=== PATIENT | male | born 1945 | race Caucasian/White ===

== ENCOUNTER 2016-11-16 08:54 | Emergency (ER) | payer MEDICARE, BC ==
[2016-11-16] MEDS ORDERED: SODIUM CHLORIDE 0.9% 1,000 ML IV STA (09:11)
--- NOTE | 2016-11-16 09:13 | ED ---
Nausea/Vomiting/Diarrhea HPI - General Chief complaint: Nausea/Vomiting/Diarrhea Stated complaint: Chest pain/dehydration Time Seen by Provider: 11/16/16 09:05 Source: patient, RN notes reviewed Mode of arrival: ambulatory Limitations: no limitations - History of Present Illness Initial comments: This a 71-year-old male presents emergency Department with multiple complaints. Patient states that yesterday's had nausea vomiting diarrhea. Patient states that he said 3 episodes of left-sided chest pain that radiates down his left arm. Patient states it sharp pain. Patient states it feels different than when he and his heart attack in which she states it was dull at that time. Patient states his last episode was a few hours ago. Patient states she does have cardiac stent. Patient does take aspirin. Patient states his [place], stent was across her 6 or 7 years ago. Patient states he has not had any sick contacts. Patient states that he feels nauseated this time he hasn't vomited in a few hours and he has had no diarrhea a few hours. Patient denies any shortness of breath. Denies any diaphoretic episodes. Patient is a former smoker has a history of hypertension, hyperlipidemia, diabetes - Related Data Home Medications Medication Instructions Recorded Confirmed Aspirin 325 mg PO DAILY 02/05/14 11/16/16 Gabapentin 1,200 mg PO HS 02/05/14 11/16/16 Insulin Glargine [Lantus] 48 unit SQ HS 02/05/14 11/16/16 Nitroglycerin Sl Tabs [Nitrostat] 0.4 mg SUBLINGUAL Q5M PRN 02/05/14 11/16/16 Omeprazole [PriLOSEC] 20 mg PO DAILY 02/05/14 11/16/16 Simvastatin [Zocor] 40 mg PO HS 02/05/14 11/16/16 Insulin Aspart [NovoLOG] 12 unit SQ AC-TID 05/01/14 11/16/16 Gabapentin 600 mg PO DAILY 06/20/15 11/16/16 amLODIPine [Norvasc] 5 mg PO DAILY 06/20/15 11/16/16 Allergies Allergy/AdvReac Type Severity Reaction Status Date / Time No Known Allergies Allergy Verified 11/16/16 09:09 Review of Systems ROS Statement: Those systems with pertinent positive or pertinent negative responses have been documented in the HPI. ROS Other: All systems not noted in ROS Statement are negative. Past Medical History Past Medical History: Coronary Artery Disease (CAD), Cancer, Chest Pain / Angina , Diabetes Mellitus, GERD/Reflux, Hearing Disorder / Deafness, Hyperlipidemia, Hypertension, Myocardial Infarction ([place]), Renal Disease Additional Past Medical History / Comment(s): 06-20-15 ADM MPH W/ POSS SBO, DIARRHEA, DEHYDRATION. BRONCHITIS. SKIN CANCER 2006. Last Myocardial Infarction Date:: 2010 History of Any Multi-Drug Resistant Organisms: None Reported Past Surgical History: Appendectomy, Bowel Resection, Heart Catheterization With Stent, Orthopedic Surgery, Tonsillectomy Additional Past Surgical History / Comment(s): W/ COLONOSCOPY IN PAST/ PERFORATED BOWEL/BOWEL RESECTION DONE. PTCA W/ STENT IN 2010. LT KNEE ARTHROSCOPY. SKIN CANCER REMOVED. cataract removal Past Anesthesia/Blood Transfusion Reactions: No Reported Reaction Date of Last Stent Placement:: 2010 Past Psychological History: No Psychological Hx Reported Smoking Status: Former smoker Past Alcohol Use History: Rare Additional Past Alcohol Use History / Comment(s): SMOKED >30 YEARS, QUIT 1983 SMOKED 1 PPD Past Drug Use History: None Reported - Past Family History Father Family Medical History: Hypertension Additional Family Medical History / Comment(s): DAD IS TILL ALIVE AT AGE 98 HAS SOME MINOR HEART PROBLEMS Mother History Unknown: Yes Family Medical History: No Reported History General Exam Limitations: no limitations General appearance: alert, in no apparent distress Head exam: Present: atraumatic, normocephalic, normal inspection Respiratory exam: Present: normal lung sounds bilaterally. Absent: respiratory distress, wheezes, rales, rhonchi, stridor Cardiovascular Exam: Present: regular rate, normal rhythm, normal heart sounds. Absent: systolic murmur, diastolic murmur, rubs, gallop, clicks GI/Abdominal exam: Present: soft, normal bowel sounds. Absent: distended, tenderness, guarding, rebound, rigid Neurological exam: Present: alert, oriented X3, CN II-XII intact, reflexes normal. Absent: motor sensory deficit Skin exam: Present: warm, dry, intact, normal color. Absent: rash Course Vital Signs 11/16/16 11/16/16 08:55 09:48 Temperature 98 F 97.2 F L Pulse Rate 100 86 Respiratory 20 16 Rate Blood Pressure 118/73 137/65 O2 Sat by Pulse 96 97 Oximetry Medical Decision Making - Medical Decision Making 71-year-old male present emergency department for nausea vomiting diarrhea just comfort. Patient's lab work all within normal limits. Patient's EKG unchanged. Patient states she does feel much improved at this time. I did encourage the patient and advised that he needs [facility] repeat troponin, cardiac evaluation. Patient states that he does not want to stay in refuses admission. Patient does understand the risk at this time. - Lab Data Result diagrams: 11/16/16 09:07 11/16/16 09:07 Lab Results 11/16/16 11/16/16 11/16/16 Range/Units 09:07 09:07 09:07 WBC 7.7 (3.8-10.6) k/uL RBC 5.01 (4.30-5.90) m/uL Hgb 13.7 (13.0-17.5) gm/dL Hct 42.1 (39.0-53.0) % MCV 84.0 (80.0-100.0) fL MCH 27.3 (25.0-35.0) pg MCHC 32.5 (31.0-37.0) g/dL RDW 15.0 (11.5-15.5) % Plt Count 285 (150-450) k/uL Neutrophils % 66 % Lymphocytes % 23 % Monocytes % 6 % Eosinophils % 1 % Basophils % 1 % Neutrophils # 5.1 (1.3-7.7) k/uL Lymphocytes # 1.7 (1.0-4.8) k/uL Monocytes # 0.5 (0-1.0) k/uL Eosinophils # 0.1 (0-0.7) k/uL Basophils # 0.0 (0-0.2) k/uL PT 10.7 (9.0-12.0) sec INR 1.1 (<1.1) APTT 23.4 (22.0-30.0) sec Sodium 139 (137-145) mmol/L Potassium 5.0 (3.5-5.1) mmol/L Chloride 101 (98-107) mmol/L Carbon Dioxide 22 (22-30) mmol/L Anion Gap 16 mmol/L BUN 27 H (9-20) mg/dL Creatinine 1.58 H (0.66-1.25) mg/dL Est GFR (MDRD) Af Amer 52 (>60 ml/min/1.73 sqM) Est GFR (MDRD) Non-Af 43 (>60 ml/min/1.73 sqM) Glucose 216 H (74-99) mg/dL Calcium 9.6 (8.4-10.2) mg/dL Magnesium 1.5 L (1.6-2.3) mg/dL Total Bilirubin 1.0 (0.2-1.3) mg/dL AST 21 (17-59) U/L ALT 25 (21-72) U/L Alkaline Phosphatase 87 (38-126) U/L Troponin I (0.000-0.034) ng/mL Total Protein 7.9 (6.3-8.2) g/dL Albumin 4.4 (3.5-5.0) g/dL Amylase 38 (30-110) U/L Lipase 40 (23-300) U/L Urine Color Urine Appearance (Clear) Urine pH (5.0-8.0) Ur Specific [place] (1.001-1.035) Urine Protein (Negative) Urine Glucose (UA) (Negative) Urine Ketones (Negative) Urine Blood (Negative) Urine Nitrate (Negative) Urine Bilirubin (Negative) Urine Urobilinogen (<2.0) mg/dL Ur Leukocyte Esterase (Negative) Urine RBC (0-5) /hpf Urine WBC (0-5) /hpf Ur Squamous Epith Cells (0-4) /hpf Hyaline Casts (0-2) /lpf Urine Mucus (None) /hpf 11/16/16 11/16/16 Range/Units 09:07 09:15 WBC (3.8-10.6) k/uL RBC (4.30-5.90) m/uL Hgb (13.0-17.5) gm/dL Hct (39.0-53.0) % MCV (80.0-100.0) fL MCH (25.0-35.0) pg MCHC (31.0-37.0) g/dL RDW (11.5-15.5) % Plt Count (150-450) k/uL Neutrophils % % Lymphocytes % % Monocytes % % Eosinophils % % Basophils % % Neutrophils # (1.3-7.7) k/uL Lymphocytes # (1.0-4.8) k/uL Monocytes # (0-1.0) k/uL Eosinophils # (0-0.7) k/uL Basophils # (0-0.2) k/uL PT (9.0-12.0) sec INR (<1.1) APTT (22.0-30.0) sec Sodium (137-145) mmol/L Potassium (3.5-5.1) mmol/L Chloride (98-107) mmol/L Carbon Dioxide (22-30) mmol/L Anion Gap mmol/L BUN (9-20) mg/dL Creatinine (0.66-1.25) mg/dL Est GFR (MDRD) Af Amer (>60 ml/min/1.73 sqM) Est GFR (MDRD) Non-Af (>60 ml/min/1.73 sqM) Glucose (74-99) mg/dL Calcium (8.4-10.2) mg/dL Magnesium (1.6-2.3) mg/dL Total Bilirubin (0.2-1.3) mg/dL AST (17-59) U/L ALT (21-72) U/L Alkaline Phosphatase (38-126) U/L Troponin I <0.012 (0.000-0.034) ng/mL Total Protein (6.3-8.2) g/dL Albumin (3.5-5.0) g/dL Amylase (30-110) U/L Lipase (23-300) U/L Urine Color Yellow Urine Appearance Clear (Clear) Urine pH 5.0 (5.0-8.0) Ur Specific [place] 1.015 (1.001-1.035) Urine Protein 1+ H (Negative) Urine Glucose (UA) Negative (Negative) Urine Ketones Negative (Negative) Urine Blood Negative (Negative) Urine Nitrate Negative (Negative) Urine Bilirubin Negative (Negative) Urine Urobilinogen <2.0 (<2.0) mg/dL Ur Leukocyte Esterase Negative (Negative) Urine RBC <1 (0-5) /hpf Urine WBC 2 (0-5) /hpf Ur Squamous Epith Cells <1 (0-4) /hpf Hyaline Casts 5 H (0-2) /lpf Urine Mucus Occasional H (None) /hpf 11/16/16 10:40 EKG performed at 9:12 normal sinus rhythm rate of 97, MD interval 164, QRS duration 100 QT/QTC 352/447 Disposition Clinical Impression: Gastroenteritis, Chest pain Disposition: HOME SELF-CARE Condition: Stable Instructions: Gastroenteritis (ED) Additional Instructions: Please return to the Emergency Department if symptoms worsen or any other concerns. Time of Disposition: 10:40
[2016-11-16 09:27] LABS: Basophils % (A) 1 %; CH 27.3; CHCM 32.7; Eosinophils # (A) 0.1 k/uL (0-0.7); Eosinophils % (A) 1 %; HCT 42.1 % (39.0-53.0); HDW 2.84; HGB 13.7 gm/dL (13.0-17.5); Luc % (Auto) 4; Lymphocytes # (A) 1.7 k/uL (1.0-4.8); Lymphocytes % (A) 23 %; MCH 27.3 pg (25.0-35.0); MCHC 32.5 g/dL (31.0-37.0); Mean Platelet Volume 7.1; Monocytes # (A) 0.5 k/uL (0-1.0); Monocytes % (A) 6 %; Neutrophils # (A) 5.1 k/uL (1.3-7.7); Neutrophils % (A) 66 %; RBC 5.01 m/uL (4.30-5.90); WBC 7.7 k/uL (3.8-10.6); WBC (Perox) 7.79
--- NOTE | 2016-11-16 09:33 | XR ---
EXAMINATION TYPE: XR chest 2V DATE OF EXAM: 11/16/2016 9:29 AM COMPARISON: 06/20/2015 TECHNIQUE: PA and lateral views submitted. HISTORY: Shortness of breath FINDINGS: The heart size is stable. Subsegmental changes at the left lung base. No pleural effusion or pneumoth orax. Few prominent small bowel loops are seen in the abdomen. Hypertrophic change of the AC joint. H ypertrophic change of the spine with degenerative disc disease. IMPRESSION: 1. Left basilar atelectasis or early infiltrate. 2. Few prominent bowel loops are seen in the upper abdomen which is nonspecific.
[2016-11-16 09:37] LABS: INR 1.1 (<1.1); Partial Thromboplastin Time 23.4 sec (22.0-30.0); Prothrombin Time 10.7 sec (9.0-12.0)
[2016-11-16 09:44] LABS: Calcium 9.6 mg/dL (8.4-10.2); Magnesium 1.5 mg/dL (1.6-2.3); Total Protein 7.9 g/dL (6.3-8.2)
[2016-11-16 09:54] VITALS: RESP 16
[2016-11-16 10:03] LABS: Appearance,Urine Clear (Clear); Bilirubin,Urine Negative (Negative); Glucose,Urine (UA) Negative (Negative); Ketones,Urine Negative (Negative); Leukocyte Esterase,Urine Negative (Negative); Mucus,Urine Occasional /hpf; Nitrite,Urine Negative (Negative); Particle Count 6462; Protein,Urine 1+ (Negative); RBC,Urine <1 /hpf (0-5); Specific Gravity,Urine 1.015 (1.001-1.035); Squamous Epithelial Cell,Urine <1 /hpf (0-4); UA Billing (MACRO vs. MICRO) MICRO; Urobilinogen,Urine <2.0 mg/dL (<2.0); WBC,Urine 2 /hpf (0-5)
[2016-11-16 11:14] VITALS: BP 121/64; PULSE 77; TEMP 97.7
== END 2016-11-16 11:11 | disposition home or self-care (01) ==
LOC: EC 08:54
DX: K52.9 Noninfective gastroenteritis and colitis, unspecified (principal); R07.9 Chest pain, unspecified; Z79.82 Long term (current) use of aspirin; Z95.5 Presence of coronary angioplasty implant and graft; I25.2 Old myocardial infarction; Z87.891 Personal history of nicotine dependence; E11.9 Type 2 diabetes mellitus without complications; Z79.4 Long term (current) use of insulin; K21.9 Gastro-esophageal reflux disease without esophagitis; Z79.899 Other long term (current) drug therapy; I10 Essential (primary) hypertension; E78.5 Hyperlipidemia, unspecified
CPT/HCPCS: 36415; 71020; 80053; 81001; 82150; 83690; 83735; 84484; 85025; 85610; 85730; 93005; 96360; 99284

== ENCOUNTER → 2017-03-01 | Outpatient (CLI) | payer MEDICARE, BC ==
[2017-03-01 07:58] LABS: ALT 31 U/L (21-72); AST 28 U/L (17-59); Alkaline Phosphatase 81 U/L (38-126); Anion Gap 12 mmol/L; Blood Urea Nitrogen 21 mg/dL (9-20); Calcium 9.7 mg/dL (8.4-10.2); Carbon Dioxide 24 mmol/L (22-30); Chloride 107 mmol/L (98-107); Cholesterol 129 mg/dL (<200); Glucose 139 mg/dL (74-99); HDL Cholesterol 39 mg/dL (40-60); Non-African American GFR(MDRD) 54 (>60 ml/min/1.73 sqM); Potassium 4.8 mmol/L (3.5-5.1); Sodium 143 mmol/L (137-145); Total Bilirubin 0.8 mg/dL (0.2-1.3); Triglycerides 157 mg/dL (<150)
== END | disposition home or self-care (01) ==
LOC: LABWHC1 06:52
PROVIDERS: ATTEND Internal Medicine Endocrinology, Diabetes & Metabolism
DX: E11.65 Type 2 diabetes mellitus with hyperglycemia (principal)
CPT/HCPCS: 36415; 80053; 80061; 82043; 83036; 84443

== ENCOUNTER 2017-06-01 05:29 | Emergency (ER) | payer MEDICARE, BC ==
[2017-06-01 05:37] VITALS: RESP 18
[2017-06-01] MEDS ORDERED: SODIUM CHLORIDE 0.9% 500 ML IV STA (05:51)
[2017-06-01] MEDS ORDERED: SODIUM CHLORIDE 0.9% 1,000 ML IV STA ×2 (05:51→06:24)
[2017-06-01] MEDS ORDERED: ONDANSETRON 4 MG/2 ML VIAL IVP STA (05:51)
[2017-06-01] MEDS ORDERED: FAMOTIDINE 20 MG/2 ML VIAL IV STA (05:51)
--- NOTE | 2017-06-01 05:53 | ED ---
General Adult HPI - General Chief complaint: Nausea/Vomiting/Diarrhea Stated complaint: Dehydration Time Seen by Provider: 06/01/17 05:41 Source: patient, RN notes reviewed Mode of arrival: EMS Limitations: no limitations - History of Present Illness Initial comments: Patient is a pleasant 71-year-old male presenting to the emergency department with concerns for dehydration. Patient complains of diarrhea since yesterday. Patient states he has had a proximal he 5 episodes. Patient has a mild ache in his stomach however states no pain. Patient has had some mild nausea. Patient is drinking fluids. Patient states he has had this similar problem several times previously and just needed a little bit of fluids. Patient does not feel he would need to be admitted and would like to go home after some fluids. Patient should be sent symptoms to previous partial bowel resection. No fevers. No vomiting. - Related Data Home Medications Medication Instructions Recorded Confirmed Aspirin 325 mg PO DAILY 02/05/14 11/16/16 Gabapentin 1,200 mg PO HS 02/05/14 11/16/16 Insulin Glargine [Lantus] 48 unit SQ HS 02/05/14 11/16/16 Nitroglycerin Sl Tabs [Nitrostat] 0.4 mg SUBLINGUAL Q5M PRN 02/05/14 11/16/16 Omeprazole [PriLOSEC] 20 mg PO DAILY 02/05/14 11/16/16 Simvastatin [Zocor] 40 mg PO HS 02/05/14 11/16/16 Insulin Aspart [NovoLOG] 12 unit SQ AC-TID 05/01/14 11/16/16 Gabapentin 600 mg PO DAILY 06/20/15 11/16/16 amLODIPine [Norvasc] 5 mg PO DAILY 06/20/15 11/16/16 Allergies Allergy/AdvReac Type Severity Reaction Status Date / Time No Known Allergies Allergy Verified 11/16/16 09:09 Review of Systems ROS Statement: Those systems with pertinent positive or pertinent negative responses have been documented in the HPI. ROS Other: All systems not noted in ROS Statement are negative. Constitutional: Denies: fever Eyes: Denies: eye pain ENT: Denies: ear pain Respiratory: Denies: cough Cardiovascular: Denies: chest pain Endocrine: Denies: fatigue Gastrointestinal: Reports: nausea, diarrhea. Denies: vomiting Genitourinary: Denies: urgency Musculoskeletal: Denies: back pain Skin: Denies: rash Neurological: Denies: weakness Past Medical History Past Medical History: Coronary Artery Disease (CAD), Cancer, Chest Pain / Angina , Diabetes Mellitus, GERD/Reflux, Hearing Disorder / Deafness, Hyperlipidemia, Hypertension, Myocardial Infarction ([place]), Renal Disease Additional Past Medical History / Comment(s): 06-20-15 ADM MPH W/ POSS SBO, DIARRHEA, DEHYDRATION. BRONCHITIS. SKIN CANCER 2006. Last Myocardial Infarction Date:: 2010 History of Any Multi-Drug Resistant Organisms: None Reported Past Surgical History: Appendectomy, Bowel Resection, Heart Catheterization With Stent, Orthopedic Surgery, Tonsillectomy Additional Past Surgical History / Comment(s): W/ COLONOSCOPY IN PAST/ PERFORATED BOWEL/BOWEL RESECTION DONE. PTCA W/ STENT IN 2010. LT KNEE ARTHROSCOPY. SKIN CANCER REMOVED. cataract removal Past Anesthesia/Blood Transfusion Reactions: No Reported Reaction Date of Last Stent Placement:: 2010 Past Psychological History: No Psychological Hx Reported Smoking Status: Former smoker Past Alcohol Use History: Rare Past Drug Use History: None Reported - Past Family History Father Family Medical History: Hypertension Additional Family Medical History / Comment(s): DAD IS TILL ALIVE AT AGE 98 HAS SOME MINOR HEART PROBLEMS Mother History Unknown: Yes Family Medical History: No Reported History General Exam Limitations: no limitations General appearance: alert, in no apparent distress Head exam: Present: atraumatic Eye exam: Present: normal appearance, PERRL ENT exam: Present: normal oropharynx Neck exam: Present: normal inspection Respiratory exam: Present: normal lung sounds bilaterally Cardiovascular Exam: Present: regular rate, normal rhythm Expanded Peripheral pulses: 2+: Dorsalis Pedis (R), Dorsalis Pedis (L) GI/Abdominal exam: Present: soft, normal bowel sounds. Absent: distended, tenderness, guarding, rebound, rigid, pulsatile mass Extremities exam: Present: normal inspection Neurological exam: Present: alert Psychiatric exam: Present: normal affect, normal mood Skin exam: Present: normal color Course Vital Signs 06/01/17 05:34 Temperature 98.1 F Pulse Rate 91 Respiratory 18 Rate Blood Pressure 117/61 O2 Sat by Pulse 96 Oximetry Medical Decision Making - Medical Decision Making Patient reevaluated and resting comfortably in bed. Patient feels better and is comfortable with discharge. There is slight elevation of creatinine and patient will be provided some fluids prior to discharge. Patient is advised to follow-up with his doctor and have repeat testing. - Lab Data Result diagrams: 06/01/17 05:43 06/01/17 05:43 Lab Results 06/01/17 06/01/17 06/01/17 Range/Units 05:43 05:43 06:00 WBC 8.1 (3.8-10.6) k/uL RBC 4.70 (4.30-5.90) m/uL Hgb 12.6 L (13.0-17.5) gm/dL Hct 39.2 (39.0-53.0) % MCV 83.4 (80.0-100.0) fL MCH 26.7 (25.0-35.0) pg MCHC 32.1 (31.0-37.0) g/dL RDW 15.5 (11.5-15.5) % Plt Count 275 (150-450) k/uL Neutrophils % 72 % Lymphocytes % 19 % Monocytes % 5 % Eosinophils % 1 % Basophils % 0 % Neutrophils # 5.9 (1.3-7.7) k/uL Lymphocytes # 1.5 (1.0-4.8) k/uL Monocytes # 0.4 (0-1.0) k/uL Eosinophils # 0.1 (0-0.7) k/uL Basophils # 0.0 (0-0.2) k/uL Sodium 137 (137-145) mmol/L Potassium 4.8 (3.5-5.1) mmol/L Chloride 102 (98-107) mmol/L Carbon Dioxide 21 L (22-30) mmol/L Anion Gap 14 mmol/L BUN 32 H (9-20) mg/dL Creatinine 2.00 H (0.66-1.25) mg/dL Est GFR (MDRD) Af Amer 40 (>60 ml/min/1.73 sqM) Est GFR (MDRD) Non-Af 33 (>60 ml/min/1.73 sqM) Glucose 156 H (74-99) mg/dL Calcium 9.4 (8.4-10.2) mg/dL Total Bilirubin 0.6 (0.2-1.3) mg/dL AST 23 (17-59) U/L ALT 31 (21-72) U/L Alkaline Phosphatase 86 (38-126) U/L Total Protein 7.6 (6.3-8.2) g/dL Albumin 4.2 (3.5-5.0) g/dL Urine Color Yellow Urine Appearance Clear (Clear) Urine pH 5.0 (5.0-8.0) Ur Specific [place] 1.007 (1.001-1.035) Urine Protein Negative (Negative) Urine Glucose (UA) Negative (Negative) Urine Ketones Negative (Negative) Urine Blood Negative (Negative) Urine Nitrite Negative (Negative) Urine Bilirubin Negative (Negative) Urine Urobilinogen <2.0 (<2.0) mg/dL Ur Leukocyte Esterase Negative (Negative) Disposition Clinical Impression: Dehydration Disposition: HOME SELF-CARE Condition: Stable Instructions: Acute Diarrhea (ED), Dehydration (ED) Additional Instructions: Please follow-up to in the next day or 2 for recheck. Please have your doctor recheck your kidney function. Return for increased diarrhea, abdominal pain, fevers, vomiting, worsening symptoms or other concerns. Referrals: Jarred Scott MD [Primary Care Provider] - 1-2 days Time of Disposition: 06:35
[2017-06-01 06:06] LABS: Basophils % (A) 0 %; CH 28.1; CHCM 33.8; Eosinophils # (A) 0.1 k/uL (0-0.7); Eosinophils % (A) 1 %; HCT 39.2 % (39.0-53.0); HDW 2.71; HGB 12.6 gm/dL (13.0-17.5); Luc # (Auto) 0.16; Luc % (Auto) 2; Lymphocytes # (A) 1.5 k/uL (1.0-4.8); Lymphocytes % (A) 19 %; MCH 26.7 pg (25.0-35.0); MCHC 32.1 g/dL (31.0-37.0); MCV 83.4 fL (80.0-100.0); Mean Platelet Volume 7.5; Monocytes # (A) 0.4 k/uL (0-1.0); Monocytes % (A) 5 %; Neutrophils # (A) 5.9 k/uL (1.3-7.7); Neutrophils % (A) 72 %; RDW 15.5 % (11.5-15.5); WBC 8.1 k/uL (3.8-10.6); WBC (Perox) 8.48
[2017-06-01 06:10] LABS: Appearance,Urine Clear (Clear); Bilirubin,Urine Negative (Negative); Glucose,Urine (UA) Negative (Negative); Ketones,Urine Negative (Negative); Leukocyte Esterase,Urine Negative (Negative); Nitrite,Urine Negative (Negative); Protein,Urine Negative (Negative); Specific Gravity,Urine 1.007 (1.001-1.035); UA Billing (MACRO vs. MICRO) CHEM; Urobilinogen,Urine <2.0 mg/dL (<2.0)
[2017-06-01 06:15] LABS: Calcium 9.4 mg/dL (8.4-10.2); Potassium 4.8 mmol/L (3.5-5.1); Total Bilirubin 0.6 mg/dL (0.2-1.3); Total Protein 7.6 g/dL (6.3-8.2)
[2017-06-01 07:38] VITALS: BP 117/65; PULSE 75; TEMP 98.9
== END 2017-06-01 07:38 | disposition home or self-care (01) ==
LOC: EC 05:29
DX: E86.0 Dehydration (principal); R11.0 Nausea; R10.9 Unspecified abdominal pain; E78.5 Hyperlipidemia, unspecified; I10 Essential (primary) hypertension; I25.10 Atherosclerotic heart disease of native coronary artery without angina pectoris; E11.9 Type 2 diabetes mellitus without complications; K21.9 Gastro-esophageal reflux disease without esophagitis; I25.2 Old myocardial infarction; Z87.891 Personal history of nicotine dependence; Z79.4 Long term (current) use of insulin; Z79.82 Long term (current) use of aspirin; Z79.899 Other long term (current) drug therapy; Z85.828 Personal history of other malignant neoplasm of skin; Z86.79 Personal history of other diseases of the circulatory system; Z90.49 Acquired absence of other specified parts of digestive tract; Z98.890 Other specified postprocedural states
CPT/HCPCS: 99284; 96374; 96375; 96361 ×2; 36415; 80053; 85025; 81003; J2405

== ENCOUNTER → 2017-08-19 | Outpatient (CLI) | payer MEDICARE, BC ==
[2017-08-19 08:06] LABS: Calcium 9.4 mg/dL (8.4-10.2); Potassium 4.9 mmol/L (3.5-5.1); Total Protein 7.9 g/dL (6.3-8.2)
[2017-08-19 08:20] LABS: Total Bilirubin 0.4 mg/dL (0.2-1.3)
[2017-08-19 16:56] LABS: Urine Creatinine 49.1 mg/dL
== END | disposition home or self-care (01) ==
LOC: LABWHC1 06:55
PROVIDERS: ATTEND Internal Medicine Endocrinology, Diabetes & Metabolism
DX: E11.65 Type 2 diabetes mellitus with hyperglycemia (principal)
CPT/HCPCS: 36415; 80053; 80061; 82043; 82570; 82607; 83036; 84443

== ENCOUNTER → 2017-10-28 | Outpatient (CLI) | payer MEDICARE, BC ==
--- NOTE | 2017-10-28 16:28 | US ---
EXAMINATION TYPE: US kidneys/renal and bladder DATE OF EXAM: 10/28/2017 COMPARISON: CT 2014 CLINICAL HISTORY: N28.1 Cyst of kidney. large body of habitus EXAM MEASUREMENTS: Right Kidney: 10.3 x 4.8 x 5.1 cm Left Kidney: 9.8 x 4.7 x 5.5 cm Post Void Residual Volume: 24 mL Right Kidney: upper pole 2.2 x 6.2 x5.6 cm cyst. This appears simple. 2.4 x 2.2 x 2.2 cm, bright echo non obstructing mid 0.3 cm Left Kidney: lateral column of raoul 2.9 x 1.8 x 1.5 cm cyst. This cannot be classified as simple based on the current ultrasound., small bright echo 0.5, 1.3 x 1.3 x 2.0 cm, cyst upper pole. Bladder: wnl Bilateral Jets seen: Yes Normal Post Void Residual: Yes IMPRESSION: 1. Bilateral renal stones. 2. Bilateral renal cysts. This is simple on the right but may be complex on the left. Follow-up left renal cyst by ultrasound in 3-6 months.
== END | disposition home or self-care (01) ==
LOC: RADUSWWP 15:27
PROVIDERS: ATTEND Internal Medicine
DX: N28.1 Cyst of kidney, acquired (principal); N20.0 Calculus of kidney
CPT/HCPCS: 76770

== ENCOUNTER → 2017-11-29 | Outpatient (CLI) | payer MEDICARE, BC ==
--- NOTE | 2017-11-29 12:30 | CT ---
EXAMINATION TYPE: CT abdomen wo con DATE OF EXAM: 11/29/2017 COMPARISON: 06/20/2015 and ultrasound 10/28/2017 HISTORY: 72-year-old male although renal cyst TECHNIQUE: Contiguous axial scanning of the abdomen without IV contrast. Coronal and sagittal reconst ructions performed. CT DLP: 746 mGycm Automated exposure control for dose reduction was used. FINDINGS: Heart upper limits of normal in size without pericardial effusion. Coronary vessel calcifications are present in remarkable for coronary artery disease. Small hiatal hernia. Approximately 4 pulmonary nodules of the right base measure up to 8 mm, unchanged from 06/20/2015 comp atible with a benign etiology. No pleural effusion. Noncontrast appearance of the liver, gallbladder, adrenal glands, spleen, atrophic pancreas show no g ross abnormality. Large 5.8 cm cyst redemonstrated pole right kidney. Smaller 2.3 cm posterior mid pole cyst right kidn ey redemonstrated. Smaller hypodense lesion posterior lower pole right kidney measures 1.4 cm and is too small for accurate CT characterization. A subtle hypodensity was present in 2014 and the smaller at that time. A cyst is favored. On the left, a centrally located 2.3 cm hypodense lesion is slightly larger compared to 1.8 cm, previ ously but still suggestive of a cyst. No dilated small bowel, free fluid, or free air. Scattered prominent mesenteric lymph nodes measuring up to 1.1 cm are unchanged suggesting a chronic postinflammatory etiology. Small epigastric ventral abdominal wall hernia containing omental fat measuring 2.9 cm, axial image 3 7. Some focal soft tissue stranding in the subcutaneous fat of the mid abdomen on either side suggest ing subcutaneous injections. Suggestion of prior incisional scar. In the supraumbilical region, there is a 3.5 cm wide omental fat -containing hernia, slightly smaller compared to 3.9 cm in 2015. The anterior wall of a small bowel l oop extends across the hernia neck. No obstructive changes. Some surgical material along the mid sigmoid and also small bowel loop in the right lower quadrant fr om prior surgery. Mild to moderate atherosclerotic calcifications abdominal aorta and iliac arteries. Bones: Degenerative changes throughout the lumbar spine and endplate spondylosis visualized lower tho racic spine. IMPRESSION: 1. THE HYPOECHOIC LESION MEASURING 2.9 CM IN THE MID TO LOWER POLE LEFT KIDNEY SEEN ON THE 10/28/2017 U LTRASOUND IS NOT CLEARLY IDENTIFIED ON THIS NONCONTRAST CT. OTHER HYPODENSE LESIONS ARE PRESENT IN SANJIV TH KIDNEYS AND WERE SEEN IN 2015 SUGGESTIVE OF BENIGN CYSTS. IF THE PATIENT CANNOT RECEIVE IV CONTRAS T, THE 2.9 CM LEFT KIDNEY LESION CAN BE REASSESSED ON 3-6 MONTH FOLLOW-UP ULTRASOUND. 2. A COUPLE SMALL VENTRAL ABDOMINAL WALL HERNIAS CONTAINING FAT MEASURING UP TO 3.5 CM. THE LARGER 3. 5 CM SUPRAUMBILICAL HERNIA IS SLIGHTLY SMALLER FROM 2015 BUT NOW HAS A SMALL BOWEL HILTON HERNIA. NO OBSTRUCTIVE CHANGES. 3. LEFT BASILAR PULMONARY NODULES MEASURING UP TO 8 MM ARE STABLE FROM 2015 SUGGESTING A BENIGN ETIOL OGY. 5. SMALL HIATAL HERNIA.
== END | disposition home or self-care (01) ==
LOC: RADCTMAIN 10:44
PROVIDERS: ATTEND Urology
DX: N28.89 Other specified disorders of kidney and ureter (principal); K43.9 Ventral hernia without obstruction or gangrene; K42.9 Umbilical hernia without obstruction or gangrene; K44.9 Diaphragmatic hernia without obstruction or gangrene
CPT/HCPCS: 74150

== ENCOUNTER 2018-01-27 07:44 | Day surgery (SDC) | payer MEDICARE, BC ==
[2018-01-24 15:38] VITALS: BMI 32.7
[~2018-01-27 07:44] MED LIST: ALPRAZolam 0.25 MG TAB PO PRN; ALPRAZolam 0.5 MG TAB PO PRN; ASPIRIN 325 MG TAB PO STA; ATORVASTATIN 80 MG TAB PO STA; NITROGLYCERIN SL TABS 0.4 MG TAB SUBLINGUAL PRN; SODIUM CHLORIDE 0.9% 1,000 ML in EMPTY BAG 1 BAG IV ONE
[2018-01-27 08:16] LABS: Basophils # (A) 0.1 k/uL (0-0.2); Basophils % (A) 1 %; Eosinophils # (A) 0.2 k/uL (0-0.7); Eosinophils % (A) 3 %; HCT 36.7 % (39.0-53.0); HGB 11.9 gm/dL (13.0-17.5); Lymphocytes # (A) 2.4 k/uL (1.0-4.8); Lymphocytes % (A) 32 %; MCH 26.7 pg (25.0-35.0); MCHC 32.6 g/dL (31.0-37.0); MCV 82.1 fL (80.0-100.0); Mean Platelet Volume 7.4; Monocytes # (A) 0.5 k/uL (0-1.0); Monocytes % (A) 6 %; Neutrophils # (A) 4.2 k/uL (1.3-7.7); Neutrophils % (A) 55 %; Platelet Count 264 k/uL (150-450); RBC 4.47 m/uL (4.30-5.90); RDW 15.3 % (11.5-15.5); WBC 7.6 k/uL (3.8-10.6)
[2018-01-27 08:18] LABS: Glucose,Whole Blood 175 mg/dL (75-99)
[2018-01-27] MEDS ORDERED: SODIUM CHLORIDE 0.9% 1,000 ML IV ONE (08:20)
[2018-01-27 08:26] LABS: Calcium 9.5 mg/dL (8.4-10.2); Potassium 4.9 mmol/L (3.5-5.1)
[2018-01-27] MEDS ORDERED: VERAPAMIL 2.5 MG/ML 2 ML AMP ONE (12:11)
[2018-01-27] MEDS ORDERED: fentaNYL (PF) 50 MCG/ML 2 ML AMP ONE (12:11)
[2018-01-27] MEDS ORDERED: LIDOCAINE 2% INJ 20 MG/ML (20 ML MDV) ONE ×2 (12:11→13:42)
[2018-01-27] MEDS ORDERED: fentaNYL (PF) 50 MCG/ML 2 ML AMP IV ONE (12:34)
[2018-01-27] MEDS: LIDOCAINE 2% INJ 20 MG/ML SQ ONE ×2 (12:37→13:42)
[2018-01-27] MEDS ORDERED: VERAPAMIL SYRINGE (5 MG/10 ML) INTRAARTER ONE (12:39)
[2018-01-27] MEDS ORDERED: CLOPIDOGREL 75 MG TAB ONE (12:49)
[2018-01-27] MEDS ORDERED: BIVALIRUDIN BOLUS 250 MG/50 ML IV ONE (12:50)
[2018-01-27] MEDS ORDERED: CLOPIDOGREL 75 MG TAB PO ONE (12:52)
[2018-01-27] MEDS ORDERED: BIVALIRUDIN 250 MG in SODIUM CHLORIDE 0.9% 50 ML IV ONE ×2 (12:52→13:28)
[2018-01-27] MEDS ORDERED: IOPAMIDOL-370 125ML BTL INJ ONE (13:18)
[2018-01-27] MEDS ORDERED: IOPAMIDOL-370 100ML BTL INJ ONE ×2 (14:15→14:28)
[2018-01-27] MEDS ORDERED: HEPARIN SODIUM 1,000 UN/ML (10ML VL) ONE (14:30)
[2018-01-27] MEDS ORDERED: ZOLPIDEM 5 MG TAB PO PRN (14:44)
[2018-01-27] MEDS ORDERED: MAG HYDROX/AL HYDROX/SIMETH 30 ML CUP PO PRN (14:44)
[2018-01-27] MEDS ORDERED: ATROPINE SULFATE 0.1 MG/ML 10ML SYRINGE IV PRN (14:44)
[2018-01-27] MEDS ORDERED: RX INFO: IV CONTRAST WAS GIVEN 1 EACH MISC MISCELLANE PRN (14:44)
[2018-01-27] MEDS ORDERED: NITROGLYCERIN SL TABS 0.4 MG TAB SUBLINGUAL PRN (14:44)
[2018-01-27] MEDS ORDERED: SODIUM CHLORIDE 0.9% 1,000 ML IV SCH (14:45)
--- NOTE | 2018-01-27 15:11 | PTCA ---
PERCUTANEOUSTRANS CORORONARY ANGIOGRAPHY Mr. Varner is a 72-year-old male with a known history of coronary artery disease , who presented with progressive exertional angina pectoris. He underwent cardiac catheterization, was found to have critical stenosis involving the proximal calcified right coronary artery and recommendation was made regarding angioplasty and stenting. PROCEDURE: A 6-[place] FR4 guiding catheter was introduced in the system. After cannulating the right coronary ostium, a 0.014 advanced medium weight J-wire was advanced across the lesion and positioned distally. Then a Whisper J-wire was advanced next to the first one and positioned distally, following that, a 2.5 x 12 mm Trek balloon was advanced and two inflations at 10 atmospheres were done. The balloon was removed and attempt to advance a 2.5 x 18 mm Xience Alpine stent were unsuccessful. That stent was removed and a 2.5 x 15 mm Xience Alpine stent could not advance through the lesion. There was poor backup of the guiding catheter because of the tortuosity. At that point, and because of multiple attempts to advance the stent or advance a guidewire were unsuccessful. The guiding catheter, the balloon and the guidewire were removed and using Xylocaine anesthesia and Seldinger technique, a 6-[place] sheath was introduced into the right femoral artery. Following that, a 6-[place] FR 4 guiding catheter in the system. After cannulating the right coronary ostium, the whisper J-wire was advanced and positioned distally. Another 2 point whisper J-wire was advanced next to the first one in the bonifacio fashion and positioned distally. Following that, a 2.5 x 12 mm balloon Trek was advanced and inflation was done at 10 atmospheres. Following that, a 2.5 x 8 mm NC Trek balloon was advanced and one inflation at 10 atmospheres was done. Following that, the balloon was removed and a 2.5 x 8 mm Xience Alpine stent was deployed. It was dilated at 16 atmospheres. Following that, the balloon was removed and a GuideLiner was introduced in the system and with the help of the GuideLiner, a 2.5 x 8 mm Xience Alpine stent was advanced distal to the first one and deployed and was dilated at 16 atmospheres. After removing that balloon, another 2.5 X 8 mm Xience Alpine stent was deployed proximal to the first one at the ostium of the right coronary artery and was dilated at 16 atmospheres. Inflation overlap segment at 16 atmospheres was done. After the last inflation, after appropriate wait, the balloon and the guidewire were withdrawn back in the guiding catheter. Images were obtained and repeated. Those images revealed stable successful stenting. At that point, the guiding catheter, the balloon and the guidewire and the guidewire were removed. The sheath in the right radial artery was removed and TR band was applied and the sheath in the right femoral artery was sutured in place. Of note, the patient received Angiomax per protocol as well as oral loading dose of Plavix. He had chest discomfort and mild EKG changes with the inflation that resolved at the end of the procedure. RESULTS: Successful stenting of a 99% stenosis of the proximal right coronary artery in a heavily calcified vessel with reduction of stenosis from 99% to 0%. RECOMMENDATION: Patient will be continued on aspirin, Plavix beta blockers and statin. The importance of dual antiplatelet treatment were discussed with the patient and his family who are in full understanding and agreement. Duration of the procedure is 116 minutes. MMODL / IJN: [id number] / DIOMEDES
--- NOTE | 2018-01-27 15:11 | LTR ---
DATE OF SERVICE: 01/27/[address] Scott: I had the pleasure of performing cardiac catheterization on Mr. Varner at [facility] on January 27 and a full copy of procedure note will be forwarded to you. In brief, he was found to have severe critical stenosis involving a heavily calcified proximal right coronary artery. He underwent successful stenting of that vessel using drug eluting stent. I am hopeful that this procedure will stabilize his status. Thank you again for allowing me to participate in his care. Please feel free to call for any questions. Sincerely yours, ANA MARIA / BRE: [id number] /
--- NOTE | 2018-01-27 15:20 | CC ---
CARDIAC CATHETERIZATION REPORT Mr. Varner is a 72-year-old male known history of hypertension, hyperlipidemia, and diabetes mellitus, prior history of percutaneous revascularization of the LAD in 2005, who presented with symptoms of progressive exertional chest discomfort with progressive dyspnea. In view of that, recommendation made regarding cardiac catheterization. The procedures as well as risks and complication were discussed with the patient who is in full understanding and agreement. PROCEDURE: Patient was brought to general laborer in a fasting state after receiving fentanyl and Benadryl and achieving moderate conscious sedated state. Using Xylocaine anesthesia and Seldinger technique, 6-German sheath was introduced into the right radial artery. Selective right and left angiography performed using 5-German 3 and half bend right and left Scout catheter. Multiple views of the coronary artery including him. X-rays obtained. Following that, catheter were removed. Images were reviewed. FINDINGS: 1. FLUOROSCOPY: There was severe calcification involving all the coronary arteries. 2. Left Main: This is a short size vessel bifurcating left circumflex and left anterior descending artery. Left main coronary artery has no evidence of coronary artery disease. 3. Left Anterior Descending Artery: This is a calcified vessel, reaching to the apex with a wraparound apex segment giving rise to 2 small diagonal branch. The left descending artery has mild intimal disease in the mild to moderate intimal disease of 30% to 40% in the proximal to mid segment without any evidence of high-grade stenosis. The stented segment has no evidence of high-grade stenosis. 4. Left Circumflex: This is a large codominant vessel giving rise to a very large proximal obtuse marginal branch that has diffuse intimal disease with area of stenosis up to 40%. The left circumflex gives rise to 2 obtuse marginal branches that are large in mid segment and has no evidence of high-grade stenosis. Distally gives rise to a small PDA. Prior to the takeoff of the PDA there is a 99% stenosis. The vessel beyond that is small in caliber. 5. Right Coronary Artery: This is a large codominant vessel giving rise to a large PDA. The right coronary artery is heavily calcified proximally and has an area of stenosis of 99%. The rest of the vessel has intimal disease without any evidence of high-grade stenosis. 6. Left Ventriculogram: Left ventriculogram is not performed. CONCLUSION: 1. Severe critical stenosis involving the proximal calcified right coronary artery. 2. Moderate disease in the circumflex and the LAD with significant disease in the very distal circumflex and beyond that the vessel is quite small. RECOMMENDATION: In view of finding anatomy, I have recommended proceeding with angioplasty and stenting of the right coronary artery. The procedures, risks and complication were discussed with the patient who is in full understanding and agreement. MMJIMY / BRE: [id number] /
[2018-01-27] MEDS: SODIUM CHLORIDE 0.9% 1,000 ML IV SCH ×2 (16:24→20:48)
[2018-01-27 16:43] LABS: Glucose,Whole Blood 113 mg/dL (75-99)
[2018-01-27] MEDS: INSULIN ASPART 100 UNIT/ML 1 ML 10 ML VIAL SQ SCH (18:06)
[2018-01-27 20:37] LABS: Glucose,Whole Blood 259 mg/dL (75-99)
[2018-01-27 20:59] VITALS: TEMP 99.1
[2018-01-27] MEDS ORDERED: ATORVASTATIN 20 MG TAB PO SCH (21:00)
[2018-01-27] MEDS ORDERED: INSULIN DETEMIR 100 UNIT/ML 10 ML VIAL SQ SCH (21:00)
[2018-01-27] MEDS ORDERED: GABAPENTIN 400 MG CAP PO SCH (21:00)
[2018-01-28 04:51] VITALS: BP 139/64; PULSE 139; RESP 16
[2018-01-28 06:05] LABS: Calcium 9.2 mg/dL (8.4-10.2); Potassium 4.8 mmol/L (3.5-5.1)
[2018-01-28 06:12] LABS: Glucose,Whole Blood 212 mg/dL (75-99)
[2018-01-28] MEDS: INSULIN ASPART 100 UNIT/ML 1 ML 10 ML VIAL SQ SCH (06:57)
[2018-01-28] MEDS ORDERED: PANTOPRAZOLE 40 MG TABLET PO SCH (07:30)
--- NOTE | 2018-01-28 08:12 | PN ---
PROGRESS NOTE Mr. Varner is a 72-year-old male with known history of coronary artery disease who presented with worsening angina pectoris, underwent cardiac catheterization, was found to have critical stenosis in the proximal calcified right coronary artery, underwent successful stenting of that vessel. He is doing well this morning. Ambulating without difficulty. Denying any chest pain. No dizziness. No palpitation. He has no arrhythmia. He continued be on amlodipine 5 mg daily, aspirin once a day, Lipitor 20 mg daily, gabapentin, insulin and Protonix. PHYSICAL EXAMINATION: Blood pressure 134/60 with the heart rate in the 80s. LUNGS: Clear. HEART: Regular rate and rhythm. S1, S2. No S3. No rub. ABDOMEN: Soft, nontender. Right groin hematoma. Right radial pulse is intact. EKG revealed no acute changes. LAB DATA: Labs data revealed BUN and creatinine 30 and 1.3, potassium 4.8. IMPRESSION: 1. Status post stenting of the right coronary artery. 2. Prior stenting of the left anterior descending artery, stable. 3. Hypertension. 4. Hyperlipidemia. 5. Diabetes mellitus. 6. History of chronic kidney disease. RECOMMENDATION: Patient should be able to be discharged home today and followed as an outpatient. He will have evaluation of his renal function as an outpatient. MMODL / IJN: [id number] /
[2018-01-28] MEDS ORDERED: amLODIPine 5 MG TAB PO SCH (09:00)
[2018-01-28] MEDS ORDERED: CLOPIDOGREL 75 MG TAB PO SCH (09:00)
[2018-01-28] MEDS ORDERED: GABAPENTIN 300 MG CAP PO SCH (09:00)
[2018-01-28] MEDS ORDERED: ASPIRIN 81 MG PO SCH (09:00)
== END 2018-01-28 08:25 | disposition home or self-care (01) ==
LOC: CATHCVL 07:44 → 6SEL 15:52 → CATHCVL 01-28 08:25
PROVIDERS: ATTEND Internal Medicine Interventional Cardiology
DX: I25.110 Atherosclerotic heart disease of native coronary artery with unstable angina pectoris (principal); E78.2 Mixed hyperlipidemia; I12.9 Hypertensive chronic kidney disease with stage 1 through stage 4 chronic kidney disease, or unspecified chronic kidney disease; E11.22 Type 2 diabetes mellitus with diabetic chronic kidney disease; N18.9 Chronic kidney disease, unspecified; Z95.5 Presence of coronary angioplasty implant and graft; Z79.82 Long term (current) use of aspirin; Z79.4 Long term (current) use of insulin; Z79.899 Other long term (current) drug therapy
CPT/HCPCS: 93454; 85347; 80048 ×2; 85025; C9600; C1769 ×4; C1887 ×2; C1894 ×2; C1725 ×4; C1874; J2001; J3010; J0583; Q9967 ×2

== ENCOUNTER → 2018-02-01 | Outpatient (CLI) | payer MEDICARE, BC ==
[2018-02-01 08:05] LABS: Calcium 9.4 mg/dL (8.4-10.2); Potassium 4.9 mmol/L (3.5-5.1)
== END | disposition home or self-care (01) ==
LOC: LABWHC1 06:30
PROVIDERS: ATTEND Internal Medicine Interventional Cardiology
DX: I25.10 Atherosclerotic heart disease of native coronary artery without angina pectoris (principal)
CPT/HCPCS: 36415; 80048

== ENCOUNTER → 2018-03-01 | Outpatient (CLI) | payer MEDICARE, BC ==
[2018-03-01 07:22] LABS: Albumin 4.3 g/dL (3.5-5.0); Calcium 9.6 mg/dL (8.4-10.2); Potassium 5.4 mmol/L (3.5-5.1); Total Bilirubin 0.5 mg/dL (0.2-1.3); Total Protein 7.3 g/dL (6.3-8.2)
[2018-03-01 17:28] LABS: Hemoglobin A1C 8.1 % (4.0-6.0)
== END | disposition home or self-care (01) ==
LOC: LABWHC1 06:32
PROVIDERS: ATTEND Internal Medicine Endocrinology, Diabetes & Metabolism
DX: E11.65 Type 2 diabetes mellitus with hyperglycemia (principal)
CPT/HCPCS: 36415; 80053; 80061; 82043; 82570; 83036

== ENCOUNTER 2018-03-16 12:55 | Emergency (ER) | payer MEDICARE, BC ==
[2018-03-16 13:00] VITALS: RESP 18
[2018-03-16] MEDS ORDERED: SODIUM CHLORIDE 0.9% 1,000 ML IV STA ×3 (13:47)
--- NOTE | 2018-03-16 13:53 | ED ---
Chest Pain HPI - General Chief Complaint: Chest Pain Stated Complaint: Chest Pain Time Seen by Provider: 03/16/18 13:10 Source: patient, RN notes reviewed Mode of arrival: wheelchair Limitations: no limitations - History of Present Illness Initial Comments: 72-year-old male with a history of cardiac stents and heart disease in the past who states he had the onset of nausea vomiting diarrhea yesterday. Multiple episodes nausea with retching vomiting. He feels dehydrated he's been having chest tightness always associated with his episodes of emesis. He states this is not at all like he had with his cardiac event. He currently is pain-free he does have some lightheadedness and dizziness when he tries to walk no chest pain no shortness breath this time no blood per rectum. No other modifying factors at this time. The patient states he has had these episodes before and they seem to resolve after IV fluids. MD Complaint: chest pain, other - Related Data Home Medications Medication Instructions Recorded Confirmed Insulin Glargine [Lantus] 50 unit SQ HS 02/05/14 03/16/18 Nitroglycerin Sl Tabs [Nitrostat] 0.4 mg SUBLINGUAL Q5M PRN 02/05/14 03/16/18 Omeprazole [PriLOSEC] 20 mg PO QAM 02/05/14 03/16/18 Simvastatin [Zocor] 40 mg PO HS 02/05/14 03/16/18 Insulin Aspart [NovoLOG 12 unit SQ AC-SUPPER 05/01/14 03/16/18 (formulary)] Gabapentin 600 mg PO TID 06/20/15 03/16/18 amLODIPine [Norvasc] 5 mg PO QAM 06/20/15 03/16/18 Cyanocobalamin (Vitamin B-12) 1,000 mcg PO DAILY 03/16/18 03/16/18 [Vitamin B-12] Insulin Aspart [NovoLOG 5 unit SQ AC-BRKFST 03/16/18 03/16/18 (formulary)] Insulin Aspart [NovoLOG 10 unit SQ AC-LUNCH 03/16/18 03/16/18 (formulary)] Lisinopril [Zestril] 10 mg PO DAILY 03/16/18 03/16/18 Previous Rx's Medication Instructions Recorded Aspirin 81 mg PO DAILY chew 01/28/18 Loperamide HCl [Imodium A-D] 2 mg PO Q3-4H #8 tablet 03/16/18 Allergies Allergy/AdvReac Type Severity Reaction Status Date / Time No Known Allergies Allergy Verified 03/16/18 13:19 Review of Systems ROS Statement: Those systems with pertinent positive or pertinent negative responses have been documented in the HPI. ROS Other: All systems not noted in ROS Statement are negative. EKG Findings - EKG Results: EKG: interpreted by ERMD, sinus rhythm (Normal sinus rhythm rate of 81. Interval 184 QRS duration 90 QT since QTC 358/4:[address]-T wave changes. This is compared to an EKG dated 01/28/18.) Past Medical History Past Medical History: Coronary Artery Disease (CAD), Cancer, Chest Pain / Angina , Diabetes Mellitus, GERD/Reflux, Hearing Disorder / Deafness, Hyperlipidemia, Hypertension, Myocardial Infarction (LA), Renal Disease Additional Past Medical History / Comment(s): SKIN CANCER 2006. Last Myocardial Infarction Date:: 2010 History of Any Multi-Drug Resistant Organisms: None Reported Past Surgical History: Appendectomy, Bowel Resection, Heart Catheterization With Stent, Orthopedic Surgery, Tonsillectomy Additional Past Surgical History / Comment(s): W/ COLONOSCOPY IN PAST/ PERFORATED BOWEL/BOWEL RESECTION DONE. PTCA W/ STENT IN 2010. LT KNEE ARTHROSCOPY. SKIN CANCER REMOVED. cataract removal Past Anesthesia/Blood Transfusion Reactions: No Reported Reaction Date of Last Stent Placement:: 2010 Past Psychological History: No Psychological Hx Reported Smoking Status: Former smoker Past Alcohol Use History: Rare Past Drug Use History: None Reported - Past Family History Father Family Medical History: Hypertension Additional Family Medical History / Comment(s): DAD IS TILL ALIVE AT AGE 98 HAS SOME MINOR HEART PROBLEMS Mother History Unknown: Yes Family Medical History: No Reported History General Exam - General Exam Comments Initial Comments: This is a well-developed well-nourished awake alert oriented 3 male Limitations: no limitations General appearance: alert, in no apparent distress Head exam: Present: atraumatic, normocephalic, normal inspection Eye exam: Present: normal appearance, PERRL, EOMI. Absent: scleral icterus, conjunctival injection, periorbital swelling ENT exam: Present: mucous membranes dry Neck exam: Present: normal inspection. Absent: tenderness, meningismus, lymphadenopathy Respiratory exam: Present: normal lung sounds bilaterally. Absent: respiratory distress, wheezes, rales, rhonchi, stridor Cardiovascular Exam: Present: regular rate, normal rhythm, normal heart sounds. Absent: systolic murmur, diastolic murmur, rubs, gallop, clicks GI/Abdominal exam: Present: soft, normal bowel sounds. Absent: distended, tenderness, guarding, rebound, rigid Extremities exam: Present: normal inspection, full ROM, normal capillary refill. Absent: tenderness, pedal edema, joint swelling, calf tenderness Back exam: Present: normal inspection Neurological exam: Present: alert, oriented X3, CN II-XII intact Psychiatric exam: Present: normal affect, normal mood Skin exam: Present: warm, dry, intact, normal color. Absent: rash Course Vital Signs 03/16/18 03/16/18 03/16/18 12:57 13:22 15:32 Temperature 97.5 F L Pulse Rate 89 82 73 Respiratory 18 18 18 Rate Blood Pressure 113/72 124/64 171/77 O2 Sat by Pulse 96 99 97 Oximetry Chest Pain MDM - MDM I did review the imaging and report no acute findings patient does have gas in his colon consistent with a gastroenteritis that he demonstrates. I did a long discussion with him he feeling much improved after IV fluids he has any history of renal insufficiency EKG was compared with an early one showing similar morphology. Patient was placed on Kayexalate in the emergency department he will be discharged with follow-up with his doctor. I did recommend a recheck of his potassium in 1-2 days. The chest pain was associated only with active vomiting and is thought to be atypical and noncardiac in nature. Disposition Clinical Impression: Gastroenteritis, Atypical chest pain, Chronic renal insufficiency, Dehydration Disposition: HOME SELF-CARE Condition: Good Instructions: Chest Pain (ED), Gastroenteritis (ED), Dehydration (ED), Hyperkalemia (ED) Prescriptions: Loperamide HCl [Imodium A-D] 2 mg PO Q3-4H #8 tablet Is patient prescribed a controlled substance at d/c from ED?: No Referrals: Jarred Scott MD [Primary Care Provider] - 1-2 days
[2018-03-16 14:34] LABS: Basophils % (A) 0 %; Eosinophils # (A) 0.1 k/uL (0-0.7); Eosinophils % (A) 1 %; HGB 13.3 gm/dL (13.0-17.5); Lymphocytes # (A) 1.3 k/uL (1.0-4.8); Lymphocytes % (A) 10 %; MCH 26.4 pg (25.0-35.0); MCHC 31.7 g/dL (31.0-37.0); MCV 83.4 fL (80.0-100.0); Mean Platelet Volume 6.4; Monocytes # (A) 0.7 k/uL (0-1.0); Monocytes % (A) 6 %; Neutrophils % (A) 81 %; Platelet Count 327 k/uL (150-450); RBC 5.04 m/uL (4.30-5.90); RDW 15.1 % (11.5-15.5); WBC 12.3 k/uL (3.8-10.6)
[2018-03-16 14:46] LABS: Total Bilirubin 0.7 mg/dL (0.2-1.3); Total Protein 8.5 g/dL (6.3-8.2)
[2018-03-16 14:51] LABS: Creatine Kinase 132 U/L (55-170)
--- NOTE | 2018-03-16 14:51 | XR ---
EXAMINATION TYPE: XR chest 2V DATE OF EXAM: 03/16/2018 COMPARISON: Chest x-ray November 16, 2016. HISTORY: Chest pain and pressure with shortness of breath. TECHNIQUE: Frontal and lateral views of the chest are obtained. FINDINGS: There is chronic parenchymal changes without suspicious new focal air space opacity, pleur al effusion, or pneumothorax seen. Eventration of right hemidiaphragm is redemonstrated. The cardiac silhouette size is stable and mildly enlarged with slightly ectatic and atherosclerotic thoracic aort a causing slight tracheal deviation. The osseous structures show moderate spurring thoracic spine. Cholecystectomy clips are noted on lateral view. IMPRESSION: Chronic changes and mild cardiomegaly without acute pulmonary process.
--- NOTE | 2018-03-16 14:54 | XR ---
EXAMINATION TYPE: XR abdomen 2V DATE OF EXAM: 03/16/2018 CLINICAL HISTORY: Weakness with nausea vomiting and diarrhea. TECHNIQUE: Supine, upright, and left side down lateral decubitus views of the abdomen are obtained. COMPARISON: CT abdomen November 29, 2012. Abdominal x-ray June 27, 2016. FINDINGS: Surgical clips left upper to midabdomen are redemonstrated. There are some gas prominent sm all bowel loops with air-fluid levels throughout the upper to midabdomen. There is less prominent gas -filled bowel loops in the lower abdomen. Predominantly nondistended gas-filled colon is seen along t he periphery of slightly prominent gas-filled transverse colon is noted in the upper abdomen. No pneu moperitoneum is present. Mild to moderate axial joint space loss in both hips is present. IMPRESSION: Overall nonspecific bowel gas pattern.
[2018-03-16 15:04] LABS: Troponin I <0.012 ng/mL (0.000-0.034)
[2018-03-16 15:06] LABS: Creatine Kinase MB 4.8 ng/mL (0.0-2.4)
[2018-03-16] MEDS ORDERED: SODIUM POLYSTYRENE SULFONATE 15 GM/60 ML BOTTLE PO ONE (15:57)
[2018-03-16 17:05] VITALS: BP 140/69; PULSE 81; TEMP 97.8
== END 2018-03-16 17:05 | disposition home or self-care (01) ==
LOC: EC 12:55
DX: K52.9 Noninfective gastroenteritis and colitis, unspecified (principal); E86.0 Dehydration; R07.9 Chest pain, unspecified; E11.22 Type 2 diabetes mellitus with diabetic chronic kidney disease; I12.9 Hypertensive chronic kidney disease with stage 1 through stage 4 chronic kidney disease, or unspecified chronic kidney disease; N18.9 Chronic kidney disease, unspecified; I25.119 Atherosclerotic heart disease of native coronary artery with unspecified angina pectoris; K21.9 Gastro-esophageal reflux disease without esophagitis; E78.5 Hyperlipidemia, unspecified; I25.2 Old myocardial infarction; Z85.828 Personal history of other malignant neoplasm of skin; Z87.891 Personal history of nicotine dependence; Z79.4 Long term (current) use of insulin; Z79.899 Other long term (current) drug therapy; Z95.5 Presence of coronary angioplasty implant and graft
CPT/HCPCS: 36415; 71046; 74019; 80053; 82150; 82550; 82553; 83690; 83735; 84484; 85025; 85610; 85730; 93005; 96360; 96361; 99285

== ENCOUNTER → 2018-03-18 | Outpatient (CLI) | payer MEDICARE, BC ==
[2018-03-18 09:28] LABS: Calcium 9.4 mg/dL (8.4-10.2); Potassium 5.3 mmol/L (3.5-5.1)
== END | disposition home or self-care (01) ==
LOC: LABWHC1 08:53
PROVIDERS: ATTEND Internal Medicine
DX: E87.5 Hyperkalemia (principal)
CPT/HCPCS: 36415; 80048

== ENCOUNTER → 2018-03-22 | Outpatient (CLI) | payer MEDICARE, BC ==
[2018-03-22 10:51] LABS: Calcium 9.6 mg/dL (8.4-10.2); Potassium 5.5 mmol/L (3.5-5.1)
== END | disposition home or self-care (01) ==
LOC: LABWHC1 10:07
PROVIDERS: ATTEND Internal Medicine
DX: E87.5 Hyperkalemia (principal); N19 Unspecified kidney failure
CPT/HCPCS: 36415; 80048

== ENCOUNTER → 2018-03-29 | Outpatient (CLI) | payer MEDICARE, BC ==
[2018-03-29 07:06] LABS: Calcium 9.4 mg/dL (8.4-10.2); Potassium 5.2 mmol/L (3.5-5.1)
== END | disposition home or self-care (01) ==
LOC: LABWHC1 06:32
PROVIDERS: ATTEND Internal Medicine
DX: E87.5 Hyperkalemia (principal); I12.9 Hypertensive chronic kidney disease with stage 1 through stage 4 chronic kidney disease, or unspecified chronic kidney disease; N18.9 Chronic kidney disease, unspecified
CPT/HCPCS: 36415; 80048

== ENCOUNTER → 2018-03-31 | Outpatient (CLI) | payer MEDICARE, BC ==
[2018-03-31 12:58] LABS: Basophils # (A) 0.1 k/uL (0-0.2); Basophils % (A) 1 %; Eosinophils # (A) 0.2 k/uL (0-0.7); Eosinophils % (A) 3 %; HCT 37.9 % (39.0-53.0); Hypochromasia Slight; Lymphocytes # (A) 2.2 k/uL (1.0-4.8); Lymphocytes % (A) 26 %; MCH 26.4 pg (25.0-35.0); MCHC 31.7 g/dL (31.0-37.0); MCV 83.4 fL (80.0-100.0); Mean Platelet Volume 6.1; Monocytes # (A) 0.5 k/uL (0-1.0); Monocytes % (A) 6 %; Neutrophils # (A) 5.2 k/uL (1.3-7.7); Neutrophils % (A) 61 %; Platelet Count 303 k/uL (150-450); RBC 4.54 m/uL (4.30-5.90); RDW 14.8 % (11.5-15.5); WBC 8.4 k/uL (3.8-10.6)
[2018-03-31 13:09] LABS: Potassium 5.6 mmol/L (3.5-5.1)
== END | disposition home or self-care (01) ==
LOC: LABPAT 12:01
PROVIDERS: ATTEND Internal Medicine Interventional Cardiology
DX: Z01.812 Encounter for preprocedural laboratory examination (principal); R07.9 Chest pain, unspecified
CPT/HCPCS: 36415; 80051; 82565; 84520; 85025

== ENCOUNTER 2018-04-06 10:18 | Day surgery (SDC) | payer MEDICARE, BC ==
[2018-04-01 10:07] VITALS: BMI 31.8
[~2018-04-06 10:18] MED LIST changes: -SODIUM CHLORIDE 0.9% 1,000 ML in EMPTY BAG 1 BAG IV ONE
[2018-04-06] MEDS ORDERED: SODIUM CHLORIDE 0.9% 1,000 ML in EMPTY BAG 1 BAG IV ONE (10:30)
[2018-04-06 11:04] LABS: Glucose,Whole Blood 153 mg/dL (75-99)
[2018-04-06] MEDS ORDERED: SODIUM CHLORIDE 0.9% 1,000 ML IV ONE (14:19)
[2018-04-06] MEDS ORDERED: LIDOCAINE 1% INJ 10MG/ML (20 ML MDV) ONE (14:24)
[2018-04-06] MEDS ORDERED: diphenhydrAMINE 50 MG/ML 1 ML VIAL ONE (14:27)
[2018-04-06] MEDS ORDERED: fentaNYL (PF) 50 MCG/ML 2 ML AMP ONE (14:27)
[2018-04-06] MEDS ORDERED: fentaNYL (PF) 50 MCG/ML 2 ML AMP IV ONE (14:48)
[2018-04-06] MEDS ORDERED: diphenhydrAMINE 50 MG/ML 1 ML VIAL IVP ONE (14:49)
[2018-04-06] MEDS ORDERED: LIDOCAINE 1% (PF) 10MG/ML VIAL SQ ONE (14:53)
[2018-04-06] MEDS ORDERED: BIVALIRUDIN BOLUS 250 MG/50 ML IV ONE (15:06)
[2018-04-06] MEDS ORDERED: BIVALIRUDIN 250 MG in SODIUM CHLORIDE 0.9% 50 ML IV ONE (15:07)
[2018-04-06] MEDS ORDERED: IOPAMIDOL-370 100ML BTL INJ ONE (15:36)
[2018-04-06] MEDS ORDERED: IOPAMIDOL-370 125ML BTL INJ ONE (15:36)
[2018-04-06] MEDS ORDERED: ATROPINE SULFATE 0.1 MG/ML 10ML SYRINGE IV PRN (15:50)
[2018-04-06] MEDS ORDERED: NITROGLYCERIN SL TABS 0.4 MG TAB SUBLINGUAL PRN (15:50)
[2018-04-06] MEDS ORDERED: MAG HYDROX/AL HYDROX/SIMETH 30 ML CUP PO PRN (15:50)
[2018-04-06] MEDS ORDERED: ZOLPIDEM 5 MG TAB PO PRN (15:50)
[2018-04-06] MEDS ORDERED: RX INFO: IV CONTRAST WAS GIVEN 1 EACH MISC MISCELLANE PRN (15:50)
[2018-04-06] MEDS ORDERED: LOPERAMIDE 2 MG CAP PO SCH (16:00)
[2018-04-06] MEDS ORDERED: SODIUM CHLORIDE 0.9% 1,000 ML IV SCH (16:00)
--- NOTE | 2018-04-06 17:36 | PTCA ---
PERCUTANEOUSTRANS CORORONARY ANGIOGRAPHY Mr. Varner is a 72-year-old male with a known history of coronary artery disease who presented with a new onset angina pectoris, underwent cardiac catheterization, was found to have critical stenosis involving the proximal right coronary artery. In view of that, recommendation regarding angioplasty and stenting. The procedures, as well as risks and complications were discussed with the patient who is in full understanding and agreement. PROCEDURE: A 6-Kosovan FR4 guiding catheter was introduced into the system. After cannulating the right coronary ostium, a 0.014 whisper J-wire was advanced and positioned distally. Then another 0.014 whisper J-wire was advanced next to the first one in a bonifacio fashion. Following that, a 2.5 x 8 mm NC Euphoria balloon was advanced and two inflations at 8 atmospheres were done. Following that, the balloon was removed and attempt to advance a 2.0 x 12 mm Resolute Biggers were unsuccessful. That stent was removed and a 2.0 x 8 mm Resolute Biggers stent was advanced, deployed and post dilated at 14 atmospheres. Following that, the balloon was removed and a 2.75 x 8 mm NC Trek balloon was advanced and multiple inflations at a maximum of 14 atmospheres were done. After the last inflation, after appropriate wait, the balloon and the guidewire were withdrawn back in the guiding catheter. Images were obtained and repeated. Those images reveal stable successful stenting. At that point, the guiding catheter, the balloon and the guidewire were removed. Sheath was removed. Hemostasis was obtained with deployment of Angio-Seal. There was no immediate complications. Patient is returned to his room in stable condition. Of note, the patient received Angiomax per protocol. He has no significant chest pain or EKG changes with the inflation. RESULTS: Successful stenting of the proximal right coronary artery with reduction of stenosis from 95% to 0%. RECOMMENDATION: Patient will be continued on aspirin, Plavix and statin. The importance of dual antiplatelet treatment were discussed with the patient his family who are in full understanding and agreement. Duration of procedure: 48 minutes. ANA MARIA / BRE: [id number] /
--- NOTE | 2018-04-06 17:36 | LTR ---
DATE OF SERVICE: 04/06/[address] Scott: I had the pleasure of performing coronary angiography on Mr. Varner at [facility] on the 06 of April and a full copy of procedure note will be forwarded to you. In brief, he was found to have critical stenosis involving the proximal right coronary artery and underwent successful stenting of that vessel. I am hopeful that this procedure will stabilize his status. Thank you again for allowing me to participate in his care. Please feel free to call for any questions. Sincerely, ANA MARIA / IJN: [id number] /
[2018-04-06 17:48] LABS: Glucose,Whole Blood 117 mg/dL (75-99)
--- NOTE | 2018-04-06 17:51 | CC ---
CARDIAC CATHETERIZATION REPORT Mr. Varner is a 72-year-old male with a known history of coronary artery disease, hypertension, hyperlipidemia, diabetes mellitus, who recently underwent stenting of a very calcified complex proximal right coronary artery in January of 2018. He presented recently with symptoms of chest discomfort reminding him of the way he felt before with dyspnea on exertion. In view of that, recommendation was made regarding cardiac catheterization. The procedure, its risks and complications were discussed with the patient, who was in full understanding and agreement. PROCEDURE: Patient was brought to the medical lab technologist in a fasting state after receiving fentanyl and Benadryl and achieving a moderate conscious sedated state. Using Xylocaine anesthesia and Seldinger technique, a 6-Armenian sheath was introduced in the right femoral artery. Selective right and left angiography was performed using 6-Armenian 4 bend right and left Scout catheters. Multiple views were taken of the arteries, including hemiaxial views. Following that, catheters were removed, images were reviewed. FINDINGS: FLUOROSCOPY: There was severe calcification involving all the coronary arteries. LEFT MAIN: This is a large-sized vessel bifurcating into left circumflex, left anterior descending artery. Left main coronary artery has a 20% plaque distally. LEFT ANTERIOR DESCENDING ARTERY: This is a large vessel reaching toward the apex with a wrap around the apex segment. It is tortuous in the mid segment, heavily calcified. The stented segment in the mid LAD is patent with minimal intimal re-stenosis. There is a plaque proximal and distal to the stent of about 40% to 50%. The rest of the vessel has no high-grade stenosis. LEFT CIRCUMFLEX: This is a codominant vessel bifurcating distally into PDA and posterolateral segment and branches giving rise to one obtuse marginal branch of large caliber. The left circumflex is calcified, has no evidence of high-grade stenosis, has intimal disease. The very distal PLV has a 99% stenosis, but beyond that the vessel is very small. RIGHT CORONARY ARTERY: This is a codominant vessel giving rise to a PDA distally, heavily calcified. The proximal segment is stented. After the proximal stent there is a 95% stenosis. The rest of the vessel has diffuse intimal disease without any evidence of high-grade stenosis. LEFT VENTRICULOGRAM was not performed. CONCLUSION: 1. Heavily calcified coronary arteries. 2. In-stent re-stenosis of the proximal right coronary artery. 3. Moderate disease in the LAD and mild disease in the proximal left circumflex with severe disease in the very distal left circumflex. RECOMMENDATION: In view of findings and anatomy, I have recommended proceeding with angioplasty and stenting of the right coronary artery. The procedure, its risks and complications were discussed with the patient, who is in full understanding and agreement. MMJIMY / BRE: [id number] /
[2018-04-06] MEDS: GABAPENTIN 300 MG CAP PO SCH ×2 (18:15→20:21)
[2018-04-06] MEDS ORDERED: LOPERAMIDE 2 MG CAP PO PRN (18:16)
[2018-04-06] MEDS ORDERED: INSULIN DETEMIR 100 UNIT/ML 10 ML VIAL SQ SCH (21:00)
[2018-04-06 21:54] LABS: Glucose,Whole Blood 230 mg/dL (75-99)
[2018-04-07 03:07] VITALS: RESP 14; TEMP 97
[2018-04-07 06:07] LABS: Glucose,Whole Blood 157 mg/dL (75-99)
[2018-04-07 06:22] LABS: Calcium 9.6 mg/dL (8.4-10.2); Potassium 5.2 mmol/L (3.5-5.1)
[2018-04-07] MEDS ORDERED: PANTOPRAZOLE 40 MG TABLET PO SCH (07:30)
[2018-04-07] MEDS: GABAPENTIN 300 MG CAP PO SCH (08:11)
--- NOTE | 2018-04-07 08:19 | PN ---
PROGRESS NOTE Mr. Varner is a 72-year-old male with known history of coronary artery disease who presented with symptoms of chest discomfort, underwent cardiac catheterization and found to have significant obstructive disease in the right coronary artery, underwent stenting of that vessel. He is doing well this morning. His breathing has been stable. He is ambulating without difficulty. Denying any chest pain. No dizziness. No palpitation. He continues to be on aspirin once a day, amlodipine 10 mg daily, Lipitor 80 mg daily, Plavix 75 mg daily, insulin, isosorbide mononitrate 60 mg daily, Protonix. PHYSICAL EXAMINATION: Blood pressure 144/80 with the heart rate in the 70s. LUNGS: Clear. HEART: Regular rate and rhythm. S1, S2. No S3. No rub. ABDOMEN: Soft, nontender. EXTREMITIES: Right groin, no hematoma. LAB DATA: BUN and creatinine 23 and 1.34. Potassium 5.2. IMPRESSION: 1. Status post stenting of the right coronary artery. 2. History of coronary artery disease. 3. Hypertension. 4. Hyperlipidemia. 5. Chronic kidney disease. RECOMMENDATION: Patient will be discharged home today and followed as an outpatient. MMODL / IJN: [id number] /
[2018-04-07 08:21] VITALS: BP 158/79; PULSE 87
[2018-04-07] MEDS ORDERED: ASPIRIN 81 MG PO SCH (09:00)
[2018-04-07] MEDS ORDERED: ATORVASTATIN 80 MG TAB PO SCH (09:00)
[2018-04-07] MEDS ORDERED: ISOSORBIDE MONONITRATE ER 60 MG TAB.ER.24H PO SCH (09:00)
[2018-04-07] MEDS ORDERED: amLODIPine 10 MG TAB PO SCH (09:00)
[2018-04-07] MEDS ORDERED: CLOPIDOGREL 75 MG TAB PO SCH (09:00)
== END 2018-04-07 08:27 | disposition home or self-care (01) ==
LOC: CATHCVL 10:18 → 6SEL 15:37 → CATHCVL 04-07 08:27
PROVIDERS: ATTEND Internal Medicine Interventional Cardiology
DX: I25.110 Atherosclerotic heart disease of native coronary artery with unstable angina pectoris (principal); T82.855A Stenosis of coronary artery stent, initial encounter; I12.9 Hypertensive chronic kidney disease with stage 1 through stage 4 chronic kidney disease, or unspecified chronic kidney disease; E11.22 Type 2 diabetes mellitus with diabetic chronic kidney disease; N18.9 Chronic kidney disease, unspecified; E78.2 Mixed hyperlipidemia; F17.210 Nicotine dependence, cigarettes, uncomplicated; Z95.5 Presence of coronary angioplasty implant and graft; Z79.4 Long term (current) use of insulin; Z79.899 Other long term (current) drug therapy; Z79.02 Long term (current) use of antithrombotics/antiplatelets; Z79.82 Long term (current) use of aspirin
CPT/HCPCS: 93458; 85347; 80048; 82565; 84520; C9600; C1769 ×3; C1760; C1887; C1725 ×2; C1894; C1874; J1200; J3010; J0583; J2001; Q9967 ×2

== ENCOUNTER → 2018-06-10 | Outpatient (CLI) | payer MEDICARE, BC ==
--- NOTE | 2018-06-10 15:39 | US ---
EXAMINATION TYPE: US kidneys/renal and bladder DATE OF EXAM: 06/10/2018 COMPARISON: CT abdomen November 29, 2017 CLINICAL HISTORY: N23.1 Cyst of Kidney, acquired. hx of bilateral renal cysts, no pain EXAM MEASUREMENTS: Right Kidney: 10.9 x 4.6 x 6.0 cm Left Kidney: 10.2 x 4.6 x 5.1 cm Suboptimal exam due to bowel gas and patient body habitus Right Kidney: Cystic appearing lesion seen, largest lateral upper pole = 6.5 x 5.7 x 6.1 cm Left Kidney: Dromedary hump. Two lesions seen. 1- upper medial pole, cystic appearing = 2.4 x 2.2 x 1.8 cm. 2- Mid anterior, lesion vs cortical lobularity = 1.8 x 1.8 x 1.9 cm Bladder: Moderately distended, wnl as visualized Bilateral Jets seen There is no evidence for hydronephrosis at this point in time. No nephrolithiasis is seen. No martin s are identified. The urinary bladder is anechoic. Bilateral ureteral jets are seen. IMPRESSION: Suboptimal study as detailed above. A few simple appearing cysts are marked by technologist throughou t both kidneys including largest lesion upper pole level right kidney. No hydronephrosis is noted anastasia aterally.
== END | disposition home or self-care (01) ==
LOC: RADUSWWP 14:38
PROVIDERS: ATTEND Urology
DX: N28.1 Cyst of kidney, acquired (principal)
CPT/HCPCS: 76770

== ENCOUNTER 2018-09-07 09:50 | Emergency (ER) | payer MEDICARE, BC ==
[2018-09-07 10:23] VITALS: RESP 16
[2018-09-07] MEDS ORDERED: SODIUM CHLORIDE 0.9% 1,000 ML IV STA (10:46)
--- NOTE | 2018-09-07 10:50 | ED ---
General Adult HPI - General Chief complaint: Nausea/Vomiting/Diarrhea Stated complaint: dehydration Time Seen by Provider: 09/07/18 10:41 Source: patient, RN notes reviewed, old records reviewed Mode of arrival: wheelchair Limitations: no limitations - History of Present Illness Initial comments: Patient 73-year-old male presenting to the emergency room today with a chief complaint of feeling dehydrated. Patient does admit that last night he began having episodes of nausea vomiting and diarrhea. Patient states 5 or 6 episodes of vomiting along with 45 episodes of diarrhea. Patient denies any signs of blood in the emesis or stool. Patient does admit that he's had symptoms similar to this many times in the past. He states he feels that he just needs some fluids to feel better. He states that nausea actually has improved. Patient denies any abdominal pain. He denies any other complaints or symptoms. Patient denies any recent fever, chills, shortness of breath, chest pain, numbness or tingling, dysuria or hematuria, constipation, headaches or visual changes, or any other complaints. - Related Data Home Medications Medication Instructions Recorded Confirmed Insulin Glargine [Lantus] 56 unit SQ HS 02/05/14 09/07/18 Nitroglycerin Sl Tabs [Nitrostat] 0.4 mg SUBLINGUAL Q5M PRN 02/05/14 09/07/18 Omeprazole [PriLOSEC] 20 mg PO QAM 02/05/14 09/07/18 Gabapentin 600 mg PO TID 06/20/15 09/07/18 Insulin Aspart [NovoLOG] 0 units SQ AC-TID 04/01/18 09/07/18 Aspirin EC [Ecotrin] 325 mg PO DAILY 09/07/18 09/07/18 Simvastatin 40 mg PO DAILY 09/07/18 09/07/18 amLODIPine [Norvasc] 10 mg PO DAILY 09/07/18 09/07/18 Allergies Allergy/AdvReac Type Severity Reaction Status Date / Time No Known Allergies Allergy Verified 09/07/18 10:55 Review of Systems ROS Statement: Those systems with pertinent positive or pertinent negative responses have been documented in the HPI. ROS Other: All systems not noted in ROS Statement are negative. Past Medical History Past Medical History: Coronary Artery Disease (CAD), Cancer, Chest Pain / Angina , Diabetes Mellitus, GERD/Reflux, Hearing Disorder / Deafness, Hyperlipidemia, Hypertension, Myocardial Infarction (CT), Renal Disease Additional Past Medical History / Comment(s): SKIN CANCER 2006. Last Myocardial Infarction Date:: 2010 History of Any Multi-Drug Resistant Organisms: None Reported Past Surgical History: Appendectomy, Bowel Resection, Heart Catheterization With Stent, Orthopedic Surgery, Tonsillectomy Additional Past Surgical History / Comment(s): W/ COLONOSCOPY IN PAST/ PERFORATED BOWEL/BOWEL RESECTION DONE. STENT IN 2010, 2017. LT KNEE ARTHROSCOPY. SKIN CANCER REMOVED. cataract removal Past Anesthesia/Blood Transfusion Reactions: No Reported Reaction Date of Last Stent Placement:: 2017 Past Psychological History: No Psychological Hx Reported Smoking Status: Former smoker Past Alcohol Use History: Rare Past Drug Use History: None Reported - Past Family History Father Family Medical History: Hypertension Additional Family Medical History / Comment(s): DAD IS TILL ALIVE AT AGE 98 HAS SOME MINOR HEART PROBLEMS Mother History Unknown: Yes Family Medical History: No Reported History General Exam - General Exam Comments Initial Comments: General: The patient is awake and alert, in no distress, and does not appear acutely ill. Eye: There is normal conjunctiva bilaterally. No signs of icterus. Ears, nose, mouth and throat: There are moist mucous membranes and no oral lesions. Neck: The neck is supple, there is no tenderness or JVD. Cardiovascular: There is a regular rate and rhythm. No murmur, rub or gallop is appreciated. Respiratory: Lungs are clear to auscultation, respirations are non-labored, breath sounds are equal. No wheezes, stridor, rales, or rhonchi. Gastrointestinal: Soft, non-distended, non-tender abdomen without masses or organomegaly noted. There is no rebound or guarding present. No CVA tenderness. Bowel sounds are unremarkable. Musculoskeletal: Normal ROM, no tenderness. Strength 5/5. Sensation intact. Radial pulses equal bilaterally 2+. Neurological: A&O x 3. CN II-XII intact, There are no obvious motor or sensory deficits. Coordination appears grossly intact. Speech is normal. Skin: Skin is warm and dry and no rashes or lesions are noted. Psychiatric: Cooperative, appropriate mood & affect, normal judgment. Limitations: no limitations Course Vital Signs 09/07/18 09/07/18 09/07/18 10:21 10:55 13:03 Temperature 98.3 F Pulse Rate 87 68 Respiratory 16 Rate Blood Pressure 145/85 138/77 141/69 O2 Sat by Pulse 99 98 Oximetry EKG Findings - EKG Comments: EKG Findings:: EKG performed at 1209: Shows normal sinus rhythm at 75 bpm. IN interval 188. QRS 98. QT/QTC 378/422. Shows no changes from previous EKG in 04/07/2018. Medical Decision Making - Medical Decision Making Patient's labs been reviewed. Did show elevated potassium 5.8. Patient was given a 1.5 liter bolus here in the emergency room. He states this feeling much better. Patient does have multiple visits for similar symptoms in the past for dehydration. States feeling better and has no complaints. Abdomen soft nontender. Patient's EKG has been reviewed and shows no change from previous. Patient will be discharged home advised to follow-up family doctor next 2 days return here to the emergency room symptoms increase worsen or for any other concerns. - Lab Data Result diagrams: 09/07/18 10:35 09/07/18 10:35 Lab Results 09/07/18 09/07/18 09/07/18 Range/Units 10:35 10:35 10:35 WBC 11.5 H (3.8-10.6) k/uL RBC 5.37 (4.30-5.90) m/uL Hgb 13.4 (13.0-17.5) gm/dL Hct 42.7 (39.0-53.0) % MCV 79.6 L (80.0-100.0) fL MCH 25.0 (25.0-35.0) pg MCHC 31.4 (31.0-37.0) g/dL RDW 16.8 H (11.5-15.5) % Plt Count 302 (150-450) k/uL Neutrophils % 83 % Lymphocytes % 10 % Monocytes % 5 % Eosinophils % 1 % Basophils % 0 % Neutrophils # 9.5 H (1.3-7.7) k/uL Lymphocytes # 1.2 (1.0-4.8) k/uL Monocytes # 0.5 (0-1.0) k/uL Eosinophils # 0.1 (0-0.7) k/uL Basophils # 0.0 (0-0.2) k/uL Hypochromasia Slight Anisocytosis Slight Microcytosis Slight Sodium 139 (137-145) mmol/L Potassium 5.8 H (3.5-5.1) mmol/L Chloride 103 (98-107) mmol/L Carbon Dioxide 21 L (22-30) mmol/L Anion Gap 15 mmol/L BUN 30 H (9-20) mg/dL Creatinine 1.82 H (0.66-1.25) mg/dL Est GFR (CKD-EPI)AfAm 41 (>60 ml/min/1.73 sqM) Est GFR (CKD-EPI)NonAf 36 (>60 ml/min/1.73 sqM) Glucose 241 H (74-99) mg/dL Calcium 10.1 (8.4-10.2) mg/dL Total Bilirubin 0.6 (0.2-1.3) mg/dL AST 29 (17-59) U/L ALT 23 (21-72) U/L Alkaline Phosphatase 102 (38-126) U/L Total Protein 8.6 H (6.3-8.2) g/dL Albumin 4.6 (3.5-5.0) g/dL Amylase 47 (30-110) U/L Lipase 45 (23-300) U/L Urine Color Yellow Urine Appearance Clear (Clear) Urine pH 5.0 (5.0-8.0) Ur Specific Wagner 1.015 (1.001-1.035) Urine Protein 1+ H (Negative) Urine Glucose (UA) Negative (Negative) Urine Ketones Negative (Negative) Urine Blood Negative (Negative) Urine Nitrite Negative (Negative) Urine Bilirubin Negative (Negative) Urine Urobilinogen <2.0 (<2.0) mg/dL Ur Leukocyte Esterase Negative (Negative) Urine RBC <1 (0-5) /hpf Urine WBC 1 (0-5) /hpf Ur Squamous Epith Cells <1 (0-4) /hpf Hyaline Casts 12 H (0-2) /lpf Urine Mucus Rare H (None) /hpf Disposition Clinical Impression: Nausea vomiting and diarrhea Disposition: HOME SELF-CARE Condition: Good Instructions: Acute Nausea and Vomiting (ED) Additional Instructions: Please follow-up with family doctor in the next 2 days of symptoms have not improved. Please return to emergency room if the symptoms increase or worsen or for any other concerns. Is patient prescribed a controlled substance at d/c from ED?: No Referrals: Jarred Scott MD [Primary Care Provider] - 1-2 days Time of Disposition: 13:50
[2018-09-07 11:29] LABS: Anisocytosis Slight; Basophils % (A) 0 %; Eosinophils # (A) 0.1 k/uL (0-0.7); Eosinophils % (A) 1 %; HCT 42.7 % (39.0-53.0); HGB 13.4 gm/dL (13.0-17.5); Hypochromasia Slight; Lymphocytes # (A) 1.2 k/uL (1.0-4.8); Lymphocytes % (A) 10 %; MCHC 31.4 g/dL (31.0-37.0); MCV 79.6 fL (80.0-100.0); Mean Platelet Volume 6.2; Microcytosis Slight; Monocytes # (A) 0.5 k/uL (0-1.0); Monocytes % (A) 5 %; Neutrophils # (A) 9.5 k/uL (1.3-7.7); Neutrophils % (A) 83 %; Platelet Count 302 k/uL (150-450); RBC 5.37 m/uL (4.30-5.90); RDW 16.8 % (11.5-15.5); WBC 11.5 k/uL (3.8-10.6)
[2018-09-07 11:34] LABS: Potassium 5.8 mmol/L (3.5-5.1)
[2018-09-07 11:51] LABS: Appearance,Urine Clear (Clear); Bilirubin,Urine Negative (Negative); Blood,Urine Negative (Negative); Color,Urine Yellow; Glucose,Urine (UA) Negative (Negative); Hyaline Casts,Urine 12 /lpf (0-2); Ketones,Urine Negative (Negative); Leukocyte Esterase,Urine Negative (Negative); Mucus,Urine Rare /hpf; Nitrite,Urine Negative (Negative); Protein,Urine 1+ (Negative); RBC,Urine <1 /hpf (0-5); Specific Gravity,Urine 1.015 (1.001-1.035); Squamous Epithelial Cell,Urine <1 /hpf (0-4); Urobilinogen,Urine <2.0 mg/dL (<2.0); WBC,Urine 1 /hpf (0-5)
[2018-09-07 12:25] LABS: Albumin 4.6 g/dL (3.5-5.0); Calcium 10.1 mg/dL (8.4-10.2); Total Bilirubin 0.6 mg/dL (0.2-1.3); Total Protein 8.6 g/dL (6.3-8.2)
[2018-09-07] MEDS ORDERED: SODIUM CHLORIDE 0.9% 500 ML 500 ML IV STA (12:32)
[2018-09-07 13:56] LABS: Glucose,Whole Blood 203 mg/dL (75-99)
[2018-09-07 14:08] VITALS: BP 145/75; PULSE 80; TEMP 98
[2018-09-07 21:20] LABS: Hemoglobin A1C 8.6 % (4.0-6.0)
== END 2018-09-07 14:10 | disposition home or self-care (01) ==
LOC: EC 09:50
DX: R11.2 Nausea with vomiting, unspecified (principal); R19.7 Diarrhea, unspecified; E87.5 Hyperkalemia; I25.119 Atherosclerotic heart disease of native coronary artery with unspecified angina pectoris; E11.9 Type 2 diabetes mellitus without complications; K21.9 Gastro-esophageal reflux disease without esophagitis; E78.5 Hyperlipidemia, unspecified; I10 Essential (primary) hypertension; I25.2 Old myocardial infarction; Z79.82 Long term (current) use of aspirin; Z79.4 Long term (current) use of insulin; Z79.899 Other long term (current) drug therapy; Z95.5 Presence of coronary angioplasty implant and graft; Z85.828 Personal history of other malignant neoplasm of skin; Z87.891 Personal history of nicotine dependence
CPT/HCPCS: 36415; 80053; 81001; 82150; 83036; 83690; 85025; 93005; 96360; 96361; 99284

== ENCOUNTER 2018-11-03 10:40 | Day surgery (SDC) | payer MEDICARE, BC ==
[~2018-11-03 10:40] MED LIST changes: +SODIUM CHLORIDE 0.9% 1,000 ML in EMPTY BAG 1 BAG IV ONE
[2018-11-03 11:04] VITALS: RESP 18
[2018-11-03 11:12] LABS: Glucose,Whole Blood 206 mg/dL (75-99)
[2018-11-03 11:20] LABS: Anisocytosis Slight; Basophils # (A) 0.1 k/uL (0-0.2); Basophils % (A) 1 %; Eosinophils # (A) 0.2 k/uL (0-0.7); Eosinophils % (A) 3 %; HCT 35.6 % (39.0-53.0); HGB 11.6 gm/dL (13.0-17.5); Lymphocytes # (A) 2.3 k/uL (1.0-4.8); Lymphocytes % (A) 30 %; MCH 25.8 pg (25.0-35.0); MCHC 32.6 g/dL (31.0-37.0); MCV 79.3 fL (80.0-100.0); Mean Platelet Volume 6.2; Microcytosis Slight; Monocytes # (A) 0.5 k/uL (0-1.0); Monocytes % (A) 7 %; Neutrophils # (A) 4.5 k/uL (1.3-7.7); Neutrophils % (A) 58 %; Platelet Count 244 k/uL (150-450); RBC 4.49 m/uL (4.30-5.90); RDW 17.1 % (11.5-15.5); WBC 7.8 k/uL (3.8-10.6)
[2018-11-03 11:32] LABS: Calcium 9.2 mg/dL (8.4-10.2); Potassium 4.7 mmol/L (3.5-5.1)
[2018-11-03] MEDS ORDERED: LIDOCAINE 1% INJ 10MG/ML (20 ML MDV) ONE (13:12)
[2018-11-03] MEDS ORDERED: fentaNYL (PF) 50 MCG/ML 2 ML AMP ONE (13:13)
[2018-11-03] MEDS ORDERED: fentaNYL (PF) 50 MCG/ML 2 ML AMP IV ONE (13:51)
[2018-11-03] MEDS ORDERED: LIDOCAINE 1% INJ 10MG/ML (20 ML MDV) SQ ONE (13:53)
[2018-11-03] MEDS ORDERED: NITROGLYCERIN 1000MCG/10ML SYRINGE INTRACORON ONE (14:04)
[2018-11-03] MEDS ORDERED: RX INFO: IV CONTRAST WAS GIVEN 1 EACH MISC MISCELLANE PRN (14:29)
[2018-11-03] MEDS ORDERED: NITROGLYCERIN SL TABS 0.4 MG TAB SUBLINGUAL PRN (14:30)
[2018-11-03] MEDS ORDERED: SODIUM CHLORIDE 0.9% 1,000 ML IV SCH (14:30)
[2018-11-03] MEDS ORDERED: GABAPENTIN 300 MG CAP PO SCH (16:15)
[2018-11-03 16:35] VITALS: BMI 32.1
[2018-11-03 16:47] LABS: Glucose,Whole Blood 160 mg/dL (75-99)
[2018-11-03] MEDS ORDERED: PANTOPRAZOLE 40 MG TABLET PO SCH (17:30)
--- NOTE | 2018-11-03 19:08 | LTR ---
DATE OF SERVICE: 11/03/2018 RE: Jam Varner Dear Dr. Scott: I had the pleasure of performing cardiac catheterization on Mr. Varner at [facility] on November 03 and a full copy of procedure note will be forwarded to you. In brief, he was found to have a totally occluded right coronary artery with a borderline significant left main disease with moderate to significant disease in the LAD and the left circumflex. At this time, and because of his anatomy and severe calcification, I will obtain evaluation by the cardiovascular surgical team for further evaluation. I will keep you updated on his progress. Thank you again for allowing me to participate in his care. Please feel free to call for any questions. Sincerely yours, MMODL / IJN: [id number] /
--- NOTE | 2018-11-03 19:08 | CC ---
CARDIAC CATHETERIZATION REPORT Mr. Varner is a 73-year-old male known history of hypertension, hyperlipidemia, history of diabetes mellitus, who has been complaining for progressive exertional chest discomfort. The patient has a known history of coronary artery disease status post stenting of the right coronary artery in January and subsequently in March 2018. His symptoms started about 4 weeks ago. In view of that, recommendations made regarding cardiac catheterization. The procedures as well as risks and complications were discussed with the patient who is in full understanding and agreement. 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 Using Xylocaine anesthesia and Seldinger technique, a 6[place] sheath was introduced in the right femoral artery. Selective right and left coronary angiography was performed using 6[place] 4 bend right and left Scout catheter. Multiple views of the coronary artery including hemiaxial views were obtained. Following that a 6[place] tight pigtail catheter was introduced in the left ventricle and pressures were calculated. Following that, catheter and sheaths were removed. Hemostasis was obtained with deployment of an Angio-Seal. There was no immediate complication. Patient was returned to his room in stable condition. FINDINGS: FLUOROSCOPY: There was severe calcification involving all the coronary arteries. SELECTIVE CORONARY ANGIOGRAPHY: LEFT MAIN: This is a large-sized vessel bifurcating into the left circumflex, left anterior descending artery, left main coronary artery has about a 50% plaque in the distal segment and is heavily calcified. LEFT ANTERIOR DESCENDING ARTERY: This is a large-sized vessel reaching towards the apex with a wraparound the apex segment. There is a stented segment in the mid LAD. Prior to the stented segment, there is a 60% plaque. The rest of the vessel has no high-grade stenosis. LEFT CIRCUMFLEX: This is a codominant vessel, large in caliber, giving rise to a large proximal obtuse marginal branch and subsequently giving rise to a 2nd obtuse marginal branch and distally bifurcating into the PDA, PLV. The first obtuse marginal branch has a calcified plaque in the proximal segment of about 60%. The PLV has 99% stenosis distally. RIGHT CORONARY ARTERY: This vessel is totally occluded proximally with minimal antegrade flow. COLLATERALS: There are collaterals from the left coronary system toward the right PDA and PLV. LEFT VENTRICULOGRAM: Left ventriculogram is not performed. HEMODYNAMICS: There was no gradient across the aortic valve. The left ventricle end-diastolic pressure was 8-10 mmHg. CONCLUSION: 1. Occluded stented segment of the right coronary artery. 2. Borderline significant lesion in the distal left main with moderate to severe disease in the circumflex and to the LAD. RECOMMENDATIONS: At this time I would recommend to obtain a surgical evaluation for possible coronary artery bypass grafting. Those findings and recommendations were discussed with the patient and his family who are in full understanding and agreement. DURATION OF PROCEDURE: 23 minutes. ANA MARIA / DAVIDN: [id number] / MTDD
[2018-11-03] MEDS ORDERED: CLOPIDOGREL 75 MG TAB PO SCH (20:00)
[2018-11-03 20:08] VITALS: BP 139/63; PULSE 56; TEMP 97.7
[2018-11-03] MEDS ORDERED: ATORVASTATIN 40 MG TAB PO SCH (21:00)
[2018-11-03] MEDS ORDERED: METOPROLOL TARTRATE 25 MG TAB PO SCH (21:00)
[2018-11-03] MEDS ORDERED: ASPIRIN 81 MG PO SCH (21:00)
[2018-11-03] MEDS ORDERED: INSULIN DETEMIR (LEVEMIR) 100 UNIT/ML SYR SQ SCH (21:00)
[2018-11-04] MEDS ORDERED: ISOSORBIDE MONONITRATE ER 60 MG TAB.ER.24H PO SCH (09:00)
[2018-11-04] MEDS ORDERED: amLODIPine 10 MG TAB PO SCH (09:00)
[2018-11-04] MEDS ORDERED: CYANOCOBALAMIN 500 MCG TAB PO SCH (12:00)
== END 2018-11-03 21:30 | disposition home or self-care (01) ==
LOC: CATHCVL 10:40 → 1SOBS 15:38 → CATHCVL 21:30
PROVIDERS: ATTEND Internal Medicine Interventional Cardiology
DX: I25.110 Atherosclerotic heart disease of native coronary artery with unstable angina pectoris (principal); I25.82 Chronic total occlusion of coronary artery; I10 Essential (primary) hypertension; E78.2 Mixed hyperlipidemia; E11.22 Type 2 diabetes mellitus with diabetic chronic kidney disease; I12.9 Hypertensive chronic kidney disease with stage 1 through stage 4 chronic kidney disease, or unspecified chronic kidney disease; N18.9 Chronic kidney disease, unspecified; Z95.5 Presence of coronary angioplasty implant and graft; Z79.82 Long term (current) use of aspirin; Z79.4 Long term (current) use of insulin; Z79.899 Other long term (current) drug therapy; Z79.02 Long term (current) use of antithrombotics/antiplatelets
CPT/HCPCS: 93458; 80048; 85025; C1760; C1769; J2001; J3010

== ENCOUNTER → 2018-11-24 | Outpatient (CLI) | payer MEDICARE, BC ==
[2018-11-24 09:44] LABS: Anisocytosis Slight; HGB 11.4 gm/dL (13.0-17.5); Hypochromasia Slight; MCH 25.1 pg (25.0-35.0); MCHC 30.9 g/dL (31.0-37.0); MCV 81.4 fL (80.0-100.0); Mean Platelet Volume 6.6; Platelet Count 252 k/uL (150-450); RBC 4.54 m/uL (4.30-5.90); RDW 17.2 % (11.5-15.5); WBC 7.4 k/uL (3.8-10.6)
[2018-11-24 09:54] LABS: Partial Thromboplastin Time 24.5 sec (22.0-30.0); Prothrombin Time 10.5 sec (9.0-12.0)
[2018-11-24 10:00] LABS: Appearance,Urine Clear (Clear); Bilirubin,Urine Negative (Negative); Blood,Urine Negative (Negative); Color,Urine Yellow; Glucose,Urine (UA) Negative (Negative); Ketones,Urine Negative (Negative); Leukocyte Esterase,Urine Negative (Negative); Nitrite,Urine Negative (Negative); Protein,Urine Trace (Negative); Specific Gravity,Urine 1.013 (1.001-1.035); Urobilinogen,Urine <2.0 mg/dL (<2.0)
[2018-11-24 10:02] LABS: Albumin 4.4 g/dL (3.5-5.0); Calcium 9.5 mg/dL (8.4-10.2); Magnesium 1.9 mg/dL (1.6-2.3); Potassium 4.8 mmol/L (3.5-5.1); Total Bilirubin 0.6 mg/dL (0.2-1.3); Total Protein 7.8 g/dL (6.3-8.2)
--- NOTE | 2018-11-24 11:45 | XR ---
EXAMINATION TYPE: XR chest 2V DATE OF EXAM: 11/24/2018 COMPARISON: 03/16/2018 HISTORY: Preop clearance for cardiac surgery. TECHNIQUE: Frontal and lateral views of the chest are obtained. FINDINGS: Lateral view is somewhat suboptimal given patient body habitus. There is no focal air spac e opacity, pleural effusion, or pneumothorax seen. The cardiac silhouette size is upper limits of no rmal. The osseous structures are intact. IMPRESSION: No acute cardiopulmonary process.
[2018-11-24 15:50] LABS: Hepatitis A Antibody IgM Non-Reactive (Non-Reactive); Hepatitis B Core IgM Non-Reactive (Non-Reactive)
== END | disposition home or self-care (01) ==
LOC: LABPAT 08:00
PROVIDERS: ATTEND Surgery
DX: Z01.810 Encounter for preprocedural cardiovascular examination (principal); E78.5 Hyperlipidemia, unspecified; I25.10 Atherosclerotic heart disease of native coronary artery without angina pectoris; E11.22 Type 2 diabetes mellitus with diabetic chronic kidney disease; I12.9 Hypertensive chronic kidney disease with stage 1 through stage 4 chronic kidney disease, or unspecified chronic kidney disease; N18.9 Chronic kidney disease, unspecified; Z51.81 Encounter for therapeutic drug level monitoring; Z79.01 Long term (current) use of anticoagulants; Z79.899 Other long term (current) drug therapy
CPT/HCPCS: 36415; 71046; 80053; 80061; 80074; 81003; 83036; 83735; 84443; 85027; 85610; 85730; 87070; 87086; 93005; 93922; 93970

== ENCOUNTER 2018-11-29 05:39 | Inpatient (IN) | payer MEDICARE, BC ==
--- NOTE | 2018-11-28 18:37 | P.PN ---
Progress Note - Text Progress Note Date: 11/28/18 5 m walk test has been completed with the patient, time 1:3.89 seconds, time 2: 4.33 seconds, time 3:4.36 seconds. The patient's STS risk score has been calculated and discussed with the patient by Dr. Chanelle Hopkins on 11/11/2018.
[~2018-11-29 05:39] MED LIST changes: +ALBUMIN HUMAN 25% 50 ML IV ONE; -ALPRAZolam 0.25 MG TAB PO PRN; -ALPRAZolam 0.5 MG TAB PO PRN; +ASPIRIN 325 MG TAB PO ONE; -ASPIRIN 325 MG TAB PO STA; +ATORVASTATIN 10 MG TAB PO ONE; -ATORVASTATIN 80 MG TAB PO STA; +CALCIUM CHLORIDE 100 MG/ML 10 ML SYRINGE IV ONE; +CHLORHEXIDINE GLUCONATE 15 ML CUP MUCOUS MEM ONE; +CLEVIDIPINE BUTYRATE 25 MG in EMPTY BAG 1 BAG IV ONE; +DEXTROSE 5% IN WATER 1,000 ML with POTASSIUM CHLORIDE 110 MEQ, MAGNESIUM SULFATE 16 MEQ... IV ONE; +DEXTROSE 5% IN WATER 1,000 ML with POTASSIUM CHLORIDE 25 MEQ, SODIUM CHLORIDE 2.5MEQ/ML... IRRIGATION ONE; +HEPARIN SODIUM 1,000 UN/ML (10ML VL) IV ONE; +HEPARIN SODIUM,PORCINE 5,000 UNIT in SODIUM CHLORIDE 0.9% 500 ML 500 ML IV ONE; +INSULIN REGULAR 100 UNIT in SODIUM CHLORIDE 0.9% 100 ML IV ONE; +LACTATED RINGERS 1,000 ML IV ONE; +MAGNESIUM SULFATE MG 500 MG/ML IV ONE; +MANNITOL 25% 12.5 GM/50 ML VIAL IV ONE; +METOPROLOL TARTRATE 12.5 MG TAB PO ONE; -NITROGLYCERIN SL TABS 0.4 MG TAB SUBLINGUAL PRN; +NITROGLYCERIN-D5W PMX 25 MG/250 ML BTL IV ONE; +NITROGLYCERIN-D5W PMX 50 MG in DEXTROSE/WATER 1 250ML.BAG IV ONE; +NOREPINEPHRINE 4 MG in SODIUM CHLORIDE 0.9% 250 ML IV ONE; +PAPAVERINE 360 MG in SODIUM CHLORIDE 0.9% 90 ML IV ONE; +PHENYLEPHRINE 40 MG in SODIUM CHLORIDE 0.9% 250 ML IV ONE; +PROPOFOL 1,000 MG/100 ML VIAL IV ONE; +PROTAMINE SULFATE 10 MG/ML 25 ML VIAL IV ONE; +PROTAMINE SULFATE 250 MG in EMPTY BAG 1 BAG IV ONE; +SODIUM BICARB 8.4% 50 ML SYR (1 MEQ/ML) IV ONE; +SODIUM CHLORIDE 0.9% 1,000 ML IV ONE; -SODIUM CHLORIDE 0.9% 1,000 ML in EMPTY BAG 1 BAG IV ONE; +TRANEXAMIC ACID 2,000 MG in SODIUM CHLORIDE 0.9% 80 ML IV SCH; +ceFAZolin 1,000 MG in SODIUM CHLORIDE 0.9% IRRIGATIO 1,000 ML IRRIGATION ONE; +ceFAZolin 2,000 MG in SODIUM CHLORIDE 0.9% 30 ML IVPB ONE; +ceFAZolin IN SWFI 2 GM/20 ML SYRINGE IVP ONE
[2018-11-29 06:16] LABS: Glucose,Whole Blood 174 mg/dL (75-99)
[2018-11-29] MEDS ORDERED: HYDROmorphone 0.5 MG/0.5 ML SYRINGE IVP PRN (06:26)
[2018-11-29] MEDS ORDERED: ONDANSETRON 4 MG/2 ML VIAL IVP ONE (06:26)
[2018-11-29] MEDS ORDERED: DEXAMETHASONE SOD PHOSPHATE 10 MG/ML 1 ML VIAL IV ONE (06:26)
[2018-11-29] MEDS ORDERED: LACTATED RINGERS 1,000 ML IV SCH ×2 (06:30→14:48)
[2018-11-29 08:49] LABS: ABG Base Excess -1.5 mmol/L; ABG HCO3 24 mmol/L (21-25); ABG Oxygen Saturation 97.5 % (94-97); ABG PCO2 40 mmHg (35-45); ABG PH 7.38 (7.35-7.45); ABG PO2 108 mmHg (83-108); ABG Potassium Whole Blood 4.5 mmol/L (3.4-4.5); ABG Sodium Whole Blood 141 mmol/L (135-146); ABG TCO2 25 mmol/L (19-24)
[2018-11-29 10:33] LABS: ABG Base Excess -2.3 mmol/L; ABG HCO3 24 mmol/L (21-25); ABG PCO2 45 mmHg (35-45); ABG PH 7.33 (7.35-7.45); ABG PO2 103 mmHg (83-108); ABG Potassium Whole Blood 4.6 mmol/L (3.4-4.5); ABG Sodium Whole Blood 141 mmol/L (135-146); ABG TCO2 25 mmol/L (19-24)
[2018-11-29 11:16] LABS: ABG Base Excess -2.6 mmol/L; ABG HCO3 23 mmol/L (21-25); ABG Oxygen Saturation 98.1 % (94-97); ABG PCO2 43 mmHg (35-45); ABG PH 7.34 (7.35-7.45); ABG PO2 135 mmHg (83-108); ABG Potassium Whole Blood 4.6 mmol/L (3.4-4.5); ABG Sodium Whole Blood 141 mmol/L (135-146); ABG TCO2 24 mmol/L (19-24)
[2018-11-29 11:33] LABS: ABG Base Excess -2.7 mmol/L; ABG HCO3 23 mmol/L (21-25); ABG Oxygen Saturation 97.9 % (94-97); ABG PCO2 42 mmHg (35-45); ABG PH 7.34 (7.35-7.45); ABG PO2 129 mmHg (83-108); ABG Potassium Whole Blood 4.5 mmol/L (3.4-4.5); ABG Sodium Whole Blood 142 mmol/L (135-146); ABG TCO2 24 mmol/L (19-24)
[2018-11-29 12:09] LABS: ABG Base Excess -3.5 mmol/L; ABG HCO3 22 mmol/L (21-25); ABG Oxygen Saturation 98.2 % (94-97); ABG PCO2 39 mmHg (35-45); ABG PH 7.35 (7.35-7.45); ABG PO2 145 mmHg (83-108); ABG Potassium Whole Blood 4.4 mmol/L (3.4-4.5); ABG Sodium Whole Blood 141 mmol/L (135-146); ABG TCO2 23 mmol/L (19-24)
[2018-11-29 12:39] LABS: ABG Base Excess -3.8 mmol/L; ABG HCO3 22 mmol/L (21-25); ABG Oxygen Saturation 98.2 % (94-97); ABG PCO2 43 mmHg (35-45); ABG PH 7.32 (7.35-7.45); ABG PO2 143 mmHg (83-108); ABG Potassium Whole Blood 4.4 mmol/L (3.4-4.5); ABG Sodium Whole Blood 141 mmol/L (135-146); ABG TCO2 23 mmol/L (19-24)
[2018-11-29 13:09] LABS: ABG Base Excess -4.7 mmol/L; ABG HCO3 22 mmol/L (21-25); ABG Oxygen Saturation 97.8 % (94-97); ABG PCO2 44 mmHg (35-45); ABG PO2 140 mmHg (83-108); ABG Potassium Whole Blood 4.4 mmol/L (3.4-4.5); ABG Sodium Whole Blood 141 mmol/L (135-146); ABG TCO2 23 mmol/L (19-24)
[2018-11-29 13:49] LABS: ABG Base Excess -4.7 mmol/L; ABG HCO3 21 mmol/L (21-25); ABG Oxygen Saturation 91.9 % (94-97); ABG PCO2 42 mmHg (35-45); ABG PH 7.31 (7.35-7.45); ABG PO2 71 mmHg (83-108); ABG Potassium Whole Blood 4.5 mmol/L (3.4-4.5); ABG Sodium Whole Blood 141 mmol/L (135-146); ABG TCO2 22 mmol/L (19-24)
[2018-11-29] MEDS ORDERED: ONDANSETRON 4 MG/2 ML VIAL IVP PRN (14:48)
[2018-11-29] MEDS ORDERED: Potassium Replacement Protocol 1 EACH MISC MISCELLANE PRN (14:48)
[2018-11-29] MEDS ORDERED: ASPIRIN 300 MG SUPP RECTAL ONE (14:48)
[2018-11-29] MEDS ORDERED: Phosphorus Replacement Protoco 1 EACH MISC MISCELLANE PRN (14:48)
[2018-11-29] MEDS ORDERED: NITROGLYCERIN-D5W PMX 50 MG in DEXTROSE/WATER 1 250ML.BAG IV SCH (14:48)
[2018-11-29] MEDS ORDERED: IPRATROPIUM-ALBUTEROL 3 ML NEB INHALATION PRN (14:48)
[2018-11-29] MEDS ORDERED: CLEVIDIPINE BUTYRATE 25 MG in EMPTY BAG 1 BAG IV SCH (14:48)
[2018-11-29] MEDS ORDERED: Magnesium Replacement Protocol 1 EACH MISC MISCELLANE PRN (14:48)
[2018-11-29] MEDS ORDERED: PROPOFOL 1,000 MG in EMPTY BAG 1 BAG IV SCH (14:48)
[2018-11-29] MEDS ORDERED: AMIODARONE 360 MG in DEXTROSE 5% IN WATER 200 ML IV PRN ×2 (15:00)
[2018-11-29] MEDS ORDERED: DEXTROSE 5% IN WATER 100 ML with AMIODARONE 150 MG IV PRN (15:00)
[2018-11-29 15:30] LABS: Glucose,Whole Blood 136 mg/dL (75-99)
--- NOTE | 2018-11-29 15:31 | XR ---
EXAMINATION TYPE: XR chest 1V portable DATE OF EXAM: 11/29/2018 HISTORY: Post Op CABG COMPARISON: 11/24/2018 TECHNIQUE: Single view of the chest is submitted. FINDINGS: Endotracheal tube, NG tube, SG catheter, mediastianal drains and chest tubes are appropriately placed . Post operative changes of CABG. No sizeable pneumothorax. Scattered Pleural-parenchymal opacities may reflect atelectasis. The heart is not enlarged. IMPRESSION: 1. Post operative changes of CABG.
[2018-11-29 15:36] LABS: ABG HCO3 22 mmol/L (21-25); ABG Oxygen Saturation 99.3 % (94-97); ABG PCO2 42 mmHg (35-45); ABG PH 7.33 (7.35-7.45); ABG PO2 >400 mmHg (83-108); ABG TCO2 23 mmol/L (19-24)
[2018-11-29 15:37] LABS: Anisocytosis Slight; Basophils # (A) 0.1 k/uL (0-0.2); Basophils % (A) 1 %; Eosinophils # (A) 0.1 k/uL (0-0.7); Eosinophils % (A) 1 %; HCT 25.2 % (39.0-53.0); Hypochromasia Slight; Lymphocytes # (A) 1.9 k/uL (1.0-4.8); Lymphocytes % (A) 23 %; MCH 25.3 pg (25.0-35.0); MCHC 31.3 g/dL (31.0-37.0); MCV 81.1 fL (80.0-100.0); Monocytes # (A) 0.5 k/uL (0-1.0); Monocytes % (A) 6 %; Neutrophils # (A) 5.7 k/uL (1.3-7.7); Neutrophils % (A) 68 %; Platelet Count 159 k/uL (150-450); RDW 17.1 % (11.5-15.5); WBC 8.4 k/uL (3.8-10.6)
[2018-11-29 15:38] LABS: Ionized Calcium 4.9 mg/dL (4.5-5.3)
[2018-11-29 15:43] LABS: HGB 7.9 gm/dL (13.0-17.5)
[2018-11-29] MEDS: IPRATROPIUM-ALBUTEROL 3 ML NEB INHALATION SCH ×3 (15:43→21:02)
[2018-11-29 15:45] LABS: INR 1.2 (<1.2); Partial Thromboplastin Time 23.7 sec (22.0-30.0); Prothrombin Time 12.8 sec (9.0-12.0)
[2018-11-29] MEDS ORDERED: CALCIUM CHLORIDE 1,000 MG in SODIUM CHLORIDE 0.9% 100 ML IV PRN (16:00)
[2018-11-29 16:02] LABS: Glucose,Whole Blood 211 mg/dL (75-99)
[2018-11-29 16:04] LABS: Albumin 2.7 g/dL (3.5-5.0); Calcium 7.7 mg/dL (8.4-10.2); Magnesium 1.8 mg/dL (1.6-2.3); Potassium 4.8 mmol/L (3.5-5.1); Total Bilirubin 0.8 mg/dL (0.2-1.3); Total Protein 4.6 g/dL (6.3-8.2)
[2018-11-29] MEDS: ALBUMIN HUMAN 5% 250 ML in EMPTY BAG 1 BAG IVPB PRN ×3 (16:05→17:04)
[2018-11-29] MEDS: ceFAZolin IN SWFI 2 GM/20 ML SYRINGE IVP SCH ×2 (16:10→23:25)
[2018-11-29] MEDS: MAGNESIUM SULFATE-D5W PMX 1 GM in DEXTROSE/WATER 1 100ML.BAG IVPB SCH ×2 (16:16→17:16)
[2018-11-29] MEDS: INSULIN REGULAR 100 UNIT in SODIUM CHLORIDE 0.9% 100 ML IV SCH (16:31)
[2018-11-29 17:02] LABS: Glucose,Whole Blood 210 mg/dL (75-99)
--- NOTE | 2018-11-29 17:04 | CONS ---
CONSULTATION DATE OF CONSULTATION: 11/29/2018 This is a consultation, pulmonary critical care consultation. 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 The patient apparently was recently found to have significant cardiovascular disease in the form of multivessel coronary artery disease. He has had a previous history of a stenting to his mid LAD in 2006 and had several stents to his right coronary artery in 2018. Subsequent to that, he developed additional chest pain and it was associated with effort. He admits to some shortness of breath on exertion as well. Cardiac catheterization was done and showed multivessel coronary artery disease, and he underwent a 4-vessel bypass grafting today. He had a HERNANDEZ to LAD and 3 saphenous vein grafts, I believe one SVG to the PDA, one to the OM2 and one to the ramus. Anyway, he has just return back to the ICU on the ventilator. I just saw the patient and did an examination. I did speak to Dr. Hopkins about the patient. The patient is currently resting comfortably and currently sedated. He is on the ventilator with the assist-control mode rate of 12, tidal volume 600, FiO2 100%, PEEP of 10. The patient will be settled in. A blood gas will be done. The ventilator will be adjusted accordingly and a chest x-ray will be done to check tube placement and also anything that might have occurred postsurgically. PAST MEDICAL HISTORY: Positive for chronic kidney disease with a creatinine anywhere from 1.5 up to 2. He also has elevated left hemidiaphragm and a history of diabetes mellitus. Other medical history includes hypertension, hyperlipidemia, and previous tobacco use. SURGICAL HISTORY: Includes appendectomy, tonsillectomy, laparotomy for bowel resection and colostomy followed by reversal. Cardiac catheterization with stenting and knee arthroscopy. ALLERGIES: Are none. MEDICATIONS: As an outpatient include Bactroban ointment, vitamin B12, metoprolol, aspirin, insulin, gabapentin, and Plavix, amlodipine, simvastatin, omeprazole, nitroglycerin tablets, Imdur and insulin. SOCIAL HISTORY: Positive for rare alcohol use. Tobacco history was positive up until about 30 years ago. He used to smoke 1-2 packs a day for about 30 years. No illicit drug history. FAMILY HISTORY: Positive for COPD and stroke. REVIEW OF SYSTEMS: Could not be currently obtained as the patient is currently sedated, just having come out of the operating room. Previous to this, the patient did have exertional shortness of breath and chest pain which led to the evaluation. PHYSICAL EXAMINATION: Current vital signs are reviewed. Temperature 97, heart rate 71, respiratory rate 16, blood pressure 157/71, and saturations are between 98 and 100% on 100% and 10 of PEEP. Appears in no acute distress. The patient is currently sedated. HEENT examination is grossly unremarkable. There is an orally placed endotracheal tube and NG tube. NECK: Supple. Full range of motion. No adenopathy or thyromegaly. Neck veins are flat. Cardiovascular examination reveals regular rhythm rate. Heart rate in mid 70s into the lower 80s. S1, S2 normal. No murmur. Heart sounds are distant. LUNGS: Mostly clear. A few scattered rhonchi. No wheezes or crackles. ABDOMEN: Soft. No bowel sounds. EXTREMITIES: are intact. There is no edema. SKIN: without rash. NEUROLOGIC examination obviously cannot be adequately done at this time. LABS: Reviewed. The only thing back thus far is a blood gas probably in the operating room done an unknown time showing a PO2 of 71, pCO2 42, and a pH 7.31. Also, there was a sugar done in the operating room which was 154 and a potassium of 4.5. A chest x-ray is yet to be done. Blood gases yet to be done. Medications are reviewed. ASSESSMENT: 1. Postoperative day number zero, status post 4-vessel bypass grafting in a patient with multivessel CAD. 2. Previous history of stenting to the LAD and the right coronary artery in 2006 and 2018, respectively. 3. History of chronic kidney disease with a baseline creatinine right around 1.5. 4. History of elevated left hemidiaphragm. 5. Diabetes mellitus. 6. History of hypertension. 7. History of hyperlipidemia. 8. History of previous tobacco use. PLAN: The patient's blood gases will be obtained shortly and I will adjust the ventilator accordingly. In addition, we will get the chest x-ray and make sure that looks okay. We will add updrafts in the form of albuterol and Atrovent q.4 hours around the clock. Hopefully we will be able to do a quick wean on this patient and get him extubated within the 6 hour window. Additional recommendations and suggestions are forthcoming. Prognosis is guarded. We will continue to follow. I will let the employee in my office who is the daughter of this patient know that I saw the patient, her father. ANA MARIA / BRE: [id number] / MTDD
[2018-11-29] MEDS: ACETAMINOPHEN IV (For NPO) 1,000 MG in EMPTY BAG 1 BAG IVPB SCH ×2 (17:16→23:24)
[2018-11-29 17:59] LABS: Anisocytosis Slight; Basophils % (A) 1 %; Eosinophils % (A) 1 %; HCT 23.3 % (39.0-53.0); HGB 7.3 gm/dL (13.0-17.5); Hypochromasia Moderate; Lymphocytes # (A) 1.2 k/uL (1.0-4.8); Lymphocytes % (A) 16 %; MCH 25.9 pg (25.0-35.0); MCHC 31.1 g/dL (31.0-37.0); MCV 83.1 fL (80.0-100.0); Mean Platelet Volume 6.3; Monocytes # (A) 0.6 k/uL (0-1.0); Monocytes % (A) 7 %; Neutrophils # (A) 5.7 k/uL (1.3-7.7); Neutrophils % (A) 75 %; Platelet Count 131 k/uL (150-450); RBC 2.81 m/uL (4.30-5.90); RDW 17.1 % (11.5-15.5); WBC 7.7 k/uL (3.8-10.6)
[2018-11-29 18:02] LABS: Glucose,Whole Blood 210 mg/dL (75-99)
--- NOTE | 2018-11-29 18:04 | OP ---
OPERATIVE REPORT DATE OF SURGERY: 11/29/2018. SURGEON: Dr. Chanelle Hopkins. WHEEL LOADER OPERATOR: 1. Patrick Khan. 2. Jamil Toribio. PREOPERATIVE DIAGNOSES: 1. Triple-vessel coronary artery disease with left main disease and a totally occluded right coronary artery, status post prior stenting to LAD and RCA. 2. Overall mild left ventricular dysfunction. 3. No significant valvular abnormality. 4. Chronic kidney disease. 5. Totally occluded right-sided internal carotid artery. 6. Hypertension. 7. Hyperlipidemia. 8. Diabetes. POSTOPERATIVE DIAGNOSES: 1. Triple-vessel coronary artery disease with left main disease and a totally occluded right coronary artery, status post prior stenting to LAD and RCA. 2. Overall mild left ventricular dysfunction. 3. No significant valvular abnormality. 4. Chronic kidney disease. 5. Totally occluded right-sided internal carotid artery. 6. Hypertension. 7. Hyperlipidemia. 8. Diabetes. PROCEDURE: 1. Non-aortic clamp quadruple off-pump coronary artery bypass grafting using the left internal mammary artery to the left anterior descending artery, Reverse saphenous vein graft connected to the aorta using the Passport device and connected distally to the ramus intermedius artery,.reverse saphenous vein graft connected to the aorta using the Passport device and connected distally to the posterior descending artery, Reverse saphenous vein graft connected to the aorta using the Passport device connected distally to the distal circumflex artery. 5. Endoscopic harvesting of bilateral greater saphenous vein. 6. Intraoperative transesophageal echocardiogram and epiaortic scanning. 7. Intraoperative graft flow measurements using the Medistim system. INDICATION FOR SURGERY: Patient is a 73-year-old gentleman with prior history of remote stent to his left anterior descending artery and stent to his RCA last year who was worked up for dyspnea on exertion and found to have totally occluded right coronary artery and distal left main disease and stenosis before the LAD stent. The patient was referred for surgical revascularization. Preoperative workup showed mild left ventricular dysfunction with some inferior hypokinesia and a totally occluded right internal carotid artery and a left internal carotid artery that was around 50% to 70%. Plan today is to proceed with a beating heart strategy in view of the above. The increased STS risk was discussed with him and his family. They understood it and agreed to proceed. DESCRIPTION OF THE PROCEDURE: The patient was in supine position in the preoperative holding area. Right internal jugular [place]-Kanchan catheter and a right radial arterial line were placed. The patient had normal PA pressure and a cardiac index of 2.9. Subsequently he was brought to the operating room, where general endotracheal anesthesia was induced uneventfully. He received 2 grams of cefazolin intravenously. The Larios catheter was inserted. The chest, abdomen and both lower extremities were prepped and draped using ChloraPrep. Ioban was used to cover the skin. SAMY confirmed the preoperative findings. Midline sternotomy was performed and the bone was quite dense. The left hemisternum was elevated. The left internal mammary artery was harvested in a somewhat skeletonized fashion. It was plastered to the posterior chest wall and I had to go into a subperiosteal plane at several locations to avoid injuring the left internal mammary artery. Finally the pedicle was good and we gave the patient 5000 units of heparin and disconnected the mammary distally by transecting it. It had an excellent pulsatile flow in it and the stump was ligated with silk 2-0 and clipped. In the same setting, initially the right and the left greater saphenous veins were harvested. The total right side and the piece between the knee and the groin on the left were harvested. Eventually we had 3 good pieces of vein. All branches were tied. The leg incisions were closed over a drain. The vein harvesting proceeded after administration of 2000 units of heparin. The Acrobat system along with the XPOSE device were used to perform surgery on a beating heart. The patient was given heparin to achieve an ACT between 260 and 300 seconds. The ACT was repeated every 20 minutes and additional heparin given if needed. We drained the right pleura, which was opened with a 19-Malagasy Manolo drain, and the same at the left pleural cavity with another 19-Malagasy Manolo drain. We looked at the target. The LAD, the proximal ramus intermedius artery, the distal circumflex artery and the posterior descending artery would be sites for bypass. The first distal anastomosis was between the left internal mammary artery and the mid to distal left anterior descending artery beyond the stenting. That artery was opened. It had profuse flow in it and accepted a 2 mm shunt. The anastomosis was completed using Prolene 7-0 in continuous fashion. The shunt was removed and the artery de-aired before completing the anastomosis, which was well tolerated. The mammary pedicle was affixed to the epicardium with a Prolene 6-0 suture. Subsequently we fashioned 3 segments of vein based on the previous measurement between the aorta and the respective targets that we identified. They were loaded on 3 Passport devices and deployed on the anterior aspect of the proximal aorta for the vein going to the posterior descending artery and on the left lateral aspect of the aorta for the veins going to the circumflex system. All proximal anastomoses were hemostatic. There was excellent flow from the distal end of the veins. The second distal anastomosis was between a segment of vein and the soft 1.75 mm proximal posterior descending artery using Prolene 7-0 in continuous fashion after using a 1.75 mm shunt. The vein was de-aired and the shunt was removed before completing the anastomosis, which was well tolerated. Graft flow measurements of the left internal mammary artery and the vein graft to the posterior descending artery so far showed excellent parameters. The third distal anastomosis was between another segment of vein and the proximal aspect of the ramus intermedius artery which was opened, accepted a 2 mm shunt, had profuse flow in it, using Prolene 7-0 in continuous fashion. The vein was de- aired and the shunt was removed before completing the anastomosis, which was well tolerated. The fourth and last distal anastomosis was between a segment of vein and the 1.25 mm relatively small, thin-walled distal circumflex artery which was opened and had profuse flow in it also. It accepted a 1.25 mm shunt using Prolene 7-0 in continuous fashion. The vein was de-aired and the shunt was removed before completing the anastomosis, which was well tolerated. Graft flow measurement of this vein revealed reasonable flow of 60 mL/minute. However, there was an increased pulsatility index from competitive backfill. We were, though, satisfied with the parameters in view of the relatively small vessel. Test dose and only half-dose protamine were given. No pacing wires were placed. A groove was made in the left pleuropericardial fat to accommodate the mammary artery medial to the lung and away from the posterior sternal table. Pericardial fat was closed over the heart and the graft. Two substernal Manolo drains were placed, one in the posterior pericardium and one anteriorly. After ensuring adequate hemostasis and hemodynamics and after correct sponge, instrument and needle count, the sternum was closed using 5 [id number] pineal cables after interposing Fibrillar between the sternal edges. Thorough irrigation with cefazolin followed. The rest of the closure proceeded in layers. Skin glue was applied. Patient did not receive any blood bank product but received around 1 L of Cell Saver blood. He was transferred to the ICU in stable condition on low-dose nitroglycerin with cardiac index of 2.2 and a normal EKG with sinus bradycardia, which was his baseline. MMODL / IJN: [id number] / MTDD
[2018-11-29 18:58] LABS: Glucose,Whole Blood 196 mg/dL (75-99)
[2018-11-29 19:50] LABS: Glucose,Whole Blood 179 mg/dL (75-99)
[2018-11-29 20:09] LABS: Anisocytosis Slight; Basophils % (A) 0 %; Eosinophils % (A) 0 %; HCT 23.6 % (39.0-53.0); HGB 7.7 gm/dL (13.0-17.5); Hypochromasia Slight; Lymphocytes # (A) 0.9 k/uL (1.0-4.8); Lymphocytes % (A) 12 %; MCH 26.8 pg (25.0-35.0); MCHC 32.6 g/dL (31.0-37.0); MCV 82.2 fL (80.0-100.0); Monocytes # (A) 0.4 k/uL (0-1.0); Monocytes % (A) 6 %; Neutrophils # (A) 5.9 k/uL (1.3-7.7); Neutrophils % (A) 81 %; Platelet Count 152 k/uL (150-450); RBC 2.86 m/uL (4.30-5.90); RDW 17.1 % (11.5-15.5); WBC 7.3 k/uL (3.8-10.6)
[2018-11-29] MEDS ORDERED: MUPIROCIN 2% OINT 22 GM TUBE NASAL ONE (20:30)
[2018-11-29 20:36] LABS: ABG Base Excess -3.5 mmol/L; ABG HCO3 23 mmol/L (21-25); ABG Oxygen Saturation 96.9 % (94-97); ABG PCO2 45 mmHg (35-45); ABG PH 7.31 (7.35-7.45); ABG PO2 100 mmHg (83-108); ABG TCO2 24 mmol/L (19-24)
[2018-11-29] MEDS ORDERED: AMIODARONE 300 MG in DEXTROSE 5% IN WATER 250 ML IV PRN ×2 (21:00)
[2018-11-29 21:16] LABS: Glucose,Whole Blood 154 mg/dL (75-99)
[2018-11-29 22:02] LABS: Glucose,Whole Blood 150 mg/dL (75-99)
[2018-11-29] MEDS: MUPIROCIN 2% OINT 22 GM TUBE NASAL SCH (22:08)
[2018-11-29] MEDS: HEPARIN SODIUM,PORCINE 5,000 UNIT/ML 1 ML VIAL SQ SCH (22:09)
[2018-11-29 23:11] LABS: Glucose,Whole Blood 142 mg/dL (75-99)
[2018-11-29] MEDS: GABAPENTIN 400 MG CAP PO SCH (23:39)
[2018-11-29] MEDS: METOPROLOL TARTRATE 12.5 MG TAB PO SCH (23:45)
[2018-11-29 23:58] LABS: Glucose,Whole Blood 141 mg/dL (75-99)
[2018-11-30 01:03] LABS: Glucose,Whole Blood 135 mg/dL (75-99)
[2018-11-30 02:31] LABS: Glucose,Whole Blood 138 mg/dL (75-99)
[2018-11-30 03:58] LABS: Glucose,Whole Blood 128 mg/dL (75-99)
[2018-11-30 04:42] LABS: Anisocytosis Slight; Basophils % (A) 0 %; Eosinophils % (A) 0 %; HGB 7.5 gm/dL (13.0-17.5); Hypochromasia Moderate; Lymphocytes # (A) 1.1 k/uL (1.0-4.8); Lymphocytes % (A) 12 %; MCH 26.9 pg (25.0-35.0); MCHC 32.7 g/dL (31.0-37.0); MCV 82.3 fL (80.0-100.0); Mean Platelet Volume 6.4; Monocytes # (A) 0.5 k/uL (0-1.0); Monocytes % (A) 6 %; Neutrophils # (A) 7.3 k/uL (1.3-7.7); Neutrophils % (A) 80 %; Platelet Count 166 k/uL (150-450); RBC 2.79 m/uL (4.30-5.90); RDW 17.3 % (11.5-15.5)
[2018-11-30 04:47] LABS: Ionized Calcium 4.9 mg/dL (4.5-5.3)
[2018-11-30 04:54] LABS: Albumin 3.3 g/dL (3.5-5.0); Calcium 8.4 mg/dL (8.4-10.2); Magnesium 2.3 mg/dL (1.6-2.3); Potassium 5.1 mmol/L (3.5-5.1); Total Bilirubin 0.6 mg/dL (0.2-1.3); Total Protein 5.4 g/dL (6.3-8.2)
[2018-11-30 05:06] LABS: Glucose,Whole Blood 128 mg/dL (75-99)
[2018-11-30] MEDS: ACETAMINOPHEN IV (For NPO) 1,000 MG in EMPTY BAG 1 BAG IVPB SCH (05:40)
[2018-11-30] MEDS: ALBUMIN HUMAN 5% 250 ML in EMPTY BAG 1 BAG IVPB PRN ×2 (06:30→06:59)
[2018-11-30 06:39] LABS: Glucose,Whole Blood 128 mg/dL (75-99)
--- NOTE | 2018-11-30 07:53 | XR ---
EXAMINATION TYPE: XR chest 1V portable DATE OF EXAM: 11/30/2018 COMPARISON: 11/29/2018 HISTORY: Shortness of breath TECHNIQUE: Single frontal view of the chest is obtained. FINDINGS: Endotracheal and enteric tube have been removed. There is stable platelike left basilar ate lectasis. Right [place]-Kanchan catheter, postsurgical changes the chest, and bilateral thoracostomy tubes are again present. There is slight change in position of the right thoracostomy tube. No residual pne umothorax. Mediastinal drain is not well-visualized as seen on the prior. Cardia mediastinal silhouet te is mildly enlarged. No pulmonary vascular congestion. IMPRESSION: Interval extubation and removal of the enteric tube. Stable platelike left basilar atele ctasis.
[2018-11-30] MEDS: IPRATROPIUM-ALBUTEROL 3 ML NEB INHALATION SCH ×4 (08:03→20:06)
[2018-11-30 08:10] LABS: Glucose,Whole Blood 138 mg/dL (75-99)
[2018-11-30] MEDS: HEPARIN SODIUM,PORCINE 5,000 UNIT/ML 1 ML VIAL SQ SCH ×2 (08:32→16:11)
[2018-11-30] MEDS: ASPIRIN 325 MG TAB PO SCH (08:32)
[2018-11-30] MEDS: ATORVASTATIN 40 MG TAB PO SCH (08:33)
[2018-11-30] MEDS: ceFAZolin IN SWFI 2 GM/20 ML SYRINGE IVP SCH (08:33)
[2018-11-30] MEDS: CYANOCOBALAMIN 500 MCG TAB PO SCH (08:34)
[2018-11-30] MEDS: GABAPENTIN 300 MG CAP PO SCH (08:34)
[2018-11-30] MEDS: CLOPIDOGREL 75 MG TAB PO SCH (08:34)
[2018-11-30] MEDS: METOPROLOL TARTRATE 12.5 MG TAB PO SCH ×2 (08:35→21:13)
[2018-11-30] MEDS: MUPIROCIN 2% OINT 22 GM TUBE NASAL SCH ×2 (08:35→21:18)
--- NOTE | 2018-11-30 08:51 | P.CRDCN ---
History of Present Illness Consult date: 11/30/18 History of present illness: This is a 73-year-old gentleman with history of hypertension, hyperlipidemia and diabetes mellitus and previous ischemic heart disease and stent placement of the right coronary artery in January 2018 and also in March 2018. Because of progressive symptoms, he was evaluated by cardiac catheterization on November 03. Patient was found to have total occlusion of the right coronary artery at the previous stent site and also of lesions in the LAD and circumflex and left main. Patient underwent four-vessel bypass surgery yesterday with the HERNANDEZ graft to the LAD and 3 vein grafts. Patient is stable post surgery. Patient is extubated and sitting in the chair. Apparently when he was up and standing, he developed severe chest pain and a syncopal episode. It appears that patient developed a vasovagal phenomenon with bradycardia and hypotension. Currently is in the chair and seemed developed complaining of chest pain. His maintaining sinus rhythm. His cardiac index is about 2.2-2.4. His lab values showed hemoglobin of about 7.1. His creatinine is slightly elevated at 1.38. Overall he seemed to be clinically stable. We'll continue watching for any arrhythmias. His renal function was followed. Further recommendation will depend upon clinical course Review of Systems As per the chart Past Medical History Past Medical History: Coronary Artery Disease (CAD), Cancer, Chest Pain / Angina, Diabetes Mellitus, GERD/Reflux, Hearing Disorder / Deafness, Hyperlipi demia, Hypertension, Myocardial Infarction (NE), Osteoarthritis (OA), Renal Disease Additional Past Medical History / Comment(s): SKIN CANCER, hx ulcers, growth on one kidney(not sure which one), decreased kidney function. Last Myocardial Infarction Date:: 2010 History of Any Multi-Drug Resistant Organisms: None Reported Past Surgical History: Appendectomy, Bowel Resection, Heart Catheterization, Heart Catheterization With Stent, Orthopedic Surgery, Tonsillectomy Additional Past Surgical History / Comment(s): bowel resection after perforated bowel during a colonsocpy, total of five cardiac stents- (4 in January 2018). VIKA KNEE ARTHROSCOPY. SKIN CANCER REMOVED. vika cataracts Past Anesthesia/Blood Transfusion Reactions: No Reported Reaction Date of Last Stent Placement:: 01/2018 Smoking Status: Former smoker - Past Family History Father Family Medical History: Hypertension Additional Family Medical History / Comment(s): DAD IS TILL ALIVE AT AGE 98 HAS SOME MINOR HEART PROBLEMS Mother History Unknown: Yes Family Medical History: No Reported History Medications and Allergies Home Medications Medication Instructions Recorded Confirmed Type Insulin Glargine [Lantus] 56 unit SQ HS 02/05/14 11/29/18 History Nitroglycerin Sl Tabs [Nitrostat] 0.4 mg SUBLINGUAL Q5M PRN 02/05/14 11/29/18 History Omeprazole [PriLOSEC] 20 mg PO W/SUPPER 02/05/14 11/29/18 History Gabapentin 600 mg PO QAM 06/20/15 11/29/18 History amLODIPine [Norvasc] 10 mg PO DAILY 09/07/18 11/29/18 History Aspirin [Adult Low Dose Aspirin EC] 81 mg PO HS 11/02/18 11/29/18 History Clopidogrel [Plavix] 75 mg PO HS@199911/02/18 11/29/18 History Cyanocobalamin (Vitamin B-12) 2,000 mcg PO DAILY 11/02/18 11/29/18 History [Vitamin B-12] Insulin Aspart [NovoLOG Flexpen] 16 units SQ TID-W/MEALS 11/02/18 11/29/18 Histo ry Insulin Aspart [NovoLOG Flexpen] See Protocol SQ TID-W/MEALS PRN 11/02/18 11/29/18 History Isosorbide Mononitrate [Imdur] 120 mg PO DAILY 11/02/18 11/29/18 History Metoprolol Tartrate [Lopressor] 25 mg PO BID 11/02/18 11/29/18 History Simvastatin 80 mg PO HS 11/02/18 11/29/18 History Gabapentin [Neurontin] 1,200 mg PO HS 11/24/18 11/29/18 History Mupirocin 2% Oint [Bactroban 2% 1 applic NASAL BID 11/28/18 11/29/18 History Oint] Allergies Allergy/AdvReac Type Severity Reaction Status Date / Time No Known Allergies Allergy Verified 11/29/18 15:41 Physical Exam Vitals: Vital Signs Temp Pulse Resp BP Pulse Ox 11/30/18 08:16 63 11/30/18 08:03 59 L 11/30/18 08:00 98.4 F 63 10 L 97 11/30/18 07:00 63 100/48 99 11/30/18 06:00 84 26 H 103/60 95 11/30/18 05:00 72 13 103/60 99 11/30/18 04:00 73 13 97 11/30/18 03:01 75 12 110/56 98 11/30/18 02:00 81 24 106/53 97 11/30/18 01:00 78 8 L 98 11/30/18 00:13 76 10 L 98 11/30/18 00:00 77 12 97 11/29/18 23:30 81 16 97 11/29/18 23:00 80 10 L 95 11/29/18 22:30 80 8 L 94 L 11/29/18 22:00 85 10 L 113/57 95 11/29/18 21:30 85 8 L 95 11/29/18 21:14 78 11/29/18 21:04 76 11/29/18 21:00 77 14 94 L 11/29/18 20:50 95 11/29/18 20:30 68 10 L 98 11/29/18 20:00 69 20 114/59 96 11/29/18 19:30 75 20 91/64 95 11/29/18 19:00 62 12 97 11/29/18 18:30 72 20 97 11/29/18 18:00 66 12 91/64 99 11/29/18 17:30 65 12 91/64 99 11/29/18 17:00 67 12 91/64 98 11/29/18 16:40 69 8 L 91/64 100 11/29/18 16:30 71 12 91/64 100 11/29/18 16:20 69 12 91/64 99 11/29/18 16:10 69 11 L 91/64 100 11/29/18 16:00 68 11 L 91/64 100 11/29/18 15:54 65 11/29/18 15:50 66 11 L 91/64 100 11/29/18 15:46 68 11/29/18 15:40 64 16 100 11/29/18 15:30 62 76/45 11/29/18 15:20 62 16 98 11/29/18 15:10 61 16 11/29/18 15:00 63 16 11/29/18 14:58 26 H Intake and Output 11/29/18 11/30/18 11/30/18 22:59 06:59 14:59 Intake Total 0359.902 1914.783 195.483 Output Total 548 800 155 Balance 1221.687 204.783 40.483 Intake: IV 382 542 158 Lactated Ringers 1,000 ml 150 400 100 @ 50 mls/hr IV .Q20H [facility] Rx#:[id number] cardiac output 160 70 40 pressure bag 72 72 18 Intake, IV Titration 1387.687 22.783 37.483 Amount ACETAMINOPHEN IV (For NPO 100 ) 1,000 mg In Empty Bag 1 bag @ 400 mls/hr IVPB Q6HR [facility] Rx#:[id number] Albumin Human 5% 250 ml 750 In Empty Bag 1 bag @ 250 mls/hr IVPB Q1HR PRN Rx#: [id number] Insulin Regular 100 unit 27.835 22.783 13.433 In Sodium Chloride 0.9% 100 ml @ Per Protocol IV .Q0M [facility] Rx#:[id number] Lactated Ringers 1,000 ml 255 @ 50 mls/hr IV .Q20H [facility] Rx#:[id number] Magnesium Sulfate-D5w Pmx 200 1 gm In Dextrose/Water 1 100ml.bag @ 100 mls/hr IVPB Q1H [facility] Rx#: [id number] Nitroglycerin-D5w Pmx 50 24.05 mg In Dextrose/Water 1 250ml.bag @ 5 MCG/MIN 1.5 mls/hr IV .Q24H [facility] Rx#: [id number] Propofol 1,000 mg In 24.852 Empty Bag 1 bag @ Titrate IV .Q0M [facility] Rx#: [id number] ceFAZolin 2,000 mg In 30 Sodium Chloride 0.9% 30 ml @ Per Protocol IVPB ONCE ONE Rx#:[id number] Oral 440 Output: Chest Tube Drainage 298 440 80 left pleural 110 40 10 mediastinal chest x2 134 130 30 right pleural 54 270 40 Drainage 50 left leg 20 right leg 30 Urine 250 310 75 Other: Voiding Method Indwelling Catheter Indwelling Catheter Weight 118.8 kg ABP, PAP, CO, CI - Last 8 Hours Arterial Blood Pressure 123/46 Arterial Blood Pressure 97/39 Arterial Blood Pressure 98/48 Arterial Blood Pressure 124/52 Arterial Blood Pressure 108/50 Arterial Blood Pressure 123/52 Arterial Blood Pressure 140/64 Arterial Blood Pressure 132/58 Pulmonary Artery Pressure 33/11 Pulmonary Artery Pressure 21/6 Pulmonary Artery Pressure 41/24 Pulmonary Artery Pressure 24/11 Pulmonary Artery Pressure 38/18 Pulmonary Artery Pressure 27/13 Pulmonary Artery Pressure 34/16 Pulmonary Artery Pressure 30/17 Cardiac Output 5.3 Cardiac Output 5.7 Cardiac Output 5.9 Cardiac Output 5.9 Cardiac Output 7 Cardiac Index 2.2 Cardiac Index 2.4 Cardiac Index 2.5 GENERAL EXAM: Patient is alert and oriented and in mild to moderate distress with chest pain HEENT: Normocephalic. Normal reaction of pupils, equal size, normal range of extraocular motion. No erythema or exudates in the throat. NECK: No masses, no nuchal rigidity. CHEST: Postsurgical LUNGS: Diminished breath sounds at bases HEART: S1 and S2 normal ABDOMEN: Soft SKIN: No rashes CENTRAL NERVOUS SYSTEM: No focal deficits. EXTREMITIES: No cyanosis, clubbing or edema. Results 11/30/18 04:20 11/30/18 04:20 Cardiac Enzymes 11/29/18 11/30/18 Range/Units 15:12 04:20 AST 15 L 28 (17-59) U/L Coagulation 11/29/18 Range/Units 15:12 PT 12.8 H (9.0-12.0) sec APTT 23.7 (22.0-30.0) sec CBC 11/29/18 11/29/18 11/29/18 Range/Units 15:12 17:02 19:50 WBC 8.4 7.7 7.3 (3.8-10.6) k/uL RBC 3.10 L 2.81 L 2.86 L (4.30-5.90) m/uL Hgb 7.9 L D 7.3 L 7.7 L (13.0-17.5) gm/dL Hct 25.2 L 23.3 L 23.6 L (39.0-53.0) % Plt Count 159 131 L 152 (150-450) k/uL 11/30/18 Range/Units 04:20 WBC 9.0 (3.8-10.6) k/uL RBC 2.79 L (4.30-5.90) m/uL Hgb 7.5 L (13.0-17.5) gm/dL Hct 23.0 L (39.0-53.0) % Plt Count 166 (150-450) k/uL Comprehensive Metabolic Panel 11/29/18 11/30/18 Range/Units 15:12 04:20 Sodium 139 140 (137-145) mmol/L Potassium 4.8 5.1 (3.5-5.1) mmol/L Chloride 112 H 108 H (98-107) mmol/L Carbon Dioxide 21 L 22 (22-30) mmol/L BUN 31 H 33 H (9-20) mg/dL Creatinine 1.30 H 1.38 H (0.66-1.25) mg/dL Glucose 161 H 112 H (74-99) mg/dL Calcium 7.7 L 8.4 (8.4-10.2) mg/dL AST 15 L 28 (17-59) U/L ALT 25 17 L (21-72) U/L Alkaline Phosphatase 34 L 35 L (38-126) U/L Total Protein 4.6 L 5.4 L (6.3-8.2) g/dL Albumin 2.7 L 3.3 L (3.5-5.0) g/dL Current Medications Generic Name Dose Route Start Last Admin Trade Name Freq PRN Reason Stop Dose Admin Hydrocodone Bitart/Acetaminophen 1 each 11/30/18 14:00 [place] 5-325 PO Q4HR PRN Moderate Pain Hydrocodone Bitart/Acetaminophen 2 each 11/30/18 14:00 [place] 5-325 PO Q4HR PRN Severe Pain Albuterol/Ipratropium 3 ml 11/29/18 20:02 11/30/18 08:03 Duoneb 0.5 Mg-3 Mg/3 Ml Soln INHALATION 3 ml RT-QID [facility] Administration Albuterol/Ipratropium 3 ml 11/29/18 14:48 Duoneb 0.5 Mg-3 Mg/3 Ml Soln INHALATION RT-Q2H PRN Shortness Of Breath Or Wheezing Aspirin 325 mg 11/30/18 09:00 Aspirin PO DAILY [facility] Atorvastatin Calcium 40 mg 11/30/18 09:00 Lipitor PO DAILY [facility] Benzocaine/Menthol 1 each 11/29/18 14:48 Cepacol Lozenge MUCOUS MEM Q2H PRN Sore Throat Bisacodyl 10 mg 11/30/18 14:01 Dulcolax RECTAL DAILY PRN Constipation Clopidogrel Bisulfate 75 mg 11/30/18 09:00 Plavix PO DAILY [facility] Cyanocobalamin 2,000 mcg 11/30/18 09:00 Vitamin B-12 PO DAILY [facility] Gabapentin 600 mg 11/30/18 09:00 Neurontin PO QAM [facility] Gabapentin 1,200 mg 11/29/18 21:00 11/29/18 23:39 Neurontin PO 1,200 mg HS [facility] Administration Heparin Sodium (Porcine) 5,000 unit 11/29/18 22:00 11/29/18 22:09 Heparin SQ 5,000 unit Q8HR [facility] Administration Amiodarone HCl 150 mg/ 103 mls @ 618 mls/hr 11/29/18 15:00 Dextrose/Water IV .Q10M PRN A.FIB/FLUTTER Protocol Acetaminophen 1,000 mg/ IV 100 mls @ 400 mls/hr 11/29/18 18:00 11/30/18 05:40 Solution IVPB 11/30/18 18:01 400 mls/hr Q6HR [facility] Administration Amiodarone HCl 360 mg/ 207.2 mls @ 34.533 mls/hr 11/29/18 15:00 Dextrose/Water IV .Q6H PRN A.FIB/FLUTTER Protocol 1 MG/MIN Albumin Human 250 ml/ IV 250 mls @ 250 mls/hr 11/29/18 14:48 11/30/18 06:59 Solution IVPB 12/01/18 14:49 250 mls/hr Q1HR PRN Administration For Volume Nitroglycerin/Dextrose 50 mg/ 250 mls @ 1.5 mls/hr 11/29/18 14:48 11/30/18 08:05 IV Solution IV 0 mcg/min .Q24H [facility] 0 mls/hr Infusion 5 MCG/MIN Lactated Ringer's 1,000 mls @ 50 mls/hr 11/29/18 14:48 11/29/18 16:04 Lactated Ringers IV 50 mls/hr .Q20H [facility] Administration Insulin Human Regular 100 unit 101 mls @ 0 mls/hr 11/29/18 15:30 11/30/18 08:21 / Sodium Chloride IV 3.5 units/hr .Q0M [facility] 3.535 mls/hr Titration Protocol Per Protocol Clevidipine 25 mg/ IV Solution 50 mls @ 2 mls/hr 11/29/18 14:48 11/29/18 16:05 IV Not Given .Q24H [facility] Protocol 1 MG/HR Amiodarone HCl 300 mg/ 256 mls @ 25.6 mls/hr 11/29/18 21:00 Dextrose/Water IV .Q10H PRN A.FIB/FLUTTER Protocol 0.5 MG/MIN Magnesium Hydroxide 2,400 mg 11/30/18 14:01 Milk Of Magnesia PO BID PRN Constipation Metoprolol Tartrate 12.5 mg 11/29/18 23:38 11/29/18 23:45 Lopressor PO 12.5 mg BID [facility] Administration Miscellaneous Information 1 each 11/29/18 14:48 Magnesium Per Protocol MISCELLANE DAILY PRN Per Protocol Protocol Miscellaneous Information 1 each 11/29/18 14:48 Phosphorus Per Protocol MISCELLANE DAILY PRN Per Protocol Protocol Miscellaneous Information 1 each 11/29/18 14:48 Potassium Per Protocol MISCELLANE DAILY PRN Per Protocol Protocol Mupirocin 1 applic 11/29/18 21:00 11/29/18 22:08 Bactroban Oint NASAL 12/02/18 21:01 1 applic BID [facility] Administration Ondansetron HCl 4 mg 11/29/18 14:48 Zofran IVP Q6HR PRN Nausea And Vomiting Oxycodone HCl 10 mg 11/29/18 14:48 11/30/18 04:48 Oxyir PO 11/30/18 14:49 10 mg Q4H PRN Administration Severe Pain Oxycodone HCl 5 mg 11/29/18 14:48 11/29/18 23:39 Oxyir PO 11/30/18 14:49 5 mg Q4H PRN Administration Moderate Pain Pantoprazole Sodium 40 mg 11/30/18 09:00 Protonix IVP DAILY [facility] Senna/Docusate Sodium 2 each 11/30/18 21:00 Senokot-S PO HS [facility] Sodium Chloride 10 ml 11/29/18 21:00 11/29/18 22:08 Saline Flush IV 10 ml BID [facility] Administration Intake and Output 11/29/18 11/30/18 11/30/18 22:59 06:59 14:59 Intake Total 7299.185 2032.783 195.483 Output Total 548 800 155 Balance 1221.687 204.783 40.483 Intake: IV 382 542 158 Lactated Ringers 1,000 ml 150 400 100 @ 50 mls/hr IV .Q20H [facility] Rx#:[id number] cardiac output 160 70 40 pressure bag 72 72 18 Intake, IV Titration 1387.687 22.783 37.483 Amount ACETAMINOPHEN IV (For NPO 100 ) 1,000 mg In Empty Bag 1 bag @ 400 mls/hr IVPB Q6HR [facility] Rx#:[id number] Albumin Human 5% 250 ml 750 In Empty Bag 1 bag @ 250 mls/hr IVPB Q1HR PRN Rx#: [id number] Insulin Regular 100 unit 27.835 22.783 13.433 In Sodium Chloride 0.9% 100 ml @ Per Protocol IV .Q0M [facility] Rx#:[id number] Lactated Ringers 1,000 ml 255 @ 50 mls/hr IV .Q20H [facility] Rx#:[id number] Magnesium Sulfate-D5w Pmx 200 1 gm In Dextrose/Water 1 100ml.bag @ 100 mls/hr IVPB Q1H [facility] Rx#: [id number] Nitroglycerin-D5w Pmx 50 24.05 mg In Dextrose/Water 1 250ml.bag @ 5 MCG/MIN 1.5 mls/hr IV .Q24H [facility] Rx#: [id number] Propofol 1,000 mg In 24.852 Empty Bag 1 bag @ Titrate IV .Q0M [facility] Rx#: [id number] ceFAZolin 2,000 mg In 30 Sodium Chloride 0.9% 30 ml @ Per Protocol IVPB ONCE ONE Rx#:[id number] Oral 440 Output: Chest Tube Drainage 298 440 80 left pleural 110 40 10 mediastinal chest x2 134 130 30 right pleural 54 270 40 Drainage 50 left leg 20 right leg 30 Urine 250 310 75 Other: Voiding Method Indwelling Catheter Indwelling Catheter Weight 118.8 kg 11/30/18 04:20 11/30/18 04:20 EKG Interpretations (text) Monitoring shows sinus rhythm Assessment and Plan (1) Status post coronary artery bypass graft Current Visit: Yes Status: Acute Code(s): Z95.1 - PRESENCE OF AORTOCORONARY BYPASS GRAFT SNOMED Code(s): 344251790 (2) Vasovagal syncope Current Visit: Yes Status: Acute Code(s): R55 - SYNCOPE AND COLLAPSE SNOMED Code(s): 703972755 (3) Essential hypertension Current Visit: Yes Status: Acute Code(s): I10 - ESSENTIAL (PRIMARY) HYPERTENSION SNOMED Code(s): 92141853 (4) Hypercholesterolemia Current Visit: Yes Status: Acute Code(s): E78.00 - PURE HYPERCHOLESTEROLEMIA, UNSPECIFIED SNOMED Code(s): 82637714 (5) Diabetes mellitus Current Visit: Yes Status: Acute Code(s): E11.9 - TYPE 2 DIABETES MELLITUS WITHOUT COMPLICATIONS SNOMED Code(s): 19116722 Plan: Patient is clinically stable at this time. Most probably had a vasovagal syncope. Currently in sinus rhythm. Continue to monitor vital signs and hemoglobin. We'll follow
[2018-11-30] MEDS ORDERED: METOPROLOL TARTRATE 12.5 MG TAB PO SCH (09:00)
[2018-11-30] MEDS ORDERED: PANTOPRAZOLE 40 MG/10 ML VIAL IVP SCH (09:00)
--- NOTE | 2018-11-30 10:16 | P.PN ---
Subjective Progress Note Date: 11/30/18 Principal diagnosis: Coronary artery disease status post coronary artery bypass grafting 4 utilizing a HERNANDEZ to the LAD, reverse saphenous vein graft to the ramus intermedius, reve rse saphenous vein graft to the posterior descending artery, reverse saphenous vein graft to the distal circumflex. Post operative day #1. 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 He was found to have continued significant coronary artery disease and was recommended coronary artery bypass grafting. He presented here to the hospital yesterday electively for a CABG 4 receiving a HERNANDEZ to the LAD and reverse saphenous vein grafts to the distal ramus intermedius, posterior descending artery, distal circumflex artery. This is postoperative day #1. He was successfully extubated yesterday. He is currently seen in the ICU sitting up in a chair at the bedside. He did have a brief episode of dizziness and bradycardia while getting up to the chair with assistance. No loss of consciousness. He was given 250 of albumin. He is awake and alert in no acute distress. Eyes any chest discomfort, palpitations lightheadedness or dizziness. No worsening shortness of breath. His pain is well managed. He is maintaining good O2 saturations in the high 90s on 3 L/m per nasal cannula. He's been afebrile. White count 9.0. Hemoglobin 7.5. Platelets 166,000. Creatinine 1.38. He is currently receiving lactated Ringer's at 50 MLS per hour, insulin drip at 3.5 units per hour and a nitroglycerin drip is off currently PA pressure 33/11, CVP of 4. Cardiac output 5.3. Cardiac index 2.2. Chest x-ray shows stable platelike left basilar atelectasis. Right Wesley-Kanchan catheter in place. Bilateral thoracostomy tubes are present. Mediastinal tube in place. Chest x-ray shows stable platelike left basilar atelectasis. Right Wesley-Kanchan catheter in place. Bilateral thoracostomy tubes are present. Mediastinal tube in place. He is working well with the incentive spirometer. Objective - Vital Signs Vital signs: Vital Signs Temp 98.4 F 11/30/18 08:00 Pulse 63 11/30/18 08:16 Resp 10 L 11/30/18 08:00 BP 100/48 11/30/18 07:00 Pulse Ox 97 11/30/18 08:00 Intake & Output 11/29/18 11/30/18 11/30/18 18:59 06:59 18:59 Intake Total 8326.307 2870.127 195.483 Output Total 3355 1063 155 Balance -1873.657 263.127 40.483 Weight 118.8 kg Intake: IV 169 788 158 Lactated Ringers 1,000 ml 550 100 @ 50 mls/hr IV .Q20H [facility] Rx#:[id number] cardiac output 100 130 40 pressure bag 36 108 18 Intake, IV Titration 1312.343 98.127 37.483 Amount ACETAMINOPHEN IV (For NPO 100 ) 1,000 mg In Empty Bag 1 bag @ 400 mls/hr IVPB Q6HR [facility] Rx#:[id number] Albumin Human 5% 250 ml 750 In Empty Bag 1 bag @ 250 mls/hr IVPB Q1HR PRN Rx#: [id number] Insulin Regular 100 unit 7.491 43.127 13.433 In Sodium Chloride 0.9% 100 ml @ Per Protocol IV .Q0M [facility] Rx#:[id number] Lactated Ringers 1,000 ml 200 55 @ 50 mls/hr IV .Q20H [facility] Rx#:[id number] Magnesium Sulfate-D5w Pmx 200 1 gm In Dextrose/Water 1 100ml.bag @ 100 mls/hr IVPB Q1H [facility] Rx#: [id number] Nitroglycerin-D5w Pmx 50 24.05 mg In Dextrose/Water 1 250ml.bag @ 5 MCG/MIN 1.5 mls/hr IV .Q24H [facility] Rx#: [id number] Propofol 1,000 mg In 24.852 Empty Bag 1 bag @ Titrate IV .Q0M [facility] Rx#: [id number] ceFAZolin 2,000 mg In 30 Sodium Chloride 0.9% 30 ml @ Per Protocol IVPB ONCE ONE Rx#:[id number] Oral 440 Output: Chest Tube Drainage 710 528 80 left pleural 390 60 10 mediastinal chest x2 150 174 30 right pleural 170 294 40 Drainage 70 50 left leg 20 20 right leg 50 30 Urine 475 485 75 Estimated Blood Loss 2100 Other: Voiding Method Indwelling Catheter Indwelling Catheter ABP, PAP, CO, CI - Last Documented Arterial Blood Pressure 123/46 Pulmonary Artery Pressure 33/11 Cardiac Output 5.3 Cardiac Index 2.2 - Exam GENERAL EXAM: A very pleasant 73-year-old gentleman. Alert, fairly comfortable in no apparent distress. 4 L nasal cannula. HEAD: Normocephalic. EYES: Normal reaction of pupils, equal size. NOSE: Clear with pink turbinates. THROAT: No erythema or exudates. NECK: Sided Wesley-Kanchan catheter in place. No masses, no JVD. CHEST: Sternal dressing dry and intact. Heart Hugger in place. LUNGS: Equal air entry with his ALLERGIC crackles.. CVS: S1 and S2 normal with no audible murmur, regular rhythm. ABDOMEN: No hepatosplenomegaly, normal bowel sounds, no guarding or rigidity. SPINE: No scoliosis or deformity SKIN: No rashes CENTRAL NERVOUS SYSTEM: No focal deficits, tone is normal in all 4 extremities. EXTREMITIES: There is trace peripheral edema. No clubbing, no cyanosis. Peripheral pulses are intact. SCDs in place. - Labs CBC & Chem 7: 11/30/18 04:20 11/30/18 04:20 Labs: Abnormal Lab Results - Last 24 Hours (Table) 11/24/18 11/29/18 11/29/18 Range/Units 09:16 08:47 10:32 RBC (4.30-5.90) m/uL Hgb (13.0-17.5) gm/dL Hct (39.0-53.0) % RDW (11.5-15.5) % Plt Count (150-450) k/uL Lymphocytes # (1.0-4.8) k/uL PT (9.0-12.0) sec INR (<1.2) ABG pH 7.33 L (7.35-7.45) ABG pO2 (83-108) mmHg ABG Total CO2 25 H 25 H (19-24) mmol/L ABG O2 Saturation 97.5 H (94-97) % ABG Hematocrit 33 L 31 L (34.0-46.0) % ABG Potassium 4.6 H (3.4-4.5) mmol/L ABG Glucose 168 H 167 H (75-99) mg/dL ABG Lactic Acid (0.5-1.6) mmol/L Hemoglobin 10.8 L 10.0 L (13.0-17.5) gm/dL Chloride (98-107) mmol/L Carbon Dioxide (22-30) mmol/L BUN (9-20) mg/dL Creatinine (0.66-1.25) mg/dL Glucose (74-99) mg/dL POC Glucose (mg/dL) (75-99) mg/dL Calcium (8.4-10.2) mg/dL AST (17-59) U/L ALT (21-72) U/L Alkaline Phosphatase (38-126) U/L Total Protein (6.3-8.2) g/dL Albumin (3.5-5.0) g/dL Arterial Blood Potassium 4.6 H (3.4-4.5) mmol/L Arterial Blood Glucose 168 H 167 H (75-99) mg/dL Crossmatch See Detail 11/29/18 11/29/18 11/29/18 Range/Units 11:15 11:32 12:08 RBC (4.30-5.90) m/uL Hgb (13.0-17.5) gm/dL Hct (39.0-53.0) % RDW (11.5-15.5) % Plt Count (150-450) k/uL Lymphocytes # (1.0-4.8) k/uL PT (9.0-12.0) sec INR (<1.2) ABG pH 7.34 L 7.34 L (7.35-7.45) ABG pO2 135 H 129 H 145 H (83-108) mmHg ABG Total CO2 (19-24) mmol/L ABG O2 Saturation 98.1 H 97.9 H 98.2 H (94-97) % ABG Hematocrit 28 L 28 L 26 L (34.0-46.0) % ABG Potassium 4.6 H (3.4-4.5) mmol/L ABG Glucose 164 H 162 H 154 H (75-99) mg/dL ABG Lactic Acid (0.5-1.6) mmol/L Hemoglobin 9.2 L 9.1 L 8.4 L (13.0-17.5) gm/dL Chloride (98-107) mmol/L Carbon Dioxide (22-30) mmol/L BUN (9-20) mg/dL Creatinine (0.66-1.25) mg/dL Glucose (74-99) mg/dL POC Glucose (mg/dL) (75-99) mg/dL Calcium (8.4-10.2) mg/dL AST (17-59) U/L ALT (21-72) U/L Alkaline Phosphatase (38-126) U/L Total Protein (6.3-8.2) g/dL Albumin (3.5-5.0) g/dL Arterial Blood Potassium 4.6 H (3.4-4.5) mmol/L Arterial Blood Glucose 164 H 162 H 154 H (75-99) mg/dL Crossmatch 11/29/18 11/29/18 11/29/18 Range/Units 12:38 13:08 13:48 RBC (4.30-5.90) m/uL Hgb (13.0-17.5) gm/dL Hct (39.0-53.0) % RDW (11.5-15.5) % Plt Count (150-450) k/uL Lymphocytes # (1.0-4.8) k/uL PT (9.0-12.0) sec INR (<1.2) ABG pH 7.32 L 7.30 L 7.31 L (7.35-7.45) ABG pO2 143 H 140 H 71 L (83-108) mmHg ABG Total CO2 (19-24) mmol/L ABG O2 Saturation 98.2 H 97.8 H 91.9 L (94-97) % ABG Hematocrit 27 L 26 L 25 L (34.0-46.0) % ABG Potassium (3.4-4.5) mmol/L ABG Glucose 151 H 155 H 154 H (75-99) mg/dL ABG Lactic Acid 1.7 H 1.9 H (0.5-1.6) mmol/L Hemoglobin 8.7 L 8.6 L 8.2 L (13.0-17.5) gm/dL Chloride (98-107) mmol/L Carbon Dioxide (22-30) mmol/L BUN (9-20) mg/dL Creatinine (0.66-1.25) mg/dL Glucose (74-99) mg/dL POC Glucose (mg/dL) (75-99) mg/dL Calcium (8.4-10.2) mg/dL AST (17-59) U/L ALT (21-72) U/L Alkaline Phosphatase (38-126) U/L Total Protein (6.3-8.2) g/dL Albumin (3.5-5.0) g/dL Arterial Blood Potassium (3.4-4.5) mmol/L Arterial Blood Glucose 151 H 155 H 154 H (75-99) mg/dL Crossmatch 11/29/18 11/29/18 11/29/18 Range/Units 15:12 15:12 15:12 RBC 3.10 L (4.30-5.90) m/uL Hgb 7.9 L D (13.0-17.5) gm/dL Hct 25.2 L (39.0-53.0) % RDW 17.1 H (11.5-15.5) % Plt Count (150-450) k/uL Lymphocytes # (1.0-4.8) k/uL PT 12.8 H (9.0-12.0) sec INR 1.2 H (<1.2) ABG pH (7.35-7.45) ABG pO2 (83-108) mmHg ABG Total CO2 (19-24) mmol/L ABG O2 Saturation (94-97) % ABG Hematocrit (34.0-46.0) % ABG Potassium (3.4-4.5) mmol/L ABG Glucose (75-99) mg/dL ABG Lactic Acid (0.5-1.6) mmol/L Hemoglobin (13.0-17.5) gm/dL Chloride 112 H (98-107) mmol/L Carbon Dioxide 21 L (22-30) mmol/L BUN 31 H (9-20) mg/dL Creatinine 1.30 H (0.66-1.25) mg/dL Glucose 161 H (74-99) mg/dL POC Glucose (mg/dL) (75-99) mg/dL Calcium 7.7 L (8.4-10.2) mg/dL AST 15 L (17-59) U/L ALT (21-72) U/L Alkaline Phosphatase 34 L (38-126) U/L Total Protein 4.6 L (6.3-8.2) g/dL Albumin 2.7 L (3.5-5.0) g/dL Arterial Blood Potassium (3.4-4.5) mmol/L Arterial Blood Glucose (75-99) mg/dL Crossmatch 11/29/18 11/29/18 11/29/18 Range/Units 15:28 15:32 16:00 RBC (4.30-5.90) m/uL Hgb (13.0-17.5) gm/dL Hct (39.0-53.0) % RDW (11.5-15.5) % Plt Count (150-450) k/uL Lymphocytes # (1.0-4.8) k/uL PT (9.0-12.0) sec INR (<1.2) ABG pH 7.33 L (7.35-7.45) ABG pO2 >400 H (83-108) mmHg ABG Total CO2 (19-24) mmol/L ABG O2 Saturation 99.3 H (94-97) % ABG Hematocrit (34.0-46.0) % ABG Potassium (3.4-4.5) mmol/L ABG Glucose (75-99) mg/dL ABG Lactic Acid (0.5-1.6) mmol/L Hemoglobin (13.0-17.5) gm/dL Chloride (98-107) mmol/L Carbon Dioxide (22-30) mmol/L BUN (9-20) mg/dL Creatinine (0.66-1.25) mg/dL Glucose (74-99) mg/dL POC Glucose (mg/dL) 136 H 211 H (75-99) mg/dL Calcium (8.4-10.2) mg/dL AST (17-59) U/L ALT (21-72) U/L Alkaline Phosphatase (38-126) U/L Total Protein (6.3-8.2) g/dL Albumin (3.5-5.0) g/dL Arterial Blood Potassium (3.4-4.5) mmol/L Arterial Blood Glucose (75-99) mg/dL Crossmatch 11/29/18 11/29/18 11/29/18 Range/Units 17:01 17:02 18:00 RBC 2.81 L (4.30-5.90) m/uL Hgb 7.3 L (13.0-17.5) gm/dL Hct 23.3 L (39.0-53.0) % RDW 17.1 H (11.5-15.5) % Plt Count 131 L (150-450) k/uL Lymphocytes # (1.0-4.8) k/uL PT (9.0-12.0) sec INR (<1.2) ABG pH (7.35-7.45) ABG pO2 (83-108) mmHg ABG Total CO2 (19-24) mmol/L ABG O2 Saturation (94-97) % ABG Hematocrit (34.0-46.0) % ABG Potassium (3.4-4.5) mmol/L ABG Glucose (75-99) mg/dL ABG Lactic Acid (0.5-1.6) mmol/L Hemoglobin (13.0-17.5) gm/dL Chloride (98-107) mmol/L Carbon Dioxide (22-30) mmol/L BUN (9-20) mg/dL Creatinine (0.66-1.25) mg/dL Glucose (74-99) mg/dL POC Glucose (mg/dL) 210 H 210 H (75-99) mg/dL Calcium (8.4-10.2) mg/dL AST (17-59) U/L ALT (21-72) U/L Alkaline Phosphatase (38-126) U/L Total Protein (6.3-8.2) g/dL Albumin (3.5-5.0) g/dL Arterial Blood Potassium (3.4-4.5) mmol/L Arterial Blood Glucose (75-99) mg/dL Crossmatch 11/29/18 11/29/18 11/29/18 Range/Units 18:55 19:48 19:50 RBC 2.86 L (4.30-5.90) m/uL Hgb 7.7 L (13.0-17.5) gm/dL Hct 23.6 L (39.0-53.0) % RDW 17.1 H (11.5-15.5) % Plt Count (150-450) k/uL Lymphocytes # 0.9 L (1.0-4.8) k/uL PT (9.0-12.0) sec INR (<1.2) ABG pH (7.35-7.45) ABG pO2 (83-108) mmHg ABG Total CO2 (19-24) mmol/L ABG O2 Saturation (94-97) % ABG Hematocrit (34.0-46.0) % ABG Potassium (3.4-4.5) mmol/L ABG Glucose (75-99) mg/dL ABG Lactic Acid (0.5-1.6) mmol/L Hemoglobin (13.0-17.5) gm/dL Chloride (98-107) mmol/L Carbon Dioxide (22-30) mmol/L BUN (9-20) mg/dL Creatinine (0.66-1.25) mg/dL Glucose (74-99) mg/dL POC Glucose (mg/dL) 196 H 179 H (75-99) mg/dL Calcium (8.4-10.2) mg/dL AST (17-59) U/L ALT (21-72) U/L Alkaline Phosphatase (38-126) U/L Total Protein (6.3-8.2) g/dL Albumin (3.5-5.0) g/dL Arterial Blood Potassium (3.4-4.5) mmol/L Arterial Blood Glucose (75-99) mg/dL Crossmatch 11/29/18 11/29/18 11/29/18 Range/Units 20:32 21:15 21:58 RBC (4.30-5.90) m/uL Hgb (13.0-17.5) gm/dL Hct (39.0-53.0) % RDW (11.5-15.5) % Plt Count (150-450) k/uL Lymphocytes # (1.0-4.8) k/uL PT (9.0-12.0) sec INR (<1.2) ABG pH 7.31 L (7.35-7.45) ABG pO2 (83-108) mmHg ABG Total CO2 (19-24) mmol/L ABG O2 Saturation (94-97) % ABG Hematocrit (34.0-46.0) % ABG Potassium (3.4-4.5) mmol/L ABG Glucose (75-99) mg/dL ABG Lactic Acid (0.5-1.6) mmol/L Hemoglobin (13.0-17.5) gm/dL Chloride (98-107) mmol/L Carbon Dioxide (22-30) mmol/L BUN (9-20) mg/dL Creatinine (0.66-1.25) mg/dL Glucose (74-99) mg/dL POC Glucose (mg/dL) 154 H 150 H (75-99) mg/dL Calcium (8.4-10.2) mg/dL AST (17-59) U/L ALT (21-72) U/L Alkaline Phosphatase (38-126) U/L Total Protein (6.3-8.2) g/dL Albumin (3.5-5.0) g/dL Arterial Blood Potassium (3.4-4.5) mmol/L Arterial Blood Glucose (75-99) mg/dL Crossmatch 11/29/18 11/29/18 11/30/18 Range/Units 23:01 23:56 01:01 RBC (4.30-5.90) m/uL Hgb (13.0-17.5) gm/dL Hct (39.0-53.0) % RDW (11.5-15.5) % Plt Count (150-450) k/uL Lymphocytes # (1.0-4.8) k/uL PT (9.0-12.0) sec INR (<1.2) ABG pH (7.35-7.45) ABG pO2 (83-108) mmHg ABG Total CO2 (19-24) mmol/L ABG O2 Saturation (94-97) % ABG Hematocrit (34.0-46.0) % ABG Potassium (3.4-4.5) mmol/L ABG Glucose (75-99) mg/dL ABG Lactic Acid (0.5-1.6) mmol/L Hemoglobin (13.0-17.5) gm/dL Chloride (98-107) mmol/L Carbon Dioxide (22-30) mmol/L BUN (9-20) mg/dL Creatinine (0.66-1.25) mg/dL Glucose (74-99) mg/dL POC Glucose (mg/dL) 142 H 141 H 135 H (75-99) mg/dL Calcium (8.4-10.2) mg/dL AST (17-59) U/L ALT (21-72) U/L Alkaline Phosphatase (38-126) U/L Total Protein (6.3-8.2) g/dL Albumin (3.5-5.0) g/dL Arterial Blood Potassium (3.4-4.5) mmol/L Arterial Blood Glucose (75-99) mg/dL Crossmatch 11/30/18 11/30/18 11/30/18 Range/Units 02:30 03:54 04:20 RBC 2.79 L (4.30-5.90) m/uL Hgb 7.5 L (13.0-17.5) gm/dL Hct 23.0 L (39.0-53.0) % RDW 17.3 H (11.5-15.5) % Plt Count (150-450) k/uL Lymphocytes # (1.0-4.8) k/uL PT (9.0-12.0) sec INR (<1.2) ABG pH (7.35-7.45) ABG pO2 (83-108) mmHg ABG Total CO2 (19-24) mmol/L ABG O2 Saturation (94-97) % ABG Hematocrit (34.0-46.0) % ABG Potassium (3.4-4.5) mmol/L ABG Glucose (75-99) mg/dL ABG Lactic Acid (0.5-1.6) mmol/L Hemoglobin (13.0-17.5) gm/dL Chloride (98-107) mmol/L Carbon Dioxide (22-30) mmol/L BUN (9-20) mg/dL Creatinine (0.66-1.25) mg/dL Glucose (74-99) mg/dL POC Glucose (mg/dL) 138 H 128 H (75-99) mg/dL Calcium (8.4-10.2) mg/dL AST (17-59) U/L ALT (21-72) U/L Alkaline Phosphatase (38-126) U/L Total Protein (6.3-8.2) g/dL Albumin (3.5-5.0) g/dL Arterial Blood Potassium (3.4-4.5) mmol/L Arterial Blood Glucose (75-99) mg/dL Crossmatch 11/30/18 11/30/18 11/30/18 Range/Units 04:20 05:04 06:38 RBC (4.30-5.90) m/uL Hgb (13.0-17.5) gm/dL Hct (39.0-53.0) % RDW (11.5-15.5) % Plt Count (150-450) k/uL Lymphocytes # (1.0-4.8) k/uL PT (9.0-12.0) sec INR (<1.2) ABG pH (7.35-7.45) ABG pO2 (83-108) mmHg ABG Total CO2 (19-24) mmol/L ABG O2 Saturation (94-97) % ABG Hematocrit (34.0-46.0) % ABG Potassium (3.4-4.5) mmol/L ABG Glucose (75-99) mg/dL ABG Lactic Acid (0.5-1.6) mmol/L Hemoglobin (13.0-17.5) gm/dL Chloride 108 H (98-107) mmol/L Carbon Dioxide (22-30) mmol/L BUN 33 H (9-20) mg/dL Creatinine 1.38 H (0.66-1.25) mg/dL Glucose 112 H (74-99) mg/dL POC Glucose (mg/dL) 128 H 128 H (75-99) mg/dL Calcium (8.4-10.2) mg/dL AST (17-59) U/L ALT 17 L (21-72) U/L Alkaline Phosphatase 35 L (38-126) U/L Total Protein 5.4 L (6.3-8.2) g/dL Albumin 3.3 L (3.5-5.0) g/dL Arterial Blood Potassium (3.4-4.5) mmol/L Arterial Blood Glucose (75-99) mg/dL Crossmatch 11/30/18 Range/Units 08:08 RBC (4.30-5.90) m/uL Hgb (13.0-17.5) gm/dL Hct (39.0-53.0) % RDW (11.5-15.5) % Plt Count (150-450) k/uL Lymphocytes # (1.0-4.8) k/uL PT (9.0-12.0) sec INR (<1.2) ABG pH (7.35-7.45) ABG pO2 (83-108) mmHg ABG Total CO2 (19-24) mmol/L ABG O2 Saturation (94-97) % ABG Hematocrit (34.0-46.0) % ABG Potassium (3.4-4.5) mmol/L ABG Glucose (75-99) mg/dL ABG Lactic Acid (0.5-1.6) mmol/L Hemoglobin (13.0-17.5) gm/dL Chloride (98-107) mmol/L Carbon Dioxide (22-30) mmol/L BUN (9-20) mg/dL Creatinine (0.66-1.25) mg/dL Glucose (74-99) mg/dL POC Glucose (mg/dL) 138 H (75-99) mg/dL Calcium (8.4-10.2) mg/dL AST (17-59) U/L ALT (21-72) U/L Alkaline Phosphatase (38-126) U/L Total Protein (6.3-8.2) g/dL Albumin (3.5-5.0) g/dL Arterial Blood Potassium (3.4-4.5) mmol/L Arterial Blood Glucose (75-99) mg/dL Crossmatch Assessment and Plan Assessment: Impression: #1 Coronary artery disease status post coronary artery bypass grafting 4 utilizing a HERNANDEZ to the LAD, reverse saphenous vein grafts to the ramus intermedius, posterior descending artery, distal circumflex artery. Postoperative day #1. #2 Intubation and mechanical ventilation as an expected outcome of surgery, successfully extubated on postoperative day #0. #3 Previous history of coronary artery disease with a totally occluded RCA and previous stents to the LAD and RCA. #4 Hypertension. #5 Hyperlipidemia. #6 Chronic kidney disease. #7 Diabetes mellitus. 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 #9 Hearing disorder. #10 Gastroesophageal reflux disease. #11 History of previous tobacco dependence. Plan: The patient was seen and evaluated by Dr. Arnold. Chest x-ray and labs were reviewed. We'll continue with the current treatment plan. Continue with bronchodilators. Continue to encourage increased use of the incentive spirometer and cough and deep breathing exercises. Follow-up chest x-ray in the a.m. Heparin for DVT prophylaxis. SCDs in place. Increase his activity as tolerated. We'll continue to follow and make further recommendations based on his clinical status. Critical care time 35 minutes. I, the cosigning physician, performed a history & physical examination of the patient. Lungs sounds with basilar crackles . Maintaining good O2 saturations in the 90s on 4 L/m per nasal cannula. I discussed the assessment and plan of care with my nurse practitioner, Margy Bush. I attest to the above note as dictated by her. Time with Patient: Greater than 30
[2018-11-30 10:17] LABS: Glucose,Whole Blood 133 mg/dL (75-99)
--- NOTE | 2018-11-30 10:50 | P.PN ---
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 POD #1 non-aortic clamp quadruple off-pump coronary artery bypass grafting using the left internal mammary artery to left anterior ascending coronary artery, a reverse greater saphenous vein graft connected to the aorta using the Passport device and connected distally to the ramus intermedius coronary artery, a reverse greater saphenous vein graft connected to the aorta using the Passport device and connected distally to the posterior descending coronary artery, a reverse greater saphenous vein graft connected to the aorta using the Passport device connected distally to the circumflex coronary artery. Endoscopic vein harvesting of bilateral greater saphenous veins, intraoperative transesophageal echocardiogram, epi-aortic scanning and graft flow measurements using the [email or web address] system. Postoperative acute blood loss anemia, an expected outcome of surgery given hemodilution. The patient is currently sitting up to the bedside chair. He is in no acute distress. This morning while ambulating to the bedside chair he did have an episode of dizziness and bradycardia with heart rate in the 20s to 30s lasting a few seconds and he did not lose consciousness. Currently he rates his pain 5 out of 10 on the pain scale 2 his chest tube insertion sites. He denies any complaints of shortness of breath. He is alert and oriented 3. Oxygen saturations are 98% on 3 L nasal cannula. He is hemodynamically stable. He is not on any inotropic or pressor support. He is achieving 500 mL on his incentive spirometry with much encouragement. He remains afebrile. Laboratory results morning show a WBCs 9.0, Hgb 7.5, platelets 166, BUN 33, creatinine 1.38. Objective - Vital Signs Vital signs: Vital Signs Temp 98.4 F 11/30/18 08:00 Pulse 63 11/30/18 08:16 Resp 10 L 11/30/18 08:00 BP 100/48 11/30/18 07:00 Pulse Ox 97 11/30/18 08:00 Intake & Output 11/29/18 11/30/18 11/30/18 18:59 06:59 18:59 Intake Total 6908.636 6816.127 195.483 Output Total 3355 1063 155 Balance -1873.657 263.127 40.483 Weight 118.8 kg Intake: IV 169 788 158 Lactated Ringers 1,000 ml 550 100 @ 50 mls/hr IV .Q20H [facility] Rx#:[id number] cardiac output 100 130 40 pressure bag 36 108 18 Intake, IV Titration 1312.343 98.127 37.483 Amount ACETAMINOPHEN IV (For NPO 100 ) 1,000 mg In Empty Bag 1 bag @ 400 mls/hr IVPB Q6HR [facility] Rx#:[id number] Albumin Human 5% 250 ml 750 In Empty Bag 1 bag @ 250 mls/hr IVPB Q1HR PRN Rx#: [id number] Insulin Regular 100 unit 7.491 43.127 13.433 In Sodium Chloride 0.9% 100 ml @ Per Protocol IV .Q0M [facility] Rx#:[id number] Lactated Ringers 1,000 ml 200 55 @ 50 mls/hr IV .Q20H [facility] Rx#:[id number] Magnesium Sulfate-D5w Pmx 200 1 gm In Dextrose/Water 1 100ml.bag @ 100 mls/hr IVPB Q1H [facility] Rx#: [id number] Nitroglycerin-D5w Pmx 50 24.05 mg In Dextrose/Water 1 250ml.bag @ 5 MCG/MIN 1.5 mls/hr IV .Q24H [facility] Rx#: [id number] Propofol 1,000 mg In 24.852 Empty Bag 1 bag @ Titrate IV .Q0M [facility] Rx#: [id number] ceFAZolin 2,000 mg In 30 Sodium Chloride 0.9% 30 ml @ Per Protocol IVPB ONCE ONE Rx#:[id number] Oral 440 Output: Chest Tube Drainage 710 528 80 left pleural 390 60 10 mediastinal chest x2 150 174 30 right pleural 170 294 40 Drainage 70 50 left leg 20 20 right leg 50 30 Urine 475 485 75 Estimated Blood Loss 2100 Other: Voiding Method Indwelling Catheter Indwelling Catheter ABP, PAP, CO, CI - Last Documented Arterial Blood Pressure 123/46 Pulmonary Artery Pressure 33/11 Cardiac Output 5.3 Cardiac Index 2.2 - Constitutional General appearance: Present: cooperative, no acute distress, obese - Respiratory Details: Lung sounds are essentially clear throughout, diminished to his bilateral bases. Respirations are symmetrical and nonlabored. Oxygen saturation are 99% on 3 L nasal cannula. He is achieving 500 mL on his incentive spirometry with much encouragement. Mediastinal, left and right pleural chest tubes in place to low continuous wall suction -20 cm H2O. No air leak is present. Draining thin serosanguineous drainage. Left pleural chest tube drained 450 mL output since surgery, 40 mL output in the last 8 hours, right pleural chest tube drained 465 mL output since surgery, 130 mL output in the last 8 hours, mediastinal chest tubes drained 325 mL output since surgery, 280 mL output in the last 8 hours. - Cardiovascular Details: Regular rhythm and rate. S1 and S2 present, negative for S3, gallop or murmur. Sternum is stable. Bedside telemetry showing normal sinus rhythm heart rate 67. +1 generalized edema. Heart hugger is in place and he is demonstrating appropriate use. Knee-high AAMIR hose and sequential compression devices in place to his bilateral lower extremities. - Gastrointestinal Gastrointestinal Comment(s): Abdomen is soft, nontender and nondistended. Hypoactive bowel sounds all 4 abdominal quadrants. Tolerating clear liquid diet. Passing flatus. No guarding rigidity. No organomegaly. - Genitourinary Genitourinary Comment(s): Larios catheter for accurate I&O. Draining clear syd urine. 310 mL output in the last 8 hours. - Integumentary Integumentary Comment(s): Skin is warm and dry. No clubbing or cyanosis is present. Midline sternal incision is clean, dry and approximated. No drainage or redness is present. Gauze dressing is clean, dry and intact. Bilateral lower extremity EVH sites clean, dry and approximated. Some scattered ecchymosis is soft and nontender to palpate to his bilateral lower extremities. His incisions sites to his bilateral lower extremities are without redness or drainage. SUMAN drains in place to his bilateral lower extremities draining thin serosanguineous drainage. Left leg drain, drained 20 mL output in the last 8 hours, right leg drain, drained 30 mL output in the last 8 hours. - Neurologic Neurologic: Present: CNII-XII intact - Musculoskeletal Musculoskeletal: Present: gait normal, generalized weakness, strength equal bilaterally - Psychiatric Psychiatric: Present: A&O x's 3, appropriate affect, intact judgment & insight - Allied health notes Allied health notes reviewed: nursing - Labs CBC & Chem 7: 11/30/18 04:20 11/30/18 04:20 Labs: Abnormal Lab Results - Last 24 Hours (Table) 11/24/18 11/29/18 11/29/18 Range/Units 09:16 08:47 10:32 RBC (4.30-5.90) m/uL Hgb (13.0-17.5) gm/dL Hct (39.0-53.0) % RDW (11.5-15.5) % Plt Count (150-450) k/uL Lymphocytes # (1.0-4.8) k/uL PT (9.0-12.0) sec INR (<1.2) ABG pH 7.33 L (7.35-7.45) ABG pO2 (83-108) mmHg ABG Total CO2 25 H 25 H (19-24) mmol/L ABG O2 Saturation 97.5 H (94-97) % ABG Hematocrit 33 L 31 L (34.0-46.0) % ABG Potassium 4.6 H (3.4-4.5) mmol/L ABG Glucose 168 H 167 H (75-99) mg/dL ABG Lactic Acid (0.5-1.6) mmol/L Hemoglobin 10.8 L 10.0 L (13.0-17.5) gm/dL Chloride (98-107) mmol/L Carbon Dioxide (22-30) mmol/L BUN (9-20) mg/dL Creatinine (0.66-1.25) mg/dL Glucose (74-99) mg/dL POC Glucose (mg/dL) (75-99) mg/dL Calcium (8.4-10.2) mg/dL AST (17-59) U/L ALT (21-72) U/L Alkaline Phosphatase (38-126) U/L Total Protein (6.3-8.2) g/dL Albumin (3.5-5.0) g/dL Arterial Blood Potassium 4.6 H (3.4-4.5) mmol/L Arterial Blood Glucose 168 H 167 H (75-99) mg/dL Crossmatch See Detail 11/29/18 11/29/18 11/29/18 Range/Units 11:15 11:32 12:08 RBC (4.30-5.90) m/uL Hgb (13.0-17.5) gm/dL Hct (39.0-53.0) % RDW (11.5-15.5) % Plt Count (150-450) k/uL Lymphocytes # (1.0-4.8) k/uL PT (9.0-12.0) sec INR (<1.2) ABG pH 7.34 L 7.34 L (7.35-7.45) ABG pO2 135 H 129 H 145 H (83-108) mmHg ABG Total CO2 (19-24) mmol/L ABG O2 Saturation 98.1 H 97.9 H 98.2 H (94-97) % ABG Hematocrit 28 L 28 L 26 L (34.0-46.0) % ABG Potassium 4.6 H (3.4-4.5) mmol/L ABG Glucose 164 H 162 H 154 H (75-99) mg/dL ABG Lactic Acid (0.5-1.6) mmol/L Hemoglobin 9.2 L 9.1 L 8.4 L (13.0-17.5) gm/dL Chloride (98-107) mmol/L Carbon Dioxide (22-30) mmol/L BUN (9-20) mg/dL Creatinine (0.66-1.25) mg/dL Glucose (74-99) mg/dL POC Glucose (mg/dL) (75-99) mg/dL Calcium (8.4-10.2) mg/dL AST (17-59) U/L ALT (21-72) U/L Alkaline Phosphatase (38-126) U/L Total Protein (6.3-8.2) g/dL Albumin (3.5-5.0) g/dL Arterial Blood Potassium 4.6 H (3.4-4.5) mmol/L Arterial Blood Glucose 164 H 162 H 154 H (75-99) mg/dL Crossmatch 11/29/18 11/29/18 11/29/18 Range/Units 12:38 13:08 13:48 RBC (4.30-5.90) m/uL Hgb (13.0-17.5) gm/dL Hct (39.0-53.0) % RDW (11.5-15.5) % Plt Count (150-450) k/uL Lymphocytes # (1.0-4.8) k/uL PT (9.0-12.0) sec INR (<1.2) ABG pH 7.32 L 7.30 L 7.31 L (7.35-7.45) ABG pO2 143 H 140 H 71 L (83-108) mmHg ABG Total CO2 (19-24) mmol/L ABG O2 Saturation 98.2 H 97.8 H 91.9 L (94-97) % ABG Hematocrit 27 L 26 L 25 L (34.0-46.0) % ABG Potassium (3.4-4.5) mmol/L ABG Glucose 151 H 155 H 154 H (75-99) mg/dL ABG Lactic Acid 1.7 H 1.9 H (0.5-1.6) mmol/L Hemoglobin 8.7 L 8.6 L 8.2 L (13.0-17.5) gm/dL Chloride (98-107) mmol/L Carbon Dioxide (22-30) mmol/L BUN (9-20) mg/dL Creatinine (0.66-1.25) mg/dL Glucose (74-99) mg/dL POC Glucose (mg/dL) (75-99) mg/dL Calcium (8.4-10.2) mg/dL AST (17-59) U/L ALT (21-72) U/L Alkaline Phosphatase (38-126) U/L Total Protein (6.3-8.2) g/dL Albumin (3.5-5.0) g/dL Arterial Blood Potassium (3.4-4.5) mmol/L Arterial Blood Glucose 151 H 155 H 154 H (75-99) mg/dL Crossmatch 11/29/18 11/29/18 11/29/18 Range/Units 15:12 15:12 15:12 RBC 3.10 L (4.30-5.90) m/uL Hgb 7.9 L D (13.0-17.5) gm/dL Hct 25.2 L (39.0-53.0) % RDW 17.1 H (11.5-15.5) % Plt Count (150-450) k/uL Lymphocytes # (1.0-4.8) k/uL PT 12.8 H (9.0-12.0) sec INR 1.2 H (<1.2) ABG pH (7.35-7.45) ABG pO2 (83-108) mmHg ABG Total CO2 (19-24) mmol/L ABG O2 Saturation (94-97) % ABG Hematocrit (34.0-46.0) % ABG Potassium (3.4-4.5) mmol/L ABG Glucose (75-99) mg/dL ABG Lactic Acid (0.5-1.6) mmol/L Hemoglobin (13.0-17.5) gm/dL Chloride 112 H (98-107) mmol/L Carbon Dioxide 21 L (22-30) mmol/L BUN 31 H (9-20) mg/dL Creatinine 1.30 H (0.66-1.25) mg/dL Glucose 161 H (74-99) mg/dL POC Glucose (mg/dL) (75-99) mg/dL Calcium 7.7 L (8.4-10.2) mg/dL AST 15 L (17-59) U/L ALT (21-72) U/L Alkaline Phosphatase 34 L (38-126) U/L Total Protein 4.6 L (6.3-8.2) g/dL Albumin 2.7 L (3.5-5.0) g/dL Arterial Blood Potassium (3.4-4.5) mmol/L Arterial Blood Glucose (75-99) mg/dL Crossmatch 11/29/18 11/29/18 11/29/18 Range/Units 15:28 15:32 16:00 RBC (4.30-5.90) m/uL Hgb (13.0-17.5) gm/dL Hct (39.0-53.0) % RDW (11.5-15.5) % Plt Count (150-450) k/uL Lymphocytes # (1.0-4.8) k/uL PT (9.0-12.0) sec INR (<1.2) ABG pH 7.33 L (7.35-7.45) ABG pO2 >400 H (83-108) mmHg ABG Total CO2 (19-24) mmol/L ABG O2 Saturation 99.3 H (94-97) % ABG Hematocrit (34.0-46.0) % ABG Potassium (3.4-4.5) mmol/L ABG Glucose (75-99) mg/dL ABG Lactic Acid (0.5-1.6) mmol/L Hemoglobin (13.0-17.5) gm/dL Chloride (98-107) mmol/L Carbon Dioxide (22-30) mmol/L BUN (9-20) mg/dL Creatinine (0.66-1.25) mg/dL Glucose (74-99) mg/dL POC Glucose (mg/dL) 136 H 211 H (75-99) mg/dL Calcium (8.4-10.2) mg/dL AST (17-59) U/L ALT (21-72) U/L Alkaline Phosphatase (38-126) U/L Total Protein (6.3-8.2) g/dL Albumin (3.5-5.0) g/dL Arterial Blood Potassium (3.4-4.5) mmol/L Arterial Blood Glucose (75-99) mg/dL Crossmatch 11/29/18 11/29/18 11/29/18 Range/Units 17:01 17:02 18:00 RBC 2.81 L (4.30-5.90) m/uL Hgb 7.3 L (13.0-17.5) gm/dL Hct 23.3 L (39.0-53.0) % RDW 17.1 H (11.5-15.5) % Plt Count 131 L (150-450) k/uL Lymphocytes # (1.0-4.8) k/uL PT (9.0-12.0) sec INR (<1.2) ABG pH (7.35-7.45) ABG pO2 (83-108) mmHg ABG Total CO2 (19-24) mmol/L ABG O2 Saturation (94-97) % ABG Hematocrit (34.0-46.0) % ABG Potassium (3.4-4.5) mmol/L ABG Glucose (75-99) mg/dL ABG Lactic Acid (0.5-1.6) mmol/L Hemoglobin (13.0-17.5) gm/dL Chloride (98-107) mmol/L Carbon Dioxide (22-30) mmol/L BUN (9-20) mg/dL Creatinine (0.66-1.25) mg/dL Glucose (74-99) mg/dL POC Glucose (mg/dL) 210 H 210 H (75-99) mg/dL Calcium (8.4-10.2) mg/dL AST (17-59) U/L ALT (21-72) U/L Alkaline Phosphatase (38-126) U/L Total Protein (6.3-8.2) g/dL Albumin (3.5-5.0) g/dL Arterial Blood Potassium (3.4-4.5) mmol/L Arterial Blood Glucose (75-99) mg/dL Crossmatch 11/29/18 11/29/18 11/29/18 Range/Units 18:55 19:48 19:50 RBC 2.86 L (4.30-5.90) m/uL Hgb 7.7 L (13.0-17.5) gm/dL Hct 23.6 L (39.0-53.0) % RDW 17.1 H (11.5-15.5) % Plt Count (150-450) k/uL Lymphocytes # 0.9 L (1.0-4.8) k/uL PT (9.0-12.0) sec INR (<1.2) ABG pH (7.35-7.45) ABG pO2 (83-108) mmHg ABG Total CO2 (19-24) mmol/L ABG O2 Saturation (94-97) % ABG Hematocrit (34.0-46.0) % ABG Potassium (3.4-4.5) mmol/L ABG Glucose (75-99) mg/dL ABG Lactic Acid (0.5-1.6) mmol/L Hemoglobin (13.0-17.5) gm/dL Chloride (98-107) mmol/L Carbon Dioxide (22-30) mmol/L BUN (9-20) mg/dL Creatinine (0.66-1.25) mg/dL Glucose (74-99) mg/dL POC Glucose (mg/dL) 196 H 179 H (75-99) mg/dL Calcium (8.4-10.2) mg/dL AST (17-59) U/L ALT (21-72) U/L Alkaline Phosphatase (38-126) U/L Total Protein (6.3-8.2) g/dL Albumin (3.5-5.0) g/dL Arterial Blood Potassium (3.4-4.5) mmol/L Arterial Blood Glucose (75-99) mg/dL Crossmatch 11/29/18 11/29/18 11/29/18 Range/Units 20:32 21:15 21:58 RBC (4.30-5.90) m/uL Hgb (13.0-17.5) gm/dL Hct (39.0-53.0) % RDW (11.5-15.5) % Plt Count (150-450) k/uL Lymphocytes # (1.0-4.8) k/uL PT (9.0-12.0) sec INR (<1.2) ABG pH 7.31 L (7.35-7.45) ABG pO2 (83-108) mmHg ABG Total CO2 (19-24) mmol/L ABG O2 Saturation (94-97) % ABG Hematocrit (34.0-46.0) % ABG Potassium (3.4-4.5) mmol/L ABG Glucose (75-99) mg/dL ABG Lactic Acid (0.5-1.6) mmol/L Hemoglobin (13.0-17.5) gm/dL Chloride (98-107) mmol/L Carbon Dioxide (22-30) mmol/L BUN (9-20) mg/dL Creatinine (0.66-1.25) mg/dL Glucose (74-99) mg/dL POC Glucose (mg/dL) 154 H 150 H (75-99) mg/dL Calcium (8.4-10.2) mg/dL AST (17-59) U/L ALT (21-72) U/L Alkaline Phosphatase (38-126) U/L Total Protein (6.3-8.2) g/dL Albumin (3.5-5.0) g/dL Arterial Blood Potassium (3.4-4.5) mmol/L Arterial Blood Glucose (75-99) mg/dL Crossmatch 11/29/18 11/29/18 11/30/18 Range/Units 23:01 23:56 01:01 RBC (4.30-5.90) m/uL Hgb (13.0-17.5) gm/dL Hct (39.0-53.0) % RDW (11.5-15.5) % Plt Count (150-450) k/uL Lymphocytes # (1.0-4.8) k/uL PT (9.0-12.0) sec INR (<1.2) ABG pH (7.35-7.45) ABG pO2 (83-108) mmHg ABG Total CO2 (19-24) mmol/L ABG O2 Saturation (94-97) % ABG Hematocrit (34.0-46.0) % ABG Potassium (3.4-4.5) mmol/L ABG Glucose (75-99) mg/dL ABG Lactic Acid (0.5-1.6) mmol/L Hemoglobin (13.0-17.5) gm/dL Chloride (98-107) mmol/L Carbon Dioxide (22-30) mmol/L BUN (9-20) mg/dL Creatinine (0.66-1.25) mg/dL Glucose (74-99) mg/dL POC Glucose (mg/dL) 142 H 141 H 135 H (75-99) mg/dL Calcium (8.4-10.2) mg/dL AST (17-59) U/L ALT (21-72) U/L Alkaline Phosphatase (38-126) U/L Total Protein (6.3-8.2) g/dL Albumin (3.5-5.0) g/dL Arterial Blood Potassium (3.4-4.5) mmol/L Arterial Blood Glucose (75-99) mg/dL Crossmatch 11/30/18 11/30/18 11/30/18 Range/Units 02:30 03:54 04:20 RBC 2.79 L (4.30-5.90) m/uL Hgb 7.5 L (13.0-17.5) gm/dL Hct 23.0 L (39.0-53.0) % RDW 17.3 H (11.5-15.5) % Plt Count (150-450) k/uL Lymphocytes # (1.0-4.8) k/uL PT (9.0-12.0) sec INR (<1.2) ABG pH (7.35-7.45) ABG pO2 (83-108) mmHg ABG Total CO2 (19-24) mmol/L ABG O2 Saturation (94-97) % ABG Hematocrit (34.0-46.0) % ABG Potassium (3.4-4.5) mmol/L ABG Glucose (75-99) mg/dL ABG Lactic Acid (0.5-1.6) mmol/L Hemoglobin (13.0-17.5) gm/dL Chloride (98-107) mmol/L Carbon Dioxide (22-30) mmol/L BUN (9-20) mg/dL Creatinine (0.66-1.25) mg/dL Glucose (74-99) mg/dL POC Glucose (mg/dL) 138 H 128 H (75-99) mg/dL Calcium (8.4-10.2) mg/dL AST (17-59) U/L ALT (21-72) U/L Alkaline Phosphatase (38-126) U/L Total Protein (6.3-8.2) g/dL Albumin (3.5-5.0) g/dL Arterial Blood Potassium (3.4-4.5) mmol/L Arterial Blood Glucose (75-99) mg/dL Crossmatch 11/30/18 11/30/18 11/30/18 Range/Units 04:20 05:04 06:38 RBC (4.30-5.90) m/uL Hgb (13.0-17.5) gm/dL Hct (39.0-53.0) % RDW (11.5-15.5) % Plt Count (150-450) k/uL Lymphocytes # (1.0-4.8) k/uL PT (9.0-12.0) sec INR (<1.2) ABG pH (7.35-7.45) ABG pO2 (83-108) mmHg ABG Total CO2 (19-24) mmol/L ABG O2 Saturation (94-97) % ABG Hematocrit (34.0-46.0) % ABG Potassium (3.4-4.5) mmol/L ABG Glucose (75-99) mg/dL ABG Lactic Acid (0.5-1.6) mmol/L Hemoglobin (13.0-17.5) gm/dL Chloride 108 H (98-107) mmol/L Carbon Dioxide (22-30) mmol/L BUN 33 H (9-20) mg/dL Creatinine 1.38 H (0.66-1.25) mg/dL Glucose 112 H (74-99) mg/dL POC Glucose (mg/dL) 128 H 128 H (75-99) mg/dL Calcium (8.4-10.2) mg/dL AST (17-59) U/L ALT 17 L (21-72) U/L Alkaline Phosphatase 35 L (38-126) U/L Total Protein 5.4 L (6.3-8.2) g/dL Albumin 3.3 L (3.5-5.0) g/dL Arterial Blood Potassium (3.4-4.5) mmol/L Arterial Blood Glucose (75-99) mg/dL Crossmatch 11/30/18 Range/Units 08:08 RBC (4.30-5.90) m/uL Hgb (13.0-17.5) gm/dL Hct (39.0-53.0) % RDW (11.5-15.5) % Plt Count (150-450) k/uL Lymphocytes # (1.0-4.8) k/uL PT (9.0-12.0) sec INR (<1.2) ABG pH (7.35-7.45) ABG pO2 (83-108) mmHg ABG Total CO2 (19-24) mmol/L ABG O2 Saturation (94-97) % ABG Hematocrit (34.0-46.0) % ABG Potassium (3.4-4.5) mmol/L ABG Glucose (75-99) mg/dL ABG Lactic Acid (0.5-1.6) mmol/L Hemoglobin (13.0-17.5) gm/dL Chloride (98-107) mmol/L Carbon Dioxide (22-30) mmol/L BUN (9-20) mg/dL Creatinine (0.66-1.25) mg/dL Glucose (74-99) mg/dL POC Glucose (mg/dL) 138 H (75-99) mg/dL Calcium (8.4-10.2) mg/dL AST (17-59) U/L ALT (21-72) U/L Alkaline Phosphatase (38-126) U/L Total Protein (6.3-8.2) g/dL Albumin (3.5-5.0) g/dL Arterial Blood Potassium (3.4-4.5) mmol/L Arterial Blood Glucose (75-99) mg/dL Crossmatch - Imaging and Cardiology Chest x-ray: report reviewed, image reviewed Assessment and Plan Assessment: 1. Coronary artery disease, status post quadruple coronary artery bypass grafting surgery. 2. Previous history of coronary artery disease with stent placement to his left anterior descending coronary artery in 2006 and to his right coronary artery in 2018. 3. Hypertension 4. Hyperlipidemia 5. Chronic kidney disease with baseline creatinine of 1.4. 6. Diabetes mellitus poorly controlled, with a preoperative hemoglobin A1c of 8.0. 7. 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 8. Gastroesophageal reflux disease. 9. History of previous tobacco dependence with a preoperative FEV1 of 93% of predicted value. 10. History of ischemic bowel disease with previous bowel resection. 11. History of elevated left hemidiaphragm. Plan: 1. Continue aspirin, statin, Plavix, and beta inder. Will increase metoprolol tartrate as tolerated. 2. Increase activity as tolerated. PT/OT and cardiac rehab consulted. 3. Wean oxygen as tolerated, encourage incentive spirometry use 10 times every hour while awake. 4. Bronchodilators per pulmonology. 5. Pain control with current medication regimen. Discontinue IV acetaminophen. 6. Will monitor daily labs and x-rays. Electrolyte replacement per protocol. 7. Insulin management per primary care service. 8. GI prophylaxis with Protonix, DVT prophylaxis with subcu heparin and SCDs. 9. Discontinue [place] catheter, keep right IJ Cordis in place to continue CVP monitoring. 10. Will keep chest tubes, arterial line, Larios catheter for another 24 hours. 11. Avoid nephrotoxic agents. Creatinine today is 1.38. 12. Discontinue lactated Ringer's and start normal saline at 50 mL per hour. 13. Discontinue nitroglycerin drip. 14. Resume home dosing of Neurontin. 15. We will initiate ferrous sulfate 325 mg by mouth daily@ noon, and vitamin C 500 mg by mouth daily at noon for hemoglobin of 7.5. 16. More recommendations to follow based on patient's clinical course. Time with Patient: Greater than 30
[2018-11-30 11:56] LABS: Glucose,Whole Blood 136 mg/dL (75-99)
[2018-11-30] MEDS: HYDROcodone/APAP 5-325MG 1 EACH TAB PO PRN ×2 (12:04→16:10)
[2018-11-30 13:58] VITALS: BMI 34.5
[2018-11-30] MEDS ORDERED: BISACODYL 10 MG SUPP RECTAL PRN (14:01)
[2018-11-30 14:47] LABS: Glucose,Whole Blood 147 mg/dL (75-99)
[2018-11-30 16:04] LABS: Glucose,Whole Blood 136 mg/dL (75-99)
--- NOTE | 2018-11-30 16:38 | P.CONS ---
History of Present Illness - Reason for Consult Consult date: 11/30/18 Medical management - Chief Complaint Status post coronary artery bypass graft - History of Present Illness Patient is a 72-year-old male with a known history of hypertension, hyperlipidemia, diabetes type 2, CK D, coronary artery disease with previous stent to LAD and RCA was found have significant coronary artery disease and was recommended coronary artery bypass. Patient is currently coronary artery bypass graft postoperative day 1. Patient was successfully extubated within 6 hours after surgery. Patient did have having brief episode of lightheadedness and dizziness while getting to the change. Likely orthostatic. Currently patient denied any complaints of headache or dizziness. No worsening shortness of breath. Does have soreness her chest but controlled with pain medications. No fever no chills. Patient is saturating well on nausea cannula oxygen. Hemoglobin is 7.5, WBC 9.0, platelets 1 66,000, creatinine 1.38 Chest x-ray showed sable platelike left basilar atelectasis. Bilateral thoracostomy tubes and mediastinal tube present. Patient is on insulin drip for blood sugar control. Review of Systems Constitutional: Patient denies any fever or chills . No generalized weakness or weight loss. Abdomen: Patient denied nausea vomiting and diarrhea and abdominal pain. Cardiovascular: Chest soreness. Patient denies any chest pain or short of breath no palpitations. Respiratory: patient denied any cough is from production. No shortness of breath Neurologic: Patient denied any numbness or tingling headache. Musculoskeletal: Patient denies any complaints of joint swelling or deformity. Skin: Negative Psychiatric: Negative Endocrine: No heat or cold intolerance. No recent weight gain. Genitourinary: No dysuria or hematuria. All other 14 point ROS negative except the above Past Medical History Past Medical History: Coronary Artery Disease (CAD), Cancer, Chest Pain / Angina, Diabetes Mellitus, GERD/Reflux, Hearing Disorder / Deafness, Hyperlipidemia, Hypertension, Myocardial Infarction ([place]), Osteoarthritis (OA), Renal Disease Additional Past Medical History / Comment(s): SKIN CANCER, hx ulcers, growth on one kidney(not sure which one), decreased kidney function. Last Myocardial Infarction Date:: 2010 History of Any Multi-Drug Resistant Organisms: None Reported Past Surgical History: Appendectomy, Bowel Resection, Heart Catheterization, Heart Catheterization With Stent, Orthopedic Surgery, Tonsillectomy Additional Past Surgical History / Comment(s): bowel resection after perforated bowel during a colonsocpy, total of five cardiac stents- (4 in January 2018). VIKA KNEE ARTHROSCOPY. SKIN CANCER REMOVED. vika cataracts Past Anesthesia/Blood Transfusion Reactions: No Reported Reaction Date of Last Stent Placement:: 01/2018 Smoking Status: Former smoker - Past Family History Father Family Medical History: Hypertension Additional Family Medical History / Comment(s): DAD IS TILL ALIVE AT AGE 98 HAS SOME MINOR HEART PROBLEMS Mother History Unknown: Yes Family Medical History: No Reported History Medications and Allergies Home Medications Medication Instructions Recorded Confirmed Type Insulin Glargine [Lantus] 56 unit SQ HS 02/05/14 11/29/18 History Nitroglycerin Sl Tabs [Nitrostat] 0.4 mg SUBLINGUAL Q5M PRN 02/05/14 11/29/18 History Omeprazole [PriLOSEC] 20 mg PO W/SUPPER 02/05/14 11/29/18 History Gabapentin 600 mg PO QAM 06/20/15 11/29/18 History amLODIPine [Norvasc] 10 mg PO DAILY 09/07/18 11/29/18 History Aspirin [Adult Low Dose Aspirin EC] 81 mg PO HS 11/02/18 11/29/18 History Clopidogrel [Plavix] 75 mg PO HS@199911/02/18 11/29/18 History Cyanocobalamin (Vitamin B-12) 2,000 mcg PO DAILY 11/02/18 11/29/18 History [Vitamin B-12] Insulin Aspart [NovoLOG Flexpen] 16 units SQ TID-W/MEALS 11/02/18 11/29/18 History Insulin Aspart [NovoLOG Flexpen] See Protocol SQ TID-W/MEALS PRN 11/02/18 11/29/18 History Isosorbide Mononitrate [Imdur] 120 mg PO DAILY 11/02/18 11/29/18 History Metoprolol Tartrate [Lopressor] 25 mg PO BID 11/02/18 11/29/18 History Simvastatin 80 mg PO HS 11/02/18 11/29/18 History Gabapentin [Neurontin] 1,200 mg PO HS 11/24/18 11/29/18 History Mupirocin 2% Oint [Bactroban 2% 1 applic NASAL BID 11/28/18 11/29/18 History Oint] Allergies Allergy/AdvReac Type Severity Reaction Status Date / Time No Known Allergies Allergy Verified 11/29/18 15:41 Physical Exam Vitals: Vital Signs Temp Pulse Resp BP Pulse Ox 11/30/18 10:00 64 11 L 96 11/30/18 09:00 63 11 L 97 11/30/18 08:16 63 11/30/18 08:03 59 L 11/30/18 08:00 98.4 F 63 10 L 97 11/30/18 07:00 63 100/48 99 11/30/18 06:00 84 26 H 103/60 95 11/30/18 05:00 72 13 103/60 99 11/30/18 04:00 73 13 97 11/30/18 03:01 75 12 110/56 98 11/30/18 02:00 81 24 106/53 97 11/30/18 01:00 78 8 L 98 11/30/18 00:13 76 10 L 98 11/30/18 00:00 77 12 97 11/29/18 23:30 81 16 97 11/29/18 23:00 80 10 L 95 11/29/18 22:30 80 8 L 94 L 11/29/18 22:00 85 10 L 113/57 95 11/29/18 21:30 85 8 L 95 11/29/18 21:14 78 11/29/18 21:04 76 11/29/18 21:00 77 14 94 L 11/29/18 20:50 95 11/29/18 20:30 68 10 L 98 11/29/18 20:00 69 20 114/59 96 11/29/18 19:30 75 20 91/64 95 11/29/18 19:00 62 12 97 11/29/18 18:30 72 20 97 11/29/18 18:00 66 12 91/64 99 11/29/18 17:30 65 12 91/64 99 11/29/18 17:00 67 12 91/64 98 11/29/18 16:40 69 8 L 91/64 100 11/29/18 16:30 71 12 91/64 100 11/29/18 16:20 69 12 91/64 99 11/29/18 16:10 69 11 L 91/64 100 11/29/18 16:00 68 11 L 91/64 100 11/29/18 15:54 65 11/29/18 15:50 66 11 L 91/64 100 11/29/18 15:46 68 11/29/18 15:40 64 16 100 11/29/18 15:30 62 76/45 11/29/18 15:20 62 16 98 11/29/18 15:10 61 16 11/29/18 15:00 63 16 11/29/18 14:58 26 H Intake and Output 11/29/18 11/30/18 11/30/18 22:59 06:59 14:59 Intake Total 3273.484 6021.783 770.258 Output Total 548 800 240 Balance 1221.687 204.783 530.258 Intake: IV 382 542 276 Lactated Ringers 1,000 ml 150 400 100 @ 50 mls/hr IV .Q20H [facility] Rx#:[id number] Sodium Chloride 0.9% 1, 100 000 ml @ 50 mls/hr IV . Q20H [facility] Rx#:[id number] cardiac output 160 70 40 pressure bag 72 72 36 Intake, IV Titration 1387.687 22.783 44.258 Amount ACETAMINOPHEN IV (For NPO 100 ) 1,000 mg In Empty Bag 1 bag @ 400 mls/hr IVPB Q6HR [facility] Rx#:[id number] Albumin Human 5% 250 ml 750 In Empty Bag 1 bag @ 250 mls/hr IVPB Q1HR PRN Rx#: [id number] Insulin Regular 100 unit 27.835 22.783 20.208 In Sodium Chloride 0.9% 100 ml @ Per Protocol IV .Q0M [facility] Rx#:[id number] Lactated Ringers 1,000 ml 255 @ 50 mls/hr IV .Q20H [facility] Rx#:[id number] Magnesium Sulfate-D5w Pmx 200 1 gm In Dextrose/Water 1 100ml.bag @ 100 mls/hr IVPB Q1H [facility] Rx#: [id number] Nitroglycerin-D5w Pmx 50 24.05 mg In Dextrose/Water 1 250ml.bag @ 5 MCG/MIN 1.5 mls/hr IV .Q24H [facility] Rx#: [id number] Propofol 1,000 mg In 24.852 Empty Bag 1 bag @ Titrate IV .Q0M [facility] Rx#: [id number] ceFAZolin 2,000 mg In 30 Sodium Chloride 0.9% 30 ml @ Per Protocol IVPB ONCE ONE Rx#:[id number] Oral 440 450 Output: Chest Tube Drainage 298 440 80 left pleural 110 40 10 mediastinal chest x2 134 130 30 right pleural 54 270 40 Drainage 50 left leg 20 right leg 30 Urine 250 310 160 Other: Voiding Method Indwelling Catheter Indwelling Catheter Indwelling Catheter Weight 118.8 kg ABP, PAP, CO, CI - Last 8 Hours Arterial Blood Pressure 121/49 Arterial Blood Pressure 119/46 Arterial Blood Pressure 123/46 Arterial Blood Pressure 97/39 Arterial Blood Pressure 98/48 Arterial Blood Pressure 124/52 Arterial Blood Pressure 108/50 Pulmonary Artery Pressure 32/13 Pulmonary Artery Pressure 28/10 Pulmonary Artery Pressure 33/11 Pulmonary Artery Pressure 21/6 Pulmonary Artery Pressure 41/24 Pulmonary Artery Pressure 24/11 Pulmonary Artery Pressure 38/18 Cardiac Output 5.3 Cardiac Output 5.7 Cardiac Output 5.9 Cardiac Output 5.9 Cardiac Index 2.2 Cardiac Index 2.4 Cardiac Index 2.5 PHYSICAL EXAMINATION: Patient is lying in the bed comfortably, no acute distress, awake alert and oriented.. HEENT: Normocephalic. Neck is supple. Pupils reactive. Nostrils clear. Oral cavity is moist. Ears reveal no drainage. Neck reveals no JVD, carotid bruits, or thyromegaly. CHEST EXAMINATION: Surgical site bandaged. Trachea is central. Symmetrical expansion. No wheezing. Lung samuels clear to auscultation and percussion. Bilateral Chest tubes and mediastinal tube in place CARDIAC: Normal S1, S2 with no gallops. No murmurs ABDOMEN: Soft. Bowel sounds normal. No organomegaly. No abdominal bruits. Extremities: reveal no edema. No clubbing or cyanosis Neurologically awake, alert, oriented x3 with well-coordinated movements. No focal deficits noted Skin: No rash or skin lesions. Psychiatric: Coperative. Nonsuicidal Musculoskeletal: No joint swelling or deformity. Normal range of motion. Results CBC & Chem 7: 11/30/18 04:20 11/30/18 04:20 Labs: Abnormal Lab Results - Last 24 Hours (Table) 11/24/18 11/29/18 11/29/18 Range/Units 09:16 08:47 10:32 RBC (4.30-5.90) m/uL Hgb (13.0-17.5) gm/dL Hct (39.0-53.0) % RDW (11.5-15.5) % Plt Count (150-450) k/uL Lymphocytes # (1.0-4.8) k/uL PT (9.0-12.0) sec INR (<1.2) ABG pH 7.33 L (7.35-7.45) ABG pO2 (83-108) mmHg ABG Total CO2 25 H 25 H (19-24) mmol/L ABG O2 Saturation 97.5 H (94-97) % ABG Hematocrit 33 L 31 L (34.0-46.0) % ABG Potassium 4.6 H (3.4-4.5) mmol/L ABG Glucose 168 H 167 H (75-99) mg/dL ABG Lactic Acid (0.5-1.6) mmol/L Hemoglobin 10.8 L 10.0 L (13.0-17.5) gm/dL Chloride (98-107) mmol/L Carbon Dioxide (22-30) mmol/L BUN (9-20) mg/dL Creatinine (0.66-1.25) mg/dL Glucose (74-99) mg/dL POC Glucose (mg/dL) (75-99) mg/dL Calcium (8.4-10.2) mg/dL AST (17-59) U/L ALT (21-72) U/L Alkaline Phosphatase (38-126) U/L Total Protein (6.3-8.2) g/dL Albumin (3.5-5.0) g/dL Arterial Blood Potassium 4.6 H (3.4-4.5) mmol/L Arterial Blood Glucose 168 H 167 H (75-99) mg/dL Crossmatch See Detail 11/29/18 11/29/18 11/29/18 Range/Units 11:15 11:32 12:08 RBC (4.30-5.90) m/uL Hgb (13.0-17.5) gm/dL Hct (39.0-53.0) % RDW (11.5-15.5) % Plt Count (150-450) k/uL Lymphocytes # (1.0-4.8) k/uL PT (9.0-12.0) sec INR (<1.2) ABG pH 7.34 L 7.34 L (7.35-7.45) ABG pO2 135 H 129 H 145 H (83-108) mmHg ABG Total CO2 (19-24) mmol/L ABG O2 Saturation 98.1 H 97.9 H 98.2 H (94-97) % ABG Hematocrit 28 L 28 L 26 L (34.0-46.0) % ABG Potassium 4.6 H (3.4-4.5) mmol/L ABG Glucose 164 H 162 H 154 H (75-99) mg/dL ABG Lactic Acid (0.5-1.6) mmol/L Hemoglobin 9.2 L 9.1 L 8.4 L (13.0-17.5) gm/dL Chloride (98-107) mmol/L Carbon Dioxide (22-30) mmol/L BUN (9-20) mg/dL Creatinine (0.66-1.25) mg/dL Glucose (74-99) mg/dL POC Glucose (mg/dL) (75-99) mg/dL Calcium (8.4-10.2) mg/dL AST (17-59) U/L ALT (21-72) U/L Alkaline Phosphatase (38-126) U/L Total Protein (6.3-8.2) g/dL Albumin (3.5-5.0) g/dL Arterial Blood Potassium 4.6 H (3.4-4.5) mmol/L Arterial Blood Glucose 164 H 162 H 154 H (75-99) mg/dL Crossmatch 11/29/18 11/29/18 11/29/18 Range/Units 12:38 13:08 13:48 RBC (4.30-5.90) m/uL Hgb (13.0-17.5) gm/dL Hct (39.0-53.0) % RDW (11.5-15.5) % Plt Count (150-450) k/uL Lymphocytes # (1.0-4.8) k/uL PT (9.0-12.0) sec INR (<1.2) ABG pH 7.32 L 7.30 L 7.31 L (7.35-7.45) ABG pO2 143 H 140 H 71 L (83-108) mmHg ABG Total CO2 (19-24) mmol/L ABG O2 Saturation 98.2 H 97.8 H 91.9 L (94-97) % ABG Hematocrit 27 L 26 L 25 L (34.0-46.0) % ABG Potassium (3.4-4.5) mmol/L ABG Glucose 151 H 155 H 154 H (75-99) mg/dL ABG Lactic Acid 1.7 H 1.9 H (0.5-1.6) mmol/L Hemoglobin 8.7 L 8.6 L 8.2 L (13.0-17.5) gm/dL Chloride (98-107) mmol/L Carbon Dioxide (22-30) mmol/L BUN (9-20) mg/dL Creatinine (0.66-1.25) mg/dL Glucose (74-99) mg/dL POC Glucose (mg/dL) (75-99) mg/dL Calcium (8.4-10.2) mg/dL AST (17-59) U/L ALT (21-72) U/L Alkaline Phosphatase (38-126) U/L Total Protein (6.3-8.2) g/dL Albumin (3.5-5.0) g/dL Arterial Blood Potassium (3.4-4.5) mmol/L Arterial Blood Glucose 151 H 155 H 154 H (75-99) mg/dL Crossmatch 11/29/18 11/29/18 11/29/18 Range/Units 15:12 15:12 15:12 RBC 3.10 L (4.30-5.90) m/uL Hgb 7.9 L D (13.0-17.5) gm/dL Hct 25.2 L (39.0-53.0) % RDW 17.1 H (11.5-15.5) % Plt Count (150-450) k/uL Lymphocytes # (1.0-4.8) k/uL PT 12.8 H (9.0-12.0) sec INR 1.2 H (<1.2) ABG pH (7.35-7.45) ABG pO2 (83-108) mmHg ABG Total CO2 (19-24) mmol/L ABG O2 Saturation (94-97) % ABG Hematocrit (34.0-46.0) % ABG Potassium (3.4-4.5) mmol/L ABG Glucose (75-99) mg/dL ABG Lactic Acid (0.5-1.6) mmol/L Hemoglobin (13.0-17.5) gm/dL Chloride 112 H (98-107) mmol/L Carbon Dioxide 21 L (22-30) mmol/L BUN 31 H (9-20) mg/dL Creatinine 1.30 H (0.66-1.25) mg/dL Glucose 161 H (74-99) mg/dL POC Glucose (mg/dL) (75-99) mg/dL Calcium 7.7 L (8.4-10.2) mg/dL AST 15 L (17-59) U/L ALT (21-72) U/L Alkaline Phosphatase 34 L (38-126) U/L Total Protein 4.6 L (6.3-8.2) g/dL Albumin 2.7 L (3.5-5.0) g/dL Arterial Blood Potassium (3.4-4.5) mmol/L Arterial Blood Glucose (75-99) mg/dL Crossmatch 11/29/18 11/29/18 11/29/18 Range/Units 15:28 15:32 16:00 RBC (4.30-5.90) m/uL Hgb (13.0-17.5) gm/dL Hct (39.0-53.0) % RDW (11.5-15.5) % Plt Count (150-450) k/uL Lymphocytes # (1.0-4.8) k/uL PT (9.0-12.0) sec INR (<1.2) ABG pH 7.33 L (7.35-7.45) ABG pO2 >400 H (83-108) mmHg ABG Total CO2 (19-24) mmol/L ABG O2 Saturation 99.3 H (94-97) % ABG Hematocrit (34.0-46.0) % ABG Potassium (3.4-4.5) mmol/L ABG Glucose (75-99) mg/dL ABG Lactic Acid (0.5-1.6) mmol/L Hemoglobin (13.0-17.5) gm/dL Chloride (98-107) mmol/L Carbon Dioxide (22-30) mmol/L BUN (9-20) mg/dL Creatinine (0.66-1.25) mg/dL Glucose (74-99) mg/dL POC Glucose (mg/dL) 136 H 211 H (75-99) mg/dL Calcium (8.4-10.2) mg/dL AST (17-59) U/L ALT (21-72) U/L Alkaline Phosphatase (38-126) U/L Total Protein (6.3-8.2) g/dL Albumin (3.5-5.0) g/dL Arterial Blood Potassium (3.4-4.5) mmol/L Arterial Blood Glucose (75-99) mg/dL Crossmatch 11/29/18 11/29/18 11/29/18 Range/Units 17:01 17:02 18:00 RBC 2.81 L (4.30-5.90) m/uL Hgb 7.3 L (13.0-17.5) gm/dL Hct 23.3 L (39.0-53.0) % RDW 17.1 H (11.5-15.5) % Plt Count 131 L (150-450) k/uL Lymphocytes # (1.0-4.8) k/uL PT (9.0-12.0) sec INR (<1.2) ABG pH (7.35-7.45) ABG pO2 (83-108) mmHg ABG Total CO2 (19-24) mmol/L ABG O2 Saturation (94-97) % ABG Hematocrit (34.0-46.0) % ABG Potassium (3.4-4.5) mmol/L ABG Glucose (75-99) mg/dL ABG Lactic Acid (0.5-1.6) mmol/L Hemoglobin (13.0-17.5) gm/dL Chloride (98-107) mmol/L Carbon Dioxide (22-30) mmol/L BUN (9-20) mg/dL Creatinine (0.66-1.25) mg/dL Glucose (74-99) mg/dL POC Glucose (mg/dL) 210 H 210 H (75-99) mg/dL Calcium (8.4-10.2) mg/dL AST (17-59) U/L ALT (21-72) U/L Alkaline Phosphatase (38-126) U/L Total Protein (6.3-8.2) g/dL Albumin (3.5-5.0) g/dL Arterial Blood Potassium (3.4-4.5) mmol/L Arterial Blood Glucose (75-99) mg/dL Crossmatch 11/29/18 11/29/18 11/29/18 Range/Units 18:55 19:48 19:50 RBC 2.86 L (4.30-5.90) m/uL Hgb 7.7 L (13.0-17.5) gm/dL Hct 23.6 L (39.0-53.0) % RDW 17.1 H (11.5-15.5) % Plt Count (150-450) k/uL Lymphocytes # 0.9 L (1.0-4.8) k/uL PT (9.0-12.0) sec INR (<1.2) ABG pH (7.35-7.45) ABG pO2 (83-108) mmHg ABG Total CO2 (19-24) mmol/L ABG O2 Saturation (94-97) % ABG Hematocrit (34.0-46.0) % ABG Potassium (3.4-4.5) mmol/L ABG Glucose (75-99) mg/dL ABG Lactic Acid (0.5-1.6) mmol/L Hemoglobin (13.0-17.5) gm/dL Chloride (98-107) mmol/L Carbon Dioxide (22-30) mmol/L BUN (9-20) mg/dL Creatinine (0.66-1.25) mg/dL Glucose (74-99) mg/dL POC Glucose (mg/dL) 196 H 179 H (75-99) mg/dL Calcium (8.4-10.2) mg/dL AST (17-59) U/L ALT (21-72) U/L Alkaline Phosphatase (38-126) U/L Total Protein (6.3-8.2) g/dL Albumin (3.5-5.0) g/dL Arterial Blood Potassium (3.4-4.5) mmol/L Arterial Blood Glucose (75-99) mg/dL Crossmatch 11/29/18 11/29/18 11/29/18 Range/Units 20:32 21:15 21:58 RBC (4.30-5.90) m/uL Hgb (13.0-17.5) gm/dL Hct (39.0-53.0) % RDW (11.5-15.5) % Plt Count (150-450) k/uL Lymphocytes # (1.0-4.8) k/uL PT (9.0-12.0) sec INR (<1.2) ABG pH 7.31 L (7.35-7.45) ABG pO2 (83-108) mmHg ABG Total CO2 (19-24) mmol/L ABG O2 Saturation (94-97) % ABG Hematocrit (34.0-46.0) % ABG Potassium (3.4-4.5) mmol/L ABG Glucose (75-99) mg/dL ABG Lactic Acid (0.5-1.6) mmol/L Hemoglobin (13.0-17.5) gm/dL Chloride (98-107) mmol/L Carbon Dioxide (22-30) mmol/L BUN (9-20) mg/dL Creatinine (0.66-1.25) mg/dL Glucose (74-99) mg/dL POC Glucose (mg/dL) 154 H 150 H (75-99) mg/dL Calcium (8.4-10.2) mg/dL AST (17-59) U/L ALT (21-72) U/L Alkaline Phosphatase (38-126) U/L Total Protein (6.3-8.2) g/dL Albumin (3.5-5.0) g/dL Arterial Blood Potassium (3.4-4.5) mmol/L Arterial Blood Glucose (75-99) mg/dL Crossmatch 11/29/18 11/29/18 11/30/18 Range/Units 23:01 23:56 01:01 RBC (4.30-5.90) m/uL Hgb (13.0-17.5) gm/dL Hct (39.0-53.0) % RDW (11.5-15.5) % Plt Count (150-450) k/uL Lymphocytes # (1.0-4.8) k/uL PT (9.0-12.0) sec INR (<1.2) ABG pH (7.35-7.45) ABG pO2 (83-108) mmHg ABG Total CO2 (19-24) mmol/L ABG O2 Saturation (94-97) % ABG Hematocrit (34.0-46.0) % ABG Potassium (3.4-4.5) mmol/L ABG Glucose (75-99) mg/dL ABG Lactic Acid (0.5-1.6) mmol/L Hemoglobin (13.0-17.5) gm/dL Chloride (98-107) mmol/L Carbon Dioxide (22-30) mmol/L BUN (9-20) mg/dL Creatinine (0.66-1.25) mg/dL Glucose (74-99) mg/dL POC Glucose (mg/dL) 142 H 141 H 135 H (75-99) mg/dL Calcium (8.4-10.2) mg/dL AST (17-59) U/L ALT (21-72) U/L Alkaline Phosphatase (38-126) U/L Total Protein (6.3-8.2) g/dL Albumin (3.5-5.0) g/dL Arterial Blood Potassium (3.4-4.5) mmol/L Arterial Blood Glucose (75-99) mg/dL Crossmatch 11/30/18 11/30/18 11/30/18 Range/Units 02:30 03:54 04:20 RBC 2.79 L (4.30-5.90) m/uL Hgb 7.5 L (13.0-17.5) gm/dL Hct 23.0 L (39.0-53.0) % RDW 17.3 H (11.5-15.5) % Plt Count (150-450) k/uL Lymphocytes # (1.0-4.8) k/uL PT (9.0-12.0) sec INR (<1.2) ABG pH (7.35-7.45) ABG pO2 (83-108) mmHg ABG Total CO2 (19-24) mmol/L ABG O2 Saturation (94-97) % ABG Hematocrit (34.0-46.0) % ABG Potassium (3.4-4.5) mmol/L ABG Glucose (75-99) mg/dL ABG Lactic Acid (0.5-1.6) mmol/L Hemoglobin (13.0-17.5) gm/dL Chloride (98-107) mmol/L Carbon Dioxide (22-30) mmol/L BUN (9-20) mg/dL Creatinine (0.66-1.25) mg/dL Glucose (74-99) mg/dL POC Glucose (mg/dL) 138 H 128 H (75-99) mg/dL Calcium (8.4-10.2) mg/dL AST (17-59) U/L ALT (21-72) U/L Alkaline Phosphatase (38-126) U/L Total Protein (6.3-8.2) g/dL Albumin (3.5-5.0) g/dL Arterial Blood Potassium (3.4-4.5) mmol/L Arterial Blood Glucose (75-99) mg/dL Crossmatch 11/30/18 11/30/18 11/30/18 Range/Units 04:20 05:04 06:38 RBC (4.30-5.90) m/uL Hgb (13.0-17.5) gm/dL Hct (39.0-53.0) % RDW (11.5-15.5) % Plt Count (150-450) k/uL Lymphocytes # (1.0-4.8) k/uL PT (9.0-12.0) sec INR (<1.2) ABG pH (7.35-7.45) ABG pO2 (83-108) mmHg ABG Total CO2 (19-24) mmol/L ABG O2 Saturation (94-97) % ABG Hematocrit (34.0-46.0) % ABG Potassium (3.4-4.5) mmol/L ABG Glucose (75-99) mg/dL ABG Lactic Acid (0.5-1.6) mmol/L Hemoglobin (13.0-17.5) gm/dL Chloride 108 H (98-107) mmol/L Carbon Dioxide (22-30) mmol/L BUN 33 H (9-20) mg/dL Creatinine 1.38 H (0.66-1.25) mg/dL Glucose 112 H (74-99) mg/dL POC Glucose (mg/dL) 128 H 128 H (75-99) mg/dL Calcium (8.4-10.2) mg/dL AST (17-59) U/L ALT 17 L (21-72) U/L Alkaline Phosphatase 35 L (38-126) U/L Total Protein 5.4 L (6.3-8.2) g/dL Albumin 3.3 L (3.5-5.0) g/dL Arterial Blood Potassium (3.4-4.5) mmol/L Arterial Blood Glucose (75-99) mg/dL Crossmatch 11/30/18 11/30/18 Range/Units 08:08 10:16 RBC (4.30-5.90) m/uL Hgb (13.0-17.5) gm/dL Hct (39.0-53.0) % RDW (11.5-15.5) % Plt Count (150-450) k/uL Lymphocytes # (1.0-4.8) k/uL PT (9.0-12.0) sec INR (<1.2) ABG pH (7.35-7.45) ABG pO2 (83-108) mmHg ABG Total CO2 (19-24) mmol/L ABG O2 Saturation (94-97) % ABG Hematocrit (34.0-46.0) % ABG Potassium (3.4-4.5) mmol/L ABG Glucose (75-99) mg/dL ABG Lactic Acid (0.5-1.6) mmol/L Hemoglobin (13.0-17.5) gm/dL Chloride (98-107) mmol/L Carbon Dioxide (22-30) mmol/L BUN (9-20) mg/dL Creatinine (0.66-1.25) mg/dL Glucose (74-99) mg/dL POC Glucose (mg/dL) 138 H 133 H (75-99) mg/dL Calcium (8.4-10.2) mg/dL AST (17-59) U/L ALT (21-72) U/L Alkaline Phosphatase (38-126) U/L Total Protein (6.3-8.2) g/dL Albumin (3.5-5.0) g/dL Arterial Blood Potassium (3.4-4.5) mmol/L Arterial Blood Glucose (75-99) mg/dL Crossmatch Assessment and Plan Assessment: Multivessel coronary artery disease status post CABG 4 vessel. Postoperative day 1 Intraoperative mechanical ventilation. Patient is successfully extubated on day 0 Coronary artery disease and history of stent placement Hypertension Diabetes type 2 insulin-dependent Chronic kidney disease stage III. Creatinine 1.53 Hearing disorder/deafness Hyperlipidemia History of [place] History of skin cancer Osteoarthritis Previous history of smoking GERD DVT prophylaxis with heparin subcu Plan: Patient be continued on aspirin and Plavix metoprolol and blood pressure control. Patient is currently on insulin drip. Currently tolerating oral diet. Patient can be started back on home dose of Levemir 56 units at bedtime and NovoLog 16 units 3 times a day before meals along with insulin sliding scale. Continue to monitor CBG before meals and at bedtime. Continue with incentive spirometry and bronchodilators as needed. Pulmonary is on board. Activity as tolerated. Further recommendations based on the clinical course. We will continue to follow with you. Thank you for your consult. Time with Patient: Greater than 30
[2018-11-30] MEDS: SODIUM CHLORIDE 0.9% 1,000 ML IV SCH (17:48)
[2018-11-30 17:58] LABS: Glucose,Whole Blood 138 mg/dL (75-99)
[2018-11-30 20:05] LABS: Glucose,Whole Blood 121 mg/dL (75-99)
[2018-11-30] MEDS: SENNOSIDES-DOCUSATE SODIUM 1 EACH TAB PO SCH (21:13)
[2018-11-30] MEDS: GABAPENTIN 400 MG CAP PO SCH (21:13)
[2018-11-30 22:02] LABS: Glucose,Whole Blood 125 mg/dL (75-99)
[2018-12-01 00:14] LABS: Glucose,Whole Blood 155 mg/dL (75-99)
[2018-12-01] MEDS: HEPARIN SODIUM,PORCINE 5,000 UNIT/ML 1 ML VIAL SQ SCH ×4 (00:17→23:47)
[2018-12-01] MEDS: INSULIN REGULAR 100 UNIT in SODIUM CHLORIDE 0.9% 100 ML IV SCH ×2 (00:33→11:37)
[2018-12-01 02:00] LABS: Glucose,Whole Blood 154 mg/dL (75-99)
[2018-12-01] MEDS: HYDROcodone/APAP 5-325MG 1 EACH TAB PO PRN ×3 (02:46→21:18)
[2018-12-01 04:16] LABS: Glucose,Whole Blood 179 mg/dL (75-99)
[2018-12-01 05:41] LABS: Ionized Calcium 5.1 mg/dL (4.5-5.3)
[2018-12-01 05:50] LABS: Albumin 3.1 g/dL (3.5-5.0); Calcium 8.7 mg/dL (8.4-10.2); Total Bilirubin 0.8 mg/dL (0.2-1.3); Total Protein 5.3 g/dL (6.3-8.2)
[2018-12-01 06:12] LABS: Anisocytosis Slight; Basophils % (A) 0 %; Eosinophils # (A) 0.1 k/uL (0-0.7); Eosinophils % (A) 1 %; Hypochromasia Moderate; Lymphocytes # (A) 1.1 k/uL (1.0-4.8); Lymphocytes % (A) 12 %; MCHC 32.8 g/dL (31.0-37.0); MCV 82.3 fL (80.0-100.0); Mean Platelet Volume 7.1; Monocytes # (A) 0.6 k/uL (0-1.0); Monocytes % (A) 7 %; Neutrophils # (A) 7.5 k/uL (1.3-7.7); Neutrophils % (A) 79 %; Platelet Count 142 k/uL (150-450); RBC 2.37 m/uL (4.30-5.90); RDW 17.7 % (11.5-15.5); WBC 9.5 k/uL (3.8-10.6)
[2018-12-01 06:17] LABS: HCT 19.5 % (39.0-53.0); HGB 6.4 gm/dL (13.0-17.5)
[2018-12-01 06:30] LABS: Glucose,Whole Blood 173 mg/dL (75-99)
[2018-12-01] MEDS: SODIUM CHLORIDE 0.9% 1,000 ML IV SCH (06:33)
[2018-12-01] MEDS ORDERED: METOCLOPRAMIDE 5 MG/ML 2 ML VIAL IVP STA (06:47)
--- NOTE | 2018-12-01 06:48 | XR ---
EXAMINATION TYPE: XR chest 1V portable DATE OF EXAM: 12/01/2018 CLINICAL HISTORY: Difficulty breathing and post open cardiac surgery progress study. TECHNIQUE: Single AP portable upright view of the chest is obtained. COMPARISON: Chest x-ray from one day earlier and older studies. FINDINGS: There is interval removal of right internal jugular [place] catheter, cordis sheath eileen ins in place. Overlying sternal wires and mediastinal clips are redemonstrated. There is persistent e levated left hemidiaphragm with bibasilar opacities and bibasilar chest tubes. Cardiomegaly is again seen. Osseous structures are intact. IMPRESSION: Interval removal of right internal jugular [place] catheter. Persistent bibasilar chest tubes without pneumothorax. Persistent cardiomegaly with low lung volumes and bibasilar atelectasis and/or infiltrates.
[2018-12-01] MEDS: IPRATROPIUM-ALBUTEROL 3 ML NEB INHALATION SCH ×4 (08:10→21:37)
[2018-12-01] MEDS: MUPIROCIN 2% OINT 22 GM TUBE NASAL SCH ×2 (08:25→21:21)
[2018-12-01] MEDS: GABAPENTIN 300 MG CAP PO SCH (08:25)
[2018-12-01] MEDS: ASPIRIN 325 MG TAB PO SCH (08:25)
[2018-12-01] MEDS: ATORVASTATIN 40 MG TAB PO SCH (08:26)
[2018-12-01] MEDS: PANTOPRAZOLE 40 MG TABLET PO SCH (08:26)
[2018-12-01] MEDS: CYANOCOBALAMIN 500 MCG TAB PO SCH (08:26)
[2018-12-01] MEDS: CLOPIDOGREL 75 MG TAB PO SCH (08:26)
[2018-12-01] MEDS: METOPROLOL TARTRATE 25 MG TAB PO SCH ×2 (08:26→21:20)
--- NOTE | 2018-12-01 08:26 | P.PN ---
Progress Note - Text Progress Note Date: 12/01/18 This patient is a status post multivessel bypass surgery. Patient is sitting in the chair. Doesn't appear to be in acute distress. Doesn't seem motivated with physical activities. He is doing about 500 mL to spirometry. His maintaining sinus rhythm. His creatinine is slightly higher. Hemoglobin is about 6.8. Lungs sound clear with diminished breath sounds at bases. Heart is regular. No Laboratory showed hemoglobin of 6.4. Potassium is 5. Creatinine is 1.55 and BUN is 38. His urine output is fair. Chest x-ray showed evidence of removal of right internal jugular [place]-Kanchan catheter. Both chest tubes us to the without any evidence of pneumothorax. Bilateral atelectasis. GENERAL EXAM: Patient is alert and oriented and doesn't appear to be in any acute distress HEENT: Normocephalic. Normal reaction of pupils, equal size, NECK: No masses, no nuchal rigidity. CHEST: Postsurgical LUNGS: Equal air entry with no crackles or wheeze. Diminished breath sounds at bases HEART: S1 and S2 normal with no audible mumurs or gallops. Regular rhythm, ABDOMEN: No hepatosplenomegaly, normal bowel sounds, no guarding or rigidity. SKIN: No rashes CENTRAL NERVOUS SYSTEM: No focal deficits. EXTREMITIES: No cyanosis, clubbing or edema. Final impression: #1. Status post multivessel bypass surgery #2. Postoperative anemia. #3 mildly elevated creatinine/BUN Plan: Increase activity as tolerated. Incentive spirometry. CBC is being repeated. If hemoglobin is lower, patient may get blood transfusion.
--- NOTE | 2018-12-01 08:30 | P.PN ---
Subjective Progress Note Date: 12/01/18 Principal diagnosis: Triple-vessel coronary artery disease with left main disease and a totally occluded right coronary artery, status post prior stenting to the LAD in 2006 and RCA in 2018. Overall mild left ventricular dysfunction. No significant valvular abnormality. History of myocardial infarction. Chronic kidney disease with baseline creatinine 1.4. 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 Hypertension. Hyperlipidemia. Uncontrolled insulin-dependent diabetes mellitus with preoperative hemoglobin A1c 8.0%. History of ischemic bowel disease with previous bowel resection. GERD. History of elevated left hemidiaphragm. Obesity. Previous tobacco dependence with preoperative FEV1 93% of predicted. POD #1 non-aortic clamp quadruple off-pump coronary artery bypass grafting using the left internal mammary artery to the left anterior descending artery, reverse saphenous vein graft connected to the aorta using the passport device and connected distally to the ramus intermedius artery, reverse saphenous vein graft connected to the aorta using the passport device and connected distally to the p osterior descending artery, reverse saphenous vein graft connected to the aorta using the passport device connected distally to the distal circumflex artery, endoscopic harvesting of bilateral greater saphenous veins with the total right side and the knee to the groin on the left side, intraoperative transesophageal echocardiogram, epi-aortic scanning, intraoperative graft flow measurements using the [employer] system. Postoperative acute blood loss anemia, an expected outcome of surgery given he modilution. The patient is currently sitting up in a recliner in no acute distress in the intensive care unit. Does complain of generalized post surgical pain when asked, denies shortness of breath. Patient lacks motivation to do anything but lay in the chair and sleep. He does remain in normal sinus rhythm and is hemodynamically stable on no inotropes or pressors. Hemoglobin is a bit low thi s morning at 6.4, was 7.5 yesterday, asymptomatic. He does exhibit poor effort with incentive spirometry. No new complaints. Objective - Vital Signs Vital signs: Vital Signs Temp 98.4 F 12/01/18 04:00 Pulse 75 12/01/18 07:00 Resp 14 12/01/18 07:00 BP 141/67 12/01/18 07:00 Pulse Ox 98 12/01/18 07:00 Intake & Output 11/30/18 12/01/18 12/01/18 18:59 06:59 18:59 Intake Total 1457.520 700.128 56 Output Total 595 1140 80 Balance 862.520 -439.872 -24 Weight 118.8 kg 122.9 kg Intake: IV 757 662 56 Lactated Ringers 1,000 ml 100 @ 50 mls/hr IV .Q20H [facility] Rx#:[id number] Sodium Chloride 0.9% 1, 500 590 50 000 ml @ 50 mls/hr IV . Q20H [facility] Rx#:[id number] cardiac output 70 pressure bag 87 72 6 Intake, IV Titration 50.520 38.128 Amount Insulin Regular 100 unit 26.470 38.128 In Sodium Chloride 0.9% 100 ml @ Per Protocol IV .Q0M [facility] Rx#:[id number] Nitroglycerin-D5w Pmx 50 24.05 mg In Dextrose/Water 1 250ml.bag @ 5 MCG/MIN 1.5 mls/hr IV .Q24H [facility] Rx#: [id number] Oral 650 Output: Chest Tube Drainage 130 240 left pleural 10 100 mediastinal chest x2 30 40 right pleural 90 100 Drainage 20 40 left leg 10 30 right leg 10 10 Urine 445 900 40 Other: Voiding Method Indwelling Catheter Indwelling Catheter ABP, PAP, CO, CI - Last Documented Arterial Blood Pressure 140/45 Pulmonary Artery Pressure 37/20 Cardiac Output 6.6 Cardiac Index 2.8 - Constitutional General appearance: Present: cooperative, no acute distress - Respiratory Details: Lungs sounds diminished, coarse in the bases. Respirations even, nonlabored. Currently on 4 L nasal cannula with oxygen saturation 98%. Only able to achieve 500 mL on his incentive spirometry. Mediastinal chest tube to continuous wall suction, 40 mL serosanguineous drainage overnight, 100 mL in the last 24 hours. Left pleural chest tube to continuous wall suction, 100 mL serosanguineous drainage overnight, 250 mL in the last 4 hours. Right pleural chest tube to continuous wall suction, 70 mL serosanguineous drainage overnight, 350 mL in the last 24 hours. No air leaks present. - Cardiovascular Details: S1, S2 present. Regular rate and rhythm, sinus rhythm on telemetry. Sternum stable. Palpable peripheral pulses bilaterally. Trace bilateral lower extremity edema present. No calf pain or tenderness noted. Right internal jugular, right radial arterial line present. Heart hugger in place with patient intermittently demonstrating appropriate use. Antiembolism stockings, SCDs present. - Gastrointestinal Gastrointestinal Comment(s): Abdomen soft, nontender, nondistended. Hypoactive bowel sounds present 4 quadrants. Tolerating clear liquid diet. Positive flatus, negative bowel movement. - Genitourinary Genitourinary Comment(s): Lairos present draining clear, yellow urine. Output overnight 70-100 mL per hour, 685 mL in the last 8 hours. - Integumentary Integumentary Comment(s): Skin is warm and dry with evidence of good perfusion. Anterior chest incision well approximated and covered with dry intact dressings. Bilateral lower e xtremity EVH sites well approximated, SUMAN drains present with minimal output. - Neurologic Neurologic: Present: CNII-XII intact - Musculoskeletal Musculoskeletal: Present: generalized weakness, strength equal bilaterally - Psychiatric Psychiatric: Present: A&O x's 3, appropriate affect - Allied health notes Allied health notes reviewed: nursing - Labs CBC & Chem 7: 12/01/18 06:00 12/01/18 05:00 Labs: Abnormal Lab Results - Last 24 Hours (Table) 11/30/18 11/30/18 11/30/18 Range/Units 08:08 10:16 11:55 RBC (4.30-5.90) m/uL Hgb (13.0-17.5) gm/dL Hct (39.0-53.0) % RDW (11.5-15.5) % Plt Count (150-450) k/uL Sodium (137-145) mmol/L BUN (9-20) mg/dL Creatinine (0.66-1.25) mg/dL Glucose (74-99) mg/dL POC Glucose (mg/dL) 138 H 133 H 136 H (75-99) mg/dL AST (17-59) U/L Total Protein (6.3-8.2) g/dL Albumin (3.5-5.0) g/dL 11/30/18 11/30/18 11/30/18 Range/Units 14:27 16:03 17:56 RBC (4.30-5.90) m/uL Hgb (13.0-17.5) gm/dL Hct (39.0-53.0) % RDW (11.5-15.5) % Plt Count (150-450) k/uL Sodium (137-145) mmol/L BUN (9-20) mg/dL Creatinine (0.66-1.25) mg/dL Glucose (74-99) mg/dL POC Glucose (mg/dL) 147 H 136 H 138 H (75-99) mg/dL AST (17-59) U/L Total Protein (6.3-8.2) g/dL Albumin (3.5-5.0) g/dL 11/30/18 11/30/18 12/01/18 Range/Units 20:03 22:01 00:12 RBC (4.30-5.90) m/uL Hgb (13.0-17.5) gm/dL Hct (39.0-53.0) % RDW (11.5-15.5) % Plt Count (150-450) k/uL Sodium (137-145) mmol/L BUN (9-20) mg/dL Creatinine (0.66-1.25) mg/dL Glucose (74-99) mg/dL POC Glucose (mg/dL) 121 H 125 H 155 H (75-99) mg/dL AST (17-59) U/L Total Protein (6.3-8.2) g/dL Albumin (3.5-5.0) g/dL 12/01/18 12/01/18 12/01/18 Range/Units 01:57 04:14 05:00 RBC (4.30-5.90) m/uL Hgb (13.0-17.5) gm/dL Hct (39.0-53.0) % RDW (11.5-15.5) % Plt Count (150-450) k/uL Sodium 136 L (137-145) mmol/L BUN 38 H (9-20) mg/dL Creatinine 1.55 H (0.66-1.25) mg/dL Glucose 157 H (74-99) mg/dL POC Glucose (mg/dL) 154 H 179 H (75-99) mg/dL AST 94 H (17-59) U/L Total Protein 5.3 L (6.3-8.2) g/dL Albumin 3.1 L (3.5-5.0) g/dL 12/01/18 12/01/18 Range/Units 06:00 06:28 RBC 2.37 L (4.30-5.90) m/uL Hgb 6.4 L* (13.0-17.5) gm/dL Hct 19.5 L* (39.0-53.0) % RDW 17.7 H (11.5-15.5) % Plt Count 142 L (150-450) k/uL Sodium (137-145) mmol/L BUN (9-20) mg/dL Creatinine (0.66-1.25) mg/dL Glucose (74-99) mg/dL POC Glucose (mg/dL) 173 H (75-99) mg/dL AST (17-59) U/L Total Protein (6.3-8.2) g/dL Albumin (3.5-5.0) g/dL - Imaging and Cardiology Chest x-ray: report reviewed, image reviewed Assessment and Plan Assessment: 1. Triple-vessel coronary artery disease with left main disease and totally occluded right coronary artery, status post off-pump quadruple coronary artery bypass grafting 2. History of myocardial infarction, status post stenting to the LAD and RCA 3. Chronic kidney disease with baseline creatinine 1.4 4. Totally occluded right internal carotid artery, left internal carotid artery 50-79% stenosis 5. Hypertension 6. Hyperlipidemia 7. Uncontrolled insulin-dependent diabetes mellitus. Preoperative hemoglobin A1c 8.0% 8. Previous tobacco dependence. Preoperative FEV1 93% of predicted 9. History of elevated left hemidiaphragm 10. History of ischemic bowel disease with previous bowel resection 11. GERD Plan: 1. Continue aspirin, statin, Plavix, beta inder therapy. Will increase beta inder as tolerated, increased to 25 mg twice daily today. 2. Wean O2 as tolerated. Encourage incentive spirometry use 10 times every hour while awake. 3. Increase activity, ambulate as tolerated. PT/OT/cardiac rehab following. 4. Bronchodilators per pulmonology. 5. Will monitor daily labs and x-rays. Electrolyte replacement per protocol. Avoid nephrotoxins. Will recheck H&H. 6. Will discontinue mediastinal, left, right pleural chest tubes as well as left and right SUMAN drains. 7. Pain control with current medication regimen. 8. Insulin management per primary care service. 9. GI prophylaxis with Protonix, DVT prophylaxis with subcu heparin, SCDs. 10. Will give 1 dose IV Reglan today. 11. Will keep Cordis and arterial line for now. Discontinue Larios catheter. 12. More recommendations to follow based on clinical course. Time with Patient: Greater than 30
[2018-12-01 08:49] LABS: Anisocytosis Slight; Basophils % (A) 0 %; Eosinophils # (A) 0.1 k/uL (0-0.7); Eosinophils % (A) 1 %; Hypochromasia Slight; Lymphocytes # (A) 1.3 k/uL (1.0-4.8); Lymphocytes % (A) 12 %; MCH 24.4 pg (25.0-35.0); MCHC 29.8 g/dL (31.0-37.0); Mean Platelet Volume 7.1; Microcytosis Slight; Monocytes # (A) 0.7 k/uL (0-1.0); Monocytes % (A) 6 %; Neutrophils # (A) 8.5 k/uL (1.3-7.7); Neutrophils % (A) 78 %; Platelet Count 153 k/uL (150-450); RBC 2.56 m/uL (4.30-5.90); RDW 17.9 % (11.5-15.5); WBC 10.9 k/uL (3.8-10.6)
[2018-12-01 08:52] LABS: HGB 6.3 gm/dL (13.0-17.5)
[2018-12-01 09:00] LABS: Glucose,Whole Blood 180 mg/dL (75-99)
--- NOTE | 2018-12-01 10:00 | PN ---
PROGRESS NOTE This is a 73-year-old gentleman, postop day #2, status post 4-vessel bypass grafting. The patient is doing relatively well. The patient has been weaned down the O2 of 4 L. His IV is saline at 50. He is on insulin drip at 6.5 units an hour. He is going to receive a unit of blood today for hemoglobin less than 7. He otherwise is not feeling poorly. He does have some pain in the chest here from the surgical site. He is a bit sleepy. Not doing particularly well on his incentive spirometer. His chest x- ray shows some bilateral small effusions and some bibasilar atelectasis. The patient has a history of CAD routine postoperative ventilator management, as well as a history of CAD, hypertension, hyperlipidemia, chronic kidney disease, diabetes, a totally occluded right internal carotid artery, deafness, GERD, and a previous history of tobacco dependence. The patient was seen by Dr. Bush and myself yesterday. Current vital signs are reviewed, temperature is 98.9, heart rate 79, respiratory rate 17, blood pressure 132/68 mean 89, saturations are 90%, up to 93% on 4 L. Appears in no acute distress. He is awake and alert. HEENT examination is grossly unremarkable. Nasal O2 in place. Neck is supple. Full range of motion. No adenopathy, thyromegaly or neck vein distention. Cardiovascular examination reveals regular rhythm and rate. S1, S2 normal. No S3, S4, or murmur. Lungs are relatively clear. There are a few scattered rhonchi. No wheezes or crackles. He does not really take deep breaths. Abdomen is soft, but obese. Bowel sounds are heard. Extremities are intact. No cyanosis, clubbing, or edema. Skin without rash. LAB DATA: Reviewed. White count 10.9, hemoglobin 6.3, hematocrit 21.0, platelet count 153,000. The rest of the labs look okay. Sodium 136, potassium 5, chloride 107, CO2 of 22, BUN and creatinine were 38 and 1.55. Microbiologic studies are negative. Chest x-rays reviewed. Medications are reviewed. ASSESSMENT: 1. Postoperative day #2, status post 4-vessel bypass grafting for coronary artery disease. 2. Previous history of PCI for coronary artery disease. 3. Status post routine management of mechanical ventilator, postoperatively. 4. History of benign essential hypertension. 5. History of hyperlipidemia. 6. History of chronic kidney disease. 7. Diabetes mellitus. 8. History of totally occluded right internal carotid artery. 9. Deafness. 10.Gastroesophageal reflux disease. 11.History of previous tobacco dependence. 12. Post-op anemia PLAN: The patient is doing reasonably well. We encouraged him to deep breath, cough and clear secretions. We also encouraged better use of the incentive spirometer. He will get a unit of blood today. Chest x-ray is reviewed. Medications are reviewed. He will continue on the [employer]. No additional recommendations are made. Will continue to follow closely. Prognosis is guarded. MMODL / IJN: [id number] / DIOMEDES
[2018-12-01 10:43] LABS: Glucose,Whole Blood 205 mg/dL (75-99)
[2018-12-01 11:42] LABS: Glucose,Whole Blood 207 mg/dL (75-99)
[2018-12-01 13:18] LABS: Glucose,Whole Blood 251 mg/dL (75-99)
[2018-12-01 13:22] LABS: Glucose,Whole Blood 260 mg/dL (75-99)
[2018-12-01 14:20] LABS: Glucose,Whole Blood 265 mg/dL (75-99)
[2018-12-01 15:17] LABS: Glucose,Whole Blood 233 mg/dL (75-99)
[2018-12-01 16:05] LABS: Glucose,Whole Blood 196 mg/dL (75-99)
[2018-12-01 17:09] LABS: Glucose,Whole Blood 170 mg/dL (75-99)
[2018-12-01 18:01] LABS: Glucose,Whole Blood 164 mg/dL (75-99)
[2018-12-01 19:53] LABS: Glucose,Whole Blood 213 mg/dL (75-99)
[2018-12-01] MEDS: GABAPENTIN 400 MG CAP PO SCH (21:19)
[2018-12-01] MEDS: INSULIN DETEMIR (LEVEMIR) 100 UNIT/ML SYR SQ SCH (21:20)
[2018-12-01] MEDS: SENNOSIDES-DOCUSATE SODIUM 1 EACH TAB PO SCH (21:20)
[2018-12-01 22:01] LABS: Glucose,Whole Blood 226 mg/dL (75-99)
--- NOTE | 2018-12-01 23:15 | P.PN ---
Subjective Progress Note Date: 12/01/18 Principal diagnosis: Status post coronary artery bypass graft Patient is a 72-year-old male with a known history of hypertension, hyperlipidemia, diabetes type 2, CK D, coronary artery disease with previous stent to LAD and RCA was found have significant coronary artery disease and was recommended coronary artery bypass. Patient is currently coronary artery bypass graft postoperative day 1. Patient was successfully extubated within 6 hours after surgery. Patient did have having brief episode of lightheadedness and dizziness while getting to the change. Likely orthostatic. Currently patient denied any complaints of headache or dizziness. No worsening shortness of br eath. Does have soreness her chest but controlled with pain medications. No fever no chills. Patient is saturating well on nausea cannula oxygen. Hemoglobin is 7.5, WBC 9.0, platelets 1 66,000, creatinine 1.38 Chest x-ray showed sable platelike left basilar atelectasis. Bilateral thoracostomy tubes and mediastinal tube present. Patient is on insulin drip for blood sugar control. 12/01/2018 Patient is able to sit in a chair today. Hemoglobin is 6.4 and is getting 1 unit of PRBC blood transfusion. No complaints of nausea vomiting or abdominal pain. No commerce of chest pain. No worsening shortness of breath. Currently on insulin drip for blood pressure control. Tolerating oral diet. Will be transitioned to his home dose of insulin along with sliding scale. No fever no chills. Mediastinal and left-sided chest tube is discontinued. Current medications reviewed Objective - Vital Signs Vital signs: Vital Signs Temp 98.7 F 12/01/18 20:00 Pulse 72 12/01/18 22:00 Resp 16 12/01/18 22:00 BP 119/59 12/01/18 22:00 Pulse Ox 96 12/01/18 22:00 Intake & Output 12/01/18 12/01/18 12/02/18 06:59 18:59 06:59 Intake Total 593.999 9614.833 968 Output Total 1140 855 295 Balance -439.872 724.833 673 Weight 122.9 kg Intake: IV 662 672 218 Sodium Chloride 0.9% 1, 590 600 200 000 ml @ 50 mls/hr IV . Q20H [facility] Rx#:[id number] pressure bag 72 72 18 Intake, IV Titration 38.128 97.833 Amount Insulin Regular 100 unit 38.128 97.833 In Sodium Chloride 0.9% 100 ml @ Per Protocol IV .Q0M [facility] Rx#:[id number] Oral 500 750 Blood Product 310 Rc As-1 Unit 310 [id number] Output: Chest Tube Drainage 240 10 left pleural 100 0 mediastinal chest x2 40 0 right pleural 100 10 Drainage 40 left leg 30 right leg 10 Urine 900 805 295 Other: Voiding Method Indwelling Catheter Indwelling Catheter Indwelling Catheter ABP, PAP, CO, CI - Last Documented Arterial Blood Pressure 102/50 Pulmonary Artery Pressure 37/20 Cardiac Output 6.6 Cardiac Index 2.8 - Exam PHYSICAL EXAMINATION: Patient is lying in the bed comfortably, no acute distress, awake alert and oriented.. HEENT: Normocephalic. Neck is supple. Pupils reactive. Nostrils clear. Oral cavity is moist. Ears reveal no drainage. Neck reveals no JVD, carotid bruits, or thyromegaly. CHEST EXAMINATION: Trachea is central. Symmetrical expansion. Bibasilar diminished air entry. Lung samuels clear to auscultation and percussion. Right-sided chest tube in place CARDIAC: Normal S1, S2 with no gallops. No murmurs ABDOMEN: Soft. Bowel sounds normal. No organomegaly. No abdominal bruits. Extremities: Trace edema. No clubbing or cyanosis Neurologically awake, alert, oriented x3 with well-coordinated movements. No focal deficits noted Skin: No rash or skin lesions. Psychiatric: Coperative. Nonsuicidal Musculoskeletal: No joint swelling or deformity. Normal range of motion. - Labs CBC & Chem 7: 12/01/18 08:10 12/01/18 05:00 Labs: Abnormal Lab Results - Last 24 Hours (Table) 11/24/18 12/01/18 12/01/18 Range/Units 09:16 00:12 01:57 WBC (3.8-10.6) k/uL RBC (4.30-5.90) m/uL Hgb (13.0-17.5) gm/dL Hct (39.0-53.0) % MCH (25.0-35.0) pg MCHC (31.0-37.0) g/dL RDW (11.5-15.5) % Plt Count (150-450) k/uL Neutrophils # (1.3-7.7) k/uL Sodium (137-145) mmol/L BUN (9-20) mg/dL Creatinine (0.66-1.25) mg/dL Glucose (74-99) mg/dL POC Glucose (mg/dL) 155 H 154 H (75-99) mg/dL AST (17-59) U/L Total Protein (6.3-8.2) g/dL Albumin (3.5-5.0) g/dL Crossmatch See Detail 12/01/18 12/01/18 12/01/18 Range/Units 04:14 05:00 06:00 WBC (3.8-10.6) k/uL RBC 2.37 L (4.30-5.90) m/uL Hgb 6.4 L* (13.0-17.5) gm/dL Hct 19.5 L* (39.0-53.0) % MCH (25.0-35.0) pg MCHC (31.0-37.0) g/dL RDW 17.7 H (11.5-15.5) % Plt Count 142 L (150-450) k/uL Neutrophils # (1.3-7.7) k/uL Sodium 136 L (137-145) mmol/L BUN 38 H (9-20) mg/dL Creatinine 1.55 H (0.66-1.25) mg/dL Glucose 157 H (74-99) mg/dL POC Glucose (mg/dL) 179 H (75-99) mg/dL AST 94 H (17-59) U/L Total Protein 5.3 L (6.3-8.2) g/dL Albumin 3.1 L (3.5-5.0) g/dL Crossmatch 12/01/18 12/01/18 12/01/18 Range/Units 06:28 08:10 08:58 WBC 10.9 H (3.8-10.6) k/uL RBC 2.56 L (4.30-5.90) m/uL Hgb 6.3 L* (13.0-17.5) gm/dL Hct 21.0 L (39.0-53.0) % MCH 24.4 L (25.0-35.0) pg MCHC 29.8 L (31.0-37.0) g/dL RDW 17.9 H (11.5-15.5) % Plt Count (150-450) k/uL Neutrophils # 8.5 H (1.3-7.7) k/uL Sodium (137-145) mmol/L BUN (9-20) mg/dL Creatinine (0.66-1.25) mg/dL Glucose (74-99) mg/dL POC Glucose (mg/dL) 173 H 180 H (75-99) mg/dL AST (17-59) U/L Total Protein (6.3-8.2) g/dL Albumin (3.5-5.0) g/dL Crossmatch 12/01/18 12/01/18 12/01/18 Range/Units 10:41 11:40 13:17 WBC (3.8-10.6) k/uL RBC (4.30-5.90) m/uL Hgb (13.0-17.5) gm/dL Hct (39.0-53.0) % MCH (25.0-35.0) pg MCHC (31.0-37.0) g/dL RDW (11.5-15.5) % Plt Count (150-450) k/uL Neutrophils # (1.3-7.7) k/uL Sodium (137-145) mmol/L BUN (9-20) mg/dL Creatinine (0.66-1.25) mg/dL Glucose (74-99) mg/dL POC Glucose (mg/dL) 205 H 207 H 251 H (75-99) mg/dL AST (17-59) U/L Total Protein (6.3-8.2) g/dL Albumin (3.5-5.0) g/dL Crossmatch 12/01/18 12/01/18 12/01/18 Range/Units 13:21 14:18 15:15 WBC (3.8-10.6) k/uL RBC (4.30-5.90) m/uL Hgb (13.0-17.5) gm/dL Hct (39.0-53.0) % MCH (25.0-35.0) pg MCHC (31.0-37.0) g/dL RDW (11.5-15.5) % Plt Count (150-450) k/uL Neutrophils # (1.3-7.7) k/uL Sodium (137-145) mmol/L BUN (9-20) mg/dL Creatinine (0.66-1.25) mg/dL Glucose (74-99) mg/dL POC Glucose (mg/dL) 260 H 265 H 233 H (75-99) mg/dL AST (17-59) U/L Total Protein (6.3-8.2) g/dL Albumin (3.5-5.0) g/dL Crossmatch 12/01/18 12/01/18 12/01/18 Range/Units 16:04 17:08 18:00 WBC (3.8-10.6) k/uL RBC (4.30-5.90) m/uL Hgb (13.0-17.5) gm/dL Hct (39.0-53.0) % MCH (25.0-35.0) pg MCHC (31.0-37.0) g/dL RDW (11.5-15.5) % Plt Count (150-450) k/uL Neutrophils # (1.3-7.7) k/uL Sodium (137-145) mmol/L BUN (9-20) mg/dL Creatinine (0.66-1.25) mg/dL Glucose (74-99) mg/dL POC Glucose (mg/dL) 196 H 170 H 164 H (75-99) mg/dL AST (17-59) U/L Total Protein (6.3-8.2) g/dL Albumin (3.5-5.0) g/dL Crossmatch 12/01/18 12/01/18 Range/Units 19:50 22:00 WBC (3.8-10.6) k/uL RBC (4.30-5.90) m/uL Hgb (13.0-17.5) gm/dL Hct (39.0-53.0) % MCH (25.0-35.0) pg MCHC (31.0-37.0) g/dL RDW (11.5-15.5) % Plt Count (150-450) k/uL Neutrophils # (1.3-7.7) k/uL Sodium (137-145) mmol/L BUN (9-20) mg/dL Creatinine (0.66-1.25) mg/dL Glucose (74-99) mg/dL POC Glucose (mg/dL) 213 H 226 H (75-99) mg/dL AST (17-59) U/L Total Protein (6.3-8.2) g/dL Albumin (3.5-5.0) g/dL Crossmatch Assessment and Plan Assessment: Multivessel coronary artery disease status post CABG 4 vessel. Postoperative day 2 Acute blood loss anemia hemoglobin 7.5-6.4. Intraoperative mechanical ventilation. Patient is successfully extubated on day 0 Coronary artery disease and history of stent placement Hypertension Diabetes type 2 insulin-dependent Chronic kidney disease stage III. Creatinine 1.53 Hearing disorder/deafness Hyperlipidemia History of [place] History of skin cancer Osteoarthritis Previous history of smoking GERD DVT prophylaxis with heparin subcu Plan: Patient be continued on aspirin and Plavix metoprolol and blood pressure control. Patient is currently on insulin drip. Currently tolerating oral diet. Patient can be started back on home dose of Levemir 56 units at bedtime and NovoLog 16 units 3 times a day before meals along with insulin sliding scale. Continue to monitor CBG before meals and at bedtime. Continue with incentive spirometry and bronchodilators as needed. Pulmonary is on board. Activity as tolerated. Further recommendations based on the clinical course. Time with Patient: Greater than 30
[2018-12-02] MEDS: HYDROcodone/APAP 5-325MG 1 EACH TAB PO PRN ×5 (04:17→23:46)
[2018-12-02 04:26] LABS: Glucose,Whole Blood 249 mg/dL (75-99)
[2018-12-02 05:05] LABS: Anisocytosis Slight; Hypochromasia Slight; MCH 25.5 pg (25.0-35.0); MCHC 30.4 g/dL (31.0-37.0); Mean Platelet Volume 8.8; Platelet Count 141 k/uL (150-450); Poikilocytosis Slight; RBC 2.62 m/uL (4.30-5.90); RDW 17.8 % (11.5-15.5); WBC 9.7 k/uL (3.8-10.6)
[2018-12-02 05:16] LABS: Albumin 2.9 g/dL (3.5-5.0); Calcium 8.7 mg/dL (8.4-10.2); Magnesium 2.4 mg/dL (1.6-2.3); Total Bilirubin 0.9 mg/dL (0.2-1.3); Total Protein 5.3 g/dL (6.3-8.2)
[2018-12-02 05:20] LABS: HGB 6.7 gm/dL (13.0-17.5)
[2018-12-02 07:04] LABS: Glucose,Whole Blood 252 mg/dL (75-99)
[2018-12-02] MEDS: INSULIN ASPART (NovoLOG) 100 UNIT/ML VIAL SQ SCH ×6 (07:13→23:43)
--- NOTE | 2018-12-02 07:22 | XR ---
EXAMINATION TYPE: XR chest 1V portable DATE OF EXAM: 12/02/2018 COMPARISON: Prior chest x-ray 12/01/2017 HISTORY: Post cardiac surgery TECHNIQUE: Single frontal view of the chest is obtained. FINDINGS: Right jugular central venous sheath remains in place, patient is post median sternotomy. B ibasilar increased density is noted, bilateral chest tubes have been removed. There are cardiac leads . No pneumothorax. Heart size is stable and enlarged. IMPRESSION: No evident complication status post chest tube removal. Probable basilar atelectasis.
[2018-12-02] MEDS: SODIUM CHLORIDE 0.9% 1,000 ML IV SCH (07:38)
[2018-12-02] MEDS: PANTOPRAZOLE 40 MG TABLET PO SCH (07:59)
[2018-12-02] MEDS: HEPARIN SODIUM,PORCINE 5,000 UNIT/ML 1 ML VIAL SQ SCH ×2 (07:59→16:50)
[2018-12-02] MEDS: CYANOCOBALAMIN 500 MCG TAB PO SCH (08:05)
[2018-12-02] MEDS: ASPIRIN 325 MG TAB PO SCH (08:05)
[2018-12-02] MEDS: CLOPIDOGREL 75 MG TAB PO SCH (08:05)
[2018-12-02] MEDS: ATORVASTATIN 40 MG TAB PO SCH (08:05)
[2018-12-02] MEDS: GABAPENTIN 300 MG CAP PO SCH (08:06)
[2018-12-02] MEDS: METOPROLOL TARTRATE 25 MG TAB PO SCH ×2 (08:06→20:04)
[2018-12-02] MEDS: MAGNESIUM HYDROXIDE 2,400 MG/10 ML CUP PO PRN (08:06)
[2018-12-02] MEDS: MUPIROCIN 2% OINT 22 GM TUBE NASAL SCH ×2 (08:07→20:05)
[2018-12-02] MEDS ORDERED: ACETAMINOPHEN TAB 325 MG TAB PO PRN ×2 (08:14)
--- NOTE | 2018-12-02 08:21 | P.PN ---
Subjective Progress Note Date: 12/02/18 Principal diagnosis: Triple-vessel coronary artery disease with left main disease and a totally occluded right coronary artery, status post prior stenting to the LAD in 2006 and RCA in 2018. Overall mild left ventricular dysfunction. No significant valvular abnormality. History of myocardial infarction. Chronic kidney disease with baseline creatinine 1.4. 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 Hypertension. Hyperlipidemia. Uncontrolled insulin-dependent diabetes mellitus with preoperative hemoglobin A1c 8.0%. History of ischemic bowel disease with previous bowel resection. GERD. History of elevated left hemidiaphragm. Obesity. Previous tobacco dependence with preoperative FEV1 93% of predicted. POD #3 non-aortic clamp quadruple off-pump coronary artery bypass grafting using the left internal mammary artery to the left anterior descending artery, reverse saphenous vein graft connected to the aorta using the passport device and connected distally to the ramus intermedius artery, reverse saphenous vein graft connected to the aorta using the passport device and connected distally to the p osterior descending artery, reverse saphenous vein graft connected to the aorta using the passport device connected distally to the distal circumflex artery, endoscopic harvesting of bilateral greater saphenous veins with the total right side and the knee to the groin on the left side, intraoperative transesophageal echocardiogram, epi-aortic scanning, intraoperative graft flow measurements using the Reev[employer]im system. Postoperative acute blood loss anemia, an expected outcome of surgery given he modilution. The patient is currently sitting up in a recliner in no acute distress in the intensive care unit. Does complain of generalized post surgical pain with movement and deep breathing, denies shortness of breath. Patient is more alert and participatory with care today. He does remain in normal sinus rhythm and is hemodynamically stable on no inotropes or pressors. He received 1 unit packed red blood cells yesterday. Chest tubes were discontinued yesterday. No new complaints. Objective - Vital Signs Vital signs: Vital Signs Temp 97.5 F L 12/02/18 04:00 Pulse 68 12/02/18 07:00 Resp 17 12/02/18 07:00 BP 128/68 12/02/18 07:00 Pulse Ox 95 12/02/18 07:00 Intake & Output 12/01/18 12/02/18 12/02/18 18:59 06:59 18:59 Intake Total 4762.652 1228 56 Output Total 855 940 75 Balance 724.833 476 -19 Weight 120.2 kg Intake: IV 672 666 56 Sodium Chloride 0.9% 1, 600 600 50 000 ml @ 50 mls/hr IV . Q20H [facility] Rx#:[id number] pressure bag 72 66 6 Intake, IV Titration 97.833 Amount Insulin Regular 100 unit 97.833 In Sodium Chloride 0.9% 100 ml @ Per Protocol IV .Q0M [facility] Rx#:[id number] Oral 500 750 Blood Product 310 Rc As-1 Unit 310 [id number] Output: Chest Tube Drainage 10 left pleural 0 mediastinal chest x2 0 right pleural 10 Drainage 40 left leg 30 right leg 10 Urine 805 940 75 Other: Voiding Method Indwelling Catheter Indwelling Catheter ABP, PAP, CO, CI - Last Documented Arterial Blood Pressure 125/43 Pulmonary Artery Pressure 37/20 Cardiac Output 6.6 Cardiac Index 2.8 - Constitutional General appearance: Present: cooperative, no acute distress, obese - Respiratory Details: Lungs sounds diminished bilaterally. Respirations even, nonlabored. Currently on 2 L nasal cannula with oxygen saturation 93%. Able to achieve 1250 mL on his incentive spirometry. Strong, productive cough. - Cardiovascular Details: S1, S2 present. Regular rate and rhythm, sinus rhythm on telemetry. Sternum stable. Palpable peripheral pulses bilaterally. No edema present. No calf pain or tenderness noted. Right internal jugular, right radial arterial line present. Heart hugger in place with patient intermittently demonstrating appropriate use. Antiembolism stockings, SCDs present. - Gastrointestinal Gastrointestinal Comment(s): Abdomen soft, nontender, nondistended. Active bowel sounds present 4 quadrants. Tolerating diet. Positive flatus, negative bowel movement. - Genitourinary Genitourinary Comment(s): Larios present draining clear, yellow urine. Output overnight 50-125 mL per hour, 645 mL in the last 8 hours. - Integumentary Integumentary Comment(s): Skin is warm and dry with evidence of good perfusion. Anterior chest incision well approximated and covered with dry intact dressings. Bilateral lower extremity EVH sites well approximated. - Neurologic Neurologic: Present: CNII-XII intact - Musculoskeletal Musculoskeletal: Present: gait normal, generalized weakness, strength equal bilaterally - Psychiatric Psychiatric: Present: A&O x's 3, appropriate affect, intact judgment & insight - Allied health notes Allied health notes reviewed: nursing - Labs CBC & Chem 7: 12/02/18 05:00 12/02/18 05:00 Labs: Abnormal Lab Results - Last 24 Hours (Table) 11/24/18 12/01/18 12/01/18 Range/Units 09:16 08:10 08:58 WBC 10.9 H (3.8-10.6) k/uL RBC 2.56 L (4.30-5.90) m/uL Hgb 6.3 L* (13.0-17.5) gm/dL Hct 21.0 L (39.0-53.0) % MCH 24.4 L (25.0-35.0) pg MCHC 29.8 L (31.0-37.0) g/dL RDW 17.9 H (11.5-15.5) % Plt Count (150-450) k/uL Neutrophils # 8.5 H (1.3-7.7) k/uL Sodium (137-145) mmol/L BUN (9-20) mg/dL Creatinine (0.66-1.25) mg/dL Glucose (74-99) mg/dL POC Glucose (mg/dL) 180 H (75-99) mg/dL Magnesium (1.6-2.3) mg/dL AST (17-59) U/L Total Protein (6.3-8.2) g/dL Albumin (3.5-5.0) g/dL Crossmatch See Detail 12/01/18 12/01/18 12/01/18 Range/Units 10:41 11:40 13:17 WBC (3.8-10.6) k/uL RBC (4.30-5.90) m/uL Hgb (13.0-17.5) gm/dL Hct (39.0-53.0) % MCH (25.0-35.0) pg MCHC (31.0-37.0) g/dL RDW (11.5-15.5) % Plt Count (150-450) k/uL Neutrophils # (1.3-7.7) k/uL Sodium (137-145) mmol/L BUN (9-20) mg/dL Creatinine (0.66-1.25) mg/dL Glucose (74-99) mg/dL POC Glucose (mg/dL) 205 H 207 H 251 H (75-99) mg/dL Magnesium (1.6-2.3) mg/dL AST (17-59) U/L Total Protein (6.3-8.2) g/dL Albumin (3.5-5.0) g/dL Crossmatch 12/01/18 12/01/18 12/01/18 Range/Units 13:21 14:18 15:15 WBC (3.8-10.6) k/uL RBC (4.30-5.90) m/uL Hgb (13.0-17.5) gm/dL Hct (39.0-53.0) % MCH (25.0-35.0) pg MCHC (31.0-37.0) g/dL RDW (11.5-15.5) % Plt Count (150-450) k/uL Neutrophils # (1.3-7.7) k/uL Sodium (137-145) mmol/L BUN (9-20) mg/dL Creatinine (0.66-1.25) mg/dL Glucose (74-99) mg/dL POC Glucose (mg/dL) 260 H 265 H 233 H (75-99) mg/dL Magnesium (1.6-2.3) mg/dL AST (17-59) U/L Total Protein (6.3-8.2) g/dL Albumin (3.5-5.0) g/dL Crossmatch 12/01/18 12/01/18 12/01/18 Range/Units 16:04 17:08 18:00 WBC (3.8-10.6) k/uL RBC (4.30-5.90) m/uL Hgb (13.0-17.5) gm/dL Hct (39.0-53.0) % MCH (25.0-35.0) pg MCHC (31.0-37.0) g/dL RDW (11.5-15.5) % Plt Count (150-450) k/uL Neutrophils # (1.3-7.7) k/uL Sodium (137-145) mmol/L BUN (9-20) mg/dL Creatinine (0.66-1.25) mg/dL Glucose (74-99) mg/dL POC Glucose (mg/dL) 196 H 170 H 164 H (75-99) mg/dL Magnesium (1.6-2.3) mg/dL AST (17-59) U/L Total Protein (6.3-8.2) g/dL Albumin (3.5-5.0) g/dL Crossmatch 12/01/18 12/01/18 12/02/18 Range/Units 19:50 22:00 04:24 WBC (3.8-10.6) k/uL RBC (4.30-5.90) m/uL Hgb (13.0-17.5) gm/dL Hct (39.0-53.0) % MCH (25.0-35.0) pg MCHC (31.0-37.0) g/dL RDW (11.5-15.5) % Plt Count (150-450) k/uL Neutrophils # (1.3-7.7) k/uL Sodium (137-145) mmol/L BUN (9-20) mg/dL Creatinine (0.66-1.25) mg/dL Glucose (74-99) mg/dL POC Glucose (mg/dL) 213 H 226 H 249 H (75-99) mg/dL Magnesium (1.6-2.3) mg/dL AST (17-59) U/L Total Protein (6.3-8.2) g/dL Albumin (3.5-5.0) g/dL Crossmatch 12/02/18 12/02/18 12/02/18 Range/Units 05:00 05:00 07:03 WBC (3.8-10.6) k/uL RBC 2.62 L (4.30-5.90) m/uL Hgb 6.7 L* (13.0-17.5) gm/dL Hct 22.0 L (39.0-53.0) % MCH (25.0-35.0) pg MCHC 30.4 L (31.0-37.0) g/dL RDW 17.8 H (11.5-15.5) % Plt Count 141 L (150-450) k/uL Neutrophils # (1.3-7.7) k/uL Sodium 136 L (137-145) mmol/L BUN 35 H (9-20) mg/dL Creatinine 1.40 H (0.66-1.25) mg/dL Glucose 222 H (74-99) mg/dL POC Glucose (mg/dL) 252 H (75-99) mg/dL Magnesium 2.4 H (1.6-2.3) mg/dL AST 68 H (17-59) U/L Total Protein 5.3 L (6.3-8.2) g/dL Albumin 2.9 L (3.5-5.0) g/dL Crossmatch - Imaging and Cardiology Chest x-ray: report reviewed, image reviewed Assessment and Plan Assessment: 1. Triple-vessel coronary artery disease with left main disease and totally occluded right coronary artery, status post off-pump quadruple coronary artery bypass grafting 2. History of myocardial infarction, status post stenting to the LAD and RCA 3. Chronic kidney disease with baseline creatinine 1.4 4. Totally occluded right internal carotid artery, left internal carotid artery 50-79% stenosis 5. Hypertension 6. Hyperlipidemia 7. Uncontrolled insulin-dependent diabetes mellitus. Preoperative hemoglobin A1c 8.0% 8. Previous tobacco dependence. Preoperative FEV1 93% of predicted 9. History of elevated left hemidiaphragm 10. History of ischemic bowel disease with previous bowel resection 11. GERD Plan: 1. Continue aspirin, statin, Plavix, beta inder therapy. Will increase beta inder as tolerated. 2. Wean O2 as tolerated. Encourage incentive spirometry use 10 times every hour while awake. 3. Increase activity, ambulate as tolerated. PT/OT/cardiac rehab following. 4. Bronchodilators per pulmonology. 5. Will monitor daily labs and x-rays. Electrolyte replacement per protocol. Avoid nephrotoxins. 6. Obtain peripheral IV and discontinue Cordis. Discontinue Larios catheter. 7. Pain control with current medication regimen. 8. Insulin management per primary care service. Patient needs better blood sugar control. 9. GI prophylaxis with Protonix, DVT prophylaxis with subcu heparin, SCDs. 10. Will place transfer orders for 3 S. cardiac stepdown unit today. May transfer when bed available. 11. Discharge planning in progress. Likely will need subacute rehab at discharge if unable to increase activity level. This was discussed with the patient and his daughter. 12. More recommendations to follow based on clinical course. Time with Patient: Greater than 30
[2018-12-02] MEDS: IPRATROPIUM-ALBUTEROL 3 ML NEB INHALATION SCH ×4 (09:16→20:57)
[2018-12-02] MEDS: hydrALAZINE HCL 25 MG TAB PO SCH ×2 (09:26→20:04)
--- NOTE | 2018-12-02 09:46 | PN ---
PROGRESS NOTE DATE OF SERVICE: 12/02/2018 This is a 73-year-old gentleman, postop day #3, status post 4-vessel bypass grafting. The patient has been weaned down to 2 L nasal O2. He is getting a basic IV at K[facility]. Not receiving any insulin at this time. The patient is doing much better on incentive spirometer. Yesterday, the patient did receive 1 unit of blood. Today's hemoglobin is less than 7, but currently they are not going to plan on giving him any blood at this time. The patient states that he is feeling better. Less pain. Taking deep breaths, coughing and clearing his secretions. The patient has a history not only of CAD, but also a history of hypertension, hyperlipidemia, chronic kidney disease, diabetes, a totally occluded right internal carotid artery, deafness, and GERD. Again, the patient is doing much better today. The surgeon was Dr. Hopkins. Current vital signs are reviewed. His temperature is 98.6, heart rate 65, respiratory rate 22, blood pressure 137/66 mean 89, 2 L saturation 94%. Appears in no acute distress. HEENT examination is grossly unremarkable. Mucous membranes are moist. Nasal O2 noted. Neck is supple. Full range of motion. No adenopathy, thyromegaly or neck vein distention. Cardiovascular examination reveals regular rhythm and rate. Heart rate 64. It is regular. S1, S2 normal. No distinct murmur noted. Heart sounds are distant. Lungs reveal a few scattered rhonchi. No wheezes or crackles. Breath sounds are equal bilaterally. Slight prolongation. Abdomen is soft, but obese. Bowel sounds are heard. Extremities are intact. No cyanosis, clubbing, or edema. Skin without rash. Neurologic examination is brief but nonfocal. LABS: Reviewed. White count 9.7, hemoglobin 6.7, hematocrit 22.0, platelet count 141,000. Sodium 136, potassium 5, chloride is 107, CO2 is 23, anion gap is 6, BUN 35, creatinine 1.40. Microbiologic studies are negative. Chest x-ray is reviewed. Chest x-ray reveals some bibasilar atelectasis and small effusions. Postoperative changes are noted. Medications are reviewed. ASSESSMENT: 1. Postoperative day #3, status post 4-vessel bypass grafting for coronary artery disease. 2. Previous history of PCI for coronary artery disease. 3. Status post routine management of mechanical ventilator, postoperatively, resolved. 4. History of benign essential hypertension. 5. Hyperlipidemia. 6. History of chronic kidney disease. 7. Diabetes mellitus. 8. History of totally occluded right internal carotid artery. 9. Deafness. 10.Gastroesophageal reflux disease. 11.History of previous tobacco dependence. 12.History of postoperative anemia. PLAN: Currently hemoglobin 6.7, cardiothoracic is going to hold off on another blood transfusion. The patient otherwise is doing well. Getting about 1200 on his incentive spirometer. Will continue with breathing treatments. We recommend deep breathing, coughing and clearing of secretions. Prognosis remains good. He is making nice progress. Chest x-ray shows postoperative changes. No additional recommendations are made. Will continue to follow. MMODL / IJN: [id number] /
[2018-12-02 12:08] LABS: Glucose,Whole Blood 242 mg/dL (75-99)
--- NOTE | 2018-12-02 12:34 | P.PN ---
Subjective Progress Note Date: 12/02/18 This is a 73-year-old gentleman status post multivessel bypass surgery. Patient is feeling better. His chest pain is less intense. He is using incentive spirometry and seemed to be be doing better. His creatinine is improved. His maintaining sinus rhythm. His hemoglobin is in the range of 6.7. No blood transfusions recommended this time. Continue current medical therapy. Increase activity as tolerated Objective - Vital Signs Vital signs: Vital Signs Temp 97.9 F 12/02/18 12:00 Pulse 65 12/02/18 12:00 Resp 14 12/02/18 12:00 BP 115/56 12/02/18 12:00 Pulse Ox 98 12/02/18 12:00 Intake & Output 12/01/18 12/02/18 12/02/18 18:59 06:59 18:59 Intake Total 5460.698 0832 670 Output Total 855 940 273 Balance 724.833 476 397 Weight 120.2 kg Intake: IV 672 666 220 Sodium Chloride 0.9% 1, 600 600 190 000 ml @ 50 mls/hr IV . Q20H [facility] Rx#:[id number] pressure bag 72 66 30 Intake, IV Titration 97.833 Amount Insulin Regular 100 unit 97.833 In Sodium Chloride 0.9% 100 ml @ Per Protocol IV .Q0M [facility] Rx#:[id number] Oral 500 750 450 Blood Product 310 Rc As-1 Unit 310 [id number] Output: Chest Tube Drainage 10 left pleural 0 mediastinal chest x2 0 right pleural 10 Drainage 40 left leg 30 right leg 10 Urine 805 940 273 Other: Voiding Method Indwelling Catheter Indwelling Catheter Indwelling Catheter ABP, PAP, CO, CI - Last Documented Arterial Blood Pressure 110/38 Pulmonary Artery Pressure 37/20 Cardiac Output 6.6 Cardiac Index 2.8 - Exam GENERAL EXAM: Patient is alert and oriented and doesn't appear to be in any acute distress HEENT: Normocephalic. Normal reaction of pupils, equal size, normal range of extraocular motion. No erythema or exudates in the throat. NECK: No masses, no nuchal rigidity. CHEST: Postsurgical LUNGS: Diminished breath sounds. HEART: S1 and S2 normal with no audible mumurs or gallops. Regular rhythm, femorals equal on both sides.. ABDOMEN: No hepatosplenomegaly, normal bowel sounds, no guarding or rigidity. SKIN: No rashes CENTRAL NERVOUS SYSTEM: No focal deficits. EXTREMITIES: No cyanosis, clubbing or edema. - Labs CBC & Chem 7: 12/02/18 05:00 12/02/18 05:00 Labs: Abnormal Lab Results - Last 24 Hours (Table) 11/24/18 12/01/18 12/01/18 Range/Units 09:16 13:17 13:21 RBC (4.30-5.90) m/uL Hgb (13.0-17.5) gm/dL Hct (39.0-53.0) % MCHC (31.0-37.0) g/dL RDW (11.5-15.5) % Plt Count (150-450) k/uL Sodium (137-145) mmol/L BUN (9-20) mg/dL Creatinine (0.66-1.25) mg/dL Glucose (74-99) mg/dL POC Glucose (mg/dL) 251 H 260 H (75-99) mg/dL Magnesium (1.6-2.3) mg/dL AST (17-59) U/L Total Protein (6.3-8.2) g/dL Albumin (3.5-5.0) g/dL Crossmatch See Detail 12/01/18 12/01/18 12/01/18 Range/Units 14:18 15:15 16:04 RBC (4.30-5.90) m/uL Hgb (13.0-17.5) gm/dL Hct (39.0-53.0) % MCHC (31.0-37.0) g/dL RDW (11.5-15.5) % Plt Count (150-450) k/uL Sodium (137-145) mmol/L BUN (9-20) mg/dL Creatinine (0.66-1.25) mg/dL Glucose (74-99) mg/dL POC Glucose (mg/dL) 265 H 233 H 196 H (75-99) mg/dL Magnesium (1.6-2.3) mg/dL AST (17-59) U/L Total Protein (6.3-8.2) g/dL Albumin (3.5-5.0) g/dL Crossmatch 12/01/18 12/01/18 12/01/18 Range/Units 17:08 18:00 19:50 RBC (4.30-5.90) m/uL Hgb (13.0-17.5) gm/dL Hct (39.0-53.0) % MCHC (31.0-37.0) g/dL RDW (11.5-15.5) % Plt Count (150-450) k/uL Sodium (137-145) mmol/L BUN (9-20) mg/dL Creatinine (0.66-1.25) mg/dL Glucose (74-99) mg/dL POC Glucose (mg/dL) 170 H 164 H 213 H (75-99) mg/dL Magnesium (1.6-2.3) mg/dL AST (17-59) U/L Total Protein (6.3-8.2) g/dL Albumin (3.5-5.0) g/dL Crossmatch 12/01/18 12/02/18 12/02/18 Range/Units 22:00 04:24 05:00 RBC 2.62 L (4.30-5.90) m/uL Hgb 6.7 L* (13.0-17.5) gm/dL Hct 22.0 L (39.0-53.0) % MCHC 30.4 L (31.0-37.0) g/dL RDW 17.8 H (11.5-15.5) % Plt Count 141 L (150-450) k/uL Sodium (137-145) mmol/L BUN (9-20) mg/dL Creatinine (0.66-1.25) mg/dL Glucose (74-99) mg/dL POC Glucose (mg/dL) 226 H 249 H (75-99) mg/dL Magnesium (1.6-2.3) mg/dL AST (17-59) U/L Total Protein (6.3-8.2) g/dL Albumin (3.5-5.0) g/dL Crossmatch 12/02/18 12/02/18 12/02/18 Range/Units 05:00 07:03 12:06 RBC (4.30-5.90) m/uL Hgb (13.0-17.5) gm/dL Hct (39.0-53.0) % MCHC (31.0-37.0) g/dL RDW (11.5-15.5) % Plt Count (150-450) k/uL Sodium 136 L (137-145) mmol/L BUN 35 H (9-20) mg/dL Creatinine 1.40 H (0.66-1.25) mg/dL Glucose 222 H (74-99) mg/dL POC Glucose (mg/dL) 252 H 242 H (75-99) mg/dL Magnesium 2.4 H (1.6-2.3) mg/dL AST 68 H (17-59) U/L Total Protein 5.3 L (6.3-8.2) g/dL Albumin 2.9 L (3.5-5.0) g/dL Crossmatch Assessment and Plan (1) Status post coronary artery bypass graft Current Visit: Yes Status: Acute Code(s): Z95.1 - PRESENCE OF AORTOCORONARY BYPASS GRAFT SNOMED Code(s): 944653049 (2) Vasovagal syncope Current Visit: Yes Status: Acute Code(s): R55 - SYNCOPE AND COLLAPSE SNOMED Code(s): 406590190 (3) Essential hypertension Current Visit: Yes Status: Acute Code(s): I10 - ESSENTIAL (PRIMARY) HYPERTENSION SNOMED Code(s): 74856142 (4) Hypercholesterolemia Current Visit: Yes Status: Acute Code(s): E78.00 - PURE HYPERCHOLESTEROLEMIA, UNSPECIFIED SNOMED Code(s): 12685118 (5) Diabetes mellitus Current Visit: Yes Status: Acute Code(s): E11.9 - TYPE 2 DIABETES MELLITUS WITHOUT COMPLICATIONS SNOMED Code(s): 09249198 Plan: Overall, patient is showing improvement. His hemoglobin is about 6.7. Physically more active. No arrhythmias.
[2018-12-02 17:12] LABS: Glucose,Whole Blood 194 mg/dL (75-99)
[2018-12-02] MEDS: INSULIN DETEMIR (LEVEMIR) 100 UNIT/ML SYR SQ SCH (20:04)
[2018-12-02] MEDS: GABAPENTIN 400 MG CAP PO SCH (20:04)
[2018-12-02] MEDS: SENNOSIDES-DOCUSATE SODIUM 1 EACH TAB PO SCH (20:32)
[2018-12-02 20:46] LABS: Glucose,Whole Blood 188 mg/dL (75-99)
--- NOTE | 2018-12-03 00:32 | P.PN ---
Subjective Progress Note Date: 12/02/18 Principal diagnosis: Status post coronary artery bypass graft Patient is a 72-year-old male with a known history of hypertension, hyperlipidemia, diabetes type 2, CK D, coronary artery disease with previous stent to LAD and RCA was found have significant coronary artery disease and was recommended coronary artery bypass. Patient is currently coronary artery bypass graft postoperative day 1. Patient was successfully extubated within 6 hours after surgery. Patient did have having brief episode of lightheadedness and dizziness while getting to the change. Likely orthostatic. Currently patient denied any complaints of headache or dizziness. No worsening shortness of br eath. Does have soreness her chest but controlled with pain medications. No fever no chills. Patient is saturating well on nausea cannula oxygen. Hemoglobin is 7.5, WBC 9.0, platelets 1 66,000, creatinine 1.38 Chest x-ray showed sable platelike left basilar atelectasis. Bilateral thoracostomy tubes and mediastinal tube present. Patient is on insulin drip for blood sugar control. 12/01/2018 Patient is able to sit in a chair today. Hemoglobin is 6.4 and is getting 1 unit of PRBC blood transfusion. No complaints of nausea vomiting or abdominal pain. No commerce of chest pain. No worsening shortness of breath. Currently on insulin drip for blood pressure control. Tolerating oral diet. Will be transitioned to his home dose of insulin along with sliding scale. No fever no chills. Mediastinal and left-sided chest tube is discontinued. 12/02/2018 Patient denied any complaints of chest pain or worsening shortness of breath. Tolerating oral diet. Blood sugar is fairly controlled and will be started back on NovoLog 16 units 3 times a day before meals along with Levemir 56 units. No fever no chills. Chest tube has been removed. No other acute overnight issues. Patient is being transferred to medical floor today. Creatinine 1.4, hemoglobin is 6.7 Current medications reviewed Objective - Vital Signs Vital signs: Vital Signs Temp 97.9 F 12/02/18 12:00 Pulse 65 12/02/18 12:00 Resp 14 12/02/18 12:00 BP 115/56 12/02/18 12:00 Pulse Ox 98 12/02/18 12:00 Intake & Output 12/01/18 12/02/18 12/02/18 18:59 06:59 18:59 Intake Total 9581.332 9218 670 Output Total 855 940 273 Balance 724.833 476 397 Weight 120.2 kg Intake: IV 672 666 220 Sodium Chloride 0.9% 1, 600 600 190 000 ml @ 50 mls/hr IV . Q20H [facility] Rx#:[id number] pressure bag 72 66 30 Intake, IV Titration 97.833 Amount Insulin Regular 100 unit 97.833 In Sodium Chloride 0.9% 100 ml @ Per Protocol IV .Q0M [facility] Rx#:[id number] Oral 500 750 450 Blood Product 310 Rc As-1 Unit 310 [id number] Output: Chest Tube Drainage 10 left pleural 0 mediastinal chest x2 0 right pleural 10 Drainage 40 left leg 30 right leg 10 Urine 805 940 273 Other: Voiding Method Indwelling Catheter Indwelling Catheter Indwelling Catheter ABP, PAP, CO, CI - Last Documented Arterial Blood Pressure 110/38 Pulmonary Artery Pressure 37/20 Cardiac Output 6.6 Cardiac Index 2.8 - Exam PHYSICAL EXAMINATION: Patient is lying in the bed comfortably, no acute distress, awake alert and oriented.. HEENT: Normocephalic. Neck is supple. Pupils reactive. Nostrils clear. Oral cavity is moist. Ears reveal no drainage. Neck reveals no JVD, carotid bruits, or thyromegaly. CHEST EXAMINATION: Trachea is central. Symmetrical expansion. Bilateral air entry improved. Lung samuels clear to auscultation and percussion. CARDIAC: Normal S1, S2 with no gallops. No murmurs ABDOMEN: Soft. Bowel sounds normal. No organomegaly. No abdominal bruits. Extremities: Trace edema. No clubbing or cyanosis Neurologically awake, alert, oriented x3 with well-coordinated movements. No focal deficits noted Skin: No rash or skin lesions. Psychiatric: Coperative. Nonsuicidal Musculoskeletal: No joint swelling or deformity. Normal range of motion. - Labs CBC & Chem 7: 12/02/18 05:00 12/02/18 05:00 Labs: Abnormal Lab Results - Last 24 Hours (Table) 11/24/18 12/01/18 12/01/18 Range/Units 09:16 13:17 13:21 RBC (4.30-5.90) m/uL Hgb (13.0-17.5) gm/dL Hct (39.0-53.0) % MCHC (31.0-37.0) g/dL RDW (11.5-15.5) % Plt Count (150-450) k/uL Sodium (137-145) mmol/L BUN (9-20) mg/dL Creatinine (0.66-1.25) mg/dL Glucose (74-99) mg/dL POC Glucose (mg/dL) 251 H 260 H (75-99) mg/dL Magnesium (1.6-2.3) mg/dL AST (17-59) U/L Total Protein (6.3-8.2) g/dL Albumin (3.5-5.0) g/dL Crossmatch See Detail 12/01/18 12/01/18 12/01/18 Range/Units 14:18 15:15 16:04 RBC (4.30-5.90) m/uL Hgb (13.0-17.5) gm/dL Hct (39.0-53.0) % MCHC (31.0-37.0) g/dL RDW (11.5-15.5) % Plt Count (150-450) k/uL Sodium (137-145) mmol/L BUN (9-20) mg/dL Creatinine (0.66-1.25) mg/dL Glucose (74-99) mg/dL POC Glucose (mg/dL) 265 H 233 H 196 H (75-99) mg/dL Magnesium (1.6-2.3) mg/dL AST (17-59) U/L Total Protein (6.3-8.2) g/dL Albumin (3.5-5.0) g/dL Crossmatch 12/01/18 12/01/18 12/01/18 Range/Units 17:08 18:00 19:50 RBC (4.30-5.90) m/uL Hgb (13.0-17.5) gm/dL Hct (39.0-53.0) % MCHC (31.0-37.0) g/dL RDW (11.5-15.5) % Plt Count (150-450) k/uL Sodium (137-145) mmol/L BUN (9-20) mg/dL Creatinine (0.66-1.25) mg/dL Glucose (74-99) mg/dL POC Glucose (mg/dL) 170 H 164 H 213 H (75-99) mg/dL Magnesium (1.6-2.3) mg/dL AST (17-59) U/L Total Protein (6.3-8.2) g/dL Albumin (3.5-5.0) g/dL Crossmatch 12/01/18 12/02/18 12/02/18 Range/Units 22:00 04:24 05:00 RBC 2.62 L (4.30-5.90) m/uL Hgb 6.7 L* (13.0-17.5) gm/dL Hct 22.0 L (39.0-53.0) % MCHC 30.4 L (31.0-37.0) g/dL RDW 17.8 H (11.5-15.5) % Plt Count 141 L (150-450) k/uL Sodium (137-145) mmol/L BUN (9-20) mg/dL Creatinine (0.66-1.25) mg/dL Glucose (74-99) mg/dL POC Glucose (mg/dL) 226 H 249 H (75-99) mg/dL Magnesium (1.6-2.3) mg/dL AST (17-59) U/L Total Protein (6.3-8.2) g/dL Albumin (3.5-5.0) g/dL Crossmatch 12/02/18 12/02/18 12/02/18 Range/Units 05:00 07:03 12:06 RBC (4.30-5.90) m/uL Hgb (13.0-17.5) gm/dL Hct (39.0-53.0) % MCHC (31.0-37.0) g/dL RDW (11.5-15.5) % Plt Count (150-450) k/uL Sodium 136 L (137-145) mmol/L BUN 35 H (9-20) mg/dL Creatinine 1.40 H (0.66-1.25) mg/dL Glucose 222 H (74-99) mg/dL POC Glucose (mg/dL) 252 H 242 H (75-99) mg/dL Magnesium 2.4 H (1.6-2.3) mg/dL AST 68 H (17-59) U/L Total Protein 5.3 L (6.3-8.2) g/dL Albumin 2.9 L (3.5-5.0) g/dL Crossmatch Assessment and Plan Assessment: Multivessel coronary artery disease status post CABG 4 vessel. Postoperative day 3 Acute blood loss anemia hemoglobin 7.5-6.4--status post 1 unit PRBC, --6.7. Intraoperative mechanical ventilation. Patient was successfully extubated on day 0 Coronary artery disease and history of stent placement Hypertension Diabetes type 2 insulin-dependent with hyperglycemia Chronic kidney disease stage III. Creatinine 1.53 Hearing disorder/deafness Hyperlipidemia History of IA History of skin cancer Osteoarthritis Previous history of smoking GERD DVT prophylaxis with heparin subcu Plan: Patient be continued on aspirin and Plavix metoprolol and blood pressure control. Insulin drip was discontinued. Currently tolerating oral diet. Patient can be started back on home dose of Levemir 56 units at bedtime and NovoLog 16 units 3 times a day before meals along with insulin sliding scale. Continue to monitor CBG before meals and at bedtime. Continue with incentive spirometry and bronchodilators as needed. Pulmonary is on board. Activity as tolerated. Further recommendations based on the clinical course. Time with Patient: Greater than 30
[2018-12-03] MEDS: BENZOCAINE/MENTHOL LOZENG 1 EACH LOZENGE MUCOUS MEM PRN ×3 (02:21→22:42)
[2018-12-03 02:32] LABS: Glucose,Whole Blood 108 mg/dL (75-99)
[2018-12-03] MEDS: INSULIN ASPART (NovoLOG) 100 UNIT/ML VIAL SQ SCH ×8 (02:34→21:33)
[2018-12-03] MEDS: HYDROcodone/APAP 5-325MG 1 EACH TAB PO PRN ×4 (03:02→23:49)
--- NOTE | 2018-12-03 06:44 | XR ---
EXAMINATION TYPE: XR chest 2V DATE OF EXAM: 12/03/2018 HISTORY: post cardiac surgery. REFERENCE: Previous study dated 12/02/2018. FINDINGS: The patient's right internal jugular sheath has been removed. There has been a midline ster notomy. The study is rotated. There is platelike atelectasis of the left lung base. The heart appears mildly enlarged. There is vascular congestion. There is a small left-sided effusion. IMPRESSION: CONTINUING POSTOPERATIVE CHANGE.
[2018-12-03 06:48] LABS: Glucose,Whole Blood 132 mg/dL (75-99)
[2018-12-03] MEDS: PANTOPRAZOLE 40 MG TABLET PO SCH (06:52)
[2018-12-03 07:48] LABS: Potassium 4.6 mmol/L (3.5-5.1)
[2018-12-03] MEDS ORDERED: guaiFENesin 600 MG TABLET.ER PO PRN (07:53)
[2018-12-03 07:57] LABS: Anisocytosis Slight; HCT 22.2 % (39.0-53.0); Hypochromasia Moderate; MCH 26.6 pg (25.0-35.0); MCHC 31.1 g/dL (31.0-37.0); MCV 85.6 fL (80.0-100.0); Mean Platelet Volume 7.3; Platelet Count 219 k/uL (150-450); RBC 2.59 m/uL (4.30-5.90); RDW 18.1 % (11.5-15.5); WBC 9.2 k/uL (3.8-10.6)
[2018-12-03 07:58] LABS: HGB 6.9 gm/dL (13.0-17.5)
[2018-12-03] MEDS: IPRATROPIUM-ALBUTEROL 3 ML NEB INHALATION SCH ×4 (08:07→21:10)
[2018-12-03] MEDS: ASPIRIN 325 MG TAB PO SCH (08:17)
[2018-12-03] MEDS: CYANOCOBALAMIN 500 MCG TAB PO SCH (08:17)
[2018-12-03] MEDS: HEPARIN SODIUM,PORCINE 5,000 UNIT/ML 1 ML VIAL SQ SCH ×4 (08:18→23:49)
[2018-12-03] MEDS: hydrALAZINE HCL 25 MG TAB PO SCH ×2 (08:18→20:11)
[2018-12-03] MEDS: CLOPIDOGREL 75 MG TAB PO SCH (08:18)
[2018-12-03] MEDS: METOPROLOL TARTRATE 25 MG TAB PO SCH ×2 (08:18→20:11)
[2018-12-03] MEDS: GABAPENTIN 300 MG CAP PO SCH (08:18)
[2018-12-03] MEDS: ATORVASTATIN 40 MG TAB PO SCH (08:18)
--- NOTE | 2018-12-03 08:21 | P.PN ---
Subjective Progress Note Date: 12/03/18 Principal diagnosis: Triple-vessel coronary artery disease with left main disease and a totally occluded right coronary artery, status post prior stenting to the LAD in 2006 and RCA in 2018. Overall mild left ventricular dysfunction. No significant valvular abnormality. History of myocardial infarction. Chronic kidney disease with baseline creatinine 1.4. 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 Hypertension. Hyperlipidemia. Uncontrolled insulin-dependent diabetes mellitus with preoperative hemoglobin A1c 8.0%. History of ischemic bowel disease with previous bowel resection. GERD. History of elevated left hemidiaphragm. Obesity. Previous tobacco dependence with preoperative FEV1 93% of predicted. POD #4 non-aortic clamp quadruple off-pump coronary artery bypass grafting using the left internal mammary artery to the left anterior descending artery, reverse saphenous vein graft connected to the aorta using the passport device and connected distally to the ramus intermedius artery, reverse saphenous vein graft connected to the aorta using the passport device and connected distally to the p osterior descending artery, reverse saphenous vein graft connected to the aorta using the passport device connected distally to the distal circumflex artery, endoscopic harvesting of bilateral greater saphenous veins with the total right side and the knee to the groin on the left side, intraoperative transesophageal echocardiogram, epi-aortic scanning, intraoperative graft flow measurements using the [email or web address] system. Postoperative acute blood loss anemia, an expected outcome of surgery given he modilution. The patient is currently sitting up in a recliner in no acute distress. Was transferred to [address] [place] [address] cardiac stepdown unit last night. Does complain of generalized post surgical pain with movement and deep breathing, denies shortness of breath. Patient is more alert and participatory with care today. He does remain in normal sinus rhythm and is hemodynamically stable on no inotropes or pressors. No new complaints. Patient is still only able to ambulate to and from the bed with significant assistance, discussion had with the patient that if he wants to be able to go home he needs to be up to ambulate in the hallway multiple times. Objective - Vital Signs Vital signs: Vital Signs Temp 98.5 F 12/03/18 03:10 Pulse 78 12/03/18 08:07 Resp 22 12/03/18 03:10 BP 122/70 12/03/18 03:10 Pulse Ox 94 L 12/03/18 03:10 Intake & Output 12/02/18 12/03/18 12/03/18 18:59 06:59 18:59 Intake Total 970 240 Output Total 723 300 Balance 247 -60 Weight 109.8 kg Intake: IV 220 Sodium Chloride 0.9% 1, 190 000 ml @ 50 mls/hr IV . Q20H [facility] Rx#:[id number] pressure bag 30 Oral 750 240 Output: Urine 723 300 Other: Voiding Method Urinal Urinal ABP, PAP, CO, CI - Last Documented Arterial Blood Pressure 110/38 Pulmonary Artery Pressure 37/20 Cardiac Output 6.6 Cardiac Index 2.8 - Constitutional General appearance: Present: cooperative, no acute distress - Respiratory Details: Lungs sounds diminished bilaterally. Respirations even, nonlabored. Currently on 2 L nasal cannula with oxygen saturation 94%. Able to achieve 1500 mL on his incentive spirometry. Strong, productive cough. - Cardiovascular Details: S1, S2 present. Regular rate and rhythm, sinus rhythm on telemetry. Sternum stable. Palpable peripheral pulses bilaterally. Right lower extremity edema present. No calf pain or tenderness noted. Heart hugger in place with patient intermittently demonstrating appropriate use. Antiembolism stockings, SCDs present. - Gastrointestinal Gastrointestinal Comment(s): Abdomen soft, nontender, nondistended. Active bowel sounds present 4 quadrants. Tolerating diet. Positive flatus, negative bowel movement. - Genitourinary Genitourinary Comment(s): Larios discontinued yesterday. Patient has voided 300 mL overnight. - Integumentary Integumentary Comment(s): Skin is warm and dry with evidence of good perfusion. Anterior chest incision well approximated and covered with dry intact dressings. Bilateral lower extremity EVH sites well approximated. - Neurologic Neurologic: Present: CNII-XII intact - Musculoskeletal Musculoskeletal: Present: generalized weakness, strength equal bilaterally - Psychiatric Psychiatric: Present: A&O x's 3, appropriate affect, intact judgment & insight - Allied health notes Allied health notes reviewed: nursing - Labs CBC & Chem 7: 12/03/18 07:06 12/03/18 07:06 Labs: Abnormal Lab Results - Last 24 Hours (Table) 12/02/18 12/02/18 12/02/18 Range/Units 12:06 17:10 20:44 RBC (4.30-5.90) m/uL Hgb (13.0-17.5) gm/dL Hct (39.0-53.0) % RDW (11.5-15.5) % BUN (9-20) mg/dL Creatinine (0.66-1.25) mg/dL Glucose (74-99) mg/dL POC Glucose (mg/dL) 242 H 194 H 188 H (75-99) mg/dL 12/03/18 12/03/18 12/03/18 Range/Units 02:27 06:39 07:06 RBC 2.59 L (4.30-5.90) m/uL Hgb 6.9 L* (13.0-17.5) gm/dL Hct 22.2 L (39.0-53.0) % RDW 18.1 H (11.5-15.5) % BUN (9-20) mg/dL Creatinine (0.66-1.25) mg/dL Glucose (74-99) mg/dL POC Glucose (mg/dL) 108 H 132 H (75-99) mg/dL 12/03/18 Range/Units 07:06 RBC (4.30-5.90) m/uL Hgb (13.0-17.5) gm/dL Hct (39.0-53.0) % RDW (11.5-15.5) % BUN 31 H (9-20) mg/dL Creatinine 1.32 H (0.66-1.25) mg/dL Glucose 134 H (74-99) mg/dL POC Glucose (mg/dL) (75-99) mg/dL - Imaging and Cardiology Chest x-ray: report reviewed, image reviewed Assessment and Plan Assessment: 1. Triple-vessel coronary artery disease with left main disease and totally occluded right coronary artery, status post off-pump quadruple coronary artery bypass grafting 2. History of myocardial infarction, status post stenting to the LAD and RCA 3. Chronic kidney disease with baseline creatinine 1.4 4. Totally occluded right internal carotid artery, left internal carotid artery 50-79% stenosis 5. Hypertension 6. Hyperlipidemia 7. Uncontrolled insulin-dependent diabetes mellitus. Preoperative hemoglobin A1c 8.0% 8. Previous tobacco dependence. Preoperative FEV1 93% of predicted 9. History of elevated left hemidiaphragm 10. History of ischemic bowel disease with previous bowel resection 11. GERD Plan: 1. Continue aspirin, statin, Plavix, beta inder therapy. Will increase beta inder as tolerated. Hydralazine added for better blood pressure control. 2. Wean O2 as tolerated. Encourage incentive spirometry use 10 times every hour while awake. 3. Will give lasix 20 IV today. 4. Increase activity, ambulate as tolerated. PT/OT/cardiac rehab following. 5. Bronchodilators per pulmonology. 6. Will monitor daily labs and x-rays. Electrolyte replacement per protocol. Avoid nephrotoxins. No transfusion today. 7. Pain control with current medication regimen. 8. Insulin management per primary care service. Patient needs better blood sugar control. 9. GI prophylaxis with Protonix, DVT prophylaxis with subcu heparin, SCDs. 10. Discharge planning in progress. Likely will need subacute rehab at discharge if unable to increase activity level. This was discussed with the patient and his daughter. 11. More recommendations to follow based on clinical course. Time with Patient: Greater than 30
[2018-12-03] MEDS: MAGNESIUM HYDROXIDE 2,400 MG/10 ML CUP PO PRN (08:27)
[2018-12-03] MEDS ORDERED: FUROSEMIDE 10 MG/ML 2 ML VIAL IV ONE (10:53)
[2018-12-03 11:50] LABS: Glucose,Whole Blood 197 mg/dL (75-99)
--- NOTE | 2018-12-03 15:20 | P.PN ---
Subjective Progress Note Date: 12/03/18 Principal diagnosis: Coronary artery disease status post coronary artery bypass grafting 4 utilizing a HERNANDEZ to the LAD, reverse saphenous vein graft to the ramus intermedius, reve rse saphenous vein graft to the posterior descending artery, reverse saphenous vein graft to the distal circumflex. 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 He was found to have continued significant coronary artery disease and was recommended coronary artery bypass grafting. He presented here to the hospital yesterday electively for a CABG 4 receiving a HERNANDEZ to the LAD and reverse saphenous vein grafts to the distal ramus intermedius, posterior descending artery, distal circumflex artery. This is postoperative day #1. He was successfully extubated yesterday. He is currently seen in the ICU sitting up in a chair at the bedside. He did have a brief episode of dizziness and bradycardia while getting up to the chair with assistance. No loss of consciousness. He was given 250 of albumin. He is awake and alert in no acute distress. Eyes any chest discomfort, palpitations lightheadedness or dizziness. No worsening shortness of breath. His pain is well managed. He is maintaining good O2 saturations in the high 90s on 3 L/m per nasal cannula. He's been afebrile. White count 9.0. Hemoglobin 7.5. Platelets 166,000. Creatinine 1.38. He is currently receiving lactated Ringer's at 50 MLS per hour, insulin drip at 3.5 units per hour and a nitroglycerin drip is off currently PA pressure 33/11, CVP of 4. Cardiac output 5.3. Cardiac index 2.2. Chest x-ray shows stable platelike left basilar atelectasis. Right Blunt-Kanchan catheter in place. Bilateral thoracostomy tubes are present. Mediastinal tube in place. Chest x-ray shows stable platelike left basilar atelectasis. Right Blunt-Kanchan catheter in place. Bilateral thoracostomy tubes are present. Mediastinal tube in place. He is working well with the incentive spirometer. The patient is seen today 12/03/2017 in follow-up on the selective care unit. He is awake and alert in no acute distress. He is currently sitting up in a chair at the bedside. He continues to attempt to work well with the incentive spirometer and cough and deep breathing exercises. He is maintaining O2 saturations in the 90s on 2 L/m per nasal cannula. Chest x-ray shows continued platelike atelectasis of the left lung base. Some mild vascular congestion. He did receive Lasix 20 mg IV today 1. He's been afebrile. Hemodynamically stable. White count 9.2. Hemoglobin 6.9. Creatinine 1.32. Objective - Vital Signs Vital signs: Vital Signs Temp 96.0 F L 12/03/18 12:00 Pulse 82 12/03/18 12:05 Resp 18 12/03/18 12:00 BP 117/58 12/03/18 12:00 Pulse Ox 91 L 12/03/18 12:00 Intake & Output 12/02/18 12/03/18 12/03/18 18:59 06:59 18:59 Intake Total 970 240 200 Output Total 723 300 Balance 247 -60 200 Weight 109.8 kg Intake: IV 220 Sodium Chloride 0.9% 1, 190 000 ml @ 50 mls/hr IV . Q20H [facility] Rx#:[id number] pressure bag 30 Oral 750 240 200 Output: Urine 723 300 Other: Voiding Method Urinal Urinal Urinal ABP, PAP, CO, CI - Last Documented Arterial Blood Pressure 110/38 Pulmonary Artery Pressure 37/20 Cardiac Output 6.6 Cardiac Index 2.8 - Exam GENERAL EXAM: A very pleasant 73-year-old gentleman. Alert, fairly comfortable in no apparent distress. 2 L nasal cannula. HEAD: Normocephalic. EYES: Normal reaction of pupils, equal size. NOSE: Clear with pink turbinates. THROAT: No erythema or exudates. NECK: Sided Blunt-Kanchan catheter in place. No masses, no JVD. CHEST: Sternal dressing dry and intact. Heart Hugger in place. LUNGS: Equal air entry with his ALLERGIC crackles.. CVS: S1 and S2 normal with no audible murmur, regular rhythm. ABDOMEN: No hepatosplenomegaly, normal bowel sounds, no guarding or rigidity. SPINE: No scoliosis or deformity SKIN: No rashes CENTRAL NERVOUS SYSTEM: No focal deficits, tone is normal in all 4 extremities. EXTREMITIES: There is trace peripheral edema. No clubbing, no cyanosis. Peripheral pulses are intact. SCDs in place. - Labs CBC & Chem 7: 12/03/18 07:06 12/03/18 07:06 Labs: Abnormal Lab Results - Last 24 Hours (Table) 12/02/18 12/02/18 12/03/18 Range/Units 17:10 20:44 02:27 RBC (4.30-5.90) m/uL Hgb (13.0-17.5) gm/dL Hct (39.0-53.0) % RDW (11.5-15.5) % BUN (9-20) mg/dL Creatinine (0.66-1.25) mg/dL Glucose (74-99) mg/dL POC Glucose (mg/dL) 194 H 188 H 108 H (75-99) mg/dL 12/03/18 12/03/18 12/03/18 Range/Units 06:39 07:06 07:06 RBC 2.59 L (4.30-5.90) m/uL Hgb 6.9 L* (13.0-17.5) gm/dL Hct 22.2 L (39.0-53.0) % RDW 18.1 H (11.5-15.5) % BUN 31 H (9-20) mg/dL Creatinine 1.32 H (0.66-1.25) mg/dL Glucose 134 H (74-99) mg/dL POC Glucose (mg/dL) 132 H (75-99) mg/dL 12/03/18 Range/Units 11:37 RBC (4.30-5.90) m/uL Hgb (13.0-17.5) gm/dL Hct (39.0-53.0) % RDW (11.5-15.5) % BUN (9-20) mg/dL Creatinine (0.66-1.25) mg/dL Glucose (74-99) mg/dL POC Glucose (mg/dL) 197 H (75-99) mg/dL Assessment and Plan Assessment: Impression: #1 Coronary artery disease status post coronary artery bypass grafting 4 utilizing a HERNANDEZ to the LAD, reverse saphenous vein grafts to the ramus inter medius, posterior descending artery, distal circumflex artery. #2 Intubation and mechanical ventilation as an expected outcome of surgery, successfully extubated on postoperative day #0. #3 Previous history of coronary artery disease with a totally occluded RCA and previous stents to the LAD and RCA. #4 Hypertension. #5 Hyperlipidemia. #6 Chronic kidney disease. #7 Diabetes mellitus. 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 #9 Hearing disorder. #10 Gastroesophageal reflux disease. #11 History of previous tobacco dependence. Plan: The patient was seen and evaluated by Dr. Arnold. Chest x-ray and labs were reviewed. We'll continue with the current treatment plan. Continue with bronchodilators. Continue to encourage increased use of the incentive spi rometer and cough and deep breathing exercises. Heparin for DVT prophylaxis. Increase his activity as tolerated. We'll continue to follow and make further recommendations based on his clinical status. I, the cosigning physician, performed a history & physical examination of the patient. Lungs sounds with basilar crackles . Maintaining good O2 saturations in the 90s on 2 L/m per nasal cannula. I discussed the assessment and plan of care with my nurse practitioner, Margy Bush. I attest to the above note as dictated by her.
[2018-12-03 17:37] LABS: Glucose,Whole Blood 138 mg/dL (75-99)
--- NOTE | 2018-12-03 19:14 | PN ---
PROGRESS NOTE Mr. Varner is status post aortocoronary bypass surgery. He is doing very well. Denies chest pain, shortness of breath. His breathing is good. He is doing well on incentive spirometry. Vital signs are stable. S1-S2 heard normally. Lungs reveal improved air entry. Abdomen and lower extremity exam unchanged. Plan is to continue incentive spirometry, pulmonary toilet and see how he does. MMODL / IJN: [id number] /
[2018-12-03] MEDS: GABAPENTIN 400 MG CAP PO SCH (20:11)
[2018-12-03 21:28] LABS: Glucose,Whole Blood 231 mg/dL (75-99)
[2018-12-03] MEDS: INSULIN DETEMIR (LEVEMIR) 100 UNIT/ML SYR SQ SCH (21:33)
[2018-12-03] MEDS: SENNOSIDES-DOCUSATE SODIUM 1 EACH TAB PO SCH (21:33)
--- NOTE | 2018-12-04 00:32 | P.PN ---
Subjective Progress Note Date: 12/03/18 Principal diagnosis: Status post coronary artery bypass graft Patient is a 72-year-old male with a known history of hypertension, hyperlipidemia, diabetes type 2, CK D, coronary artery disease with previous stent to LAD and RCA was found have significant coronary artery disease and was recommended coronary artery bypass. Patient is currently coronary artery bypass graft postoperative day 1. Patient was successfully extubated within 6 hours after surgery. Patient did have having brief episode of lightheadedness and dizziness while getting to the change. Likely orthostatic. Currently patient denied any complaints of headache or dizziness. No worsening shortness of br eath. Does have soreness her chest but controlled with pain medications. No fever no chills. Patient is saturating well on nausea cannula oxygen. Hemoglobin is 7.5, WBC 9.0, platelets 1 66,000, creatinine 1.38 Chest x-ray showed sable platelike left basilar atelectasis. Bilateral thoracostomy tubes and mediastinal tube present. Patient is on insulin drip for blood sugar control. 12/01/2018 Patient is able to sit in a chair today. Hemoglobin is 6.4 and is getting 1 unit of PRBC blood transfusion. No complaints of nausea vomiting or abdominal pain. No commerce of chest pain. No worsening shortness of breath. Currently on insulin drip for blood pressure control. Tolerating oral diet. Will be transitioned to his home dose of insulin along with sliding scale. No fever no chills. Mediastinal and left-sided chest tube is discontinued. 12/02/2018 Patient denied any complaints of chest pain or worsening shortness of breath. Tolerating oral diet. Blood sugar is fairly controlled and will be started back on NovoLog 16 units 3 times a day before meals along with Levemir 56 units. No fever no chills. Chest tube has been removed. No other acute overnight issues. Patient is being transferred to medical floor today. Creatinine 1.4, hemoglobin is 6.7 12/03/2018 Patient denied any complaints of chest pain or worsening shortness of breath. Able to sit in the chair comfortably. Working on incentive spirometry. Chest x-ray showed postoperative changes and platelike atelectasis of the left lung base. Patient was given a dose of IV Lasix. Blood sugar is fairly controlled. Hemoglobin is 6.9 and creatinine 1.32. Current medications reviewed Objective - Vital Signs Vital signs: Vital Signs Temp 98.6 F 03/16/19 20:00 Pulse 71 12/03/18 20:00 Resp 20 12/03/18 20:00 BP 126/59 12/03/18 20:00 Pulse Ox 97 12/03/18 20:00 Intake & Output 12/03/18 12/03/18 12/04/18 06:59 18:59 06:59 Intake Total 240 610 Output Total 300 200 150 Balance -60 410 -150 Weight 109.8 kg Intake: Oral 240 610 Output: Urine 300 200 150 Other: Voiding Method Urinal Toilet Toilet # Voids 1 # Bowel Movements 2 ABP, PAP, CO, CI - Last Documented Arterial Blood Pressure 110/38 Pulmonary Artery Pressure 37/20 Cardiac Output 6.6 Cardiac Index 2.8 - Exam PHYSICAL EXAMINATION: Patient is lying in the bed comfortably, no acute distress, awake alert and oriented.. HEENT: Normocephalic. Neck is supple. Pupils reactive. Nostrils clear. Oral cavity is moist. Ears reveal no drainage. Neck reveals no JVD, carotid bruits, or thyromegaly. CHEST EXAMINATION: Trachea is central. Symmetrical expansion. Bilateral air entry improved. Lung samuels clear to auscultation and percussion. CARDIAC: Normal S1, S2 with no gallops. No murmurs ABDOMEN: Soft. Bowel sounds normal. No organomegaly. No abdominal bruits. Extremities: Trace edema. No clubbing or cyanosis Neurologically awake, alert, oriented x3 with well-coordinated movements. No focal deficits noted Skin: No rash or skin lesions. Psychiatric: Coperative. Nonsuicidal Musculoskeletal: No joint swelling or deformity. Normal range of motion. - Labs CBC & Chem 7: 12/03/18 07:06 12/03/18 07:06 Labs: Abnormal Lab Results - Last 24 Hours (Table) 12/03/18 12/03/18 12/03/18 Range/Units 02:27 06:39 07:06 RBC 2.59 L (4.30-5.90) m/uL Hgb 6.9 L* (13.0-17.5) gm/dL Hct 22.2 L (39.0-53.0) % RDW 18.1 H (11.5-15.5) % BUN (9-20) mg/dL Creatinine (0.66-1.25) mg/dL Glucose (74-99) mg/dL POC Glucose (mg/dL) 108 H 132 H (75-99) mg/dL 12/03/18 12/03/18 12/03/18 Range/Units 07:06 11:37 17:16 RBC (4.30-5.90) m/uL Hgb (13.0-17.5) gm/dL Hct (39.0-53.0) % RDW (11.5-15.5) % BUN 31 H (9-20) mg/dL Creatinine 1.32 H (0.66-1.25) mg/dL Glucose 134 H (74-99) mg/dL POC Glucose (mg/dL) 197 H 138 H (75-99) mg/dL 12/03/18 Range/Units 21:05 RBC (4.30-5.90) m/uL Hgb (13.0-17.5) gm/dL Hct (39.0-53.0) % RDW (11.5-15.5) % BUN (9-20) mg/dL Creatinine (0.66-1.25) mg/dL Glucose (74-99) mg/dL POC Glucose (mg/dL) 231 H (75-99) mg/dL Assessment and Plan Assessment: Multivessel coronary artery disease status post CABG 4 vessel. Postoperative day 4 Acute blood loss anemia hemoglobin 7.5-6.4--status post 1 unit PRBC, --6.7--6.9. Intraoperative mechanical ventilation. Patient was successfully extubated on day 0 Coronary artery disease and history of stent placement Hypertension Diabetes type 2 insulin-dependent with hyperglycemia Chronic kidney disease stage III. Creatinine 1.53--1.32 Hearing disorder/deafness Hyperlipidemia History of CA History of skin cancer Osteoarthritis Previous history of smoking GERD DVT prophylaxis with heparin subcu Plan: Patient be continued on aspirin and Plavix metoprolol and blood pressure control. Insulin drip was discontinued. Currently tolerating oral diet. Patient can be started back on home dose of Levemir 56 units at bedtime and NovoLog 16 units 3 times a day before meals along with insulin sliding scale. Continue to monitor CBG before meals and at bedtime. Continue with incentive spirometry and bronchodilators as needed. Pulmonary is on board. Activity as tolerated. Further recommendations based on the clinical course. Time with Patient: Greater than 30
[2018-12-04 02:45] LABS: Glucose,Whole Blood 149 mg/dL (75-99)
[2018-12-04] MEDS: INSULIN ASPART (NovoLOG) 100 UNIT/ML VIAL SQ SCH ×8 (02:53→21:08)
[2018-12-04 06:47] LABS: Glucose,Whole Blood 109 mg/dL (75-99)
[2018-12-04] MEDS: PANTOPRAZOLE 40 MG TABLET PO SCH (06:48)
[2018-12-04 08:05] LABS: Anisocytosis Slight; HCT 22.5 % (39.0-53.0); Hypochromasia Slight; MCH 25.9 pg (25.0-35.0); MCHC 30.6 g/dL (31.0-37.0); MCV 84.5 fL (80.0-100.0); Mean Platelet Volume 7.1; Platelet Count 241 k/uL (150-450); RBC 2.66 m/uL (4.30-5.90); RDW 18.1 % (11.5-15.5); WBC 7.1 k/uL (3.8-10.6)
[2018-12-04] MEDS: IPRATROPIUM-ALBUTEROL 3 ML NEB INHALATION SCH ×4 (08:08→21:13)
--- NOTE | 2018-12-04 08:09 | XR ---
EXAMINATION TYPE: XR chest 2V DATE OF EXAM: 12/04/2018 COMPARISON: Prior chest x-ray 12/03/2018 HISTORY: Postop cardiac surgery TECHNIQUE: Frontal and lateral views of the chest are obtained. FINDINGS: Patient is post median sternotomy. Prominent lung volumes suggest underlying COPD. There i s some improvement in aeration at the posterior costophrenic angles. Heart remains enlarged. No evide nt pneumothorax. Patient is rotated. IMPRESSION: Some improvement in aeration.
[2018-12-04 08:12] LABS: Calcium 8.8 mg/dL (8.4-10.2); Potassium 4.8 mmol/L (3.5-5.1)
[2018-12-04 08:13] LABS: HGB 6.9 gm/dL (13.0-17.5)
--- NOTE | 2018-12-04 08:35 | P.PN ---
Subjective Progress Note Date: 12/04/18 Principal diagnosis: Triple-vessel coronary artery disease with left main disease and a totally occluded right coronary artery, status post prior stenting to the LAD in 2006 and RCA in 2018. Overall mild left ventricular dysfunction. No significant valvular abnormality. History of myocardial infarction. Chronic kidney disease with baseline creatinine 1.4. 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 Hypertension. Hyperlipidemia. Uncontrolled insulin-dependent diabetes mellitus with preoperative hemoglobin A1c 8.0%. History of ischemic bowel disease with previous bowel resection. GERD. History of elevated left hemidiaphragm. Obesity. Previous tobacco dependence with preoperative FEV1 93% of predicted. POD #5 non-aortic clamp quadruple off-pump coronary artery bypass grafting using the left internal mammary artery to the left anterior descending artery, reverse saphenous vein graft connected to the aorta using the passport device and connected distally to the ramus intermedius artery, reverse saphenous vein graft connected to the aorta using the passport device and connected distally to the p osterior descending artery, reverse saphenous vein graft connected to the aorta using the passport device connected distally to the distal circumflex artery, endoscopic harvesting of bilateral greater saphenous veins with the total right side and the knee to the groin on the left side, intraoperative transesophageal echocardiogram, epi-aortic scanning, intraoperative graft flow measurements using the HEROZim system. Postoperative acute blood loss anemia, an expected outcome of surgery given he modilution. The patient is currently sitting up in a recliner in no acute distress. Does complain of generalized post surgical pain with movement and deep breathing, denies shortness of breath. He does complain of significant coughing which is the cause of most of his pain. He remains in normal sinus rhythm and is hemodynamically stable. He did have an episode of mild confusion last night per nursing staff where he walked to the doorway of the room and was removing his close and telemetry leads. He is alert and oriented this morning and does remember the incident. He states he feels "doped up"and tired Objective - Vital Signs Vital signs: Vital Signs Temp 98.1 F 12/04/18 04:00 Pulse 84 12/04/18 08:17 Resp 21 12/04/18 04:00 BP 130/64 12/04/18 04:00 Pulse Ox 98 12/04/18 04:00 Intake & Output 12/03/18 12/04/18 12/04/18 18:59 06:59 18:59 Intake Total 610 0 Output Total 200 150 0 Balance 410 -150 0 Weight 109.5 kg Intake: Oral 610 0 Output: Urine 200 150 0 Other: Voiding Method Toilet Toilet # Voids 1 # Bowel Movements 2 ABP, PAP, CO, CI - Last Documented Arterial Blood Pressure 110/38 Pulmonary Artery Pressure 37/20 Cardiac Output 6.6 Cardiac Index 2.8 - Constitutional General appearance: Present: cooperative, no acute distress - Respiratory Details: Lungs sounds diminished bilaterally. Respirations even, nonlabored. Currently on 2 L nasal cannula with oxygen saturation 98%. Able to achieve 3071-3509 mL on his incentive spirometry. Strong, dry cough. - Cardiovascular Details: S1, S2 present. Regular rate and rhythm, sinus rhythm on telemetry. Sternum stable. Palpable peripheral pulses bilaterally. Bilateral extremity edema present, right greater than left. No calf pain or tenderness noted. Heart hugger in place with patient intermittently demonstrating appropriate use. Antiembolism stockings, SCDs present. - Gastrointestinal Gastrointestinal Comment(s): Abdomen soft, nontender, nondistended. Active bowel sounds present 4 quadrants. Tolerating diet. Positive bowel movement. - Genitourinary Genitourinary Comment(s): Patient continues to void 150-250 mL at a time. - Integumentary Integumentary Comment(s): Skin is warm and dry with evidence of good perfusion. Anterior chest incision well approximated and covered with dry intact dressings. Bilateral lower extremity EVH sites well approximated. - Neurologic Neurologic: Present: CNII-XII intact - Musculoskeletal Musculoskeletal: Present: generalized weakness, strength equal bilaterally - Psychiatric Psychiatric: Present: A&O x's 3, appropriate affect - Allied health notes Allied health notes reviewed: nursing - Labs CBC & Chem 7: 12/04/18 07:18 12/04/18 07:17 Labs: Abnormal Lab Results - Last 24 Hours (Table) 12/03/18 12/03/18 12/03/18 Range/Units 11:37 17:16 21:05 RBC (4.30-5.90) m/uL Hgb (13.0-17.5) gm/dL Hct (39.0-53.0) % MCHC (31.0-37.0) g/dL RDW (11.5-15.5) % BUN (9-20) mg/dL Creatinine (0.66-1.25) mg/dL Glucose (74-99) mg/dL POC Glucose (mg/dL) 197 H 138 H 231 H (75-99) mg/dL 12/04/18 12/04/18 12/04/18 Range/Units 02:43 06:16 07:17 RBC (4.30-5.90) m/uL Hgb (13.0-17.5) gm/dL Hct (39.0-53.0) % MCHC (31.0-37.0) g/dL RDW (11.5-15.5) % BUN 36 H (9-20) mg/dL Creatinine 1.42 H (0.66-1.25) mg/dL Glucose 117 H (74-99) mg/dL POC Glucose (mg/dL) 149 H 109 H (75-99) mg/dL 12/04/18 Range/Units 07:18 RBC 2.66 L (4.30-5.90) m/uL Hgb 6.9 L* (13.0-17.5) gm/dL Hct 22.5 L (39.0-53.0) % MCHC 30.6 L (31.0-37.0) g/dL RDW 18.1 H (11.5-15.5) % BUN (9-20) mg/dL Creatinine (0.66-1.25) mg/dL Glucose (74-99) mg/dL POC Glucose (mg/dL) (75-99) mg/dL - Imaging and Cardiology Chest x-ray: report reviewed, image reviewed Assessment and Plan Assessment: 1. Triple-vessel coronary artery disease with left main disease and totally occluded right coronary artery, status post off-pump quadruple coronary artery bypass grafting 2. History of myocardial infarction, status post stenting to the LAD and RCA 3. Chronic kidney disease with baseline creatinine 1.4 4. Totally occluded right internal carotid artery, left internal carotid artery 50-79% stenosis 5. Hypertension 6. Hyperlipidemia 7. Uncontrolled insulin-dependent diabetes mellitus. Preoperative hemoglobin A1c 8.0% 8. Previous tobacco dependence. Preoperative FEV1 93% of predicted 9. History of elevated left hemidiaphragm 10. History of ischemic bowel disease with previous bowel resection 11. GERD Plan: 1. Continue aspirin, statin, Plavix, hydralazine, beta inder therapy. Will increase beta inder as tolerated. 2. Wean O2 as tolerated. Encourage incentive spirometry use 10 times every hour while awake. 3. Increase activity, ambulate as tolerated. PT/OT/cardiac rehab following. 4. Bronchodilators per pulmonology. Mucinex added for dry cough. 5. Will monitor daily labs and x-rays. Electrolyte replacement per protocol. Avoid nephrotoxins. No transfusion today. 6. Pain control with current medication regimen. Will discontinue narcotics. 7. Insulin management per primary care service. Patient needs better blood sugar control. 8. GI prophylaxis with Protonix, DVT prophylaxis with subcu heparin, SCDs. 9. Discharge planning in progress. Likely will need subacute rehab at discharge if unable to increase activity level. This was discussed with the patient and his daughter. 10. More recommendations to follow based on clinical course.
[2018-12-04] MEDS: GABAPENTIN 300 MG CAP PO SCH (08:57)
[2018-12-04] MEDS: hydrALAZINE HCL 25 MG TAB PO SCH ×2 (08:57→21:08)
[2018-12-04] MEDS: CYANOCOBALAMIN 500 MCG TAB PO SCH (08:57)
[2018-12-04] MEDS: HEPARIN SODIUM,PORCINE 5,000 UNIT/ML 1 ML VIAL SQ SCH ×3 (08:57→23:34)
[2018-12-04] MEDS: CLOPIDOGREL 75 MG TAB PO SCH (08:57)
[2018-12-04] MEDS: ASPIRIN 325 MG TAB PO SCH (08:57)
[2018-12-04] MEDS: METOPROLOL TARTRATE 25 MG TAB PO SCH ×2 (08:58→21:08)
[2018-12-04] MEDS: guaiFENesin 600 MG TABLET.ER PO SCH ×2 (08:58→21:08)
[2018-12-04] MEDS: ATORVASTATIN 40 MG TAB PO SCH (08:58)
[2018-12-04] MEDS: ACETAMINOPHEN TAB 500 MG TAB PO PRN ×2 (09:02→17:17)
[2018-12-04 10:57] LABS: Glucose,Whole Blood 202 mg/dL (75-99)
--- NOTE | 2018-12-04 11:33 | PN ---
PROGRESS NOTE Mr. Varner is status post aortocoronary bypass surgery. He remains in sinus rhythm. He is doing well. Yesterday, I gave him some Lasix and his breathing has improved. His lungs are clearer. Vital signs are stable. S1-S2 heard normally. Lungs reveal improved air entry. Abdomen and lower extremity exam is unchanged. Plan is to continue incentive spirometry and pulmonary toilet. MMODL / IJN: [id number] /
--- NOTE | 2018-12-04 13:08 | P.PN ---
Subjective Progress Note Date: 12/04/18 Principal diagnosis: Coronary artery disease status post coronary artery bypass grafting 4 This is a very pleasant 73-year-old gentleman who has a history of hypertension, hyperlipidemia, diabetes mellitus, totally occluded right sided internal carotid artery, chronic kidney disease, coronary artery disease with known totally occluded right coronary artery, previous stenting to the LAD and RCA. He was found to have continued significant coronary artery disease and was recommended coronary artery bypass grafting. He presented here to the hospital yesterday electively for a CABG 4 receiving a HERNANDEZ to the LAD and reverse saphenous vein grafts to the distal ramus intermedius, posterior descending artery, distal circumflex artery. This is postoperative day #1. He was successfully extubated yesterday. He is currently seen in the ICU sitting up in a chair at the [facility]. He did have a brief episode of dizziness and bradycardia while getting up to the chair with assistance. No loss of consciousness. He was given 250 of albumin. He is awake and alert in no acute distress. Eyes any chest discomfort, palpitations lightheadedness or dizziness. No worsening shortness of breath. His pain is well managed. He is maintaining good O2 saturations in the high 90s on 3 L/m per nasal cannula. He's been afebrile. White count 9.0. Hemoglobin 7.5. Platelets 166,000. Creatinine 1.38. He is currently receiving lactated Ringer's at 50 MLS per hour, insulin drip at 3.5 units per hour and a nitroglycerin drip is off currently PA pressure 33/11, CVP of 4. Cardiac output 5.3. Cardiac index 2.2. Chest x-ray shows stable platelike left basilar atelectasis. Right [place] catheter in place. Bilateral thoracostomy tubes are present. Mediastinal tube in place. Chest x-ray shows stable platelike left basilar atelectasis. Right [place] catheter in place. Bilateral thoracostomy tubes are present. Mediastinal tube in place. He is working well with the incentive spirometer. The patient is seen today 12/03/2017 in follow-up on the selective care unit. He is awake and alert in no acute distress. He is currently sitting up in a chair at the bedside. He continues to attempt to work well with the incentive spirometer and cough and deep breathing exercises. He is maintaining O2 saturations in the 90s on 2 L/m per nasal cannula. Chest x-ray shows continued platelike atelectasis of the left lung base. Some mild vascular congestion. He did receive Lasix 20 mg IV today 1. He's been afebrile. Hemodynamically stable. White count 9.2. Hemoglobin 6.9. Creatinine 1.32. On 12/04/2018 patient seen in follow-up on selective care unit, he is lethargic, and fatigued on today's exam, but arousable to verbal stimuli, his family is at the bedside, and they state patient has been more tired today, but no acute distress, currently he is on 2 L of oxygen and his pulse ox is 96%, has any worsening shortness of breath, his pain is reasonably controlled, he is afebrile, that his chest x-ray has been reviewed with Dr. Arnold, and shows some improvement in aeration at the posterior costophrenic angles, she did receive IV Lasix yesterday per CT surgery. His labs have been noted, white blood cell, 7.1, hemoglobin is 6.9, electrolytes are within normal limits, and there has been slight increase in his renal function, with BUN of 36 and creatinine of 1.42. Recent is working on his incentive spirometer, he is able to achieve 1750 ML on the today. Lung sounds are diminished, with some basilar crackles, no major wheezes or rhonchi. Objective - Vital Signs Vital signs: Vital Signs Temp 98.6 F 12/04/18 08:00 Pulse 84 12/04/18 08:17 Resp 20 12/04/18 08:00 BP 140/65 12/04/18 08:00 Pulse Ox 96 12/04/18 08:00 Intake & Output 12/03/18 12/04/18 12/04/18 18:59 06:59 18:59 Intake Total 610 90 Output Total 200 150 0 Balance 410 -150 90 Weight 109.5 kg Intake: Oral 610 90 Output: Urine 200 150 0 Other: Voiding Method Toilet Toilet # Voids 1 # Bowel Movements 2 ABP, PAP, CO, CI - Last Documented Arterial Blood Pressure 110/38 Pulmonary Artery Pressure 37/20 Cardiac Output 6.6 Cardiac Index 2.8 - Exam GENERAL EXAM: Alert, pleasant, 73-year-old white male, somewhat lethargic, and fatigue, but arousable to verbal stimuli, currently on 2 L of oxygen, with a pulse ox of 96% comfortable in no apparent distress. HEAD: Normocephalic/atraumatic. EYES: Normal reaction of pupils, equal size. Conjunctiva pink, sclera white. NOSE: Clear with pink turbinates. THROAT: No erythema or exudates. NECK: No masses, no JVD, no thyroid enlargement, no adenopathy. CHEST: No chest wall deformity. Symmetrical expansion. Sternal incision is cl luz [place] dry and intact, chest tube sites clean dry and intact LUNGS: Equal air entry with scattered bibasilar crackles CVS: Regular rate and rhythm, normal S1 and S2, no gallops, no murmurs, no rubs ABDOMEN: Soft, nontender. No hepatosplenomegaly, normal bowel sounds, no guarding or rigidity. EXTREMITIES: No clubbing, no edema, no cyanosis, 2+ pulses and upper and lower extremities. MUSCULOSKELETAL: Muscle strength and tone normal. SPINE: No scoliosis or deformity SKIN: No rashes CENTRAL NERVOUS SYSTEM: Alert and oriented -3. No focal deficits, tone is normal in all 4 extremities. PSYCHIATRIC: Alert and oriented -3. Appropriate affect. Intact judgment and insight. - Labs CBC & Chem 7: 12/04/18 07:18 12/04/18 07:17 Labs: Abnormal Lab Results - Last 24 Hours (Table) 12/03/18 12/03/18 12/04/18 Range/Units 17:16 21:05 02:43 RBC (4.30-5.90) m/uL Hgb (13.0-17.5) gm/dL Hct (39.0-53.0) % MCHC (31.0-37.0) g/dL RDW (11.5-15.5) % BUN (9-20) mg/dL Creatinine (0.66-1.25) mg/dL Glucose (74-99) mg/dL POC Glucose (mg/dL) 138 H 231 H 149 H (75-99) mg/dL 12/04/18 12/04/18 12/04/18 Range/Units 06:16 07:17 07:18 RBC 2.66 L (4.30-5.90) m/uL Hgb 6.9 L* (13.0-17.5) gm/dL Hct 22.5 L (39.0-53.0) % MCHC 30.6 L (31.0-37.0) g/dL RDW 18.1 H (11.5-15.5) % BUN 36 H (9-20) mg/dL Creatinine 1.42 H (0.66-1.25) mg/dL Glucose 117 H (74-99) mg/dL POC Glucose (mg/dL) 109 H (75-99) mg/dL 12/04/18 Range/Units 10:55 RBC (4.30-5.90) m/uL Hgb (13.0-17.5) gm/dL Hct (39.0-53.0) % MCHC (31.0-37.0) g/dL RDW (11.5-15.5) % BUN (9-20) mg/dL Creatinine (0.66-1.25) mg/dL Glucose (74-99) mg/dL POC Glucose (mg/dL) 202 H (75-99) mg/dL Assessment and Plan Plan: Assessment: #1 Coronary artery disease status post coronary artery bypass grafting 4 utilizing a HERNANDEZ to the LAD, reverse saphenous vein grafts to the ramus intermedius, posterior descending artery, distal circumflex artery, stop date 5 #2 Intubation and mechanical ventilation as an expected outcome of surgery, successfully extubated on postoperative day #0. Currently on 2 L of oxygen, tolerating extubation quite well, well on the incentive spirometer. #3 Previous history of coronary artery disease with a totally occluded RCA and previous stents to the LAD and RCA. #4 Hypertension. #5 Hyperlipidemia. #6 Chronic kidney disease. #7 Diabetes mellitus. 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 #9 Hearing disorder. #10 Gastroesophageal reflux disease. #11 History of previous tobacco dependence. #12 blood loss anemia,an expected outcome of open-heart surgery surgery Plan: Patient is doing well, continue working on the incentive spirometer, increase activity as tolerated, appears bit more fatigued and lethargic today, has remained stable, chest x-ray shows some improvement in terms of aeration. No acute events overnight, today's labs have been noted, we'll hold her Lasix today. Repeat labs, and chest x-ray in the morning. We'll continue to follow, I performed a history & physical examination of the patient and discussed their management with my nurse practitioner, Kianna Vasquez. I reviewed the nurse practitioner's note and agree with the documented findings and plan of care. Lung sounds are positive for bibasilar crackles. The findings and the impression was discussed with the patient. I attest to the documentation by the nurse practitioner. Time with Patient: Less than 30
[2018-12-04 17:18] LABS: Glucose,Whole Blood 86 mg/dL (75-99)
[2018-12-04 20:55] LABS: Glucose,Whole Blood 168 mg/dL (75-99)
[2018-12-04] MEDS: GABAPENTIN 400 MG CAP PO SCH (21:07)
[2018-12-04] MEDS: INSULIN DETEMIR (LEVEMIR) 100 UNIT/ML SYR SQ SCH (21:08)
[2018-12-04] MEDS: SENNOSIDES-DOCUSATE SODIUM 1 EACH TAB PO SCH (21:08)
[2018-12-05 02:07] LABS: Glucose,Whole Blood 119 mg/dL (75-99)
[2018-12-05] MEDS: INSULIN ASPART (NovoLOG) 100 UNIT/ML VIAL SQ SCH ×8 (02:55→21:07)
[2018-12-05] MEDS: ACETAMINOPHEN TAB 500 MG TAB PO PRN ×3 (03:32→22:42)
[2018-12-05] MEDS: BENZOCAINE/MENTHOL LOZENG 1 EACH LOZENGE MUCOUS MEM PRN ×2 (03:32→22:43)
[2018-12-05 06:31] LABS: Glucose,Whole Blood 140 mg/dL (75-99)
[2018-12-05] MEDS: PANTOPRAZOLE 40 MG TABLET PO SCH (06:45)
[2018-12-05 07:24] LABS: Anisocytosis Slight; HCT 21.8 % (39.0-53.0); Hypochromasia Slight; MCH 24.9 pg (25.0-35.0); MCHC 30.1 g/dL (31.0-37.0); MCV 82.7 fL (80.0-100.0); Mean Platelet Volume 7.3; Platelet Count 254 k/uL (150-450); RBC 2.63 m/uL (4.30-5.90); RDW 18.1 % (11.5-15.5); WBC 6.3 k/uL (3.8-10.6)
[2018-12-05 07:25] LABS: HGB 6.6 gm/dL (13.0-17.5)
--- NOTE | 2018-12-05 07:26 | XR ---
EXAMINATION TYPE: XR chest 2V DATE OF EXAM: 12/05/2018 COMPARISON: 12/04/2018 HISTORY: 73 year-old male post cardiac surgery TECHNIQUE: AP and lateral views FINDINGS: Median sternotomy wires are present with post-CABG clips in the mediastinum. Heart mildly enlarged. M ild diffuse interstitial prominence relatively unchanged. Some patchy bibasilar opacities with trace effusions are unchanged. IMPRESSION: Trace pleural effusions with patchy bibasilar atelectasis remain unchanged.
--- NOTE | 2018-12-05 07:32 | P.PN ---
Subjective Progress Note Date: 12/05/18 Principal diagnosis: Triple-vessel coronary artery disease with left main disease and a totally occluded right coronary artery, status post prior stenting to the LAD in 2006 and RCA in 2018. Overall mild left ventricular dysfunction. No significant valvular abnormality. History of myocardial infarction. Chronic kidney disease with baseline creatinine 1.4. 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 Hypertension. Hyperlipidemia. Uncontrolled insulin-dependent diabetes mellitus with preoperative hemoglobin A1c 8.0%. History of ischemic bowel disease with previous bowel resection. GERD. History of elevated left hemidiaphragm. Obesity. Previous tobacco dependence with preoperative FEV1 93% of predicted. POD #6 non-aortic clamp quadruple off-pump coronary artery bypass grafting using the left internal mammary artery to the left anterior descending artery, reverse saphenous vein graft connected to the aorta using the passport device and connected distally to the ramus intermedius artery, reverse saphenous vein graft connected to the aorta using the passport device and connected distally to the p osterior descending artery, reverse saphenous vein graft connected to the aorta using the passport device connected distally to the distal circumflex artery, endoscopic harvesting of bilateral greater saphenous veins with the total right side and the knee to the groin on the left side, intraoperative transesophageal echocardiogram, epi-aortic scanning, intraoperative graft flow measurements using the ibeatyouim system. Postoperative acute blood loss anemia, an expected outcome of surgery given he modilution. The patient is currently sitting up in a recliner in no acute distress. Does complain of generalized post surgical pain with movement and deep breathing, denies shortness of breath. Patient has shown significant improvement in the last 24 hours, he is much more alert and cooperative. States he does feel less foggy this morning after discontinuation of narcotics. He ambulated in the hallway with the nurse last night without needing oxygen. He is getting much higher on his incentive spirometry. Remains in normal sinus rhythm and hemodynamically stable. Objective - Vital Signs Vital signs: Vital Signs Temp 98.4 F 12/05/18 04:00 Pulse 82 12/05/18 04:00 Resp 17 12/05/18 04:00 BP 131/63 12/05/18 04:00 Pulse Ox 94 L 12/05/18 04:00 Intake & Output 12/04/18 12/05/18 12/05/18 18:59 06:59 18:59 Intake Total 190 Output Total 0 950 Balance 190 -950 Weight 111.1 kg Intake: Oral 190 Output: Urine 0 950 Other: Voiding Method Toilet Urinal # Voids 3 1 ABP, PAP, CO, CI - Last Documented Arterial Blood Pressure 110/38 Pulmonary Artery Pressure 37/20 Cardiac Output 6.6 Cardiac Index 2.8 - Constitutional General appearance: Present: cooperative, no acute distress - Respiratory Details: Lungs sounds diminished bilaterally. Respirations even, nonlabored. Currently on room air with oxygen saturation 94%. Able to achieve 2250 mL on his incentive spirometry. Strong, dry cough. - Cardiovascular Details: S1, S2 present. Regular rate and rhythm, sinus rhythm on telemetry. Sternum stable. Palpable peripheral pulses bilaterally. Trace bilateral lower extremity edema present. No calf pain or tenderness noted. Heart hugger in place with patient demonstrating appropriate use. Antiembolism stockings, SCDs present. - Gastrointestinal Gastrointestinal Comment(s): Abdomen soft, nontender, nondistended. Active bowel sounds present 4 quadrants. Tolerating diet. Positive bowel movement. - Genitourinary Genitourinary Comment(s): Patient continues to void clear yellow urine, 950 mL output last night. - Integumentary Integumentary Comment(s): Skin is warm and dry with evidence of good perfusion. Anterior chest incision well approximated and covered with dry intact dressings. Bilateral lower extremity EVH sites well approximated. - Neurologic Neurologic: Present: CNII-XII intact - Musculoskeletal Musculoskeletal: Present: gait normal, generalized weakness, strength equal bilaterally - Psychiatric Psychiatric: Present: A&O x's 3, appropriate affect, intact judgment & insight - Allied health notes Allied health notes reviewed: nursing - Labs CBC & Chem 7: 12/05/18 06:32 12/05/18 06:32 Labs: Abnormal Lab Results - Last 24 Hours (Table) 12/04/18 12/04/18 12/04/18 Range/Units 07:17 07:18 10:55 RBC 2.66 L (4.30-5.90) m/uL Hgb 6.9 L* (13.0-17.5) gm/dL Hct 22.5 L (39.0-53.0) % MCHC 30.6 L (31.0-37.0) g/dL RDW 18.1 H (11.5-15.5) % BUN 36 H (9-20) mg/dL Creatinine 1.42 H (0.66-1.25) mg/dL Glucose 117 H (74-99) mg/dL POC Glucose (mg/dL) 202 H (75-99) mg/dL 12/04/18 12/05/18 12/05/18 Range/Units 20:52 01:59 06:29 RBC (4.30-5.90) m/uL Hgb (13.0-17.5) gm/dL Hct (39.0-53.0) % MCHC (31.0-37.0) g/dL RDW (11.5-15.5) % BUN (9-20) mg/dL Creatinine (0.66-1.25) mg/dL Glucose (74-99) mg/dL POC Glucose (mg/dL) 168 H 119 H 140 H (75-99) mg/dL - Imaging and Cardiology Chest x-ray: report reviewed, image reviewed Assessment and Plan Assessment: 1. Triple-vessel coronary artery disease with left main disease and totally occluded right coronary artery, status post off-pump quadruple coronary artery bypass grafting 2. History of myocardial infarction, status post stenting to the LAD and RCA 3. Chronic kidney disease with baseline creatinine 1.4 4. Totally occluded right internal carotid artery, left internal carotid artery 50-79% stenosis 5. Hypertension 6. Hyperlipidemia 7. Uncontrolled insulin-dependent diabetes mellitus. Preoperative hemoglobin A1c 8.0% 8. Previous tobacco dependence. Preoperative FEV1 93% of predicted 9. History of elevated left hemidiaphragm 10. History of ischemic bowel disease with previous bowel resection 11. GERD Plan: 1. Continue aspirin, statin, Plavix, hydralazine, beta inder therapy. Will increase beta inder as tolerated. 2. Encourage incentive spirometry use 10 times every hour while awake. 3. Increase activity, ambulate as tolerated. PT/OT/cardiac rehab following. 4. Bronchodilators per pulmonology. Mucinex added for dry cough. 5. Will monitor daily labs and x-rays. Electrolyte replacement per protocol. Avoid nephrotoxins. Will transfuse 1 unit PRBC's today. 6. Pain control with current medication regimen. No narcotics. 7. Insulin management per primary care service. 8. GI prophylaxis with Protonix, DVT prophylaxis with subcu heparin, SCDs. 9. Discharge planning in progress. Patient has significantly improved in the last 24 hours, consultation placed for Dr. Molina to evaluate for inpatient rehab. Patient would benefit from closer physician monitoring and more frequent lab draws as well as nutritional support which is offered at inpatient rehab. Likely ready to DC to IPR tomorrow morning. 10. More recommendations to follow based on clinical course. Time with Patient: Greater than 30
[2018-12-05 07:42] LABS: Calcium 8.9 mg/dL (8.4-10.2); Potassium 4.5 mmol/L (3.5-5.1)
--- NOTE | 2018-12-05 07:50 | P.CONS ---
History of Present Illness - Chief Complaint Cardiac debility - History of Present Illness I had the opportunity to see patient for inpatient rehab consultation with regard to cardiac debility. [facility] Underwent 4 vessel coronary bypass, Dr. Hopkins. Seen in consultation by cardiology and Dr. Benavides. Chest x-ray was followed for atelectasis. PT reports moderate assistance for functional mobility and transfers and minimal assistance for gait 15 feet with roller walker. OT reports two-person moderate assistance for upper dressing to person maximal assistance for lower dressing, bathing, transfers. Two-person total assistance for toileting. Previous functional history as elicited patient: 73-year-old right-handed white male who is lives in a first-floor of a 2 floor home, alone. Describes independent with own cooking, laundry, driving, standing shower and gait without device. History smoking 25 years ago.Very rare drink. Dr. Llanes is regular doctor. Family history of hypertension in father. Review of Systems Review of systems: ENT: Denies sneezes or discharge. Eyes: Denies discharge or photophobia. Cardiac: Sternal discomfort. Pulmonary: Deshortness of breath. Gastrointestinal: Denies nausea, emesis, constipation, diarrhea. Genitourinary: Denies discharge or frequency. Musculoskeletal: Denies muscle or bone aches. Neurologic: Generalized weakness. Endocrine: Denies shakes or sweats. Oncology: Denies cancers. Dermatologic: Denies rash, itching, pruritus. ALLERGY/immunology: Denies sneezes, rashes. Past Medical History Past Medical History: Coronary Artery Disease (CAD), Cancer, Chest Pain / Angina, Diabetes Mellitus, GERD/Reflux, Hearing Disorder / Deafness, Hyperlipidemia, Hypertension, Myocardial Infarction ([place]), Osteoarthritis (OA), Renal Disease Additional Past Medical History / Comment(s): SKIN CANCER, hx ulcers, growth on one kidney(not sure which one), decreased kidney function. Last Myocardial Infarction Date:: 2010 History of Any Multi-Drug Resistant Organisms: None Reported Past Surgical History: Appendectomy, Bowel Resection, Heart Catheterization, Heart Catheterization With Stent, Orthopedic Surgery, Tonsillectomy Additional Past Surgical History / Comment(s): bowel resection after perforated bowel during a colonsocpy, total of five cardiac stents- (4 in January 2018). VIKA KNEE ARTHROSCOPY. SKIN CANCER REMOVED. vika cataracts Past Anesthesia/Blood Transfusion Reactions: No Reported Reaction Date of Last Stent Placement:: 01/2018 Smoking Status: Former smoker - Past Family History Father Family Medical History: Hypertension Additional Family Medical History / Comment(s): DAD IS TILL ALIVE AT AGE 98 HAS SOME MINOR HEART PROBLEMS Mother History Unknown: Yes Family Medical History: No Reported History Medications and Allergies Home Medications Medication Instructions Recorded Confirmed Type Insulin Glargine [Lantus] 56 unit SQ HS 02/05/14 11/29/18 History Nitroglycerin Sl Tabs [Nitrostat] 0.4 mg SUBLINGUAL Q5M PRN 02/05/14 11/29/18 History Omeprazole [PriLOSEC] 20 mg PO W/SUPPER 02/05/14 11/29/18 History Gabapentin 600 mg PO QAM 06/20/15 11/29/18 History amLODIPine [Norvasc] 10 mg PO DAILY 09/07/18 11/29/18 History Aspirin [Adult Low Dose Aspirin EC] 81 mg PO HS 11/02/18 11/29/18 History Clopidogrel [Plavix] 75 mg PO HS@199911/02/18 11/29/18 History Cyanocobalamin (Vitamin B-12) 2,000 mcg PO DAILY 11/02/18 11/29/18 History [Vitamin B-12] Insulin Aspart [NovoLOG Flexpen] 16 units SQ TID-W/MEALS 11/02/18 11/29/18 History Insulin Aspart [NovoLOG Flexpen] See Protocol SQ TID-W/MEALS PRN 11/02/18 11/29/18 History Isosorbide Mononitrate [Imdur] 120 mg PO DAILY 11/02/18 11/29/18 History Metoprolol Tartrate [Lopressor] 25 mg PO BID 11/02/18 11/29/18 History Simvastatin 80 mg PO HS 11/02/18 11/29/18 History Gabapentin [Neurontin] 1,200 mg PO HS 11/24/18 11/29/18 History Mupirocin 2% Oint [Bactroban 2% 1 applic NASAL BID 11/28/18 11/29/18 History Oint] Allergies Allergy/AdvReac Type Severity Reaction Status Date / Time No Known Allergies Allergy Verified 11/29/18 15:41 Physical Exam Vitals: Vital Signs Temp Pulse Pulse Resp BP Pulse Ox 12/05/18 04:00 98.4 F 82 17 131/63 94 L 12/04/18 23:52 97.9 F 83 16 148/66 95 12/04/18 21:24 76 12/04/18 21:14 73 98 12/04/18 20:00 98.4 F 70 15 110/57 100 12/04/18 16:00 82 20 102/54 90 L 12/04/18 13:20 80 12/04/18 13:10 86 12/04/18 12:00 96.4 F L 68 18 98/53 92 L 12/04/18 08:17 84 12/04/18 08:08 84 12/04/18 08:00 98.6 F 94 20 140/65 96 Intake and Output 12/04/18 12/05/18 12/05/18 22:59 06:59 14:59 Output Total 950 Balance -950 Output: Urine 950 Other: Voiding Method Toilet Toilet Urinal Urinal # Voids 3 1 Weight 111.1 kg Results CBC & Chem 7: 12/05/18 06:32 12/05/18 06:32 Labs: Abnormal Lab Results - Last 24 Hours (Table) 12/04/18 12/04/18 12/04/18 Range/Units 07:17 07:18 10:55 RBC 2.66 L (4.30-5.90) m/uL Hgb 6.9 L* (13.0-17.5) gm/dL Hct 22.5 L (39.0-53.0) % MCH (25.0-35.0) pg MCHC 30.6 L (31.0-37.0) g/dL RDW 18.1 H (11.5-15.5) % BUN 36 H (9-20) mg/dL Creatinine 1.42 H (0.66-1.25) mg/dL Glucose 117 H (74-99) mg/dL POC Glucose (mg/dL) 202 H (75-99) mg/dL 12/04/18 12/05/18 12/05/18 Range/Units 20:52 01:59 06:29 RBC (4.30-5.90) m/uL Hgb (13.0-17.5) gm/dL Hct (39.0-53.0) % MCH (25.0-35.0) pg MCHC (31.0-37.0) g/dL RDW (11.5-15.5) % BUN (9-20) mg/dL Creatinine (0.66-1.25) mg/dL Glucose (74-99) mg/dL POC Glucose (mg/dL) 168 H 119 H 140 H (75-99) mg/dL 12/05/18 12/05/18 Range/Units 06:32 06:32 RBC 2.63 L (4.30-5.90) m/uL Hgb 6.6 L* (13.0-17.5) gm/dL Hct 21.8 L (39.0-53.0) % MCH 24.9 L (25.0-35.0) pg MCHC 30.1 L (31.0-37.0) g/dL RDW 18.1 H (11.5-15.5) % BUN 37 H (9-20) mg/dL Creatinine 1.52 H (0.66-1.25) mg/dL Glucose 108 H (74-99) mg/dL POC Glucose (mg/dL) (75-99) mg/dL Assessment and Plan (1) Status post coronary artery bypass graft Current Visit: Yes Status: Acute Code(s): Z95.1 - PRESENCE OF AORTOCORONARY BYPASS GRAFT SNOMED Code(s): 360830167 Plan: Impression: 1. Cardiac debility. 2. Coronary disease history of angina and [place] and with four-vessel bypass. 3. Small bowel obstruction. 4. Hypertension. 5. Disobedient. 6. History of cancer. 7. Diabetes. 8. Deficits. 9. Chronic kidney disease. 10. Osteoarthritis. Comments and plan: PT and OT are ongoing. Safety concerns noted. Have discussed inpatient rehab with patient and he seems agreeable.
[2018-12-05] MEDS: HEPARIN SODIUM,PORCINE 5,000 UNIT/ML 1 ML VIAL SQ SCH ×2 (09:22→17:49)
[2018-12-05] MEDS: ASPIRIN 325 MG TAB PO SCH (09:22)
[2018-12-05] MEDS: CYANOCOBALAMIN 500 MCG TAB PO SCH (09:22)
[2018-12-05] MEDS: CLOPIDOGREL 75 MG TAB PO SCH (09:22)
[2018-12-05] MEDS: ATORVASTATIN 40 MG TAB PO SCH (09:22)
[2018-12-05] MEDS: guaiFENesin 600 MG TABLET.ER PO SCH ×2 (09:22→21:06)
[2018-12-05] MEDS: GABAPENTIN 300 MG CAP PO SCH (09:23)
[2018-12-05] MEDS: METOPROLOL TARTRATE 25 MG TAB PO SCH ×2 (09:23→21:07)
[2018-12-05] MEDS: hydrALAZINE HCL 25 MG TAB PO SCH ×2 (09:23→21:06)
[2018-12-05] MEDS: IPRATROPIUM-ALBUTEROL 3 ML NEB INHALATION SCH ×4 (09:53→21:28)
[2018-12-05 11:27] LABS: Glucose,Whole Blood 162 mg/dL (75-99)
--- NOTE | 2018-12-05 13:01 | PN ---
PROGRESS NOTE Mr. Varner is status post bypass surgery. Clinically, he looks better. He is able to ambulate in the hallways, maintaining sinus rhythm. Vital signs are stable. There is JVD of 1 cm. No carotid bruit. S1, S2 heard normally. Lungs reveal improved air entry. Abdomen and lower extremity exam unchanged. Plan is to continue with current medications, increased activity and possibly discharge him to rehab in [facility]. MMODL / IJN: [id number] /
[2018-12-05 16:32] LABS: Glucose,Whole Blood 115 mg/dL (75-99)
--- NOTE | 2018-12-05 18:35 | P.PN ---
Subjective Progress Note Date: 12/05/18 Principal diagnosis: Coronary artery disease status post coronary artery bypass grafting 4 This is a very pleasant 73-year-old gentleman who has a history of hypertension, hyperlipidemia, diabetes mellitus, totally occluded right sided internal carotid artery, chronic kidney disease, coronary artery disease with known totally occluded right coronary artery, previous stenting to the LAD and RCA. He was found to have continued significant coronary artery disease and was recommended coronary artery bypass grafting. He presented here to the hospital yesterday electively for a CABG 4 receiving a HERNANDEZ to the LAD and reverse saphenous vein grafts to the distal ramus intermedius, posterior descending artery, distal circumflex artery. This is postoperative day #1. He was successfully extubated yesterday. He is currently seen in the ICU sitting up in a chair at the [facility]. He did have a brief episode of dizziness and bradycardia while getting up to the chair with assistance. No loss of consciousness. He was given 250 of albumin. He is awake and alert in no acute distress. Eyes any chest discomfort, palpitations lightheadedness or dizziness. No worsening shortness of breath. His pain is well managed. He is maintaining good O2 saturations in the high 90s on 3 L/m per nasal cannula. He's been afebrile. White count 9.0. Hemoglobin 7.5. Platelets 166,000. Creatinine 1.38. He is currently receiving lactated Ringer's at 50 MLS per hour, insulin drip at 3.5 units per hour and a nitroglycerin drip is off currently PA pressure 33/11, CVP of 4. Cardiac output 5.3. Cardiac index 2.2. Chest x-ray shows stable platelike left basilar atelectasis. Right Goodman-Kanchna catheter in place. Bilateral thoracostomy tubes are present. Mediastinal tube in place. Chest x-ray shows stable platelike left basilar atelectasis. Right Goodman-Kanchan catheter in place. Bilateral thoracostomy tubes are present. Mediastinal tube in place. He is working well with the incentive spirometer. The patient is seen today 12/03/2017 in follow-up on the selective care unit. He is awake and alert in no acute distress. He is currently sitting up in a chair at the bedside. He continues to attempt to work well with the incentive spirometer and cough and deep breathing exercises. He is maintaining O2 saturations in the 90s on 2 L/m per nasal cannula. Chest x-ray shows continued platelike atelectasis of the left lung base. Some mild vascular congestion. He did receive Lasix 20 mg IV today 1. He's been afebrile. Hemodynamically stable. White count 9.2. Hemoglobin 6.9. Creatinine 1.32. On 12/04/2018 patient seen in follow-up on selective care unit, he is lethargic, and fatigued on today's exam, but arousable to verbal stimuli, his family is at the bedside, and they state patient has been more tired today, but no acute distress, currently he is on 2 L of oxygen and his pulse ox is 96%, has any worsening shortness of breath, his pain is reasonably controlled, he is afebrile, that his chest x-ray has been reviewed with Dr. Arnold, and shows some improvement in aeration at the posterior costophrenic angles, she did receive IV Lasix yesterday per CT surgery. His labs have been noted, white blood cell, 7.1, hemoglobin is 6.9, electrolytes are within normal limits, and there has been slight increase in his renal function, with BUN of 36 and creatinine of 1.42. Recent is working on his incentive spirometer, he is able to achieve 1750 ML on the today. Lung sounds are diminished, with some basilar crackles, no major wheezes or rhonchi. On 12/05/2017 patient seen in follow-up on the selective care unit, resting comfortably in bed, in no acute distress, he is awake and alert and oriented 3, he is being transfused with 1 unit of packed red blood cells, on today's labs have been reviewed, today's hemoglobin is 6.6, white blood cell count is within normal limits, electrolytes are within normal limits, B1 is 37 and creatinine is 1.52. All chest tubes have been discontinued, patient is hemodynamically stable, room air pulse ox is 96%, patient is work on his incentive spirometer, lung sounds reveal diminished breath sounds with some mild bibasilar crackles, no rhonchi, no wheezing, his pain is reasonably controlled, and did ambulate, to lerated fairly well, he was evaluated by Dr. Hernández for inpatient rehab Objective - Vital Signs Vital signs: Vital Signs Temp 98.2 F 12/05/18 17:48 Pulse 71 12/05/18 17:48 Resp 18 12/05/18 17:48 BP 145/69 12/05/18 17:48 Pulse Ox 97 12/05/18 17:48 Intake & Output 12/04/18 12/05/18 12/05/18 18:59 06:59 18:59 Intake Total 190 630 Output Total 0 950 175 Balance 190 -950 455 Weight 111.1 kg Intake: Oral 190 320 Blood Product 310 Rc As-1 Unit 310 [id number] Output: Urine 0 950 175 Other: Voiding Method Toilet Toilet Urinal Urinal # Voids 3 1 1 ABP, PAP, CO, CI - Last Documented Arterial Blood Pressure 110/38 Pulmonary Artery Pressure 37/20 Cardiac Output 6.6 Cardiac Index 2.8 - Exam GENERAL EXAM: Alert, pleasant, 73-year-old white male, somewhat lethargic, and fatigue, but arousable to verbal stimuli, currently on room air, with a pulse ox of 96% comfortable in no apparent distress. HEAD: Normocephalic/atraumatic. EYES: Normal reaction of pupils, equal size. Conjunctiva pink, sclera white. NOSE: Clear with pink turbinates. THROAT: No erythema or exudates. NECK: No masses, no JVD, no thyroid enlargement, no adenopathy. CHEST: No chest wall deformity. Symmetrical expansion. Sternal incision is clean dry and intact, chest tube sites clean dry and intact LUNGS: Equal air entry with scattered bibasilar crackles CVS: Regular rate and rhythm, normal S1 and S2, no gallops, no murmurs, no rubs ABDOMEN: Soft, nontender. No hepatosplenomegaly, normal bowel sounds, no guarding or rigidity. EXTREMITIES: No clubbing, no edema, no cyanosis, 2+ pulses and upper and lower extremities. MUSCULOSKELETAL: Muscle strength and tone normal. SPINE: No scoliosis or deformity SKIN: No rashes CENTRAL NERVOUS SYSTEM: Alert and oriented -3. No focal deficits, tone is normal in all 4 extremities. PSYCHIATRIC: Alert and oriented -3. Appropriate affect. Intact judgment and insight. - Labs CBC & Chem 7: 12/05/18 06:32 12/05/18 06:32 Labs: Abnormal Lab Results - Last 24 Hours (Table) 12/04/18 12/05/1812/05/19 Range/Units 20:52 01:59 06:29 RBC (4.30-5.90) m/uL Hgb (13.0-17.5) gm/dL Hct (39.0-53.0) % MCH (25.0-35.0) pg MCHC (31.0-37.0) g/dL RDW (11.5-15.5) % BUN (9-20) mg/dL Creatinine (0.66-1.25) mg/dL Glucose (74-99) mg/dL POC Glucose (mg/dL) 168 H 119 H 140 H (75-99) mg/dL Crossmatch 12/05/18 12/05/18 12/05/18 Range/Units 06:32 06:32 10:39 RBC 2.63 L (4.30-5.90) m/uL Hgb 6.6 L* (13.0-17.5) gm/dL Hct 21.8 L (39.0-53.0) % MCH 24.9 L (25.0-35.0) pg MCHC 30.1 L (31.0-37.0) g/dL RDW 18.1 H (11.5-15.5) % BUN 37 H (9-20) mg/dL Creatinine 1.52 H (0.66-1.25) mg/dL Glucose 108 H (74-99) mg/dL POC Glucose (mg/dL) (75-99) mg/dL Crossmatch See Detail 12/05/18 12/05/18 Range/Units 11:24 16:30 RBC (4.30-5.90) m/uL Hgb (13.0-17.5) gm/dL Hct (39.0-53.0) % MCH (25.0-35.0) pg MCHC (31.0-37.0) g/dL RDW (11.5-15.5) % BUN (9-20) mg/dL Creatinine (0.66-1.25) mg/dL Glucose (74-99) mg/dL POC Glucose (mg/dL) 162 H 115 H (75-99) mg/dL Crossmatch Assessment and Plan Plan: Assessment: #1 Coronary artery disease status post coronary artery bypass grafting 4 utilizing a HERNANDEZ to the LAD, reverse saphenous vein grafts to the ramus intermedius, posterior descending artery, distal circumflex artery, post-op day 6 #2 Intubation and mechanical ventilation as an expected outcome of surgery, successfully extubated on postoperative day #0. Currently on 2 L of oxygen, tolerating extubation quite well, well on the incentive spirometer. #3 Previous history of coronary artery disease with a totally occluded RCA and previous stents to the LAD and RCA. #4 Hypertension. #5 Hyperlipidemia. #6 Chronic kidney disease. #7 Diabetes mellitus. 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 #9 Hearing disorder. #10 Gastroesophageal reflux disease. #11 History of previous tobacco dependence. #12 blood loss anemia,an expected outcome of open-heart surgery surgery Plan: Today's chest x-ray has been reviewed with Dr. Murray, no trace pleural effusions with patchy bibasilar atelectasis that remain stable compared to previous exams, clinically patient is doing well, denies any shortness of breath, his pain is under good control, patient is receiving a unit of blood for hemoglobin is 6.6. Working on his incentive spirometer, encourage deep breathing and coughing, tolerating ambulation. He has been evaluated for inpatient rehab, and was apparently accepted, and patient is agreeable to that after discharge. I performed a history & physical examination of the patient and discussed their management with my nurse practitioner, Kianna Vasquez. I reviewed the nurse practitioner's note and agree with the documented findings and plan of care. Lung sounds are positive for bibasilar crackles. The findings and the impression was discussed with the patient. I attest to the documentation by the nurse practitioner. Time with Patient: Less than 30
[2018-12-05 21:04] LABS: Glucose,Whole Blood 153 mg/dL (75-99)
[2018-12-05] MEDS: SENNOSIDES-DOCUSATE SODIUM 1 EACH TAB PO SCH (21:06)
[2018-12-05] MEDS: GABAPENTIN 400 MG CAP PO SCH (21:06)
[2018-12-05] MEDS: INSULIN DETEMIR (LEVEMIR) 100 UNIT/ML SYR SQ SCH (21:13)
[2018-12-06] MEDS: HEPARIN SODIUM,PORCINE 5,000 UNIT/ML 1 ML VIAL SQ SCH ×2 (00:24→10:20)
[2018-12-06] MEDS: INSULIN ASPART (NovoLOG) 100 UNIT/ML VIAL SQ SCH ×5 (02:22→13:29)
[2018-12-06 02:32] LABS: Glucose,Whole Blood 128 mg/dL (75-99)
[2018-12-06 03:49] VITALS: TEMP 97.5
[2018-12-06 06:13] LABS: Glucose,Whole Blood 91 mg/dL (75-99)
[2018-12-06] MEDS: PANTOPRAZOLE 40 MG TABLET PO SCH (06:58)
[2018-12-06 07:13] LABS: Anisocytosis Slight; HCT 25.8 % (39.0-53.0); Hypochromasia Moderate; MCH 27.8 pg (25.0-35.0); MCHC 32.4 g/dL (31.0-37.0); MCV 85.6 fL (80.0-100.0); Mean Platelet Volume 6.5; Platelet Count 301 k/uL (150-450); Poikilocytosis Slight; RBC 3.01 m/uL (4.30-5.90); RDW 17.6 % (11.5-15.5); WBC 8.4 k/uL (3.8-10.6)
[2018-12-06 07:18] LABS: HGB 8.4 gm/dL (13.0-17.5)
--- NOTE | 2018-12-06 07:20 | XR ---
EXAMINATION TYPE: XR chest 2V DATE OF EXAM: 12/06/2018 COMPARISON: 12/05/2018 HISTORY: Status post cardiac surgery TECHNIQUE: Frontal and lateral views of the chest are obtained. FINDINGS: Linear left basilar subsegmental atelectasis is present. No pulmonary vascular congestion. Cardia mediastinal silhouette is enlarged with post CABG changes. Blunting of the costophrenic angle s relates a very trace pleural effusions. Osseous structures are grossly intact. IMPRESSION: Very trace pleural effusions and bibasilar atelectasis as seen on the prior.
[2018-12-06] MEDS: IPRATROPIUM-ALBUTEROL 3 ML NEB INHALATION SCH ×2 (07:22→12:40)
[2018-12-06 07:39] LABS: Potassium 4.3 mmol/L (3.5-5.1)
[2018-12-06] MEDS ORDERED: ASPIRIN 81 MG PO SCH (09:00)
[2018-12-06 10:08] VITALS: BP 130/64; PULSE 78; RESP 16
[2018-12-06] MEDS: hydrALAZINE HCL 25 MG TAB PO SCH (10:19)
[2018-12-06] MEDS: CLOPIDOGREL 75 MG TAB PO SCH (10:19)
[2018-12-06] MEDS: ATORVASTATIN 40 MG TAB PO SCH (10:19)
[2018-12-06] MEDS: guaiFENesin 600 MG TABLET.ER PO SCH (10:19)
[2018-12-06] MEDS: CYANOCOBALAMIN 500 MCG TAB PO SCH (10:19)
[2018-12-06] MEDS: METOPROLOL TARTRATE 25 MG TAB PO SCH (10:20)
[2018-12-06] MEDS: ACETAMINOPHEN TAB 500 MG TAB PO PRN (10:20)
[2018-12-06] MEDS: GABAPENTIN 300 MG CAP PO SCH (10:20)
[2018-12-06 11:40] LABS: Glucose,Whole Blood 98 mg/dL (75-99)
--- NOTE | 2018-12-06 11:44 | P.PN ---
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 POD #7 non-aortic clamp quadruple off-pump coronary artery bypass grafting using the left internal mammary artery to left anterior ascending coronary artery, a reverse greater saphenous vein graft connected to the aorta using the Passport device and connected distally to the ramus intermedius coronary artery, a reverse greater saphenous vein graft connected to the aorta using the Passport device and connected distally to the posterior descending coronary artery, a reverse greater saphenous vein graft connected to the aorta using the Passport device connected distally to the circumflex coronary artery. Endoscopic vein harvesting of bilateral greater saphenous veins, intraoperative transesophageal echocardiogram, epi-aortic scanning and graft flow measurements using the Somewhere system. Postoperative acute blood loss anemia, an expected outcome of surgery given hemodilution. The patient is currently sitting up to the bedside chair. He is in no acute distress. He is complaining of pain 4 out of 10 on the pain scale to his sternal incision. He denies any sternal clicking or shortness of breath. The patient reports that he has been ambulating in the 3 S. cardiac stepdown unit hallway with minimal assistance. Tolerating oral intake. He remains afebrile and hemodynamically stable. Currently he is on room air with oxygen saturations 98% and he is achieving 2500 mL on his incentive spirometry. Objective - Vital Signs Vital signs: Vital Signs Temp 97.5 F L 12/06/18 03:46 Pulse 65 12/06/18 03:46 Resp 18 12/06/18 03:46 BP 152/67 12/06/18 03:46 Pulse Ox 98 12/06/18 03:46 Intake & Output 12/05/18 12/06/18 12/06/18 18:59 06:59 18:59 Intake Total 630 30 180 Output Total 175 350 Balance 455 -320 180 Weight 110.3 kg Intake: IV 30 Invasive Line 1 30 Oral 320 180 Blood Product 310 Rc As-1 Unit 310 [id number] Output: Urine 175 350 Other: Voiding Method Toilet Toilet Urinal Urinal # Voids 1 1 ABP, PAP, CO, CI - Last Documented Arterial Blood Pressure 110/38 Pulmonary Artery Pressure 37/20 Cardiac Output 6.6 Cardiac Index 2.8 - Constitutional General appearance: Present: cooperative, no acute distress, obese - Respiratory Details: Lung sounds are essentially clear to his bilateral upper lobes, few scattered crackles to his bilateral bases. Respirations are symmetrical and nonlabored. Oxygen saturation are 98% on room air. He is achieving 2500 mL on his incentive spirometry. - Cardiovascular Details: Regular rhythm and rate. S1 and S2 present, negative for S3, gallop or murmur. Sternum is stable. Remote telemetry showing normal sinus rhythm heart rate 74. +1 edema to his bilateral lower extremities. Knee-high AAMIR hose and sequential compression devices in place to his bilateral lower extremities. Heart hugger is in place and he is demonstrating appropriate use. - Gastrointestinal Gastrointestinal Comment(s): Abdomen is soft, nontender and nondistended. Active bowel sounds present on all 4 abdominal quadrants. No guarding or rigidity. Tolerating oral intake. Passing flatus. - Genitourinary Genitourinary Comment(s): Voiding clear yellow urine. 350 mL output in the last 8 hours. - Integumentary Integumentary Comment(s): Skin is warm and dry. No clubbing or cyanosis is present. Midline sternal incision is clean, dry and approximated. No redness or drainage is present. Bilateral lower extremity EVH sites clean, dry and approximated. No drainage or redness is present. - Neurologic Neurologic: Present: CNII-XII intact - Musculoskeletal Musculoskeletal: Present: gait normal, generalized weakness, strength equal bilaterally - Psychiatric Psychiatric: Present: A&O x's 3, appropriate affect, intact judgment & insight - Allied health notes Allied health notes reviewed: nursing - Labs CBC & Chem 7: 12/06/18 06:40 12/06/18 06:40 Labs: Abnormal Lab Results - Last 24 Hours (Table) 12/05/18 12/05/18 12/05/18 Range/Units 10:39 11:24 16:30 RBC (4.30-5.90) m/uL Hgb (13.0-17.5) gm/dL Hct (39.0-53.0) % RDW (11.5-15.5) % BUN (9-20) mg/dL Creatinine (0.66-1.25) mg/dL POC Glucose (mg/dL) 162 H 115 H (75-99) mg/dL Crossmatch See Detail 12/05/18 12/06/18 12/06/18 Range/Units 20:59 02:17 06:40 RBC 3.01 L (4.30-5.90) m/uL Hgb 8.4 L D (13.0-17.5) gm/dL Hct 25.8 L (39.0-53.0) % RDW 17.6 H (11.5-15.5) % BUN (9-20) mg/dL Creatinine (0.66-1.25) mg/dL POC Glucose (mg/dL) 153 H 128 H (75-99) mg/dL Crossmatch 12/06/18 Range/Units 06:40 RBC (4.30-5.90) m/uL Hgb (13.0-17.5) gm/dL Hct (39.0-53.0) % RDW (11.5-15.5) % BUN 33 H (9-20) mg/dL Creatinine 1.35 H (0.66-1.25) mg/dL POC Glucose (mg/dL) (75-99) mg/dL Crossmatch - Imaging and Cardiology Chest x-ray: report reviewed, image reviewed Assessment and Plan Assessment: 1. Coronary artery disease, status post quadruple coronary artery bypass grafting surgery. 2. Previous history of coronary artery disease and with stent placement to his left anterior descending coronary artery in 2006 and to his right coronary artery in 2018. 3. History of myocardial infarction 4. Hypertension 5. Hyperlipidemia 6. Chronic kidney disease with baseline creatinine of 1.4. 7. Diabetes mellitus poorly controlled, with a preoperative hemoglobin A1c of 8.0. 8. 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 9. History of elevated left hemidiaphragm. 10. History of previous tobacco dependence with a preoperative FEV1 of 93% of predicted value. 11. History of ischemic bowel disease with previous bowel resection. 12. Gastroesophageal reflux disease. Plan: 1. Continue aspirin, statin, Plavix, and beta inder. Will increase metoprolol tartrate as tolerated. 2. Increase activity as tolerated. PT/OT and cardiac rehab following. 3. Encourage incentive spirometry use 10 times every hour while awake. 4. Bronchodilators per pulmonology. 5. Pain control with current medication regimen. 6. Will monitor daily labs and x-rays. Electrolyte replacement per protocol. 7. Insulin management per primary care service. 8. GI prophylaxis with Protonix, DVT prophylaxis with subcu heparin and SCDs. 9. Avoid nephrotoxic agents. Creatinine today is 1.35. 10. Discharge planning in place, anticipate discharge to [facility] inpatient rehab today. 11. More recommendations to follow based on patient's clinical course. Time with Patient: Greater than 30
--- NOTE | 2018-12-06 11:44 | P.DS ---
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 Triple-vessel coronary artery disease with left main disease and totally occluded right coronary artery 2. History of myocardial infarction, status post stenting to the LAD and RCA 3. Chronic kidney disease with baseline creatinine 1.4 4. Totally occluded right internal carotid artery, left internal carotid artery 50-79% stenosis 5. Hypertension 6. Hyperlipidemia 7. Uncontrolled insulin dependent diabetes mellitus with preoperative hemoglobin A1c 8% 8. Previous tobacco dependence with preoperative FEV1 93% of predicted 9. History of elevated left hemidiaphragm 10. History of ischemic bowel disease with previous bowel resection 11. GERD 12. Postoperative acute blood loss anemia, expected outcome PRINCIPAL PROCEDURE: 1. Non-aortic clamp quadruple off-pump coronary artery bypass grafting using the left internal mammary artery to the left anterior descending artery, a reverse greater saphenous vein graft connected to the aorta using the passport device and connected distally to the ramus intermedius artery, a reverse greater saphenous vein graft connected to the aorta using the passport device and connected distally to the posterior descending artery, a reverse greater saphenous vein graft connected to the aorta using the passport device connected distally to the distal circumflex artery 2. Endoscopic harvesting of bilateral greater saphenous veins with a total right side and the knee to the groin on the left side 3. Intraoperative transesophageal echocardiogram 4. Epi-aortic scanning 5. Intraoperative graft flow measurements using the [employer] system HISTORY OF PRESENT ILLNESS: This is a 73-year-old active gentleman who follows with Dr. Scott on an outpatient basis. He had known coronary artery disease with stenting to his mid LAD in 2005 followed by multiple stents to the right coronary artery, most recent in March 2018. His anginal type symptoms have resolved after the stent to his RCA in 2018 however his angina recurred in the last several weeks. The angina was associated with activity, relieved with rest, and associated with shortness of breath. A Heart catheterization was completed demonstrating a totally occluded right coronary artery with collateralization from the left system. In addition there was significant calcified distal left main disease with mid LAD stenosis before the stent. The patient was referred to Dr. Hopkins from cardiothoracic surgery. He was recommended to undergo elective coronary artery bypass grafting, and due to the nature of his carotid artery and renal status it was recommended that his surgery be performed off pump on a beating heart. The usual perioperative cour se was discussed in detail with the patient and his family, all risks and benefits were explained, all questions were answered, and consent was obtained to proceed with surgery. The patient was scheduled for surgery as an outpatient. HOSPITAL COURSE: The patient was brought to the hospital on 11/29/2018, taken to the preoperative area, prepared in the usual fashion, and subsequently taken to the operating room where Dr. Hopkins performed non-aortic clamp quadruple off- pump coronary artery bypass grafting using the left internal mammary artery to the left anterior descending artery, a reverse greater saphenous vein graft connected to the aorta using the passport device and connected distally to the ramus intermedius artery, a reverse greater saphenous vein graft connected to the aorta using the passport device and connected distally to the posterior descending artery, a reverse greater saphenous vein graft connected to the aorta using the passport device connected distally to the distal circumflex artery, endoscopic harvesting of bilateral greater saphenous veins with a total right side and the knee to the groin on the left side, intraoperative transesophageal echocardiogram, epi-aortic scanning, and intraoperative graft flow measurements using the Ac[employer] system. Upon completion of surgery the patient was transferred to the cardiovascular intensive care unit where he was recovered, monitored hemodynamically, and where he progressed to cardiac rehabilitation phase 1. He was extubated, all lines, tubes, and supportive drips were discontinued when appropriate, and he was transferred to [facility] cardiac stepdown unit for further monitoring and rehabilitation. His oxygen was titrated down, he continued to work with physical and occupational therapy, he was tolerating an oral diet, his pain was controlled, and he was ready to be discharged to [facility] inpatient rehab on postoperative day #7. He has received written and verbal instruction regarding his medications, activity restrictions, signs and symptoms requiring physician notification, and follow-up appointments. COMPLICATIONS: The patient experienced postoperative acute blood loss anemia requiring transfusion. Consultants: 1. Dr. Zhao for cardiology management. 2. Dr. Scott for pulmonary and ventilator management. 3. Dr. Molina for inpatient rehab management. 4. Dr. Benavides for medical management. DISCHARGE INSTRUCTIONS: 1. No driving for 4 weeks, or until physician gives their ok. 2. The patient should sleep in their own bed, no medical bed needed once discharged home from inpatient rehab. 3. Stairs are not an issue. If the bedroom is upstairs, it is advised that the patient go up at night and down in the morning for the first week. Go slowly, using handrail and take 1 step at a time. 4. AAMIR hose are to be worn for 30 days or until physician discontinues. 5. Heart hugger is to be worn 100% of the time until physician discontinues.(except when showering) 6. No lifting, pushing, or pulling more than 10 pounds for 12 weeks. The physician will advise of any restriction changes. 7. The patient is expected to continue the prescribed walking program. 8. Continue pain control per as needed orders. 9. Continue with incentive spirometry and splinting/heart hugger until otherwise directed by the physician. 10. Must shower daily using liquid antibacterial soap and a separate white washcloth for each individual incision. 11. Routine sternal incision care. No powders, lotions, ointments on incisions. 12. Please call surgeon/PLANT BUYER for temp greater than 101 F or purulent drainage from incisions. 13. If an ER visit is necessary within 30 days of surgery, please call . REHAB/HOME HEALTH SERVICES TO PROVIDE: RN SKILLED HOME CARE SERVICES FOR POST-OP SURGICAL PATIENTS WITH THE FOLLOWING: Coronary Artery Bypass Surgery (CABG), Mitral Valve Replacement/Repair ( MVR), Aortic Valve Replacement/Repair (AVR) RN TO CONTINUE EDUCATION FROM ``ROAD TO A HEALTH HEART PATIENT EDUCATION MANUAL (GIVEN TO PATIENT IN THE HOSPITAL) MEDICATION RECONCILIATION WITH EDUCATION NEEDED ON FIRST HOME VISIT EMPHASIZE IMPORTANCE OF WEARING BREAST SUPPORT/HEART HUGGER ENCOURAGE USE OF INCENTIVE SPIROMETER 10 X EVERY HOUR WHILE AWAKE ENCOURAGE UTILIZATION OF LOWER EXTREMITY COMPRESSION STOCKINGS/AAMIR HOSE and ELEVATE LEGS ABOVE LEVEL OF HEART WHILE AT REST. ENCOURAGE AMBULATION 3-5x/day INCREASING TOLERATES, WHILE AVOID EXTREMES IN TEMPERATURE FREQUENCY: RN TO OPEN THE PATIENT WITHIN 24 HOURS OF [place]CHARGE [place] [facility] [place] TO VISIT 2-3 X A WEEK FOR 4 WEEKS ESTABLISHED BY PATIENT NEEDS. LABORATORY: CBC, CMP TO BE DRAWN ON THE THIRD DAY AT REHAB, (RAN STAT) FAX RESULTS TO [phone]. TELEHEALTH PARAMETERS: WEIGHT: NOTIFY MD OF WEIGHT GAIN OF 2 LBS IN 24 HOURS OR 5 LBS IN ONE WEEK HR: NOTIFY MD OF HR <55 BPM OR HR>100 BPM BP: NOTIFY MD IF BP <90/55 OR BP>140/100 O2 SAT: NOTIFY MD IF PO2<93% ON ROOM AIR SEND TELEHEALTH REPORT TO MECHANICAL MAINTENANCE AND CARDIOVASCULAR SURGEON THE FIRST WEEK OF CARE AND THEN BI-WEEKLY. PLEASE ADDITIONALLY COMMUNICATE ANY ABNORMALS AND NEW FINDINGS TO THE SURGEONS OFFICE. Plan - Discharge Summary Discharge Rx Participant: No New Discharge Prescriptions: New hydrALAZINE HCL [Apresoline] 25 mg PO BID tab Aspirin 81 mg PO DAILY chew Ipratropium-Albuterol Nebulize [Duoneb 0.5 mg-3 mg/3 ml Soln] 3 ml INHALATION RT-QID ampul.neb Ipratropium-Albuterol Nebulize [Duoneb 0.5 mg-3 mg/3 ml Soln] 3 ml INHALATION RT-Q2H PRN ampul.neb PRN Reason: Shortness Of Breath Or Wheezing Heparin Sodium,Porcine [Heparin Sodium] 5,000 unit SQ Q8HR vial Furosemide [Lasix] 20 mg PO DAILY #7 tab Atorvastatin [Lipitor] 40 mg PO DAILY tab guaiFENesin [Mucinex] 1,200 mg PO Q12HR tablet.er INSULIN ASPART (NovoLOG) [NovoLOG (formulary)] 0 unit SQ [id number] vial Clopidogrel [Plavix] 75 mg PO DAILY tab Pantoprazole [Protonix] 40 mg PO AC-BRKFST tablet.dr Robledo-Docusate Sodium [Senokot-S] 2 each PO HS PRN tab PRN Reason: Constipation Acetaminophen Tab [Tylenol] 1,000 mg PO Q6HR PRN tab PRN Reason: Fever And/ Or Pain Continue Insulin Glargine [Lantus] 56 unit SQ HS Gabapentin 600 mg PO QAM Insulin Aspart [NovoLOG Flexpen] 16 units SQ TID-W/MEALS Metoprolol Tartrate [Lopressor] 25 mg PO BID Cyanocobalamin (Vitamin B-12) [Vitamin B-12] 2,000 mcg PO DAILY Gabapentin [Neurontin] 1,200 mg PO HS Discontinued Omeprazole [PriLOSEC] 20 mg PO W/SUPPER Nitroglycerin Sl Tabs [Nitrostat] 0.4 mg SUBLINGUAL Q5M PRN PRN Reason: Chest Pain amLODIPine [Norvasc] 10 mg PO DAILY Insulin Aspart [NovoLOG Flexpen] See Protocol SQ TID-W/MEALS PRN PRN Reason: Blood Sugar - High Simvastatin 80 mg PO HS Aspirin [Adult Low Dose Aspirin EC] 81 mg PO HS Clopidogrel [Plavix] 75 mg PO HS@2000 Isosorbide Mononitrate [Imdur] 120 mg PO DAILY Mupirocin 2% Oint [Bactroban 2% Oint] 1 applic NASAL BID Discharge Medication List Insulin Glargine [Lantus] 56 unit SQ HS 02/05/14 [History] Gabapentin 600 mg PO QAM 06/20/15 [History] Cyanocobalamin (Vitamin B-12) [Vitamin B-12] 2,000 mcg PO DAILY 11/02/18 [History] Insulin Aspart [NovoLOG Flexpen] 16 units SQ TID-W/MEALS 11/02/18 [History] Metoprolol Tartrate [Lopressor] 25 mg PO BID 11/02/18 [History] Gabapentin [Neurontin] 1,200 mg PO HS 11/24/18 [History] Acetaminophen Tab [Tylenol] 1,000 mg PO Q6HR PRN tab 12/05/18 [Rx] Aspirin 81 mg PO DAILY chew 12/05/18 [Rx] Atorvastatin [Lipitor] 40 mg PO DAILY tab 12/05/18 [Rx] Clopidogrel [Plavix] 75 mg PO DAILY tab 12/05/18 [Rx] Furosemide [Lasix] 20 mg PO DAILY #7 tab 12/05/18 [Rx] Heparin Sodium,Porcine [Heparin Sodium] 5,000 unit SQ Q8HR vial 12/05/18 [Rx] INSULIN ASPART (NovoLOG) [NovoLOG (formulary)] 0 unit SQ [id number] vial 12/05/18 [Rx] Ipratropium-Albuterol Nebulize [Duoneb 0.5 mg-3 mg/3 ml Soln] 3 ml INHALATION RT-Q2H PRN ampul.neb 12/05/18 [Rx] Ipratropium-Albuterol Nebulize [Duoneb 0.5 mg-3 mg/3 ml Soln] 3 ml INHALATION RT-QID ampul.neb 12/05/18 [Rx] Pantoprazole [Protonix] 40 mg PO AC-BRKFST tablet. 12/05/18 [Rx] Sennosides-Docusate Sodium [Senokot-S] 2 each PO HS PRN tab 12/05/18 [Rx] guaiFENesin [Mucinex] 1,200 mg PO Q12HR tablet.er 12/05/18 [Rx] hydrALAZINE HCL [Apresoline] 25 mg PO BID tab 12/05/18 [Rx] Follow up Appointment(s)/Referral(s): Jarred Scott MD [Primary Care Provider] - 1 Week (Please make follow up appointment upon discharge from [facility]) Kacie Zhao MD [STAFF PHYSICIAN] - 1 Week (Please make follow up appointment upon discharge from [facility]) Chanelle Hopkins MD [STAFF PHYSICIAN] - 01/06/19 10:15 am Ambulatory/Diagnostic Orders: Complete Blood Count w/diff [LAB.AMB] Time Frame: 12/09/18, Facility: [facility], Location: [facility] Comprehensive Metabolic Panel [LAB.AMB] Time Frame: 12/09/18, Facility: [facility], Location: [facility] Patient Instructions/Handouts: Heart Healthy Diet (DC), Coronary Artery Bypass Graft (DC) Activity/Diet/Wound Care/Special Instructions: CONSULTS AT [facility] IPR: Dr. Zhao for cardiology Dr. Scott for pulmonology DISCHARGE INSTRUCTIONS: 1. No driving for 4 weeks, or until physician gives their ok. 2. The patient should sleep in their own bed, no medical bed needed once discharged home from inpatient rehab. 3. Stairs are not an issue. If the bedroom is upstairs, it is advised that the patient go up at night and down in the morning for the first week. Go slowly, using handrail and take 1 step at a time. 4. AAMIR hose are to be worn for 30 days or until physician discontinues. 5. Heart hugger is to be worn 100% of the time until physician discontinues.(except when showering) 6. No lifting, pushing, or pulling more than 10 pounds for 12 weeks. The physician will advise of any restriction changes. 7. The patient is expected to continue the prescribed walking program. 8. Continue pain control per as needed orders. 9. Continue with incentive spirometry and splinting/heart hugger until otherwise directed by the physician. 10. Must shower daily using liquid antibacterial soap and a separate white washcloth for each individual incision. 11. Routine sternal incision care. No powders, lotions, ointments on incisions. 12. Please call surgeon/PLANT BUYER for temp greater than 101 F or purulent drainage from incisions. 13. If an ER visit is necessary within 30 days of surgery, please call . REHAB/HOME HEALTH SERVICES TO PROVIDE: RN SKILLED HOME CARE SERVICES FOR POST-OP SURGICAL PATIENTS WITH THE FOLLOWING: Coronary Artery Bypass Surgery (CABG), Mitral Valve Replacement/Repair ( MVR), Aortic Valve Replacement/Repair (AVR) RN TO CONTINUE EDUCATION FROM ``ROAD TO A HEALTH HEART PATIENT EDUCATION MANUAL (GIVEN TO PATIENT IN THE HOSPITAL) MEDICATION RECONCILIATION WITH EDUCATION NEEDED ON FIRST HOME VISIT EMPHASIZE IMPORTANCE OF WEARING BREAST SUPPORT/HEART HUGGER ENCOURAGE USE OF INCENTIVE SPIROMETER 10 X EVERY HOUR WHILE AWAKE ENCOURAGE UTILIZATION OF LOWER EXTREMITY COMPRESSION STOCKINGS/AAMIR HOSE and ELEVATE LEGS ABOVE LEVEL OF HEART WHILE AT REST. ENCOURAGE AMBULATION 3-5x/day INCREASING TOLERATES, WHILE AVOID EXTREMES IN TEMPERATURE FREQUENCY: RN TO OPEN THE PATIENT WITHIN 24 HOURS OF DISCHARGE FROM [place]HAB [place] [facility] [place] TO VISIT 2-3 X A WEEK FOR 4 WEEKS ESTABLISHED BY PATIENT NEEDS. LABORATORY: CBC, CMP TO BE DRAWN ON THE THIRD DAY AT REHAB, (RAN STAT) FAX RESULTS TO [phone]. TELEHEALTH PARAMETERS: WEIGHT: NOTIFY MD OF WEIGHT GAIN OF 2 LBS IN 24 HOURS OR 5 LBS IN ONE WEEK HR: NOTIFY MD OF HR <55 BPM OR HR>100 BPM BP: NOTIFY MD IF BP <90/55 OR BP>140/100 O2 SAT: NOTIFY MD IF PO2<93% ON ROOM AIR SEND TELEHEALTH REPORT TO MECHANICAL MAINTENANCE AND CARDIOVASCULAR SURGEON THE FIRST WEEK OF CARE AND THEN BI-WEEKLY. PLEASE ADDITIONALLY COMMUNICATE ANY ABNORMALS AND NEW FINDINGS TO THE SURGEONS OFFICE. Discharge Disposition: DC/TRNS INTERMEDIATE CARE FAC
--- NOTE | 2018-12-06 13:03 | PN ---
PROGRESS NOTE Mr. Varner is status post bypass surgery. He is looking and feeling better, ambulating the hallways without symptoms, maintaining sinus rhythm, doing well on incentive spirometry. Vitals are stable, S1-S2 heard normally, short systolic murmur noted. Lungs reveal improved air entry. Abdomen and lower extremity exam unchanged. Plan is to continue current medications, incentive spirometry and possibly transfer him to a inpatient rehab facility, [facility]. MMODL / IJN: [id number] /
--- NOTE | 2018-12-06 15:10 | P.PN ---
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 He was found to have continued significant coronary artery disease and was recommended coronary artery bypass grafting. He presented here to the hospital yesterday electively for a CABG 4 receiving a HERNANDEZ to the LAD and reverse saphenous vein grafts to the distal ramus intermedius, posterior descending artery, distal circumflex artery. This is postoperative day #1. He was successfully extubated yesterday. He is currently seen in the ICU sitting up in a chair at the [facility]. He did have a brief episode of dizziness and bradycardia while getting up to the chair with assistance. No loss of consciousness. He was given 250 of albumin. He is awake and alert in no acute distress. Eyes any chest discomfort, palpitations lightheadedness or dizziness. No worsening shortness of breath. His pain is well managed. He is maintaining good O2 saturations in the high 90s on 3 L/m per nasal cannula. He's been afebrile. White count 9.0. Hemoglobin 7.5. Platelets 166,000. Creatinine 1.38. He is currently receiving lactated Ringer's at 50 MLS per hour, insulin drip at 3.5 units per hour and a nitroglycerin drip is off currently PA pressure 33/11, CVP of 4. Cardiac output 5.3. Cardiac index 2.2. Chest x-ray shows stable platelike left basilar atelectasis. Right [place]ing[place]-Kanchan catheter in place. Bilateral thoracostomy tubes are present. Mediastinal tube in place. Chest x-ray shows stable platelike left basilar atelectasis. Right Abing[place]-Kanchan catheter in place. Bilateral thoracostomy tubes are present. Mediastinal tube in place. He is working well with the incentive spirometer. The patient is seen today 12/03/2017 in follow-up on the selective care unit. He is awake and alert in no acute distress. He is currently sitting up in a chair at the bedside. He continues to attempt to work well with the incentive spirometer and cough and deep breathing exercises. He is maintaining O2 saturations in the 90s on 2 L/m per nasal cannula. Chest x-ray shows continued platelike atelectasis of the left lung base. Some mild vascular congestion. He did receive Lasix 20 mg IV today 1. He's been afebrile. Hemodynamically stable. White count 9.2. Hemoglobin 6.9. Creatinine 1.32. On 12/04/2018 patient seen in follow-up on [facility] care unit, he is lethargic, and fatigued on today's exam, but arousable to verbal stimuli, his family is at the bedside, and they state patient has been more tired today, but no acute distress, currently he is on 2 L of oxygen and his pulse ox is 96%, has any worsening shortness of breath, his pain is reasonably controlled, he is afebrile, that his chest x-ray has been reviewed with Dr. Arnold, and shows some improvement in aeration at the posterior costophrenic angles, she did receive IV Lasix yesterday per CT surgery. His labs have been noted, white blood cell, 7.1, hemoglobin is 6.9, electrolytes are within normal limits, and there has been slight increase in his renal function, with BUN of 36 and creatinine of 1.42. Recent is working on his incentive spirometer, he is able to achieve 1750 ML on the today. Lung sounds are diminished, with some basilar crackles, no major wheezes or rhonchi. On 12/05/2017 patient seen in follow-up on the selective care unit, resting comfortably in bed, in no acute distress, he is awake and alert and oriented 3, he is being transfused with 1 unit of packed red blood cells, on today's labs have been reviewed, today's hemoglobin is 6.6, white blood cell count is within normal limits, electrolytes are within normal limits, B1 is 37 and creatinine is 1.52. All chest tubes have been discontinued, patient is hemodynamically stable, room air pulse ox is 96%, patient is work on his incentive spirometer, lung sounds reveal diminished breath sounds with some mild bibasilar crackles, no rhonchi, no wheezing, his pain is reasonably controlled, and did ambulate, to lerated fairly well, he was evaluated by Dr. Hernández for inpatient rehab On 12/06/2018 patient seen again in follow-up on selective care unit, he is awake and alert, he is fully dressed, sitting in his recliner, eating lunch, room air pulse ox 100%, patient is afebrile, hemodynamically patient is stable, patient received a unit of packed red blood cells yesterday for hemoglobin of 6.6, this morning's labs show hemoglobin of 8.4, with blood cell count of 8.4, electrolytes were within normal limits, and renal profile shows BUN of 33, and creatinine of 1.35, slight improvement from yesterday. Lung sounds are clear, diminished at the bases, patient has been working on his incentive spirometer, and patient has been achieving 2000 on the today. Patient is being discharged to [facility] inpatient rehab today Objective - Vital Signs Vital signs: Vital Signs Temp 97.5 F L 12/06/18 08:00 Pulse 78 12/06/18 08:00 Resp 16 12/06/18 08:00 BP 130/64 12/06/18 08:00 Pulse Ox 100 12/06/18 10:00 Intake & Output 12/05/18 12/06/18 12/06/18 18:59 06:59 18:59 Intake Total 630 30 200 Output Total 175 350 Balance 455 -320 200 Weight 110.3 kg Intake: IV 30 20 Invasive Line 1 30 20 Oral 320 180 Blood Product 310 Rc As-1 Unit 310 [id number] Output: Urine 175 350 Other: Voiding Method Toilet Toilet Toilet Urinal Urinal Urinal # Voids 1 1 ABP, PAP, CO, CI - Last Documented Arterial Blood Pressure 110/38 Pulmonary Artery Pressure 37/20 Cardiac Output 6.6 Cardiac Index 2.8 - Exam GENERAL EXAM: Alert, pleasant, 73-year-old white male, somewhat lethargic, and fatigue, but arousable to verbal stimuli, currently on room air, with a pulse ox of 96% comfortable in no apparent distress. HEAD: Normocephalic/atraumatic. EYES: Normal reaction of pupils, equal size. Conjunctiva pink, sclera white. NOSE: Clear with pink turbinates. THROAT: No erythema or exudates. NECK: No masses, no JVD, no thyroid enlargement, no adenopathy. CHEST: No chest wall deformity. Symmetrical expansion. Sternal incision is clean dry and intact, chest tube sites clean dry and intact LUNGS: Equal air entry with no crackles, no rhonchi, no wheezing CVS: Regular rate and rhythm, normal S1 and S2, no gallops, no murmurs, no rubs ABDOMEN: Soft, nontender. No hepatosplenomegaly, normal bowel sounds, no guarding or rigidity. EXTREMITIES: No clubbing, no edema, no cyanosis, 2+ pulses and upper and lower extremities. MUSCULOSKELETAL: Muscle strength and tone normal. SPINE: No scoliosis or deformity SKIN: No rashes CENTRAL NERVOUS SYSTEM: Alert and oriented -3. No focal deficits, tone is normal in all 4 extremities. PSYCHIATRIC: Alert and oriented -3. Appropriate affect. Intact judgment and insight. - Labs CBC & Chem 7: 12/06/18 06:40 12/06/18 06:40 Labs: Abnormal Lab Results - Last 24 Hours (Table) 12/05/18 12/05/18 12/05/18 Range/Units 10:39 16:30 20:59 RBC (4.30-5.90) m/uL Hgb (13.0-17.5) gm/dL Hct (39.0-53.0) % RDW (11.5-15.5) % BUN (9-20) mg/dL Creatinine (0.66-1.25) mg/dL POC Glucose (mg/dL) 115 H 153 H (75-99) mg/dL Crossmatch See Detail 12/06/18 12/06/18 12/06/18 Range/Units 02:17 06:40 06:40 RBC 3.01 L (4.30-5.90) m/uL Hgb 8.4 L D (13.0-17.5) gm/dL Hct 25.8 L (39.0-53.0) % RDW 17.6 H (11.5-15.5) % BUN 33 H (9-20) mg/dL Creatinine 1.35 H (0.66-1.25) mg/dL POC Glucose (mg/dL) 128 H (75-99) mg/dL Crossmatch Assessment and Plan Plan: Assessment: #1 Coronary artery disease status post coronary artery bypass grafting 4 utilizing a HERNANDEZ to the LAD, reverse saphenous vein grafts to the ramus intermedius, posterior descending artery, distal circumflex artery, post-op day 7 #2 Intubation and mechanical ventilation as an expected outcome of surgery, successfully extubated on postoperative day #0. Currently on 2 L of oxygen, tolerating extubation quite well, well on the incentive spirometer. #3 Previous history of coronary artery disease with a totally occluded RCA and previous stents to the LAD and RCA. #4 Hypertension. #5 Hyperlipidemia. #6 Chronic kidney disease. #7 Diabetes mellitus. 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 #9 Hearing disorder. #10 Gastroesophageal reflux disease. #11 History of previous tobacco dependence. #12 blood loss anemia,an expected outcome of open-heart surgery surgery Plan: Patient is doing quite well, hemodynamically stable, no complete shortness of breath, he appears to be or energetic on today's exam, today's hemoglobin 8.6, today's chest x-ray showed stable findings with trace pleural effusions and bibasilar atelectasis. he has been tolerating ambulation, he is on room air, pain is reasonably controlled. From pulmonary perspective patient is stable for discharge to inpatient rehab today. Will follow the patient at the rehab. I performed a history & physical examination of the patient and discussed their management with my nurse practitioner, Kianna Vasquez. I reviewed the nurse practitioner's note and agree with the documented findings and plan of care. Lung sounds are positive for bibasilar crackles. The findings and the impression was discussed with the patient. I attest to the documentation by the nurse practitioner. Time with Patient: Less than 30
== END 2018-12-06 14:17 | DRG 236 ==
LOC: 2ORMAIN 05:39 → 2SICU 14:46 → 3SCARD 12-02 19:13
PROVIDERS: ADMIT Surgery; ATTEND Surgery
PROC: 06BQ4ZZ Excision of Left Saphenous Vein, Percutaneous Endoscopic Approach (ICD-10-PCS; 2018-11-29)
PROC: 06BP4ZZ Excision of Right Saphenous Vein, Percutaneous Endoscopic Approach (ICD-10-PCS; 2018-11-29)
PROC: 02100Z9 Bypass Coronary Artery, One Artery from Left Internal Mammary, Open Approach (ICD-10-PCS; principal; 2018-11-29 08:00)
PROC: 021209W Bypass Coronary Artery, Three Arteries from Aorta with Autologous Venous Tissue, Open Approach (ICD-10-PCS; 2018-11-29 08:00)
PROC: 30243N1 Transfusion of Nonautologous Red Blood Cells into Central Vein, Percutaneous Approach (ICD-10-PCS; 2018-12-01)
DX: I25.119 Atherosclerotic heart disease of native coronary artery with unspecified angina pectoris (principal); J90 Pleural effusion, not elsewhere classified; D62 Acute posthemorrhagic anemia; J98.11 Atelectasis; I25.82 Chronic total occlusion of coronary artery; E11.22 Type 2 diabetes mellitus with diabetic chronic kidney disease; E11.65 Type 2 diabetes mellitus with hyperglycemia; J98.6 Disorders of diaphragm; I65.23 Occlusion and stenosis of bilateral carotid arteries; N18.3 Chronic kidney disease, stage 3 (moderate); I12.9 Hypertensive chronic kidney disease with stage 1 through stage 4 chronic kidney disease, or unspecified chronic kidney disease; E78.5 Hyperlipidemia, unspecified; M19.90 Unspecified osteoarthritis, unspecified site; K21.9 Gastro-esophageal reflux disease without esophagitis; I25.2 Old myocardial infarction; H91.90 Unspecified hearing loss, unspecified ear; E66.9 Obesity, unspecified; Z68.32 Body mass index [BMI] 32.0-32.9, adult; R55 Syncope and collapse; Z79.4 Long term (current) use of insulin; Z79.02 Long term (current) use of antithrombotics/antiplatelets; Z79.82 Long term (current) use of aspirin; Z79.899 Other long term (current) drug therapy; Z95.5 Presence of coronary angioplasty implant and graft; Z87.891 Personal history of nicotine dependence; Z90.49 Acquired absence of other specified parts of digestive tract; E78.00 Pure hypercholesterolemia, unspecified; Z85.828 Personal history of other malignant neoplasm of skin; Z98.42 Cataract extraction status, left eye; Z98.41 Cataract extraction status, right eye; Z82.5 Family history of asthma and other chronic lower respiratory diseases; Z82.3 Family history of stroke; Z82.49 Family history of ischemic heart disease and other diseases of the circulatory system
CPT/HCPCS: 71045; 71046; 80048; 80053; 82330; 82805; 83735; 85025; 85027; 85520; 85610; 85730; 86850; 86891; 86900; 86901; 86920; 94002; 94640; 94760

== ENCOUNTER 2019-04-15 12:36 | Emergency (ER) | payer MEDICARE, BC ==
[2019-04-15 12:42] VITALS: TEMP 97.9
[2019-04-15] MEDS ORDERED: SODIUM CHLORIDE 0.9% 1,000 ML IV STA (13:29)
--- NOTE | 2019-04-15 13:42 | ED ---
General Adult HPI - General Source: patient, RN notes reviewed Mode of arrival: ambulatory Limitations: no limitations <Daniel Yancey - Last Filed: 04/15/19 19:18> <Alysa Hunt - Last Filed: 04/16/19 01:00> - General Chief complaint: Weakness Stated complaint: Dehydration Time Seen by Provider: 04/15/19 13:07 - History of Present Illness Initial comments: 73-year-old male with a past medical history of hyperlipidemia, hypertension, diabetes myelitis, skin cancer, ulcers, CABGx4 6 months ago presents to the emergency department for a chief complaint of dehydration. Patient states he has not been drinking enough water and feels dehydrated. Patient states this happens about twice a year. States that he starts to get crampy generalized muscle spasms and feel a little weak. Denies dizziness. Denies nausea or vomiting. Denies any chest or abdominal pain. Denies shortness of breath. Does state that he had a quadruple bypass 6 months ago.Patient has no other complaints at this time including shortness of breath, chest pain, abdominal pain, nausea or vomiting, headache, or visual changes. (Daniel Yancey) - Related Data Home Medications Medication Instructions Recorded Confirmed Insulin Glargine [Lantus] 56 unit SQ HS 02/05/14 11/29/18 Gabapentin 600 mg PO QAM 06/20/15 11/29/18 Cyanocobalamin (Vitamin B-12) 2,000 mcg PO DAILY 11/02/18 11/29/18 [Vitamin B-12] Insulin Aspart [NovoLOG Flexpen] 16 units SQ TID-W/MEALS 11/02/18 11/29/18 Metoprolol Tartrate [Lopressor] 25 mg PO BID 11/02/18 11/29/18 Gabapentin [Neurontin] 1,200 mg PO HS 11/24/18 11/29/18 Previous Rx's Medication Instructions Recorded Acetaminophen Tab [Tylenol] 1,000 mg PO Q6HR PRN tab 12/05/18 Aspirin 81 mg PO DAILY chew 12/05/18 Atorvastatin [Lipitor] 40 mg PO DAILY tab 12/05/18 Clopidogrel [Plavix] 75 mg PO DAILY tab 12/05/18 Furosemide [Lasix] 20 mg PO DAILY #7 tab 12/05/18 Heparin Sodium,Porcine [Heparin 5,000 unit SQ Q8HR vial 12/05/18 Sodium] INSULIN ASPART (NovoLOG) [NovoLOG 0 unit SQ [id number] vial 12/05/18 (formulary)] Ipratropium-Albuterol Nebulize 3 ml INHALATION RT-Q2H PRN 12/05/18 [Duoneb 0.5 mg-3 mg/3 ml Soln] ampul.neb Ipratropium-Albuterol Nebulize 3 ml INHALATION RT-QID ampul.neb 12/05/18 [Duoneb 0.5 mg-3 mg/3 ml Soln] Pantoprazole [Protonix] 40 mg PO AC-[id number] tablet. 12/05/18 Sennosides-Docusate Sodium 2 each PO HS PRN tab 12/05/18 [Senokot-S] guaiFENesin [Mucinex] 1,200 mg PO Q12HR tablet.er 12/05/18 hydrALAZINE HCL [Apresoline] 25 mg PO BID tab 12/05/18 Allergies Allergy/AdvReac Type Severity Reaction Status Date / Time No Known Allergies Allergy Verified 04/15/19 12:40 Review of Systems ROS Other: All systems not noted in ROS Statement are negative. <Daniel Yancey P - Last Filed: 04/15/19 19:18> ROS Other: All systems not noted in ROS Statement are negative. <Alysa Hunt E - Last Filed: 04/16/19 01:00> ROS Statement: Those systems with pertinent positive or pertinent negative responses have been documented in the HPI. Past Medical History Past Medical History: Diabetes Mellitus, Hyperlipidemia, Hypertension Additional Past Medical History / Comment(s): SKIN CANCER, hx ulcers, growth on one kidney(not sure which one). Last Myocardial Infarction Date:: 2010 History of Any Multi-Drug Resistant Organisms: None Reported Past Surgical History: Appendectomy, Bowel Resection, Coronary Bypass/CABG, Heart Catheterization With Stent, Orthopedic Surgery, Tonsillectomy Additional Past Surgical History / Comment(s): bowel resection after perforated bowel during a colonsocpy, total of five cardiac stents- (4 in January 2018). VIKA KNEE ARTHROSCOPY. SKIN CANCER REMOVED. vika cataracts Past Anesthesia/Blood Transfusion Reactions: No Reported Reaction Date of Last Stent Placement:: 01/2018 Past Psychological History: No Psychological Hx Reported Smoking Status: Former smoker Past Alcohol Use History: None Reported Past Drug Use History: None Reported - Past Family History Father Family Medical History: Hypertension Additional Family Medical History / Comment(s): DAD IS TILL ALIVE AT AGE 98 HAS SOME MINOR HEART PROBLEMS Mother History Unknown: Yes Family Medical History: No Reported History <Daniel Yancey P - Last Filed: 04/15/19 19:18> General Exam Limitations: no limitations General appearance: alert, in no apparent distress Head exam: Present: atraumatic, normocephalic, normal inspection Eye exam: Present: normal appearance, PERRL, EOMI. Absent: scleral icterus, conjunctival injection, periorbital swelling ENT exam: Present: normal exam, mucous membranes dry (mucous membranes do appear dry) Neck exam: Present: normal inspection, full ROM. Absent: tenderness, meningismus, lymphadenopathy Respiratory exam: Present: normal lung sounds bilaterally. Absent: respiratory distress, wheezes, rales, rhonchi, stridor Cardiovascular Exam: Present: regular rate, normal rhythm, normal heart sounds. Absent: systolic murmur, diastolic murmur, rubs, gallop, clicks GI/Abdominal exam: Present: soft, normal bowel sounds. Absent: distended, tenderness, guarding, rebound, rigid Neurological exam: Present: alert, oriented X3, CN II-XII intact, normal gait Psychiatric exam: Present: normal affect, normal mood <Daniel Yancey P - Last Filed: 04/15/19 19:18> Course Vital Signs 04/15/19 04/15/19 04/15/19 12:38 14:04 15:00 Temperature 97.9 F Pulse Rate 69 63 60 Respiratory 18 16 16 Rate Blood Pressure 131/64 121/63 167/86 O2 Sat by Pulse 98 96 96 Oximetry 04/15/19 16:31 Temperature Pulse Rate Respiratory 18 Rate Blood Pressure O2 Sat by Pulse Oximetry EKG Findings - EKG Comments: EKG Findings:: Normal sinus rhythm, ventricular rate 64, Pr int 182, QTC 433 <Daniel Yancey P - Last Filed: 04/15/19 19:18> Medical Decision Making - Lab Data Result diagrams: 04/15/19 13:57 04/15/19 13:57 <Daniel Yancey P - Last Filed: 04/15/19 19:18> - Lab Data Result diagrams: 04/15/19 13:57 04/15/19 13:57 <Alysa Hunt - Last Filed: 04/16/19 01:00> - Medical Decision Making 73-year-old male with a past medical history of hyperlipidemia, hypertension, diabetes myelitis, skin cancer, ulcers, CABG x 4 6 months ago presents to the emergency department for a chief complaint of dehydration. Patient states he has not been drinking enough water and feels dehydrated. States he has also felt a little more weak than normal. Denies any chest pain or shortness of breath. EKG does show a normal sinus rhythm with a ventricular rate of 64. However there are new T-wave inversions noted in lead 3 compared to old EKG November. CBC is unremarkable. Hemoglobin is stable. CMP does show a creatinine of 1.7 which is mildly elevated but close to patient's baseline. Lactic acid is 1.7 initially. It was repeated and is now 1.4. Troponin is negative. urine negative shows 3+ glucose. Chest x-ray shows interstitial prominence. Denies any shortness of breath. Discussed case with Dr. Hunt who evaluated patient. At this time had a conversation with patient strongly recommended he stay in the hospital considering these new T-wave inversions and slight acidosis. He refuses, he states that he does not want to stay in the hospital and is aware of the risks including possible . Patient signed AMA form. 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 (Daniel Yancey) I, Dr. Alysa Hunt, Personally saw and examined the patient. I have reviewed and agree with the DINING ROOM HELPER/PA findings, including all diagnostic interpretations and treatment plans as written unless otherwise stated. I was present for the brownlee portions of any procedures and the inclusive time noted for any critical care treatment. I discussed with the patient my concern that his symptoms may not be due to dehydration, as his laboratory workup did not suggest that. I expressed I was concerned that there could be a cardiac etiology to his symptoms, as he does have a recent history of a CABG. Patient was refusing to be admitted to the hospital. I discussed with him the risks of going home, up to and including . I tried to convince him to the best of my ability. The patient decided to not pursue further workup at this time no signed out AGAINST MEDICAL ADVICE. (Alysa Hunt) - Lab Data Lab Results 04/15/19 04/15/19 04/15/19 Range/Units 13:57 13:57 13:57 WBC 6.1 (3.8-10.6) k/uL RBC 4.71 (4.30-5.90) m/uL Hgb 12.8 L (13.0-17.5) gm/dL Hct 40.3 (39.0-53.0) % MCV 85.5 (80.0-100.0) fL MCH 27.3 (25.0-35.0) pg MCHC 31.9 (31.0-37.0) g/dL RDW 18.0 H (11.5-15.5) % Plt Count 208 (150-450) k/uL Neutrophils % 57 % Lymphocytes % 31 % Monocytes % 5 % Eosinophils % 3 % Basophils % 1 % Neutrophils # 3.5 (1.3-7.7) k/uL Lymphocytes # 1.9 (1.0-4.8) k/uL Monocytes # 0.3 (0-1.0) k/uL Eosinophils # 0.2 (0-0.7) k/uL Basophils # 0.1 (0-0.2) k/uL Hypochromasia Slight Anisocytosis Slight Sodium 138 (137-145) mmol/L Potassium 5.1 (3.5-5.1) mmol/L Chloride 107 (98-107) mmol/L Carbon Dioxide 18 L (22-30) mmol/L Anion Gap 13 mmol/L BUN 34 H (9-20) mg/dL Creatinine 1.70 H (0.66-1.25) mg/dL Est GFR (CKD-EPI)AfAm 45 (>60 ml/min/1.73 sqM) Est GFR (CKD-EPI)NonAf 39 (>60 ml/min/1.73 sqM) Glucose 311 H (74-99) mg/dL Plasma Lactic Acid Je (0.7-2.0) mmol/L Calcium 9.3 (8.4-10.2) mg/dL Magnesium 1.8 (1.6-2.3) mg/dL Total Bilirubin 0.4 (0.2-1.3) mg/dL AST 25 (17-59) U/L ALT 14 L (21-72) U/L Alkaline Phosphatase 81 (38-126) U/L Troponin I <0.012 (0.000-0.034) ng/mL Total Protein 7.2 (6.3-8.2) g/dL Albumin 4.0 (3.5-5.0) g/dL Urine Color Urine Appearance (Clear) Urine pH (5.0-8.0) Ur Specific [place] (1.001-1.035) Urine Protein (Negative) Urine Glucose (UA) (Negative) Urine Ketones (Negative) Urine Blood (Negative) Urine Nitrite (Negative) Urine Bilirubin (Negative) Urine Urobilinogen (<2.0) mg/dL Ur Leukocyte Esterase (Negative) 04/15/19 04/15/19 04/15/19 Range/Units 13:57 15:05 16:30 WBC (3.8-10.6) k/uL RBC (4.30-5.90) m/uL Hgb (13.0-17.5) gm/dL Hct (39.0-53.0) % MCV (80.0-100.0) fL MCH (25.0-35.0) pg MCHC (31.0-37.0) g/dL RDW (11.5-15.5) % Plt Count (150-450) k/uL Neutrophils % % Lymphocytes % % Monocytes % % Eosinophils % % Basophils % % Neutrophils # (1.3-7.7) k/uL Lymphocytes # (1.0-4.8) k/uL Monocytes # (0-1.0) k/uL Eosinophils # (0-0.7) k/uL Basophils # (0-0.2) k/uL Hypochromasia Anisocytosis Sodium (137-145) mmol/L Potassium (3.5-5.1) mmol/L Chloride (98-107) mmol/L Carbon Dioxide (22-30) mmol/L Anion Gap mmol/L BUN (9-20) mg/dL Creatinine (0.66-1.25) mg/dL Est GFR (CKD-EPI)AfAm (>60 ml/min/1.73 sqM) Est GFR (CKD-EPI)NonAf (>60 ml/min/1.73 sqM) Glucose (74-99) mg/dL Plasma Lactic Acid Je 1.7 1.4 (0.7-2.0) mmol/L Calcium (8.4-10.2) mg/dL Magnesium (1.6-2.3) mg/dL Total Bilirubin (0.2-1.3) mg/dL AST (17-59) U/L ALT (21-72) U/L Alkaline Phosphatase (38-126) U/L Troponin I (0.000-0.034) ng/mL Total Protein (6.3-8.2) g/dL Albumin (3.5-5.0) g/dL Urine Color Light Yellow Urine Appearance Clear (Clear) Urine pH 5.0 (5.0-8.0) Ur Specific [place] 1.013 (1.001-1.035) Urine Protein Negative (Negative) Urine Glucose (UA) 3+ H (Negative) Urine Ketones Negative (Negative) Urine Blood Negative (Negative) Urine Nitrite Negative (Negative) Urine Bilirubin Negative (Negative) Urine Urobilinogen <2.0 (<2.0) mg/dL Ur Leukocyte Esterase Negative (Negative) Disposition Is patient prescribed a controlled substance at d/c from ED?: No Time of Disposition: 17:25 <Daniel Yancey P - Last Filed: 04/15/19 19:18> <Alysa Hunt E - Last Filed: 04/16/19 01:00> Clinical Impression: T wave inversion in EKG, Weakness, Hyperglycemia Disposition: Left Against Medical Advice Condition: Good Instructions (If sedation given, give patient instructions): Weakness (ED) Additional Instructions: Please follow up with her primary care provider in one to 2 days. Follow up with cardiology on Wednesday. If you start to have any worsening symptoms return immediately to the emergency department. Referrals: Jarred Scott MD [Primary Care Provider] - 1-2 days
[2019-04-15 14:05] LABS: Anisocytosis Slight; Basophils # (A) 0.1 k/uL (0-0.2); Basophils % (A) 1 %; Eosinophils # (A) 0.2 k/uL (0-0.7); Eosinophils % (A) 3 %; HCT 40.3 % (39.0-53.0); HGB 12.8 gm/dL (13.0-17.5); Hypochromasia Slight; Lymphocytes # (A) 1.9 k/uL (1.0-4.8); Lymphocytes % (A) 31 %; MCH 27.3 pg (25.0-35.0); MCHC 31.9 g/dL (31.0-37.0); MCV 85.5 fL (80.0-100.0); Mean Platelet Volume 6.7; Monocytes # (A) 0.3 k/uL (0-1.0); Monocytes % (A) 5 %; Neutrophils # (A) 3.5 k/uL (1.3-7.7); Neutrophils % (A) 57 %; Platelet Count 208 k/uL (150-450); RBC 4.71 m/uL (4.30-5.90); WBC 6.1 k/uL (3.8-10.6)
[2019-04-15 14:18] LABS: Calcium 9.3 mg/dL (8.4-10.2); Magnesium 1.8 mg/dL (1.6-2.3); Potassium 5.1 mmol/L (3.5-5.1); Total Bilirubin 0.4 mg/dL (0.2-1.3); Total Protein 7.2 g/dL (6.3-8.2)
--- NOTE | 2019-04-15 15:06 | XR ---
EXAMINATION TYPE: XR chest 2V DATE OF EXAM: 04/15/2019 COMPARISON: 12/06/2018. HISTORY: 73-year-old male with weakness TECHNIQUE: PA and lateral views FINDINGS: Heart mildly enlarged. Median sternotomy wires are present with post-CABG clips in the mediastinum. M ild diffuse interstitial prominence. Some strandy atelectasis in the lower lungs. No pleural effusion s. IMPRESSION: Interstitial prominence. Correlate to exclude mild pulmonary vascular congestion. No richard pulmonary edema.
[2019-04-15 15:14] VITALS: BP 167/86; PULSE 60
[2019-04-15 15:32] LABS: Appearance,Urine Clear (Clear); Bilirubin,Urine Negative (Negative); Blood,Urine Negative (Negative); Color,Urine Light Yellow; Glucose,Urine (UA) 3+ (Negative); Ketones,Urine Negative (Negative); Leukocyte Esterase,Urine Negative (Negative); Nitrite,Urine Negative (Negative); Protein,Urine Negative (Negative); Specific Gravity,Urine 1.013 (1.001-1.035); Urobilinogen,Urine <2.0 mg/dL (<2.0)
[2019-04-15 16:32] VITALS: RESP 18
== END 2019-04-15 17:30 | disposition left against medical advice (07) ==
LOC: EC 12:36
DX: E11.65 Type 2 diabetes mellitus with hyperglycemia (principal); R53.1 Weakness; R94.31 Abnormal electrocardiogram [ECG] [EKG]; E86.0 Dehydration; I25.2 Old myocardial infarction; I10 Essential (primary) hypertension; Z79.4 Long term (current) use of insulin; Z79.899 Other long term (current) drug therapy; Z87.891 Personal history of nicotine dependence; Z95.1 Presence of aortocoronary bypass graft; Z95.5 Presence of coronary angioplasty implant and graft; Z85.828 Personal history of other malignant neoplasm of skin
CPT/HCPCS: 36415; 71046; 80053; 81003; 83605; 83735; 84484; 85025; 93005; 96360; 99285

== ENCOUNTER → 2019-05-10 | Outpatient (CLI) | payer MEDICARE, BC ==
[2019-05-10 13:34] LABS: African American GFR (CKD) 48.1 (60.0-200.0); Albumin 4.4 g/dL (3.80-4.90); Albumin/Globulin Ratio 1.69 (1.60-3.17); Anion Gap 8.4 mmol/L (4.00-12.00); BUN/Creat Ratio 16.88 Ratio (12.00-20.00); Calcium 9.2 mg/dL (8.7-10.3); Carbon Dioxide 25.6 mmol/L (21.6-31.8); Chol/HDL Ratio 3.59; Globulin 2.6 g/dL (1.6-3.3); Non-African American GFR(CKD) 41.5 (60.0-200.0); Potassium 5.5 mmol/L (3.5-5.5); Total Bilirubin 0.4 mg/dL (0.2-1.2)
[2019-05-10 15:22] LABS: Hemoglobin A1C 7.8 % (4.0-6.0)
[2019-05-10 19:15] LABS: Urine Creatinine 51.6 mg/dL
== END | disposition home or self-care (01) ==
LOC: LABWHC1 06:35
PROVIDERS: ATTEND Internal Medicine Interventional Cardiology
DX: E11.65 Type 2 diabetes mellitus with hyperglycemia (principal); E78.2 Mixed hyperlipidemia
CPT/HCPCS: 36415; 80053; 80061; 82043; 82570; 83036; 84443

== ENCOUNTER → 2019-06-19 | Outpatient (CLI) | payer MEDICARE, BC ==
--- NOTE | 2019-06-20 06:15 | CT ---
EXAMINATION TYPE: CT abdomen wo con DATE OF EXAM: 06/19/2019 COMPARISON: 11/29/2017 HISTORY: 74-year-old male Follow up renal cyst TECHNIQUE: Contiguous axial scanning of the abdomen without IV contrast. Coronal and sagittal reconst ructions performed. CT DLP: 725 mGycm Automated exposure control for dose reduction was used. FINDINGS: Heart upper limits of normal in size without pericardial effusion. Median sternotomy wires are presen t. Emphysematous change in the visualized lower lungs without pleural effusion. Approximately 4 pulmonary nodules at the left base measuring up to 7 to 8 mm are unchanged from 2017 suggesting a benign etiology. Small hiatal hernia. Noncontrast appearance of the liver, gallbladder, adrenal glands, spleen, atrophic pancreas show no g ross abnormality. Large 6.0 cm cyst posterior upper pole right kidney versus 5.8 cm, previously. Smaller 2.4 cm cyst posterior right midpole versus 2.3 cm, previously. Smaller hypodense lesion posterior lower pole right kidney measures 1.4 cm and is too small for accur ate CT characterization and is also stable. On the left, a centrally located 2.5 cm hypodense lesion previously measured 2.3 cm, suggestive of a cyst. Moderate atherosclerotic calcifications abdominal aorta and iliac arteries. Some surgical material involving right lower quadrant small bowel loops suggesting prior bowel resect ion and reanastomosis. Moderate stool burden. No pericolonic inflammatory change. No dilated small bowel, free fluid, or free air. Scattered prominent mesenteric lymph nodes measuring up to 1.1 cm are unchanged suggesting a chronic postinflammatory etiology. Small epigastric ventral abdominal wall hernia containing omental fat measuring 3.2 cm wide, axial im age 34 unchanged. Small fat-containing midline supraumbilical hernia measuring 3.7 cm wide. Previously measured 3.5 cm wide. Some focal soft tissue stranding in the subcutaneous fat of the mid abdomen on either side suggesting subcutaneous injections. The lower abdomen and pelvis is not included on this exam. Bones: Moderate to advanced degenerative changes throughout the lumbar spine and DISH within the lowe r thoracic spine. IMPRESSION: BILATERAL RENAL CYSTS REDEMONSTRATED, LARGEST MEASURING 6.0 CM ON THE RIGHT AND 2.5 CM ON THE LEFT. T HESE ARE EITHER STABLE OR MINIMALLY INCREASED BY 1 TO 2 MM OVER THE COURSE OF 1.5 YEARS.
== END ==
LOC: RADCTMAIN 13:09
PROVIDERS: ATTEND Urology
DX: N28.1 Cyst of kidney, acquired (principal)
CPT/HCPCS: 74150

== ENCOUNTER → 2019-09-21 | Outpatient (CLI) | payer MEDICARE, BC ==
[2019-09-21 12:05] LABS: African American GFR (CKD) 47.8 (60.0-200.0); Albumin 4.4 g/dL (3.80-4.90); Albumin/Globulin Ratio 1.63 (1.60-3.17); Anion Gap 8.4 mmol/L (4.00-12.00); BUN/Creat Ratio 19.38 Ratio (12.00-20.00); Calcium 9.3 mg/dL (8.7-10.3); Carbon Dioxide 24.6 mmol/L (21.6-31.8); Chol/HDL Ratio 4.08; Globulin 2.7 g/dL (1.6-3.3); LDL Cholesterol,Calculated 55.6 mg/dL (0.0-131.0); Non-African American GFR(CKD) 41.2 (60.0-200.0); Potassium 5.1 mmol/L (3.5-5.5); Total Bilirubin 0.4 mg/dL (0.3-1.2); Total Protein 7.1 g/dL (6.2-8.2); VLDL Calculation 61.4 mg/dL (5.00-40.00)
[2019-09-21 12:21] LABS: Urine Creatinine 88.1 mg/dL
== END | disposition home or self-care (01) ==
LOC: LABWHC1 06:49
PROVIDERS: ATTEND Internal Medicine Endocrinology, Diabetes & Metabolism
DX: E11.65 Type 2 diabetes mellitus with hyperglycemia (principal)
CPT/HCPCS: 36415; 80053; 80061; 82043; 82570; 83036; 84443

== ENCOUNTER → 2019-09-25 | Outpatient (CLI) | payer MEDICARE, BC | LOC: LABWHC1 08:00 | PROVIDERS: ATTEND Internal Medicine | DX: E87.5 Hyperkalemia (principal) | CPT/HCPCS: 36415; 84132 ==

== ENCOUNTER → 2020-03-05 | Outpatient (CLI) | payer MEDICARE, BC ==
[2020-03-05 12:36] LABS: African American GFR (CKD) 47.8 (60.0-200.0); Albumin 4.4 g/dL (3.80-4.90); Albumin/Globulin Ratio 1.52 (1.60-3.17); Anion Gap 7.4 mmol/L (4.00-12.00); BUN/Creat Ratio 18.13 Ratio (12.00-20.00); Calcium 9.4 mg/dL (8.7-10.3); Carbon Dioxide 25.6 mmol/L (21.6-31.8); Chol/HDL Ratio 3.97; Globulin 2.9 g/dL (1.6-3.3); Non-African American GFR(CKD) 41.2 (60.0-200.0); Potassium 5.5 mmol/L (3.5-5.5); Total Bilirubin 0.6 mg/dL (0.3-1.2); Total Protein 7.3 g/dL (6.2-8.2)
== END | disposition home or self-care (01) ==
LOC: LABWHC1 07:02
PROVIDERS: ATTEND Nurse Practitioner Adult Health
DX: E78.2 Mixed hyperlipidemia (principal); N18.9 Chronic kidney disease, unspecified
CPT/HCPCS: 36415; 80053; 80061

== ENCOUNTER → 2020-06-12 | Outpatient (CLI) | payer MEDICARE, BC ==
[2020-06-12 11:39] LABS: African American GFR (CKD) 56.2 (60.0-200.0); Albumin 4.4 g/dL (3.80-4.90); Albumin/Globulin Ratio 1.63 (1.60-3.17); Anion Gap 11.7 mmol/L (4.00-12.00); BUN/Creat Ratio 22.86 Ratio (12.00-20.00); Calcium 9.1 mg/dL (8.7-10.3); Carbon Dioxide 24.3 mmol/L (21.6-31.8); Chol/HDL Ratio 3.84; Globulin 2.7 g/dL (1.6-3.3); Non-African American GFR(CKD) 48.5 (60.0-200.0); Total Bilirubin 0.4 mg/dL (0.3-1.2); Total Protein 7.1 g/dL (6.2-8.2)
[2020-06-12 12:37] LABS: Urine Creatinine 59.6 mg/dL
[2020-06-12 16:11] LABS: Hemoglobin A1C 8.1 % (4.0-6.0)
== END | disposition home or self-care (01) ==
LOC: LABWHC1 07:06
PROVIDERS: ATTEND Internal Medicine Endocrinology, Diabetes & Metabolism
DX: E11.65 Type 2 diabetes mellitus with hyperglycemia (principal)
CPT/HCPCS: 36415; 80053; 80061; 82043; 82570; 83036; 84443

== ENCOUNTER → 2020-07-05 | Outpatient (CLI) | payer MEDICARE, BC ==
--- NOTE | 2020-07-05 12:01 | CT ---
EXAMINATION TYPE: CT abdomen wo con DATE OF EXAM: 07/05/2020 COMPARISON: CT abdomen without 06/19/2019, 11/29/2017. Ultrasound kidneys 10/10/2017. HISTORY: Renal Cyst CT DLP: 833.8 mGycm Automated exposure control for dose reduction was used. TECHNIQUE: Helical acquisition of images was performed from the lung bases through the top of iliac crest to include entire abdomen. CONTRAST: Performed without Oral Contrast and without IV contrast. FINDINGS: LUNGS BASES: Emphysematous changes. No pleural effusion. Pulmonary nodules at the left lung base, lar gest measuring up to 7 mm are unchanged versus 11/29/2017 and most likely benign. Calcified coronary a rtery disease. No pericardial effusion. LIVER: Normal attenuation and size. BILIARY SYSTEM: No intrahepatic or extrahepatic biliary ductal dilatation. PANCREAS: No peripancreatic stranding or fluid collection. SPLEEN: Not enlarged. ADRENALS: Normal. KIDNEYS: No hydronephrosis or urolithiasis.. Redemonstrated renal cysts bilaterally are not significa ntly changed in noncontrast appearance versus 06/19/2019 comparison. All cysts measure simple fluid. T here is a 2.5 cm cyst of the left renal upper pole (3:34). 6.1 cm cyst of the right renal upper pole (3:33), previously 6.0 cm on 06/19/2019 comparison. 2.5 cm cyst of the right interpolar kidney (3:41). 1.6 cm cyst of the right renal lower pole (3:47). BOWEL: Visualized bowel loops demonstrate no obstruction or thickening. Incompletely visualized post surgical changes of the bowel within the lower abdomen. PERITONEUM: No pneumoperitoneum. No free fluid. Supraumbilical ventral fat-containing right midline hernia. LYMPH NODES: No lymphadenopathy. VASCULATURE: No abdominal aortic aneurysm. Moderate calcified atherosclerotic disease. MUSCULOSKELETAL: Degenerative changes of the spine. IMPRESSION: Noncontrast examination demonstrates bilateral renal cysts measuring simple fluid, not significantly changed from 06/19/2019 comparison. Largest cyst measures up to 6.1 cm on the right and 2.5 cm on the left.
== END | disposition home or self-care (01) ==
LOC: RADCTMAIN 07:34
PROVIDERS: ATTEND Urology
DX: N28.1 Cyst of kidney, acquired (principal)
CPT/HCPCS: 74150

== ENCOUNTER → 2021-03-10 | Outpatient (CLI) | payer MEDICARE, BC ==
[2021-03-10 12:38] LABS: African American GFR (CKD) 41.2 (60.0-200.0); Albumin 4.6 g/dL (3.80-4.90); Albumin/Globulin Ratio 1.48 (1.60-3.17); Anion Gap 9.6 mmol/L (4.00-12.00); BUN/Creat Ratio 21.11 Ratio (12.00-20.00); Calcium 9.6 mg/dL (8.7-10.3); Carbon Dioxide 25.4 mmol/L (21.6-31.8); Chol/HDL Ratio 4.06; Globulin 3.1 g/dL (1.6-3.3); LDL Cholesterol,Calculated 59.4 mg/dL (0.0-131.0); Non-African American GFR(CKD) 35.5 (60.0-200.0); Potassium 5.7 mmol/L (3.5-5.5); Total Bilirubin 0.5 mg/dL (0.3-1.2); Total Protein 7.7 g/dL (6.2-8.2); VLDL Calculation 41.6 mg/dL (5.00-40.00)
== END | disposition home or self-care (01) ==
LOC: LABWHC1 06:56
PROVIDERS: ATTEND Internal Medicine Interventional Cardiology
DX: E78.2 Mixed hyperlipidemia (principal)
CPT/HCPCS: 36415; 80053; 80061

== ENCOUNTER → 2021-03-26 | Outpatient (CLI) | payer MEDICARE, BC | END | disposition home or self-care (01) | LOC: LABWHC1 09:15 | PROVIDERS: ATTEND Internal Medicine | DX: E87.5 Hyperkalemia (principal) | CPT/HCPCS: 36415; 84132 ==

== ENCOUNTER 2021-07-11 06:15 | Day surgery (SDC) | payer MEDICARE, BC ==
[2021-07-10 13:14] VITALS: BMI 32.0
[2021-07-11 06:56] VITALS: TEMP 97.5
[2021-07-11] MEDS: LACTATED RINGERS 1,000 ML IV SCH ×2 (07:03→07:04)
[2021-07-11] MEDS ORDERED: PROPOFOL 10 MG/ML 20 ML VIAL IV ONE (07:04)
[2021-07-11] MEDS ORDERED: LIDOCAINE 1% INJ 10MG/ML (20 ML MDV) ONE (07:04)
[2021-07-11 07:06] LABS: Glucose,Whole Blood 93 mg/dL (75-99)
--- NOTE | 2021-07-11 07:24 | P.PCN ---
Date of Procedure: 07/11/21 Procedure(s) Performed: Brief history: Patient is a pleasant 76-year-old white male scheduled for an elective upper endoscopy as well as colonoscopy as a part of evaluation of GERD/Martinez's esophagus and screening for colon cancer., Patient has prior history of colon resection for perforation several years ago. Procedure performed: Esophagogastroduodenoscopy biopsy Colonoscopy Preoperative diagnosis: GERD/Martinez's esophagus Screening for colon cancer Anesthesia: [facility] [place] Procedure: After informed consent was obtained from the patient was brought into the endoscopy unit and IV sedation was administered by anesthesia under continuous monitoring. Initially upper endoscopy was done. The Olympus GF 160 video endoscope was inserted inserted into the mouth and esophagus intubated without any difficulty and was gradually advanced into the stomach and duodenum and carefully examined. The bulb and second part of the duodenum appeared normal. The scope was then withdrawn into the stomach adequately insufflated with air and upon careful examination the antrum and body, cardia and fundus appeared normal. The scope was then withdrawn into the esophagus. The GE junction was located at 37 cm to the incisors. It was also short segment of Martinez's esophagus extending from 36-37 cm from the incisors and biopsies were done from this area.. Rest of the esophagus appeared normal. Patient tolerated the procedure well. At this time the patient continued to remain sedation. Initial digital rectal examination was normal. Olympus CF 160 video colonoscope was then inserted into the rectum and gradually advanced to the cecum without any difficulty. Careful examination was performed as the scope was gradually being withdrawn. The prep was excellent. The cecum, ascending colon, , sigmoid colon and rectum appeared normal. Retroflexion was performed in the rectum and no lesions were noted. Patient tolerated the procedure well. Impression: 1. 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 Colonoscopy revealed scattered sigmoid diverticulosis with normal-appearing sigmoid anastomosis Recommendations: Findings of this examination were discussed with the patient as well as his family. He was advised to follow with the biopsy results. If the biopsy confirms the presence of Martinez's esophagus he can have a repeat upper endoscopy in 3 years.
[2021-07-11 07:28] VITALS: BP 102/62; PULSE 55; RESP 15
[2021-07-11 07:36] LABS: Glucose,Whole Blood 105 mg/dL (75-99)
== END 2021-07-11 08:13 | disposition home or self-care (01) ==
LOC: ORWHC2ENDO 06:15
PROVIDERS: ATTEND Internal Medicine Gastroenterology
DX: Z12.11 Encounter for screening for malignant neoplasm of colon (principal); K22.70 Barrett's esophagus without dysplasia; K21.9 Gastro-esophageal reflux disease without esophagitis; K57.30 Diverticulosis of large intestine without perforation or abscess without bleeding; I10 Essential (primary) hypertension; E78.5 Hyperlipidemia, unspecified; I25.2 Old myocardial infarction; M19.90 Unspecified osteoarthritis, unspecified site; E11.9 Type 2 diabetes mellitus without complications; Z90.49 Acquired absence of other specified parts of digestive tract; Z97.2 Presence of dental prosthetic device (complete) (partial); Z79.02 Long term (current) use of antithrombotics/antiplatelets; Z79.82 Long term (current) use of aspirin; Z79.4 Long term (current) use of insulin; Z79.899 Other long term (current) drug therapy
CPT/HCPCS: 88305; 43239; J2001; J2704; G0121; 45378

== ENCOUNTER → 2021-08-25 | Outpatient (CLI) | payer MEDICARE, BC ==
[2021-08-25 14:11] LABS: ALT 13 U/L (10-49); AST 20 U/L (14-35); African American GFR (CKD) 50.5 (60.0-200.0); Albumin 4.3 g/dL (3.8-4.9); Albumin/Globulin Ratio 1.36 (1.60-3.17); Alkaline Phosphatase 77 U/L (41-126); BUN/Creat Ratio 20.13 Ratio (12.00-20.00); Blood Urea Nitrogen 30.4 mg/dL (9.0-27.0); Calcium 9.2 mg/dL (8.7-10.3); Carbon Dioxide 21.9 mmol/L (20.0-27.5); Chloride 105 mmol/L (96-109); Chol/HDL Ratio 3.42 Ratio; Globulin 3.1 g/dL (1.6-3.3); Glucose 125 mg/dL (70-110); LDL Cholesterol,Calculated 63.2 mg/dL (0.0-131.0); Non-African American GFR(CKD) 43.6 (60.0-200.0); Sodium 139 mmol/L (135-145); Total Protein 7.4 g/dL (6.2-8.2)
[2021-08-25 23:01] LABS: Urine Creatinine 78.4 mg/dL (39.0-259.0)
== END | disposition home or self-care (01) ==
LOC: LABWHC1 07:07
PROVIDERS: ATTEND Internal Medicine Endocrinology, Diabetes & Metabolism
DX: E78.2 Mixed hyperlipidemia (principal); E11.65 Type 2 diabetes mellitus with hyperglycemia
CPT/HCPCS: 36415; 80053; 80061; 82043; 82570; 83036; 84443

== ENCOUNTER 2021-11-21 07:34 | Emergency (ER) | payer MEDICARE, BC ==
[2021-11-21 07:40] VITALS: RESP 18
[2021-11-21] MEDS ORDERED: SODIUM CHLORIDE 0.9% 1,000 ML IV ONE (07:48)
[2021-11-21] MEDS ORDERED: SODIUM CHLORIDE 0.9% 500 ML 500 ML IV ONE (07:48)
[2021-11-21 07:49] LABS: Glucose,Whole Blood 111 mg/dL (75-99)
--- NOTE | 2021-11-21 07:51 | ED ---
General Adult HPI - General Chief complaint: Nausea/Vomiting/Diarrhea Stated complaint: dehydration Time Seen by Provider: 11/21/21 07:35 Source: patient, RN notes reviewed, old records reviewed Mode of arrival: ambulatory Limitations: no limitations - History of Present Illness Initial comments: This is a 76-year-old male presents emergency Department complaining he said diarrhea. Patient states his last episode of diarrhea about 2:00 this morning. Patient states he feels extremely dehydrated which is common thing for him. Patient states this happened multiple times in the past. Patient denies any antibiotic use in the last month. Patient states he does not have any abdominal pain but abdominal cramping. Patient denies any nausea vomiting. Patient denies any chest pain difficulty breathing or shortness of breath. Patient states his past medical history significant for bypass surgery and has diabetes as well. Patient's had cholectomy and appendectomy in the past. Patient denies being lightheaded states he was just feels weak overall and usually when he gets some fluid he feels considerably better. - Related Data Home Medications Medication Instructions Recorded Confirmed Insulin Glargine [Lantus Vial] 66 unit SQ HS 02/05/14 07/11/21 Gabapentin 600 mg PO QAM 06/20/15 07/11/21 Cyanocobalamin (Vitamin B-12) 1,000 mcg PO DAILY 11/02/18 07/11/21 [Vitamin B-12] Insulin Aspart [NovoLOG Flexpen] 16 units SQ TID-W/MEALS 11/02/18 07/11/21 Gabapentin [Neurontin] 1,200 mg PO HS 11/24/18 07/11/21 Metoprolol Tartrate 25 mg PO BID 07/10/21 07/11/21 Omeprazole 20 mg PO DAILY 07/10/21 07/11/21 Simvastatin [Zocor] 40 mg PO HS 07/10/21 07/11/21 Previous Rx's Medication Instructions Recorded Aspirin 81 mg PO DAILY chew 12/05/18 Clopidogrel [Plavix] 75 mg PO DAILY tab 12/05/18 INSULIN ASPART (NovoLOG) [NovoLOG 0 unit SQ [id number] vial 12/05/18 (formulary)] hydrALAZINE HCL [Apresoline] 25 mg PO BID tab 12/05/18 Allergies Allergy/AdvReac Type Severity Reaction Status Date / Time No Known Allergies Allergy Verified 07/11/21 06:56 Review of Systems ROS Statement: Those systems with pertinent positive or pertinent negative responses have been documented in the HPI. ROS Other: All systems not noted in ROS Statement are negative. Past Medical History Past Medical History: Cancer, Diabetes Mellitus, GERD/Reflux, Hyperlipidemia, Hypertension, Myocardial Infarction ([place]), Osteoarthritis ([place]) Additional Past Medical History / Comment(s): Skin cancer , hx ulcers, growth on one kidney, states "weak kidneys", neuropathy. Last Myocardial Infarction Date:: UNKNOWN History of Any Multi-Drug Resistant Organisms: None Reported Past Surgical History: Appendectomy, Bowel Resection, Coronary Bypass/CABG, Heart Catheterization With Stent, Orthopedic Surgery, Tonsillectomy Additional Past Surgical History / Comment(s): bowel resection after perforated bowel during a colonsocpy, total of five cardiac stents- (4 in January 2018). VIKA KNEE ARTHROSCOPY. SKIN CANCER REMOVED. ivka cataracts, CABG (2018) Past Anesthesia/Blood Transfusion Reactions: No Reported Reaction Date of Last Stent Placement:: 01/2018 Past Psychological History: No Psychological Hx Reported Smoking Status: Former smoker Past Alcohol Use History: Rare Past Drug Use History: None Reported - Past Family History Father Additional Family Medical History / Comment(s): DAD IS TILL ALIVE AT AGE 98 HAS SOME MINOR HEART PROBLEMS Mother History Unknown: Yes Family Medical History: No Reported History General Exam - General Exam Comments Initial Comments: GENERAL: Patient is well-developed and well-nourished. Patient is nontoxic and well- hydrated and is in mild distress. ENT: Neck is soft and supple. No significant lymphadenopathy is noted. Oropharynx is clear. Dry mucous membranes. Neck has full range of motion without eliciting any pain. EYES: The sclera were anicteric and conjunctiva were pink and moist. Extraocular movements were intact and pupils were equal round and reactive to light. Eyelids were unremarkable. PULMONARY: Unlabored respirations. Good breath sounds bilaterally. No audible rales rhonchi or wheezing was noted. CARDIOVASCULAR: There is a regular rate and rhythm without any murmurs gallops or rubs. ABDOMEN: Soft and nontender with normal bowel sounds. SKIN: Skin is clear with no lesions or rashes and otherwise unremarkable. NEUROLOGIC: Patient is alert and oriented x3. Cranial nerves II through XII are grossly intact. Motor and sensory are also intact. Normal speech, volume and content. Symmetrical smile. MUSCULOSKELETAL: Normal extremities with adequate strength and full range of motion. LYMPHATICS: No significant lymphadenopathy is noted PSYCHIATRIC: Normal psychiatric evaluation. Limitations: no limitations Course Vital Signs 11/21/21 11/21/21 11/21/21 07:37 07:54 08:00 Temperature 98.2 F Pulse Rate 73 70 Respiratory 18 Rate Blood Pressure 110/54 98/60 98/60 O2 Sat by Pulse 97 96 97 Oximetry 11/21/21 11/21/21 11/21/21 08:30 09:00 10:00 Temperature Pulse Rate Respiratory Rate Blood Pressure 92/54 103/53 122/67 O2 Sat by Pulse 98 96 98 Oximetry Medical Decision Making - Medical Decision Making Patient received a liter half of fluids and after that I went back into the room and reevaluated him he was feeling considerably better and he wanted to be discharged home. - Lab Data Result diagrams: 11/21/21 07:54 11/21/21 07:54 Lab Results 11/21/21 11/21/21 11/21/21 Range/Units 07:47 07:54 07:54 WBC 8.9 (3.8-10.6) k/uL RBC 4.59 (4.30-5.90) m/uL Hgb 12.7 L (13.0-17.5) gm/dL Hct 40.7 (39.0-53.0) % MCV 88.8 (80.0-100.0) fL MCH 27.8 (25.0-35.0) pg MCHC 31.3 (31.0-37.0) g/dL RDW 15.6 H (11.5-15.5) % Plt Count 287 (150-450) k/uL MPV 7.6 Neutrophils % 69 % Lymphocytes % 22 % Monocytes % 4 % Eosinophils % 1 % Basophils % 1 % Neutrophils # 6.1 (1.3-7.7) k/uL Lymphocytes # 2.0 (1.0-4.8) k/uL Monocytes # 0.4 (0-1.0) k/uL Eosinophils # 0.1 (0-0.7) k/uL Basophils # 0.1 (0-0.2) k/uL Hypochromasia Slight Sodium 136 L (137-145) mmol/L Potassium 5.4 H (3.5-5.1) mmol/L Chloride 105 (98-107) mmol/L Carbon Dioxide 22 (22-30) mmol/L Anion Gap 9 mmol/L BUN 35 H (9-20) mg/dL Creatinine 1.97 H (0.66-1.25) mg/dL Est GFR (CKD-EPI)AfAm 37 (>60 ml/min/1.73 sqM) Est GFR (CKD-EPI)NonAf 32 (>60 ml/min/1.73 sqM) Glucose 140 H (74-99) mg/dL POC Glucose (mg/dL) 111 H (75-99) mg/dL POC 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 Patient should increase by mouth fluids. Is patient prescribed a controlled substance at d/c from ED?: No Referrals: Jarred Scott MD [Primary Care Provider] - 1-2 days Time of Disposition: 10:07
[2021-11-21 08:05] LABS: Basophils # (A) 0.1 k/uL (0-0.2); Basophils % (A) 1 %; Eosinophils # (A) 0.1 k/uL (0-0.7); Eosinophils % (A) 1 %; HCT 40.7 % (39.0-53.0); HGB 12.7 gm/dL (13.0-17.5); Hypochromasia Slight; Lymphocytes % (A) 22 %; MCH 27.8 pg (25.0-35.0); MCHC 31.3 g/dL (31.0-37.0); MCV 88.8 fL (80.0-100.0); Mean Platelet Volume 7.6; Monocytes # (A) 0.4 k/uL (0-1.0); Monocytes % (A) 4 %; Neutrophils # (A) 6.1 k/uL (1.3-7.7); Neutrophils % (A) 69 %; Platelet Count 287 k/uL (150-450); RBC 4.59 m/uL (4.30-5.90); RDW 15.6 % (11.5-15.5); WBC 8.9 k/uL (3.8-10.6)
[2021-11-21 08:25] LABS: Albumin 4.1 g/dL (3.5-5.0); Calcium 9.1 mg/dL (8.4-10.2); Magnesium 1.7 mg/dL (1.6-2.3); Potassium 5.4 mmol/L (3.5-5.1); Total Bilirubin 0.8 mg/dL (0.2-1.3); Total Protein 7.7 g/dL (6.3-8.2)
[2021-11-21] MEDS ORDERED: DIPHENOX-ATROP STARTER PACK 8 TAB BTL PO STA (10:09)
[2021-11-21 10:20] VITALS: BP 154/72; PULSE 60; TEMP 97.8
== END 2021-11-21 10:18 | disposition home or self-care (01) ==
LOC: EC 07:34
DX: R19.7 Diarrhea, unspecified (principal); E86.0 Dehydration; E11.9 Type 2 diabetes mellitus without complications; K21.9 Gastro-esophageal reflux disease without esophagitis; E78.5 Hyperlipidemia, unspecified; I10 Essential (primary) hypertension; I25.2 Old myocardial infarction; M19.90 Unspecified osteoarthritis, unspecified site; Z79.4 Long term (current) use of insulin; Z79.02 Long term (current) use of antithrombotics/antiplatelets; Z79.82 Long term (current) use of aspirin; Z85.820 Personal history of malignant melanoma of skin; Z90.49 Acquired absence of other specified parts of digestive tract; Z95.1 Presence of aortocoronary bypass graft; Z87.891 Personal history of nicotine dependence
CPT/HCPCS: 36415; 80053; 83735; 85025; 96360; 96361; 99284

== ENCOUNTER → 2021-12-16 | Outpatient (CLI) | payer MEDICARE, BC ==
[2021-12-16 10:28] LABS: African American GFR (CKD) 40.9 (60.0-200.0); Albumin 4.2 g/dL (3.8-4.9); Albumin/Globulin Ratio 1.27 (1.60-3.17); Anion Gap 10.6 mmol/L (10.00-18.00); BUN/Creat Ratio 20.39 Ratio (12.00-20.00); Blood Urea Nitrogen 36.7 mg/dL (9.0-27.0); Calcium 9.4 mg/dL (8.7-10.3); Carbon Dioxide 21.4 mmol/L (20.0-27.5); Globulin 3.3 g/dL (1.6-3.3); Non-African American GFR(CKD) 35.3 (60.0-200.0); Potassium 5.3 mmol/L (3.5-5.5); Total Bilirubin 0.3 mg/dL (0.30-1.20); Total Protein 7.5 g/dL (6.2-8.2)
== END | disposition home or self-care (01) ==
LOC: LABWHC1 07:12
PROVIDERS: ATTEND Internal Medicine Endocrinology, Diabetes & Metabolism
DX: E11.65 Type 2 diabetes mellitus with hyperglycemia (principal)
CPT/HCPCS: 36415; 80053; 83036

== ENCOUNTER → 2022-05-19 | Outpatient (CLI) | payer MEDICARE, BC ==
[2022-05-19 11:01] LABS: ALT 10 U/L (10-49); AST 23 U/L (14-35); African American GFR (CKD) 43.8 (60.0-200.0); Albumin 4.2 g/dL (3.8-4.9); Albumin/Globulin Ratio 1.08 (1.60-3.17); Alkaline Phosphatase 74 U/L (41-126); BUN/Creat Ratio 18.18 Ratio (12.00-20.00); Blood Urea Nitrogen 30.9 mg/dL (9.0-27.0); Calcium 9.7 mg/dL (8.7-10.3); Carbon Dioxide 20.2 mmol/L (20.0-27.5); Chloride 105 mmol/L (96-109); Chol/HDL Ratio 3.34 Ratio; Globulin 3.9 g/dL (1.6-3.3); Glucose 73 mg/dL (70-110); HCT 37.2 % (39.6-50.0); HGB 11.8 g/dL (13.0-17.0); LDL Cholesterol,Calculated 51.4 mg/dL (0.0-131.0); MCH 26.8 pg (27.0-32.0); MCHC 31.7 g/dL (32.0-37.0); MCV 84.5 fL (80.0-97.0); Mean Platelet Volume 9.5 fL (9.5-12.2); NRBC Per 100 WBC 0 /100 WBCS (0.0-0.0); Non-African American GFR(CKD) 37.8 (60.0-200.0); Platelet Count 232 X 10*3/uL (140-440); Potassium 4.6 mmol/L (3.5-5.5); RDW 15.6 % (11.5-14.5); Sodium 136 mmol/L (135-145); Total Protein 8.1 g/dL (6.2-8.2); WBC 7.24 X 10*3/uL (4.50-10.00)
== END | disposition home or self-care (01) ==
LOC: LABWHC1 06:54
PROVIDERS: ATTEND Internal Medicine Interventional Cardiology
DX: E78.2 Mixed hyperlipidemia (principal); N18.9 Chronic kidney disease, unspecified; R06.02 Shortness of breath
CPT/HCPCS: 36415; 80053; 80061; 83880; 85027

== ENCOUNTER 2022-07-02 06:27 | Emergency (ER) | payer MEDICARE, BC ==
[2022-07-02 06:32] VITALS: BP 141/59; PULSE 74; RESP 18; TEMP 97.8
[2022-07-02] MEDS ORDERED: SODIUM CHLORIDE 0.9% 1,000 ML IV ONE (10:41)
[2022-07-02 11:22] LABS: Appearance,Urine Clear (Clear); Basophils # (A) 0.1 k/uL (0-0.2); Basophils % (A) 1 %; Bilirubin,Urine Negative (Negative); Blood,Urine Negative (Negative); Color,Urine Light Yellow; Eosinophils # (A) 0.2 k/uL (0-0.7); Eosinophils % (A) 3 %; Glucose,Urine (UA) Negative (Negative); HCT 37.8 % (39.0-53.0); HGB 12.4 gm/dL (13.0-17.5); Hypochromasia Slight; Ketones,Urine Negative (Negative); Leukocyte Esterase,Urine Negative (Negative); Lymphocytes # (A) 2.1 k/uL (1.0-4.8); Lymphocytes % (A) 31 %; MCH 28.2 pg (25.0-35.0); MCHC 32.7 g/dL (31.0-37.0); MCV 86.3 fL (80.0-100.0); Mean Platelet Volume 7.5; Monocytes # (A) 0.4 k/uL (0-1.0); Monocytes % (A) 6 %; Neutrophils # (A) 3.6 k/uL (1.3-7.7); Neutrophils % (A) 54 %; Nitrite,Urine Negative (Negative); Platelet Count 196 k/uL (150-450); Protein,Urine Negative (Negative); RBC 4.37 m/uL (4.30-5.90); RDW 15.2 % (11.5-15.5); Specific Gravity,Urine 1.009 (1.001-1.035); Urobilinogen,Urine <2.0 mg/dL (<2.0); WBC 6.7 k/uL (3.8-10.6)
[2022-07-02 11:34] LABS: Albumin 4.5 g/dL (3.5-5.0); Magnesium 1.9 mg/dL (1.6-2.3); Potassium 4.6 mmol/L (3.5-5.1); Total Bilirubin 0.6 mg/dL (0.2-1.3); Total Protein 7.7 g/dL (6.3-8.2)
[2022-07-02] MEDS ORDERED: SODIUM CHLORIDE 0.9% 500 ML 500 ML IV ONE (12:05)
--- NOTE | 2022-07-02 13:06 | ED ---
Nausea/Vomiting/Diarrhea HPI - General Chief complaint: Nausea/Vomiting/Diarrhea Stated complaint: Dehydrated Time Seen by Provider: 07/02/22 10:34 Source: patient, RN notes reviewed Mode of arrival: ambulatory Limitations: no limitations - History of Present Illness Initial comments: 77-year-old male presents emergency Department with chief complaint of dehydration. Patient states she started diarrhea 3 days ago. He states he occasionally has had bouts of this in which she dehydrated he gets some fluids and states that symptoms improved. Patient denies any fevers or chills he states he has mild cramping but no severe localized abdominal pain. Denies any headache or dizziness no cough or cold-like symptoms no syncopal episodes. Patient offers no other associated symptoms. - Related Data Home Medications Medication Instructions Recorded Confirmed Insulin Glargine [Lantus Vial] 66 unit SQ HS 02/05/14 07/11/21 Gabapentin 600 mg PO QAM 06/20/15 07/11/21 Cyanocobalamin (Vitamin B-12) 1,000 mcg PO DAILY 11/02/18 07/11/21 [Vitamin B-12] Insulin Aspart [NovoLOG Flexpen] 16 units SQ TID-W/MEALS 11/02/18 07/11/21 Gabapentin [Neurontin] 1,200 mg PO HS 11/24/18 07/11/21 Metoprolol Tartrate 25 mg PO BID 07/10/21 07/11/21 Omeprazole 20 mg PO DAILY 07/10/21 07/11/21 Simvastatin [Zocor] 40 mg PO HS 07/10/21 07/11/21 Previous Rx's Medication Instructions Recorded Aspirin 81 mg PO DAILY chew 12/05/18 Clopidogrel [Plavix] 75 mg PO DAILY tab 12/05/18 INSULIN ASPART (NovoLOG) [NovoLOG 0 unit SQ [id number] vial 12/05/18 (formulary)] hydrALAZINE HCL [Apresoline] 25 mg PO BID tab 12/05/18 Allergies Allergy/AdvReac Type Severity Reaction Status Date / Time No Known Allergies Allergy Verified 07/02/22 06:32 Review of Systems ROS Statement: Those systems with pertinent positive or pertinent negative responses have been documented in the HPI. ROS Other: All systems not noted in ROS Statement are negative. Past Medical History Past Medical History: Cancer, Diabetes Mellitus, GERD/Reflux, Hyperlipidemia, Hypertension, Myocardial Infarction ([place]), Osteoarthritis (OA) Additional Past Medical History / Comment(s): Skin cancer , hx ulcers, growth on one kidney, states "weak kidneys", neuropathy. Last Myocardial Infarction Date:: UNKNOWN History of Any Multi-Drug Resistant Organisms: None Reported Past Surgical History: Appendectomy, Bowel Resection, Coronary Bypass/CABG, Heart Catheterization With Stent, Orthopedic Surgery, Tonsillectomy Additional Past Surgical History / Comment(s): bowel resection after perforated bowel during a colonsocpy, total of five cardiac stents- (4 in January 2018). VIKA KNEE ARTHROSCOPY. SKIN CANCER REMOVED. vika cataracts, CABG (2018) Past Anesthesia/Blood Transfusion Reactions: No Reported Reaction Date of Last Stent Placement:: 01/2018 Past Psychological History: No Psychological Hx Reported Smoking Status: Former smoker Past Alcohol Use History: Rare Past Drug Use History: None Reported - Past Family History Father Additional Family Medical History / Comment(s): DAD IS TILL ALIVE AT AGE 98 HAS SOME MINOR HEART PROBLEMS Mother History Unknown: Yes Family Medical History: No Reported History General Exam Limitations: no limitations General appearance: alert, in no apparent distress Head exam: Present: atraumatic, normocephalic, normal inspection Eye exam: Present: normal appearance, PERRL, EOMI. Absent: scleral icterus, conjunctival injection, periorbital swelling ENT exam: Present: normal exam, normal oropharynx, mucous membranes moist Neck exam: Present: normal inspection, full ROM. Absent: tenderness, meningismus, lymphadenopathy Respiratory exam: Present: normal lung sounds bilaterally. Absent: respiratory distress, wheezes, rales, rhonchi, stridor Cardiovascular Exam: Present: regular rate, normal rhythm, normal heart sounds. Absent: systolic murmur, diastolic murmur, rubs, gallop, clicks GI/Abdominal exam: Present: soft, normal bowel sounds. Absent: distended, tenderness, guarding, rebound, rigid Course Vital Signs 07/02/22 06:29 Temperature 97.8 F Pulse Rate 74 Respiratory 18 Rate Blood Pressure 141/59 O2 Sat by Pulse 94 L Oximetry Medical Decision Making - Medical Decision Making 77-year-old presented for diarrhea, dehydration patient feels greatly improved after IV fluids. Patient feels comfortable with discharge return parameters were discussed. - Lab Data Result diagrams: 07/02/22 10:51 07/02/22 10:51 Lab Results 07/02/22 07/02/22 07/02/22 Range/Units 10:51 10:51 10:51 WBC 6.7 (3.8-10.6) k/uL RBC 4.37 (4.30-5.90) m/uL Hgb 12.4 L (13.0-17.5) gm/dL Hct 37.8 L (39.0-53.0) % MCV 86.3 (80.0-100.0) fL MCH 28.2 (25.0-35.0) pg MCHC 32.7 (31.0-37.0) g/dL RDW 15.2 (11.5-15.5) % Plt Count 196 (150-450) k/uL MPV 7.5 Neutrophils % 54 % Lymphocytes % 31 % Monocytes % 6 % Eosinophils % 3 % Basophils % 1 % Neutrophils # 3.6 (1.3-7.7) k/uL Lymphocytes # 2.1 (1.0-4.8) k/uL Monocytes # 0.4 (0-1.0) k/uL Eosinophils # 0.2 (0-0.7) k/uL Basophils # 0.1 (0-0.2) k/uL Hypochromasia Slight Sodium 141 (137-145) mmol/L Potassium 4.6 (3.5-5.1) mmol/L Chloride 108 H (98-107) mmol/L Carbon Dioxide 20 L (22-30) mmol/L Anion Gap 13 mmol/L BUN 34 H (9-20) mg/dL Creatinine 1.57 H (0.66-1.25) mg/dL Est GFR (CKD-EPI)AfAm 48 (>60 ml/min/1.73 sqM) Est GFR (CKD-EPI)NonAf 41 (>60 ml/min/1.73 sqM) Glucose 105 H (74-99) mg/dL Calcium 9.0 (8.4-10.2) mg/dL Magnesium 1.9 (1.6-2.3) mg/dL Total Bilirubin 0.6 (0.2-1.3) mg/dL AST 26 (17-59) U/L ALT 16 (4-49) U/L Alkaline Phosphatase 78 (38-126) U/L Total Protein 7.7 (6.3-8.2) g/dL Albumin 4.5 (3.5-5.0) g/dL Urine Color Light Yellow Urine Appearance Clear (Clear) Urine pH 5.0 (5.0-8.0) Ur Specific Blain 1.009 (1.001-1.035) Urine Protein Negative (Negative) Urine Glucose (UA) Negative (Negative) Urine Ketones Negative (Negative) Urine Blood Negative (Negative) Urine Nitrite Negative (Negative) Urine Bilirubin Negative (Negative) Urine Urobilinogen <2.0 (<2.0) mg/dL Ur Leukocyte Esterase Negative (Negative) Disposition Clinical Impression: Dehydration, Diarrhea Disposition: HOME SELF-CARE Condition: Stable Instructions (If sedation given, give patient instructions): Acute Diarrhea (ED) Additional Instructions: Please return to the Emergency Department if symptoms worsen or any other concerns. Is patient prescribed a controlled substance at d/c from ED?: No Referrals: Jarred Scott MD [Primary Care Provider] - 1-2 days Time of Disposition: 13:07
== END 2022-07-02 13:33 | disposition home or self-care (01) ==
LOC: EC 06:27
DX: R19.7 Diarrhea, unspecified (principal); K21.9 Gastro-esophageal reflux disease without esophagitis; E11.9 Type 2 diabetes mellitus without complications; E78.5 Hyperlipidemia, unspecified; I10 Essential (primary) hypertension; I25.2 Old myocardial infarction; Z87.891 Personal history of nicotine dependence
CPT/HCPCS: 36415; 80053; 81003; 83735; 85025; 96360; 96361; 99283

== ENCOUNTER → 2022-12-03 | Outpatient (CLI) | payer MEDICARE, BC ==
[2022-12-03 11:16] LABS: ALT 12 U/L (10-49); AST 22 U/L (14-35); African American GFR (CKD) 46.8 (60.0-200.0); Albumin 3.9 g/dL (3.8-4.9); Albumin/Globulin Ratio 0.98 (1.60-3.17); Alkaline Phosphatase 72 U/L (41-126); BUN/Creat Ratio 19.19 Ratio (12.00-20.00); Blood Urea Nitrogen 30.7 mg/dL (9.0-27.0); Calcium 9.3 mg/dL (8.7-10.3); Carbon Dioxide 23.2 mmol/L (20.0-27.5); Chloride 103 mmol/L (96-109); Chol/HDL Ratio 3.34 Ratio; Glucose 173 mg/dL (70-110); LDL Cholesterol,Calculated 51.6 mg/dL (0.0-131.0); Non-African American GFR(CKD) 40.4 (60.0-200.0); Potassium 5.5 mmol/L (3.5-5.5); Sodium 137 mmol/L (135-145); Total Protein 7.9 g/dL (6.2-8.2)
== END | disposition home or self-care (01) ==
LOC: LABWHC1 06:56
PROVIDERS: ATTEND Internal Medicine Endocrinology, Diabetes & Metabolism
DX: E11.65 Type 2 diabetes mellitus with hyperglycemia (principal)
CPT/HCPCS: 36415; 80053; 80061; 82043; 82570; 83036; 84443

== ENCOUNTER → 2023-03-05 | Outpatient (CLI) | payer MEDICARE, BC ==
[2023-03-05 16:36] LABS: ALT 13 U/L (10-49); AST 20 U/L (14-35); Albumin 4.3 d/dL (3.8-4.9); Alkaline Phosphatase 75 U/L (41-126); BUN/Creat Ratio 19.29 Ratio (12.00-20.00); Blood Urea Nitrogen 32.8 mg/dL (9.0-27.0); Calcium 9.5 mg/dL (8.7-10.3); Carbon Dioxide 24.3 mmol/L (21.6-31.8); Chloride 104 mmol/L (96-109); Chol/HDL Ratio 3.13 Ratio; Globulin 3.3 d/dL (1.6-3.3); Glucose 63 mg/dL (70-110); LDL Cholesterol,Calculated 54.1 mg/dL (0.0-131.0); Potassium 5.5 mmol/L (3.5-5.5); Sodium 140 mmol/L (135-145); T4, Free (Free Thyroxine) 1.13 ng/dL (0.80-1.80); Total Bilirubin 0.5 mg/dL (0.3-1.2); Total Protein 7.6 d/dL (6.2-8.2)
== END | disposition home or self-care (01) ==
LOC: LABWHC1 06:48
PROVIDERS: ATTEND Internal Medicine
DX: I10 Essential (primary) hypertension (principal); E78.5 Hyperlipidemia, unspecified; E11.65 Type 2 diabetes mellitus with hyperglycemia; I25.10 Atherosclerotic heart disease of native coronary artery without angina pectoris; G62.9 Polyneuropathy, unspecified; L10.9 Pemphigus, unspecified
CPT/HCPCS: 36415; 80053; 80061; 82607; 83036; 84439; 84443

== ENCOUNTER 2024-02-07 07:42 | Observation (INO) | payer BC, MEDICARE ==
--- NOTE | 2024-02-07 08:01 | ED ---
General Adult HPI - General Chief complaint: Chest Pain Stated complaint: Chest Pain Time Seen by Provider: 02/07/24 07:52 Source: patient, RN notes reviewed, old records reviewed Mode of arrival: wheelchair Limitations: no limitations - History of Present Illness Initial comments: 78-year-old male history of CAD status post bypass and cardiac stenting presenting with exertional chest tightness. Symptoms began yesterday evening. He has had some dyspnea over the past several weeks as well with exertion. This is relieved by rest. No associated vomiting or diaphoresis. Symptoms are minimal at the time my evaluation. - Related Data Home Medications Medication Instructions Recorded Confirmed Insulin Glargine [Lantus Vial] 66 unit SQ HS 02/05/14 07/11/21 Gabapentin 600 mg PO QAM 06/20/15 07/11/21 Cyanocobalamin (Vitamin B-12) 1,000 mcg PO DAILY 11/02/18 07/11/21 [Vitamin B-12] Insulin Aspart [NovoLOG Flexpen] 16 units SQ TID-W/MEALS 11/02/18 07/11/21 Gabapentin [Neurontin] 1,200 mg PO HS 11/24/18 07/11/21 Metoprolol Tartrate 25 mg PO BID 07/10/21 07/11/21 Omeprazole 20 mg PO DAILY 07/10/21 07/11/21 Simvastatin [Zocor] 40 mg PO HS 07/10/21 07/11/21 Previous Rx's Medication Instructions Recorded Aspirin 81 mg PO DAILY chew 12/05/18 Clopidogrel [Plavix] 75 mg PO DAILY tab 12/05/18 INSULIN ASPART (NovoLOG) [NovoLOG 0 unit SQ [id number] vial 12/05/18 (formulary)] hydrALAZINE HCL [Apresoline] 25 mg PO BID tab 12/05/18 Ondansetron Odt [Zofran Odt] 4 mg PO Q8HR PRN #15 tab 06/14/23 Allergies Allergy/AdvReac Type Severity Reaction Status Date / Time No Known Allergies Allergy Verified 02/07/24 07:48 Review of Systems ROS Statement: Those systems with pertinent positive or pertinent negative responses have been documented in the HPI. ROS Other: All systems not noted in ROS Statement are negative. Past Medical History Past Medical History: Cancer, Diabetes Mellitus, GERD/Reflux, Hyperlipidemia, Hypertension, Myocardial Infarction ([place]), Osteoarthritis (OA) Additional Past Medical History / Comment(s): Skin cancer , hx ulcers, growth on one kidney, states "weak kidneys", neuropathy. Last Myocardial Infarction Date:: UNKNOWN History of Any Multi-Drug Resistant Organisms: None Reported Past Surgical History: Appendectomy, Bowel Resection, Coronary Bypass/CABG, Heart Catheterization With Stent, Orthopedic Surgery, Tonsillectomy Additional Past Surgical History / Comment(s): bowel resection after perforated bowel during a colonsocpy, total of five cardiac stents- (4 in January 2018). VIKA KNEE ARTHROSCOPY. SKIN CANCER REMOVED. vika cataracts, CABG (2018) Past Anesthesia/Blood Transfusion Reactions: No Reported Reaction Date of Last Stent Placement:: 01/2018 Past Psychological History: No Psychological Hx Reported Smoking Status: Former smoker Past Alcohol Use History: Rare Past Drug Use History: None Reported - Past Family History Father Additional Family Medical History / Comment(s): DAD IS TILL ALIVE AT AGE 98 HAS SOME MINOR HEART PROBLEMS Mother History Unknown: Yes Family Medical History: No Reported History General Exam Limitations: no limitations General appearance: alert, in no apparent distress Head exam: Present: atraumatic, normocephalic Eye exam: Present: normal appearance, PERRL ENT exam: Present: normal exam Neck exam: Present: normal inspection. Absent: tenderness, meningismus Respiratory exam: Present: normal lung sounds bilaterally. Absent: respiratory distress, wheezes Cardiovascular Exam: Present: regular rate, normal rhythm GI/Abdominal exam: Present: soft. Absent: distended, tenderness, guarding Extremities exam: Present: normal capillary refill. Absent: pedal edema Neurological exam: Present: alert, oriented X3 Psychiatric exam: Present: normal affect, normal mood Skin exam: Present: warm, dry, intact. Absent: cyanosis, diaphoretic Course Vital Signs 02/07/24 02/07/24 07:45 08:15 Temperature 97.8 F Pulse Rate 67 60 Respiratory 20 18 Rate Blood Pressure 221/92 172/75 O2 Sat by Pulse 98 97 Oximetry Medical Decision Making - Medical Decision Making Was pt. sent in by a medical professional or institution (, PA, SIDE SPLITTER, urgent care, hospital, or [facility]...) When possible be specific @ -No Did you speak to anyone other than the patient for history (EMS, parent, family, police, friend...)? What history was obtained from this source @ -No Did you review nursing and triage notes (agree or disagree)? Why? @ -I reviewed and agree with nursing and triage notes Were old charts reviewed (outside hosp., previous admission, EMS record, old EKG, old radiological studies, urgent care reports/EKG's, [facility] records)? Report findings @ -No old charts were reviewed Differential Chest Pain: Stable Angina, Unstable Angina, STEMI, NSTEMI Aortic Dissection, Pneumothorax, Musculoskeletal, Esophageal Spasm GERD, Cholecystitis, Pancreatitis, Zoster, this is not meant to be an all-inclusive list. EKG interpreted by me (3pts min.). @ -Sinus rhythm rate of 68, NC interval 164, QRS duration 108, on QTc [address] segment elevation X-rays interpreted by me (1pt min.). @Chest x-ray left lower lobe airspace opacity, no consolidated pneumonia, no pneumothorax CT interpreted by me (1pt min.). @ -None done U/S interpreted by me (1pt. min.). @ -None done What testing was considered but not performed or refused? (CT, X-rays, U/S, labs)? Why? @ -None What meds were considered but not given or refused? Why? @ -None Did you discuss the management of the patient with other professionals (professionals i.e. , PA, SIDE SPLITTER, lab, RT, psych nurse, drug abuse social worker, rat exterminator, teacher, mechanical engineering officer, lining caser)? Give summary @ -Sound physician group Was smoking cessation discussed for >3mins.? @ -No Was critical care preformed (if so, how long)? @ -No Were there social determinants of health that impacted care today? How? (Homelessness, low income, unemployed, alcoholism, drug addiction, transportation, low edu. Level, literacy, decrease access to med. care, usp, re hab)? @ -No Was there de-escalation of care discussed even if they declined (Discuss DNR or withdrawal of care, Hospice)? DNR status @ -No What co-morbidities impacted this encounter? (DM, HTN, Smoking, COPD, CAD, Cancer, CVA, ARF, Chemo, Hep., AIDS, mental health diagnosis, sleep apnea, morbid obesity)? @ -Coronary artery disease Was patient admitted / discharged? Hospital course, mention meds given and route, prescriptions, significant lab abnormalities, going to OR and other pertinent info. @78-year-old male presenting with exertional chest pain and dyspnea. History of CAD status post bypass and stenting. Pain resolved currently. EKG sinus without ST segment elevation. Laboratory testing showed chronic abnormalities including chronic kidney disease otherwise unremarkable including negative initial troponin. Patient will be observed for serial cardiac enzymes, telemetry, cardiology consultation. Case discussed with Dr. Pena. Undiagnosed new problem with uncertain prognosis? @ -No Drug Therapy requiring intensive monitoring for toxicity (Heparin, Nitro, Insulin, Cardizem)? @ -No Were any procedures done? @ -No Diagnosis/symptom? @Chest pain rule out Acute, or Chronic, or Acute on Chronic? @ -[Acute Uncomplicated (without systemic symptoms) or Complicated (systemic symptoms)? @ -Default Side effects of treatment? @ -No Exacerbation, Progression, or Severe Exacerbation? @ -No Poses a threat to life or bodily function? How? (Chest pain, [place], [place], pneumonia, PE, COPD, DKA, ARF, appy, cholecystitis, CVA, Diverticulitis, Homicidal, Suicidal, threat to staff... and all critical care pts) @ -Yes, ACS - Lab Data Result diagrams: 02/07/24 07:56 02/07/24 07:56 Lab Results 02/07/24 02/07/24 02/07/24 Range/Units 07:56 07:56 07:56 WBC 5.5 (3.8-10.6) k/uL RBC 3.98 L (4.30-5.90) m/uL Hgb 11.0 L (13.0-17.5) gm/dL Hct 34.5 L (39.0-53.0) % MCV 86.5 (80.0-100.0) fL MCH 27.6 (25.0-35.0) pg MCHC 31.9 (31.0-37.0) g/dL RDW 15.5 (11.5-15.5) % Plt Count 191 (150-450) k/uL MPV 7.4 Neutrophils % 62 % Lymphocytes % 25 % Monocytes % 6 % Eosinophils % 3 % Basophils % 1 % Neutrophils # 3.4 (1.3-7.7) k/uL Lymphocytes # 1.4 (1.0-4.8) k/uL Monocytes # 0.3 (0-1.0) k/uL Eosinophils # 0.2 (0-0.7) k/uL Basophils # 0.1 (0-0.2) k/uL PT 11.3 (10.0-12.5) sec INR 1.0 (<1.2) APTT 25.9 (22.0-30.0) sec Sodium 139 (137-145) mmol/L Potassium 4.9 (3.5-5.1) mmol/L Chloride 112 H (98-107) mmol/L Carbon Dioxide 19 L (22-30) mmol/L Anion Gap 8 mmol/L BUN 39 H (9-20) mg/dL Creatinine 1.75 H (0.66-1.25) mg/dL Est GFR (CKD-EPI)AfAm 42 (>60 ml/min/1.73 sqM) Est GFR (CKD-EPI)NonAf 36 (>60 ml/min/1.73 sqM) Glucose 182 H (74-99) mg/dL Calcium 8.8 (8.4-10.2) mg/dL Magnesium 1.6 (1.6-2.3) mg/dL Total Bilirubin 0.5 (0.2-1.3) mg/dL AST 26 (17-59) U/L ALT 16 (4-49) U/L Alkaline Phosphatase 73 (38-126) U/L Troponin I (0.000-0.034) ng/mL Total Protein 7.0 (6.3-8.2) g/dL Albumin 3.7 (3.5-5.0) g/dL 02/07/24 Range/Units 07:56 WBC (3.8-10.6) k/uL RBC (4.30-5.90) m/uL Hgb (13.0-17.5) gm/dL Hct (39.0-53.0) % MCV (80.0-100.0) fL MCH (25.0-35.0) pg MCHC (31.0-37.0) g/dL RDW (11.5-15.5) % Plt Count (150-450) k/uL MPV Neutrophils % % Lymphocytes % % Monocytes % % Eosinophils % % Basophils % % Neutrophils # (1.3-7.7) k/uL Lymphocytes # (1.0-4.8) k/uL Monocytes # (0-1.0) k/uL Eosinophils # (0-0.7) k/uL Basophils # (0-0.2) k/uL PT (10.0-12.5) sec INR (<1.2) APTT (22.0-30.0) sec Sodium (137-145) mmol/L Potassium (3.5-5.1) mmol/L Chloride (98-107) mmol/L Carbon Dioxide (22-30) mmol/L Anion Gap mmol/L BUN (9-20) mg/dL Creatinine (0.66-1.25) mg/dL Est GFR (CKD-EPI)AfAm (>60 ml/min/1.73 sqM) Est GFR (CKD-EPI)NonAf (>60 ml/min/1.73 sqM) Glucose (74-99) mg/dL Calcium (8.4-10.2) mg/dL Magnesium (1.6-2.3) mg/dL Total Bilirubin (0.2-1.3) mg/dL AST (17-59) U/L ALT (4-49) U/L Alkaline Phosphatase (38-126) U/L Troponin I <0.012 (0.000-0.034) ng/mL Total Protein (6.3-8.2) g/dL Albumin (3.5-5.0) g/dL Disposition Clinical Impression: Chest pain Disposition: ADMITTED IP TO THIS [facility] Condition: Stable Is patient prescribed a controlled substance at d/c from ED?: No Referrals: Jarred Cain MD [STAFF PHYSICIAN] - 1-2 days Time of Disposition: 09:47
[2024-02-07 08:37] LABS: Basophils # (A) 0.1 k/uL (0-0.2); Basophils % (A) 1 %; Eosinophils # (A) 0.2 k/uL (0-0.7); Eosinophils % (A) 3 %; HCT 34.5 % (39.0-53.0); Lymphocytes # (A) 1.4 k/uL (1.0-4.8); Lymphocytes % (A) 25 %; MCH 27.6 pg (25.0-35.0); MCHC 31.9 g/dL (31.0-37.0); MCV 86.5 fL (80.0-100.0); Mean Platelet Volume 7.4; Monocytes # (A) 0.3 k/uL (0-1.0); Monocytes % (A) 6 %; Neutrophils # (A) 3.4 k/uL (1.3-7.7); Neutrophils % (A) 62 %; Platelet Count 191 k/uL (150-450); RBC 3.98 m/uL (4.30-5.90); RDW 15.5 % (11.5-15.5); WBC 5.5 k/uL (3.8-10.6)
[2024-02-07 08:51] LABS: Partial Thromboplastin Time 25.9 sec (22.0-30.0); Prothrombin Time 11.3 sec (10.0-12.5)
[2024-02-07 09:06] LABS: ALT 16 U/L (4-49); AST 26 U/L (17-59); African American GFR (CKD) 42 (>60 ml/min/1.73 sqM); Albumin 3.7 g/dL (3.5-5.0); Alkaline Phosphatase 73 U/L (38-126); Anion Gap 8 mmol/L; Blood Urea Nitrogen 39 mg/dL (9-20); Calcium 8.8 mg/dL (8.4-10.2); Carbon Dioxide 19 mmol/L (22-30); Chloride 112 mmol/L (98-107); Glucose 182 mg/dL (74-99); Magnesium 1.6 mg/dL (1.6-2.3); Non-African American GFR(CKD) 36 (>60 ml/min/1.73 sqM); Potassium 4.9 mmol/L (3.5-5.1); Sodium 139 mmol/L (137-145); Total Bilirubin 0.5 mg/dL (0.2-1.3)
[2024-02-07] MEDS ORDERED: NALOXONE 0.4 MG/ML 1 ML VIAL IV PRN (09:25)
--- NOTE | 2024-02-07 09:38 | XR ---
EXAMINATION TYPE: XR chest 2V DATE OF EXAM: 02/07/2024 COMPARISON: 04/15/2019 INDICATION: Chest pain TECHNIQUE: Frontal and lateral views of the chest are obtained. FINDINGS: The heart size is normal. The pulmonary vasculature is normal. Mild infiltrate is at the left base. Correlate for atelectasis.. Sternotomy wires are in the midline . IMPRESSION: 1. May be some left basilar atelectasis. Developing pneumonia could be considered. Follow-up can be p erformed as clinically indicated.
[2024-02-07] MEDS: ASPIRIN 325 MG TAB PO STA (10:19)
[2024-02-07] MEDS: CLOPIDOGREL 75 MG TAB PO SCH (10:20)
[2024-02-07] MEDS: hydrALAZINE HCL 25 MG TAB PO SCH (10:20)
[2024-02-07] MEDS: METOPROLOL TARTRATE 25 MG TAB PO SCH (10:20)
--- NOTE | 2024-02-07 11:45 | P.HPIM ---
History of Present Illness H&P Date: 02/07/24 History of Presenting Illness: Patient is a pleasant 78-year-old male with a past medical history of CAD with previous stents and status post CABG x 4, hypertension, hyperlipidemia, GERD, insulin-dependent diabetes mellitus, and stage IIIb chronic kidney disease. He presented to the emergency department with a chief complaint of chest pain/tightness. Patient reports he has been experiencing exertional dyspnea progressively worsening over the past few weeks and yesterday evening developed some tightness to his midsternal chest. Patient reports he was at rest when the symptoms began and when tightness/pain resolved he felt a mild pressure that persistently remained to this midsternal area and reported to completely resolve shortly after arrival to the emergency department. Patient reports he follows with press hand supervisor Dr. Zhao and is scheduled to see him next week for a follow- up. Patient of the exertional dyspnea and this chest tightness/pain he was experiencing he denies having any recent fevers or exposure to known illnesses, dizziness, lightheadedness, diaphoresis, headache, palpitations, increased cough or congestion, (reports chronic dry cough is unchanged), abdominal pain, nausea, vomiting or experiencing any numbness/tingling/weakness/swelling in his extremities. On arrival to the emergency department, patient underwent evaluation. Vital signs upon arrival initially showing hypertensive urgency with blood pressure 221/92, heart rate 67, respiratory rate 20, temp 97.8 F, and SpO2 of 98% on room air. EKG showing normal sinus rhythm at 68 bpm with no significant T wave or ST abnormalities showing no signs of acute ischemia with positive Q waves in inferior leads II, III, and aVF. Chest x-ray negative for acute cardiopulmonary process showing some left basilar atelectasis. Labs completed and reviewed. CBC showing stable normocytic anemia with hemoglobin of 11.0 and at baseline. Coagulation profile normal findings. BMP showing non- anion gap metabolic acidosis with chloride of 112, bicarb of 19, and anion gap of 8 with renal function consistent with stage IIIb CKD with BUN of 39, crea tinine 1.75, GFR of 36 with baseline creatinine of 1.6. Blood glucose was 182. Magnesium slightly low at 1.6. Liver profile unremarkable. Troponin negative at less than 0.012. Patient admitted under our services with consultation to cardiology. Review of systems: Pertinent positives and negatives as discussed in HPI, a complete review of systems was performed and all other systems are negative. Physical exam: Vital signs reviewed and stable. General: Nontoxic, no distress and appears stated age. Derm: Skin warm and dry, normal coloration for ethnicity. Head: Atraumatic, normocephalic and symmetric. Eyes: EOMs intact, no lid lag, and anicteric sclera Mouth: no lip lesions, mucus membranes moist Cardiovascular: regular rate and rhythm with normal S1S2, systolic murmur, positive posterior tibial pulses bilaterally, and cap refill < 2 seconds. Lungs: Respirations even, regular, and unlabored on room air. Lungs CTA bilaterally, no rhonchi, no rales, no wheezing, and no accessory muscle usage. Abdominal: soft, nontender to palpation, no guarding, no appreciable organomegaly Ext: ROM intact. No gross muscle atrophy, no edema, no contractures Neuro: Speech clear, face symmetrical and CN II-XII grossly intact with no noted focal neuro deficits Psych: Alert and oriented to person, place, time, and situation. Appropriate and pleasant affect. Assessment and Plan of Care: Chest pain/tightness accompanied by exertional shortness of breath, rule out acute coronary event History of CAD status post CABG x 4 Hypertension, hypertensive urgency upon arrival Hyperlipidemia -Cardiology consulted, appreciate recommendations -Telemetry monitoring -Trend troponins -Cardiac diet, NPO at midnight -Continue cardiac medication regimen with aspirin 81 mg daily, atorvastatin 20 mg nightly, Plavix 75 mg daily, metoprolol 25 mg twice daily, and hydralazine 100 mg twice daily -Echocardiogram Insulin-dependent diabetes mellitus with hyperglycemia -Continue Lantus [address] patient on glycemic protocol with NovoLog sliding scale. -Follow-up on hemoglobin A1c. Stage IIIb chronic kidney disease -Stable and at baseline with BMP revealing renal function consistent with stage IIIb CKD with BUN of 39, creatinine 1.75, GFR of 36 with baseline creatinine of 1.6. GERD Continue GI prophylaxis with omeprazole 20 mg daily. Data and imaging reviewed: As stated above in HPI The patient is admitted with an anticipated less than 2 midnight stay for evaluation of chest pain CODE STATUS: Full code DVT prophylaxis: Heparin Anticipated discharge date: 24 to [address]: Home Patient was seen independently by Nurse Pracitioner. This document was prepared using [employer] dictation software. Please allow for errors in jewelry technician, while rare they do occur. Avtar Luque NP rendered care for this patient independently, reviewed the findings and plan as documented in the note above. I did not physically speak with or examine the patient on this date. Past Medical History Past Medical History: Cancer, Diabetes Mellitus, GERD/Reflux, Hyperlipidemia, Hypertension, Myocardial Infarction ([place]), Osteoarthritis (OA) Additional Past Medical History / Comment(s): Skin cancer , hx ulcers, growth on one kidney, states "weak kidneys", neuropathy. Last Myocardial Infarction Date:: UNKNOWN History of Any Multi-Drug Resistant Organisms: None Reported Past Surgical History: Appendectomy, Bowel Resection, Coronary Bypass/CABG, Heart Catheterization With Stent, Orthopedic Surgery, Tonsillectomy Additional Past Surgical History / Comment(s): bowel resection after perforated bowel during a colonsocpy, total of five cardiac stents- (4 in January 2018). VIKA KNEE ARTHROSCOPY. SKIN CANCER REMOVED. vika cataracts, CABG (2018) Past Anesthesia/Blood Transfusion Reactions: No Reported Reaction Date of Last Stent Placement:: 01/2018 Past Psychological History: No Psychological Hx Reported Smoking Status: Former smoker Past Alcohol Use History: Rare Past Drug Use History: None Reported - Past Family History Father Additional Family Medical History / Comment(s): DAD IS TILL ALIVE AT AGE 98 HAS SOME MINOR HEART PROBLEMS Mother History Unknown: Yes Family Medical History: No Reported History Medications and Allergies Home Medications Medication Instructions Recorded Confirmed Type Gabapentin 600 mg PO DAILY 06/20/15 02/07/24 History Insulin Aspart [NovoLOG Flexpen] 16 units SQ AC-TID 11/02/18 02/07/24 History Gabapentin [Neurontin] 1,200 mg PO HS 11/24/18 02/07/24 History Aspirin 81 mg PO DAILY chew 12/05/18 02/07/24 Rx Clopidogrel [Plavix] 75 mg PO DAILY tab 12/05/18 02/07/24 Rx Metoprolol Tartrate 25 mg PO BID 07/10/21 02/07/24 History Omeprazole 20 mg PO DAILY 07/10/21 02/07/24 History Simvastatin [Zocor] 40 mg PO HS 07/10/21 02/07/24 History Cyanocobalamin (Vitamin B-12) 1,000 mcg PO DAILY 02/07/24 02/07/24 History [Vitamin B-12] Insulin Aspart [NovoLOG Flexpen] See Protocol SQ AC-TID 02/07/24 02/07/24 History Insulin Glargine,Hum.rec.anlog 66 units SQ HS 02/07/24 02/07/24 History [Lantus Solostar Pen] Nitroglycerin Sl Tabs [Nitrostat] 0.4 mg SUBLINGUAL Q5M PRN 02/07/24 02/07/24 History Tamsulosin [Flomax] 0.4 mg PO DAILY 02/07/24 02/07/24 History hydrALAZINE HCL [Apresoline] 100 mg PO BID 02/07/24 02/07/24 History Allergies Allergy/AdvReac Type Severity Reaction Status Date / Time No Known Allergies Allergy Verified 02/07/24 07:48 Physical Exam Vitals: Vital Signs Temp Pulse Resp BP Pulse Ox 02/07/24 08:15 60 18 172/75 97 02/07/24 07:45 97.8 F 67 20 221/92 98 Intake and Output 02/06/24 02/07/24 02/07/24 22:59 06:59 14:59 Other: Weight 111.13 kg Results CBC & Chem 7: 02/07/24 07:56 02/07/24 07:56 Labs: Abnormal Lab Results - Last 24 Hours (Table) 02/07/24 02/07/24 Range/Units 07:56 07:56 RBC 3.98 L (4.30-5.90) m/uL Hgb 11.0 L (13.0-17.5) gm/dL Hct 34.5 L (39.0-53.0) % Chloride 112 H (98-107) mmol/L Carbon Dioxide 19 L (22-30) mmol/L BUN 39 H (9-20) mg/dL Creatinine 1.75 H (0.66-1.25) mg/dL Glucose 182 H (74-99) mg/dL
[2024-02-07] MEDS ORDERED: NITROGLYCERIN SL TABS 0.4 MG TAB SUBLINGUAL PRN (15:27)
[2024-02-07] MEDS: TAMSULOSIN 0.4 MG CAP.ER.24H PO SCH (15:30)
[2024-02-07] MEDS: MAGNESIUM OXIDE 400 MG TAB PO STA (15:36)
[2024-02-07] MEDS ORDERED: DEXTROSE 50% SYRINGE 50 ML IVP PRN ×2 (15:39)
[2024-02-07] MEDS: HEPARIN SODIUM,PORCINE 5,000 UNIT/ML 1 ML VIAL SQ SCH (17:00)
[2024-02-07 17:10] LABS: Glucose,Whole Blood 277 mg/dL (70-110)
[2024-02-07] MEDS: INSULIN ASPART (NovoLOG) 100 UNIT/ML VIAL SQ SCH (17:39)
[2024-02-07 20:56] LABS: Glucose,Whole Blood 261 mg/dL (70-110)
[2024-02-07] MEDS: ATORVASTATIN 20 MG TAB PO SCH (21:10)
[2024-02-07] MEDS: hydrALAZINE HCL 50 MG TAB PO SCH (21:10)
[2024-02-07] MEDS: INSULIN DETEMIR (LEVEMIR) 100 UNIT/ML SYR SQ SCH (21:11)
[2024-02-07] MEDS: GABAPENTIN 400 MG CAP PO SCH (21:11)
[2024-02-08 06:26] LABS: Glucose,Whole Blood 85 mg/dL (70-110)
--- NOTE | 2024-02-08 10:26 | P.CRDCN ---
History of Present Illness History of present illness: HISTORY OF PRESENT ILLNESS: This is a 78-year-old male with a past medical history significant for coronary artery disease with previous CABG, chronic kidney disease, hypertension, hyperl ipidemia, and diabetes. Patient follows in the office with Dr. Zhao. We have been asked to see the patient in consultation for chest pain. Patient examined at the bedside. Patient relieves he has been short of breath recently. He reports having an episode of chest pain a couple days ago. He denied any radiation of the pain. He states his chest felt "heavy" afterwards. He states the pain lasted for about 4-5 minutes. He denied any nausea or vomiting. He denies any dizziness or lightheadedness. He states his daughter was concerned and wanted him to come to the hospital for evaluation. He is feeling well this morning without complaints. DIAGNOSTICS: - EKG reveals sinus mechanism with no signs of acute ischemia. LVH.. - Chest xray some left basilar atelectasis. Developing pneumonia could be considered.. - Laboratory data: WBC 5.5. Hemoglobin 11.0. Platelet count 191. Sodium 139. Potassium 4.9. BUN 39. Creatinine 1.75. Troponin negative x 3 - Current home cardiac medications include aspirin 81 mg daily, Plavix 75 mg daily, metoprolol tartrate 25 mg twice a day, hydralazine 100 mg twice a day, simvastatin 40 mg at night. - Most recent echocardiogram obtained in May 2022 revealing ejection fraction 52%, mild TR, mild MR - Patient underwent four-vessel CABG in November 2018 with HERNANDEZ to LAD, VGRI, VGPDA, VGCX REVIEW OF SYSTEMS: At the time of my exam: CONSTITUTIONAL: Denies fever or chills. HEENT: Denies blurred vision, vision changes, or eye pain. Denies hemoptysis CARDIOVASCULAR: Denies chest pain. Denies orthopnea. Denies PND. Denies palpitations RESPIRATORY: Denies shortness of breath. GASTROINTESTINAL: Denies abdominal pain. Denies nausea or vomiting. HEMATOLOGIC: Denies bleeding disorders. GENITOURINARY: Denies any blood in urine. SKIN: Denies pruitis. Denies rash. PHYSICAL EXAM: VITAL SIGNS: Reviewed. GENERAL: Well-developed in no acute distress. HEENT: Head is normocephalic. Pupils are equal, round. Sclerae anicteric. Mucous membranes of the mouth are moist. Neck supple. No JVD or thyromegaly LUNGS: Respirations even and unlabored. Lungs essentially clear to auscultation bilaterally. HEART: Regular rate and rhythm. S1 and S2 heard. ABDOMEN: Soft. Nondistended. Nontender. EXTREMITIES: Normal range of motion. No clubbing or cyanosis. Peripheral pulses intact. No lower extremity edema NEUROLOGIC: Awake and alert. Oriented x 3. ASSESSMENT: Chest pain, troponin negative x 3 Coronary artery disease with previous four-vessel CABG with HERNANDEZ to LAD, VGRI, VGPDA, VGCX, 11/2018 Chronic kidney disease Hypertension Hyperlipidemia Diabetes Peripheral vascular disease Former nicotine dependence PLAN: An acute coronary event has been ruled out Resume home cardiac medications 2D echo ordered. Await results. Discussed medical management versus repeat stress testing. Patient would like to continue with medical management at this time. Patient to follow up in the office with Dr. Zhao post discharge Further recommendations pending patient course Nurse practitioner note has been reviewed by physician. Signing provider agrees with the documented findings, assessment, and plan of care documented by CARTON FORMING MACHINE HELPER as a scribe. Past Medical History Past Medical History: Cancer, Diabetes Mellitus, GERD/Reflux, Hyperlipidemia, Hypertension, Myocardial Infarction (AK), Osteoarthritis (OA) Additional Past Medical History / Comment(s): Skin cancer , hx ulcers, growth on one kidney, states "weak kidneys", neuropathy. Last Myocardial Infarction Date:: UNKNOWN History of Any Multi-Drug Resistant Organisms: None Reported Past Surgical History: Appendectomy, Bowel Resection, Coronary Bypass/CABG, Heart Catheterization With Stent, Orthopedic Surgery, Tonsillectomy Additional Past Surgical History / Comment(s): bowel resection after perforated bowel during a colonsocpy, total of five cardiac stents- (4 in January 2018). VIKA KNEE ARTHROSCOPY. SKIN CANCER REMOVED. vika cataracts, CABG (2018) Past Anesthesia/Blood Transfusion Reactions: No Reported Reaction Date of Last Stent Placement:: 01/2018 Past Psychological History: No Psychological Hx Reported Smoking Status: Former smoker Past Alcohol Use History: Rare Past Drug Use History: None Reported - Past Family History Father Additional Family Medical History / Comment(s): DAD IS TILL ALIVE AT AGE 98 HAS SOME MINOR HEART PROBLEMS Mother History Unknown: Yes Family Medical History: No Reported History Medications and Allergies Home Medications Medication Instructions Recorded Confirmed Type Gabapentin 600 mg PO DAILY 06/20/15 02/07/24 History Insulin Aspart [NovoLOG Flexpen] 16 units SQ AC-TID 11/02/18 02/07/24 History Gabapentin [Neurontin] 1,200 mg PO HS 11/24/18 02/07/24 History Aspirin 81 mg PO DAILY chew 12/05/18 02/07/24 Rx Clopidogrel [Plavix] 75 mg PO DAILY tab 12/05/18 02/07/24 Rx Metoprolol Tartrate 25 mg PO BID 07/10/21 02/07/24 History Omeprazole 20 mg PO DAILY 07/10/21 02/07/24 History Simvastatin [Zocor] 40 mg PO HS 07/10/21 02/07/24 History Cyanocobalamin (Vitamin B-12) 1,000 mcg PO DAILY 02/07/24 02/07/24 History [Vitamin B-12] Insulin Aspart [NovoLOG Flexpen] See Protocol SQ AC-TID 02/07/24 02/07/24 History Insulin Glargine,Hum.rec.anlog 66 units SQ HS 02/07/24 02/07/24 History [Lantus Solostar Pen] Nitroglycerin Sl Tabs [Nitrostat] 0.4 mg SUBLINGUAL Q5M PRN 02/07/24 02/07/24 History Tamsulosin [Flomax] 0.4 mg PO DAILY 02/07/24 02/07/24 History hydrALAZINE HCL [Apresoline] 100 mg PO BID 02/07/24 02/07/24 History Allergies Allergy/AdvReac Type Severity Reaction Status Date / Time No Known Allergies Allergy Verified 02/07/24 07:48 Physical Exam Vitals: Vital Signs Temp Pulse Pulse Resp BP BP Pulse Ox 02/08/24 03:09 97.6 F 55 L 16 144/60 97 02/07/24 19:00 97.6 F 58 L 20 198/86 96 02/07/24 16:16 64 18 02/07/24 15:30 97.9 F 64 16 180/88 95 02/07/24 15:14 97.6 F 67 16 180/88 98 02/07/24 15:00 18 02/07/24 14:00 58 L 14 160/76 94 L 02/07/24 12:00 52 L 14 169/74 97 02/07/24 11:19 97.6 F 53 L 14 183/90 95 Intake and Output 02/07/24 02/08/24 02/08/24 22:59 06:59 14:59 Intake Total 118 Balance 118 Intake: Oral 118 Other: Voiding Method Toilet # Voids 1 3 Weight 111.13 kg Results 02/07/24 07:56 02/07/24 07:56 Cardiac Enzymes 02/07/24 02/07/24 02/07/24 Range/Units 07:56 07:56 12:48 AST 26 (17-59) U/L Troponin I <0.012 <0.012 (0.000-0.034) ng/mL 02/07/24 Range/Units 15:37 AST (17-59) U/L Troponin I <0.012 (0.000-0.034) ng/mL Coagulation 02/07/24 Range/Units 07:56 PT 11.3 (10.0-12.5) sec APTT 25.9 (22.0-30.0) sec CBC 02/07/24 Range/Units 07:56 WBC 5.5 (3.8-10.6) k/uL RBC 3.98 L (4.30-5.90) m/uL Hgb 11.0 L (13.0-17.5) gm/dL Hct 34.5 L (39.0-53.0) % Plt Count 191 (150-450) k/uL Comprehensive Metabolic Panel 02/07/24 Range/Units 07:56 Sodium 139 (137-145) mmol/L Potassium 4.9 (3.5-5.1) mmol/L Chloride 112 H (98-107) mmol/L Carbon Dioxide 19 L (22-30) mmol/L BUN 39 H (9-20) mg/dL Creatinine 1.75 H (0.66-1.25) mg/dL Glucose 182 H (74-99) mg/dL Calcium 8.8 (8.4-10.2) mg/dL AST 26 (17-59) U/L ALT 16 (4-49) U/L Alkaline Phosphatase 73 (38-126) U/L Total Protein 7.0 (6.3-8.2) g/dL Albumin 3.7 (3.5-5.0) g/dL Current Medications Generic Name Dose Route Start Last Admin Trade Name Freq PRN Reason Stop Dose Admin Aspirin 81 mg 02/08/24 09:00 Aspirin 81 Mg PO DAILY [facility] Atorvastatin Calcium 20 mg 02/07/24 21:00 02/07/24 21:10 Atorvastatin 20 Mg Tab PO 20 mg HS [facility] Administration Clopidogrel Bisulfate 75 mg 02/07/24 09:30 02/07/24 10:20 Clopidogrel 75 Mg Tab PO Not Given DAILY [facility] Dextrose/Water 25 ml 02/07/24 15:39 Dextrose 50% Syringe 50 Ml IVP PER PROTOCOL PRN Hypoglycemia Protocol Dextrose/Water 50 ml 02/07/24 15:39 Dextrose 50% Syringe 50 Ml IVP PER PROTOCOL PRN Hypoglycemia Protocol Gabapentin 600 mg 02/08/24 09:00 Gabapentin 300 Mg Cap PO DAILY [facility] Gabapentin 1,200 mg 02/07/24 21:00 02/07/24 21:11 Gabapentin 400 Mg Cap PO 1,200 mg HS [facility] Administration Heparin Sodium (Porcine) 5,000 unit 02/07/24 16:00 02/08/24 02:43 Heparin Sodium,Porcine 5,000 Unit/Ml 1 Ml Vial SQ Not Given Q8HR [facility] Hydralazine HCl 100 mg 02/07/24 21:00 02/07/24 21:10 Hydralazine Hcl 50 Mg Tab PO 100 mg BID [facility] Administration Insulin Aspart 0 unit 02/07/24 17:30 02/08/24 06:29 Insulin Aspart (Novolog) 100 Unit/Ml Vial SQ Not Given ACHS [facility] Protocol Insulin Detemir 66 unit 02/07/24 21:00 02/07/24 21:11 Insulin Detemir (Levemir) 100 Unit/Ml Syr SQ 66 unit HS [facility] Administration Metoprolol Tartrate 25 mg 02/07/24 09:30 02/07/24 21:11 Metoprolol Tartrate 25 Mg Tab PO 25 mg BID [facility] Administration Naloxone HCl 0.2 mg 02/07/24 09:25 Naloxone 0.4 Mg/Ml 1 Ml Vial IV Q2M PRN Opioid Reversal Nitroglycerin 0.4 mg 02/07/24 15:27 Nitroglycerin Sl Tabs 0.4 Mg Tab SUBLINGUAL Q5M PRN Chest Pain Pantoprazole Sodium 40 mg 02/08/24 09:00 Pantoprazole 40 Mg Tablet PO DAILY [facility] Tamsulosin HCl 0.4 mg 02/07/24 15:30 02/07/24 15:30 Tamsulosin 0.4 Mg Cap.Er.24h PO Not Given DAILY [facility] Intake and Output 02/07/24 02/08/24 02/08/24 22:59 06:59 14:59 Intake Total 118 Balance 118 Intake: Oral 118 Other: Voiding Method Toilet # Voids 1 3 Weight 111.13 kg 02/07/24 07:56 02/07/24 07:56
[2024-02-08] MEDS: ASPIRIN 81 MG PO SCH (10:32)
[2024-02-08] MEDS: GABAPENTIN 300 MG CAP PO SCH (10:32)
[2024-02-08] MEDS: PANTOPRAZOLE 40 MG TABLET PO SCH (10:32)
[2024-02-08 12:07] LABS: ALT 13 U/L (10-49); AST 22 U/L (14-35); Albumin 4.1 g/dL (3.8-4.9); Albumin/Globulin Ratio 1.32 Ratio (1.60-3.17); Alkaline Phosphatase 79 U/L (41-126); BUN/Creat Ratio 18.88 Ratio (12.00-20.00); Blood Urea Nitrogen 30.2 mg/dL (9.0-27.0); Calcium 9.5 mg/dL (8.7-10.3); Carbon Dioxide 20.6 mmol/L (21.6-31.8); Chloride 107 mmol/L (96-109); Chol/HDL Ratio 3.39 Ratio; Globulin 3.1 g/dL (1.6-3.3); Glucose 84 mg/dL (70-110); LDL Cholesterol,Calculated 45.3 mg/dL (0.0-131.0); Magnesium 1.8 mg/dL (1.5-2.4); Sodium 139 mmol/L (135-145); Total Bilirubin 0.4 mg/dL (0.3-1.2); Total Protein 7.2 g/dL (6.2-8.2)
--- NOTE | 2024-02-08 12:07 | CA ---
Transthoracic Echo Report Name: Jam Varner Age: 78 Gender: M : 1945 Exam Date: 02/07/2024 18:16 Exam Location: [place] [facility] Ht (in): 73 Wt (lb): 245 Ordering Physician: Avtar Luque Attending/Referring Phys: Dance Costume Designer Mercedes Gaines RDCS Procedure CPT: Indications: Assess structure and function Cardiac Hx: Technical Quality: Technically difficult study Contrast 1: Definity Total Dose (mL): 2 Contrast 2: Total Dose (mL): MEASUREMENTS (Male / Female) Normal Values 2D ECHO LV Diastolic Diameter PLAX 3.9 cm 4.2 - 5.9 / 3.9 - 5.3 cm LV Systolic Diameter PLAX 2.3 cm IVS Diastolic Thickness 1.7 cm 0.6 - 1.0 / 0.6 - 0.9 cm LVPW Diastolic Thickness 1.9 cm 0.6 - 1.0 / 0.6 - 0.9 cm LV Relative Wall Thickness 0.9 RV Internal Dim ED PLAX 4.8 cm LA Volume 80.9 cm??? 18 - 58 / 22 - 52 cm??? LA Volume Index 33.4 cm???/m??? 16 - 28 cm???/m??? M-MODE Aortic Root Diameter MM 3.9 cm LA Systolic Diameter MM 5.5 cm LA Ao Ratio MM 1.4 AV Cusp Separation MM 2.0 cm DOPPLER AV Peak Velocity 111.7 cm/s AV Peak Gradient 5.0 mmHg AV Mean Velocity 74.5 cm/s AV Mean Gradient 2.4 mmHg AV Velocity Time Integral 24.4 cm LVOT Peak Velocity 82.9 cm/s LVOT Peak Gradient 2.8 mmHg LVOT Velocity Time Integral 20.9 cm MV Area PHT 2.7 cm??? Mitral E Point Velocity 44.0 cm/s Mitral A Point Velocity 80.2 cm/s Mitral E to A Ratio 0.5 MV Deceleration Time 283.0 ms FINDINGS Left Ventricle Moderately increased left ventricular wall thickness. Abnormal (paradoxical) septal motion consistent with postoperative state. Left ventricular ejection fraction is estimated at 50-55 %. Grade 1 diastolic dysfunction. Right Ventricle Right ventricular dilatation. Right ventricular systolic pressure within normal limits. Right Atrium Normal right atrial size. Left Atrium Mildly increased left atrial volume. Mildly increased left atrial area. Mitral Valve Mitral valve not well visualized. No mitral stenosis, regurgitation or prolapse. Aortic Valve No aortic valve stenosis or regurgitation. Tricuspid Valve Structurally normal tricuspid valve. Pulmonic Valve Pulmonic valve not well visualized. Pericardium No pericardial effusion. Aorta Normal size aortic root and proximal ascending aorta. CONCLUSIONS Moderate increased left ventricular wall thickness Left ventricular ejection fraction 50-55% Mildly dilated left atrium No pericardial effusion Previewed by: Dr. Delbert Modi DO (Electronically Signed) Final Date: 08 Feb 2024 12:06
[2024-02-08 12:16] LABS: HCT 35.7 % (39.6-50.0); HGB 11.4 g/dL (13.0-17.0); MCHC 31.9 g/dL (32.0-37.0); MCV 84.4 FL (80.0-97.0); Mean Platelet Volume 9.9 FL (9.5-12.2); NRBC Per 100 WBC 0 X 10*3/uL (0.00-0.01); Platelet Count 207 X 10*3/uL (140-440); RBC 4.23 X 10*6/uL (4.40-5.60); RDW 15.4 % (11.5-14.5); WBC 7.08 X 10*3/uL (4.50-10.00)
[2024-02-08 12:45] LABS: Glucose,Whole Blood 157 mg/dL (70-110)
--- NOTE | 2024-02-08 14:55 | P.DS ---
Providers Date of admission: 02/07/24 09:25 Expected date of discharge: 02/08/24 Attending physician: Mayito Pena MD Consults: 02/07/24 15:27 Consult Physician Routine Consulting Provider: Paolo Guerrero Consult Reason/Comments: cp, hx of CAD s/p CABG x4 Do you want consulting provider notified?: Yes [facility] Course: Discharge Diagnosis: Chest pain/tightness accompanied by exertional shortness of breath, acute coronary event ruled out. Troponins negative at less than 0.012 x 3 draws. EKG showing sinus mechanism. Echocardiogram completed showing preserved EF of 50 to 55%. Patient was evaluated by cardiology, no medication changes made during this admission. Patient has been free from any further episodes of chest pain or exertional dyspnea since arrival to facility. He has been cleared by career coach and is medically stable for discharge at this time. Patient to follow-up outpatient with PCP in 1 to 2 days and with career coach in 1 week. History of CAD status post CABG x 4. Continue cardiac medication regimen with aspirin 81 mg daily, atorvastatin 20 mg nightly, Plavix 75 mg daily, metoprolol 25 mg twice daily, and hydralazine 100 mg twice daily. Hypertension, hypertensive urgency upon arrival. Currently vital signs stable with blood pressure 148/50, heart rate 61, respiratory rate 20, temp 97.4 F, and SpO2 of 96% on room air. Hyperlipidemia. Continue daily medication regimen with simvastatin 40 mg nightly. Lipid profile showing elevated triglycerides at 154.00 and low HDL of 31.90, otherwise normal findings. Insulin-dependent diabetes mellitus with hyperglycemia. Hemoglobin A1c 8.3%. Continue home insulin regimen with Lantus 66 units nightly and NovoLog sliding scale. Stage IIIb chronic kidney disease. Stable and at baseline with BMP revealing renal function consistent with stage IIIb CKD with BUN of 30.2, creatinine 1.6, and GFR 43 with baseline creatinine of 1.6. GERD. Continue GI prophylaxis with omeprazole 20 mg daily. Hospital Course: Patient is a pleasant 78-year-old male with a past medical history of CAD with previous stents and status post CABG x 4, hypertension, hyperlipidemia, GERD, insulin-dependent diabetes mellitus, and stage IIIb chronic kidney disease. He presented to the emergency department with a chief complaint of chest pain/tightness. Patient reports he has been experiencing exertional dyspnea progressively worsening over the past few weeks and yesterday evening developed some tightness to his midsternal chest. Patient reports he was at rest when the symptoms began and when tightness/pain resolved he felt a mild pressure that persistently remained to this midsternal area and reported to completely resolve shortly after arrival to the emergency department. Patient reports he follows with career coach Dr. Zhao and is scheduled to see him next week for a follow- up. Patient of the exertional dyspnea and this chest tightness/pain he was experiencing he denies having any recent fevers or exposure to known illnesses, dizziness, lightheadedness, diaphoresis, headache, palpitations, increased cough or congestion, (reports chronic dry cough is unchanged), abdominal pain, nausea, vomiting or experiencing any numbness/tingling/weakness/swelling in his extremities. On arrival to the emergency department, patient underwent evalua tion. Vital signs upon arrival initially showing hypertensive urgency with blood pressure 221/92, heart rate 67, respiratory rate 20, temp 97.8 F, and SpO2 of 98% on room air. EKG showing normal sinus rhythm at 68 bpm with no significant T wave or ST abnormalities showing no signs of acute ischemia with positive Q waves in inferior leads II, III, and aVF. Chest x-ray negative for acute cardiopulmonary process showing some left basilar atelectasis. Labs completed and reviewed. CBC showing stable normocytic anemia with hemoglobin of 11.0 and at baseline. Coagulation profile normal findings. BMP showing non- anion gap metabolic acidosis with chloride of 112, bicarb of 19, and anion gap of 8 with renal function consistent with stage IIIb CKD with BUN of 39, creatinine 1.75, GFR of 36 with baseline creatinine of 1.6. Blood glucose was 182. Magnesium slightly low at 1.6. Liver profile unremarkable. Troponin negative at less than 0.012. Patient admitted under our services with con sultation to cardiology. Troponins were trended all negative at less than 0.012 x 3 draws. Echocardiogram completed showing a preserved EF of 50 to 55% with mildly dilated left atrium and moderately increased left ventricular wall thickness. Cardiology discussed with patient possibility of repeating stress test versus outpatient follow-up in their office, patient has opted to follow-up outpatient in cardiology office as he has been free from any further episodes of chest pain or exertional dyspnea since arrival to our facility. Medically, patient is stable for discharge at this time. No medication changes were made this admission. Patient to continue cardiac medication regimen with aspirin 81 mg daily, atorvastatin 20 mg nightly, Plavix 75 mg daily, metoprolol 25 mg twice daily, and hydralazine 100 mg twice daily. Recommend outpatient follow-up with PCP in 1 to 2 days and with career coach in 1 week. Physical exam: Vital signs reviewed and stable. General: Nontoxic, no distress and appears stated age. Derm: Skin warm and dry, normal coloration for ethnicity. Head: Atraumatic, normocephalic and symmetric. Eyes: EOMs intact, no lid lag, and anicteric sclera Mouth: no lip lesions, mucus membranes moist Cardiovascular: regular rate and rhythm with normal S1S2, systolic murmur, positive posterior tibial pulses bilaterally, and cap refill < 2 seconds. Lungs: Respirations even, regular, and unlabored on room air. Lungs CTA bilaterally, no rhonchi, no rales, no wheezing, and no accessory muscle usage. Abdominal: soft, nontender to palpation, no guarding, no appreciable organomegaly Ext: ROM intact. No gross muscle atrophy, no edema, no contractures Neuro: Speech clear, face symmetrical and CN II-XII grossly intact with no noted focal neuro deficits Psych: Alert and oriented to person, place, time, and situation. Appropriate and pleasant affect. A total of 34 minutes of time were spent preparing this complex discharge summary. Pt was discharged on 02/08/2024 at 2:39 PM Patient was seen independently by Nurse Practitioner. This document was prepared using [employer] dictation software. Please allow for errors in machinist job setter while rare they do occur. Avtar Luque NP rendered care for this patient independently, reviewed the findings and plan as documented in the note above. I did not physically speak with or examine the patient on this date. Patient Condition at Discharge: Stable Plan - Discharge Summary Discharge Rx Participant: Yes New Discharge Prescriptions: Continue Gabapentin 600 mg PO DAILY Insulin Aspart [NovoLOG Flexpen] 16 units SQ AC-TID Gabapentin [Neurontin] 1,200 mg PO HS Aspirin 81 mg PO DAILY chew Clopidogrel [Plavix] 75 mg PO DAILY tab Simvastatin [Zocor] 40 mg PO HS Omeprazole 20 mg PO DAILY Cyanocobalamin (Vitamin B-12) [Vitamin B-12] 1,000 mcg PO DAILY hydrALAZINE HCL [Apresoline] 100 mg PO BID Tamsulosin [Flomax] 0.4 mg PO DAILY Metoprolol Tartrate 25 mg PO BID Nitroglycerin Sl Tabs [Nitrostat] 0.4 mg SUBLINGUAL Q5M PRN PRN Reason: Chest Pain Insulin Glargine,Hum.rec.anlog [Lantus Solostar Pen] 66 units SQ HS Insulin Aspart [NovoLOG Flexpen] See Protocol SQ AC-TID Discharge Medication List Gabapentin 600 mg PO DAILY 06/20/15 [History] Insulin Aspart [NovoLOG Flexpen] 16 units SQ AC-TID 11/02/18 [History] Gabapentin [Neurontin] 1,200 mg PO HS 11/24/18 [History] Aspirin 81 mg PO DAILY chew 12/05/18 [Rx] Clopidogrel [Plavix] 75 mg PO DAILY tab 12/05/18 [Rx] Metoprolol Tartrate 25 mg PO BID 07/10/21 [History] Omeprazole 20 mg PO DAILY 07/10/21 [History] Simvastatin [Zocor] 40 mg PO HS 07/10/21 [History] Cyanocobalamin (Vitamin B-12) [Vitamin B-12] 1,000 mcg PO DAILY 02/07/24 [History] Insulin Aspart [NovoLOG Flexpen] See Protocol SQ AC-TID 02/07/24 [History] Insulin Glargine,Hum.rec.anlog [Lantus Solostar Pen] 66 units SQ HS 02/07/24 [History] Nitroglycerin Sl Tabs [Nitrostat] 0.4 mg SUBLINGUAL Q5M PRN 02/07/24 [History] Tamsulosin [Flomax] 0.4 mg PO DAILY 02/07/24 [History] hydrALAZINE HCL [Apresoline] 100 mg PO BID 02/07/24 [History] Follow up Appointment(s)/Referral(s): Jarred Scott MD [Primary Care Provider] - 1-2 Days Kacie Zhao MD [STAFF PHYSICIAN] - 02/25/24 4:00 pm (Follow up in the [place] [facility] in front of [facility] in [place]) Patient Instructions/Handouts: Angina (DC), Chest Pain (DC) Activity/Diet/Wound Care/Special Instructions: Activity: As tolerated. Take breaks as needed. Diet: Heart healthy and carb consistent diet. Avoid salts, or foods with hidden salts such as canned or boxed foods and frozen dinners. Extra salt makes your heart work harder and traps the fluid in your body for longer. Special Instructions: Take all of your medications as directed and remember to keep all of your doctor's appointments and follow-up as needed. Thank you for allowing us to participate in your care, it was truly a pleasure having you for our patient!!! . Discharge Disposition: HOME SELF-CARE
[2024-02-08 15:24] VITALS: BP 163/72; PULSE 58; RESP 16; TEMP 97.5
== END 2024-02-08 15:01 | disposition home or self-care (01) ==
LOC: EC 07:42 → 6NMEDSUR 09:25
PROVIDERS: ADMIT Student in an Organized Health Care Education/Training Program; ATTEND Student in an Organized Health Care Education/Training Program
DX: R07.89 Other chest pain (principal); I16.0 Hypertensive urgency; I12.9 Hypertensive chronic kidney disease with stage 1 through stage 4 chronic kidney disease, or unspecified chronic kidney disease; N18.32 Chronic kidney disease, stage 3b; J98.11 Atelectasis; I25.10 Atherosclerotic heart disease of native coronary artery without angina pectoris; E11.22 Type 2 diabetes mellitus with diabetic chronic kidney disease; E11.65 Type 2 diabetes mellitus with hyperglycemia; I08.1 Rheumatic disorders of both mitral and tricuspid valves; E11.51 Type 2 diabetes mellitus with diabetic peripheral angiopathy without gangrene; K21.9 Gastro-esophageal reflux disease without esophagitis; D64.9 Anemia, unspecified; E87.20 Acidosis, unspecified; E78.1 Pure hyperglyceridemia; Z79.4 Long term (current) use of insulin; Z79.899 Other long term (current) drug therapy; Z79.82 Long term (current) use of aspirin; Z79.02 Long term (current) use of antithrombotics/antiplatelets; Z95.1 Presence of aortocoronary bypass graft; Z95.5 Presence of coronary angioplasty implant and graft; Z87.891 Personal history of nicotine dependence
CPT/HCPCS: 96372; 99285; 36415; 93005; 80061; 80053 ×2; 83735 ×2; 84484; 85025; 85027; 85610; 85730; 83036; 71046; G0378 ×2; C8929; J1644; Q9957; 93306

== ENCOUNTER → 2024-04-11 | Outpatient (CLI) | payer MEDICARE | END | disposition home or self-care (01) | LOC: LABWHC1 09:20 | PROVIDERS: ATTEND Internal Medicine | DX: R06.02 Shortness of breath (principal) | CPT/HCPCS: 36415; 85379 ==

== ENCOUNTER → 2024-04-11 | Outpatient (CLI) | payer MEDICARE ==
--- NOTE | 2024-04-11 15:15 | NM ---
EXAMINATION TYPE: NM pul vent and perfuse DATE OF EXAM: 04/11/2024 CLINICAL INDICATION: Male, 78 years old with history of R06.02 dyspnea; COMPARISON: Chest x-ray 723 TECHNIQUE: Utilizing inhalation of 68.5 mCi Tc 99m DTPA aerosol and intravenous injection of 4.9 mCi of Tc 99m MAA, ventilation and perfusion images are acquired post injection in multiple projections. FINDINGS: There is a small matched defect in the left lung base with no corresponding chest x-ray abnormality. There is no evidence of mismatched defects. IMPRESSION: Low probability for pulmonary embolism.
== END | disposition home or self-care (01) ==
LOC: RADNMMAIN 13:48
PROVIDERS: ATTEND Internal Medicine
DX: R06.02 Shortness of breath (principal)
CPT/HCPCS: 78582; A9540; A9567

== ENCOUNTER 2024-10-16 13:17 | Inpatient (IN) | payer MEDICARE ==
--- NOTE | 2024-10-16 14:05 | ED ---
General Adult HPI - General Chief complaint: Weakness Stated complaint: Abn labs Time Seen by Provider: 10/16/24 13:44 Source: patient, family, RN notes reviewed Mode of arrival: ambulatory Limitations: no limitations - History of Present Illness Initial comments: Patient is an 79-year-old male present to the emergency department with concerns with high potassium. Patient does have history slow progressing renal dysfunction. Patient states he has had his labs checked recently and this morning potassium was reported as high to him. Patient was advised to come emergency department per patient since otherwise he feels fine and has no complaints. - Related Data Home Medications Medication Instructions Recorded Confirmed Gabapentin 600 mg PO DAILY 06/20/15 10/16/24 Insulin Aspart [NovoLOG Flexpen] 5 units SQ TID-W/MEALS 11/02/18 10/16/24 Gabapentin [Neurontin] 1,200 mg PO HS 11/24/18 10/16/24 Metoprolol Tartrate 25 mg PO BID 07/10/21 10/16/24 Omeprazole 20 mg PO DAILY 07/10/21 10/16/24 Simvastatin [Zocor] 40 mg PO HS 07/10/21 10/16/24 Cyanocobalamin (Vitamin B-12) 1,000 mcg PO DAILY 02/07/24 10/16/24 [Vitamin B-12] Insulin Aspart [NovoLOG Flexpen] See Protocol SQ TID-W/MEALS 02/07/24 10/16/24 Insulin Glargine,Hum.rec.anlog 40 units SQ HS 02/07/24 10/16/24 [Lantus Solostar Pen] Nitroglycerin Sl Tabs [Nitrostat] 0.4 mg SUBLINGUAL Q5M PRN 02/07/24 10/16/24 Tamsulosin [Flomax] 0.4 mg PO HS 02/07/24 10/16/24 hydrALAZINE HCL [Apresoline] 100 mg PO BID 02/07/24 10/16/24 Clopidogrel [Plavix] 75 mg PO HS 10/16/24 10/16/24 Empagliflozin [Jardiance] 10 mg PO DAILY 10/16/24 10/16/24 Furosemide [Lasix] 20 mg PO DAILY 10/16/24 10/16/24 Isosorbide Mononitrate ER [Imdur] 30 mg PO DAILY 10/16/24 10/16/24 Ranolazine [Ranexa] 500 mg PO BID 10/16/24 10/16/24 Previous Rx's Medication Instructions Recorded Aspirin 81 mg PO DAILY chew 12/05/18 Allergies Allergy/AdvReac Type Severity Reaction Status Date / Time No Known Allergies Allergy Verified 10/16/24 14:22 Review of Systems ROS Statement: Those systems with pertinent positive or pertinent negative responses have been documented in the HPI. ROS Other: All systems not noted in ROS Statement are negative. Constitutional: Denies: fever Eyes: Denies: eye pain ENT: Denies: ear pain Respiratory: Denies: cough, dyspnea Cardiovascular: Denies: chest pain, palpitations Endocrine: Denies: fatigue Gastrointestinal: Denies: abdominal pain Past Medical History Past Medical History: Cancer, Diabetes Mellitus, GERD/Reflux, Hyperlipidemia, Hypertension, Myocardial Infarction (SD), Osteoarthritis (OA) Additional Past Medical History / Comment(s): Skin cancer , hx ulcers, growth on one kidney, states "weak kidneys", neuropathy. Last Myocardial Infarction Date:: UNKNOWN History of Any Multi-Drug Resistant Organisms: None Reported Past Surgical History: Appendectomy, Bowel Resection, Coronary Bypass/CABG, Heart Catheterization With Stent, Orthopedic Surgery, Tonsillectomy Additional Past Surgical History / Comment(s): bowel resection after perforated bowel during a colonsocpy, total of five cardiac stents- (4 in January 2018). VIKA K NEE ARTHROSCOPY. SKIN CANCER REMOVED. vika cataracts, CABG (2017) Past Anesthesia/Blood Transfusion Reactions: No Reported Reaction Date of Last Stent Placement:: 01/2018 Past Psychological History: No Psychological Hx Reported Smoking Status: Former smoker Past Alcohol Use History: Rare Past Drug Use History: None Reported - Past Family History Father Additional Family Medical History / Comment(s): DAD IS TILL ALIVE AT AGE 98 HAS SOME MINOR HEART PROBLEMS Mother History Unknown: Yes Family Medical History: No Reported History General Exam Limitations: no limitations General appearance: alert, in no apparent distress Head exam: Present: normocephalic Eye exam: Present: normal appearance Neck exam: Present: normal inspection Respiratory exam: Present: normal lung sounds bilaterally Cardiovascular Exam: Present: regular rate, normal rhythm GI/Abdominal exam: Present: soft. Absent: tenderness Extremities exam: Present: normal inspection. Absent: pedal edema, calf tenderness Neurological exam: Present: alert Psychiatric exam: Present: normal affect, normal mood Skin exam: Present: normal color Course Vital Signs 10/16/24 10/16/24 13:36 14:59 Temperature 97.7 F Pulse Rate 72 64 Respiratory 18 20 Rate Blood Pressure 119/58 129/73 O2 Sat by Pulse 97 95 Oximetry EKG Findings - EKG Results: EKG: interpreted by ERMD (LVH criteria. Inferior Q waves.), sinus rhythm, normal axis, normal ST/T Medical Decision Making - Medical Decision Making Was pt. sent in by a medical professional or institution (, PA, DETAIL DRAFTER, urgent ca re, hospital, or intermediate...) When possible be specific @ -Patient was sent in by Dr. Llanes Did you speak to anyone other than the patient for history (EMS, parent, family, police, friend...)? What history was obtained from this source @ -Family is present helps provide information including outpatient lab results Did you review nursing and triage notes (agree or disagree)? Why? @ -I reviewed and agree with nursing and triage notes Were old charts reviewed (outside hosp., previous admission, EMS record, old EKG, old radiological studies, urgent care reports/EKG's, intermediate records)? Report findings @ -No old charts were reviewed Differential Diagnosis (chest pain, altered mental status, abdominal pain women, abdominal pain men, vaginal bleeding, weakness, fever, dyspnea, syncope, headache, dizziness, GI bleed, back pain, seizure, CVA, palpatations, mental health, musculoskeletal)? @ -Differential Weakness: Hypoglycemia, shock, sepsis, hyponatremia, anemia, infection, SD, ETOH, adverse medicine reaction, overdose, stroke, this is not meant to be an all-inclusive list. EKG interpreted by me (3pts min.). @ -As above X-rays interpreted by me (1pt min.). @ -Chest x-ray shows mild cardiomegaly and interstitial prominence CT interpreted by me (1pt min.). @ -None done U/S interpreted by me (1pt. min.). @ -None done What testing was considered but not performed or refused? (CT, X-rays, U/S, labs)? Why? @ -None What meds were considered but not given or refused? Why? @ -None Did you discuss the management of the patient with other professionals (professionals i.e. , PA, DETAIL DRAFTER, lab, RT, psych nurse, social service coordinator, director of vocational guidance, teacher, quarantine officer, casework specialist)? Give summary @ -Case was discussed with nephrology Dr. Chang who will recommend admission and will consult. He does request bicarb, Lokelma, Lasix being held and IV fluids at 75. Case also discussed with practitioner Zabrina Mccormack who will admit covering hospital call Was smoking cessation discussed for >3mins.? @ -No Was critical care preformed (if so, how long)? @ -No Were there social determinants of health that impacted care today? How? (Homelessness, low income, unemployed, alcoholism, drug addiction, transportation, low edu. Level, literacy, decrease access to med. care, [facility], rehab)? @ -No Was there de-escalation of care discussed even if they declined (Discuss DNR or withdrawal of care, Hospice)? DNR status @ -No What co-morbidities impacted this encounter? (DM, HTN, Smoking, COPD, CAD, Cancer, CVA, ARF, Chemo, Hep., AIDS, mental health diagnosis, sleep apnea, morbid obesity)? @ -History of renal insufficiency Was patient admitted / discharged? Hospital course, mention meds given and route, prescriptions, significant lab abnormalities, going to OR and other pert inent info. @ -Patient presents with worsening renal function and hyperkalemia. Patient will be provided medications and admitted with nephrology consult. Admission orders written. Patient reevaluated. Patient and family updated Undiagnosed new problem with uncertain prognosis? @ -No Drug Therapy requiring intensive monitoring for toxicity (Heparin, Nitro, Insulin, Cardizem)? @ -No Were any procedures done? @ -No Diagnosis/symptom? @ -Acute kidney injury Acute, or Chronic, or Acute on Chronic? @ -Acute Uncomplicated (without systemic symptoms) or Complicated (systemic symptoms)? @ -Complicated with hyperkalemia Side effects of treatment? @ -No Exacerbation, Progression, or Severe Exacerbation? @ -No Poses a threat to life or bodily function? How? (Chest pain, USA, SD, pneumonia, PE, COPD, DKA, ARF, appy, cholecystitis, CVA, Diverticulitis, Homicidal, Suicidal, threat to staff... and all critical care pts) @ -Threat to renal function - Lab Data Result diagrams: 10/16/24 13:48 10/16/24 13:48 Lab Results 10/16/24 10/16/24 Range/Units 13:48 13:48 WBC 7.9 (3.8-10.6) k/uL RBC 4.37 (4.30-5.90) m/uL Hgb 12.6 L (13.0-17.5) gm/dL Hct 39.1 (39.0-53.0) % MCV 89.4 (80.0-100.0) fL MCH 28.8 (25.0-35.0) pg MCHC 32.2 (31.0-37.0) g/dL RDW 15.3 (11.5-15.5) % Plt Count 248 (150-450) k/uL MPV 6.6 Neutrophils % 62 % Lymphocytes % 26 % Monocytes % 7 % Eosinophils % 2 % Basophils % 1 % Neutrophils # 4.9 (1.3-7.7) k/uL Lymphocytes # 2.1 (1.0-4.8) k/uL Monocytes # 0.5 (0-1.0) k/uL Eosinophils # 0.2 (0-0.7) k/uL Basophils # 0.1 (0-0.2) k/uL Sodium 136 L (137-145) mmol/L Potassium 5.8 H (3.5-5.1) mmol/L Chloride 103 (98-107) mmol/L Carbon Dioxide 18 L (22-30) mmol/L Anion Gap 15 mmol/L BUN 49 H (9-20) mg/dL Creatinine 2.39 H (0.66-1.25) mg/dL Est GFR (CKD-EPI)AfAm 28 (>60 ml/min/1.73 sqM) Est GFR (CKD-EPI)NonAf 25 (>60 ml/min/1.73 sqM) Glucose 235 H (74-99) mg/dL Calcium 9.2 (8.4-10.2) mg/dL Phosphorus 5.2 H (2.5-4.5) mg/dL Magnesium 2.0 (1.6-2.3) mg/dL Total Bilirubin 0.6 (0.2-1.3) mg/dL AST 24 (17-59) U/L ALT 14 (4-49) U/L Alkaline Phosphatase 54 (38-126) U/L Total Protein 7.9 (6.3-8.2) g/dL Albumin 4.4 (3.5-5.0) g/dL Disposition Clinical Impression: Acute kidney injury Disposition: ADMITTED IP TO THIS HOSP Is patient prescribed a controlled substance at d/c from ED?: No Referrals: None,Stated [REFERRING] - 1-2 days Time of Disposition: 16:01
[2024-10-16 14:20] LABS: Basophils # (A) 0.1 k/uL (0-0.2); Basophils % (A) 1 %; Eosinophils # (A) 0.2 k/uL (0-0.7); Eosinophils % (A) 2 %; HCT 39.1 % (39.0-53.0); HGB 12.6 gm/dL (13.0-17.5); Lymphocytes # (A) 2.1 k/uL (1.0-4.8); Lymphocytes % (A) 26 %; MCH 28.8 pg (25.0-35.0); MCHC 32.2 g/dL (31.0-37.0); MCV 89.4 fL (80.0-100.0); Mean Platelet Volume 6.6; Monocytes # (A) 0.5 k/uL (0-1.0); Monocytes % (A) 7 %; Neutrophils # (A) 4.9 k/uL (1.3-7.7); Neutrophils % (A) 62 %; Platelet Count 248 k/uL (150-450); RBC 4.37 m/uL (4.30-5.90); RDW 15.3 % (11.5-15.5); WBC 7.9 k/uL (3.8-10.6)
[2024-10-16 14:31] LABS: ALT 14 U/L (4-49); African American GFR (CKD) 28 (>60 ml/min/1.73 sqM); Albumin 4.4 g/dL (3.5-5.0); Anion Gap 15 mmol/L; Blood Urea Nitrogen 49 mg/dL (9-20); Calcium 9.2 mg/dL (8.4-10.2); Carbon Dioxide 18 mmol/L (22-30); Chloride 103 mmol/L (98-107); Glucose 235 mg/dL (74-99); Non-African American GFR(CKD) 25 (>60 ml/min/1.73 sqM); Phosphorus 5.2 mg/dL (2.5-4.5); Sodium 136 mmol/L (137-145); Total Bilirubin 0.6 mg/dL (0.2-1.3); Total Protein 7.9 g/dL (6.3-8.2)
[2024-10-16 14:32] LABS: Potassium 5.8 mmol/L (3.5-5.1)
[2024-10-16 14:33] LABS: AST 24 U/L (17-59); Alkaline Phosphatase 54 U/L (38-126)
--- NOTE | 2024-10-16 14:37 | XR ---
EXAMINATION TYPE: XR chest 2V DATE OF EXAM: 10/16/2024 2:28 PM COMPARISON: 02/07/2024 CLINICAL INDICATION: Male, 79 years old with history of Weakness, , TECHNIQUE: AP and lateral views FINDINGS: Median sternotomy wires. Heart mildly enlarged. Hazy lung densities probably related to large patient body habitus. No richard consolidation or pleural effusion. Mild interstitial prominence. Possible DIS H lower thoracic spine. IMPRESSION: Mild cardiomegaly. Interstitial prominence could reflect mild pulmonary vascular congestion or could be technical artifact. Correlate with fluid status. [facility], Workstation: [facility], 10/16/2024 2:35 PM
[2024-10-16] MEDS ORDERED: NITROGLYCERIN SL TABS 0.4 MG TAB SUBLINGUAL PRN (15:47)
[2024-10-16] MEDS ORDERED: NALOXONE 0.4 MG/ML 1 ML VIAL IV PRN (16:02)
[2024-10-16] MEDS: SODIUM CHLORIDE 0.9% 1,000 ML IV STA (16:11)
[2024-10-16] MEDS: SODIUM CHLORIDE 0.9% 1,000 ML IV SCH (16:15)
[2024-10-16] MEDS: SODIUM BICARB 8.4% 50 ML SYR (1 MEQ/ML) IV STA (16:15)
[2024-10-16] MEDS ORDERED: DEXTROSE 50% SYRINGE 50 ML IVP PRN ×2 (16:15)
[2024-10-16] MEDS: SODIUM ZIRCONIUM CYCLOSILICATE 10 GM PACKET PO ONE (16:17)
[2024-10-16 17:12] LABS: Glucose,Whole Blood 183 mg/dL (70-110)
[2024-10-16] MEDS: INSULIN ASPART (NovoLOG) 100 UNIT/ML VIAL SQ SCH ×2 (17:27)
[2024-10-16 21:47] LABS: Glucose,Whole Blood 285 mg/dL (70-110)
[2024-10-16] MEDS: METOPROLOL TARTRATE 25 MG TAB PO SCH (21:51)
[2024-10-16] MEDS: ATORVASTATIN 20 MG TAB PO SCH (21:51)
[2024-10-16] MEDS: CLOPIDOGREL 75 MG TAB PO SCH (21:51)
[2024-10-16] MEDS: RANOLAZINE 500 MG TAB.ER.12H PO SCH (21:51)
[2024-10-16] MEDS: GABAPENTIN 400 MG CAP PO SCH (21:51)
[2024-10-16] MEDS: TAMSULOSIN 0.4 MG CAP.ER.24H PO SCH (21:51)
[2024-10-16] MEDS: INSULIN DETEMIR (LEVEMIR) 100 UNIT/ML SYR SQ SCH (22:02)
[2024-10-16] MEDS: hydrALAZINE HCL 50 MG TAB PO SCH (22:02)
--- NOTE | 2024-10-17 02:30 | HP ---
HISTORY AND PHYSICAL CHIEF COMPLAINT: Weakness and high potassium. HISTORY OF PRESENT ILLNESS: This is an 79-year-old gentleman with a past medical history of multiple medical problems including renal failure, is complaining of weakness and tiredness. The patient has also had potassium, was found to be high. The patient came to [facility] and was admitted for further evaluation and treatment. Potassium is 5.5, creatinine has worsened to 2.39. There is no history of any fever, rigors, or chills. Sugars are 235. PAST MEDICAL HISTORY: History of diabetes mellitus, GERD, hypertension, hyperlipidemia. Rest of the history and rest of the chart is also reviewed. HOME MEDICATIONS: Reviewed include . Dose and rest of medications reviewed. ALLERGIES: None. FAMILY HISTORY: History of minor heart problems. SOCIAL HISTORY: Previous history of smoking. REVIEW OF SYSTEMS: Fourteen-point review of systems is negative except as mentioned earlier. PHYSICAL EXAMINATION: VITAL SIGN: Pulse is 64, blood pressure 129/70, respirations 20. HEENT: Conjunctivae normal. Oral mucosa is dry. NECK: No JVD. CARDIOVASCULAR: S1, S2. RESPIRATIONS: Breath sounds diminished at the bases. ABDOMEN: Soft, obese. LEGS: No edema. NERVOUS SYSTEM: Nonfocal. SKIN: No ulcer, rash, bleeding. JOINTS: No active deforming arthropathy. LABORATORY DATA: Creatinine 2.39. ASSESSMENT: 1. Acute on chronic renal failure with dehydration, hyperkalemia. 2. Diabetes mellitus, type 2. 3. Gastroesophageal reflux disease. 4. Hypertension. 5. Hyperlipidemia. 6. Multiple medical issues. 7. History of coronary artery disease stent. RECOMMENDATIONS AND DISCUSSION: This is an 79-year-old gentleman, who presented with multiple complex medical issues. We will monitor the patient closely. Continue the current medications, continue symptomatic treatment. Otherwise, at this time, I would recommend IV fluids, Nephrology consultation. Monitor blood sugars closely. Resume the home medications. Guarded prognosis. Further recommendations to follow. See orders for further details. We will also obtain the serum and urine ketones also. MMODL / IJN: [id number] / MTDD
[2024-10-17 05:52] LABS: Appearance,Urine Clear (Clear); Bilirubin,Urine Negative (Negative); Blood,Urine Negative (Negative); Color,Urine Light Yellow; Glucose,Urine (UA) 4+ (Negative); Ketones,Urine Negative (Negative); Leukocyte Esterase,Urine Negative (Negative); Nitrite,Urine Negative (Negative); PH, Urine 6.5 (5.0-8.0); Protein,Urine Negative (Negative); Specific Gravity,Urine 1.019 (1.001-1.035); Urobilinogen,Urine <2.0 mg/dL (<2.0)
[2024-10-17 05:55] LABS: Glucose,Whole Blood 145 mg/dL (70-110)
[2024-10-17 08:44] LABS: Magnesium 2.1 mg/dL (1.5-2.4)
[2024-10-17 08:53] LABS: Basophils # (A) 0.06 X 10*3/uL (0.00-0.10); Basophils % (A) 0.8 %; Eosinophils # (A) 0.15 X 10*3/uL (0.04-0.35); HCT 34.3 % (39.6-50.0); HGB 10.9 g/dL (13.0-17.0); Lymphocytes # (A) 1.83 X 10*3/uL (0.90-5.00); Lymphocytes % (A) 24.8 %; MCH 27.7 pg (27.0-32.0); MCHC 31.8 g/dL (32.0-37.0); MCV 87.1 FL (80.0-97.0); Mean Platelet Volume 9.4 FL (9.5-12.2); Monocytes # (A) 0.74 X 10*3/uL (0.20-1.00); NRBC Per 100 WBC 0 X 10*3/uL (0.00-0.01); Neutrophils # (A) 4.58 X 10*3/uL (1.80-7.70); Neutrophils % (A) 62.1 %; Platelet Count 193 X 10*3/uL (140-440); RBC 3.94 X 10*6/uL (4.40-5.60); RDW 15.5 % (11.5-14.5); WBC 7.38 X 10*3/uL (4.50-10.00)
[2024-10-17] MEDS: CYANOCOBALAMIN 500 MCG TAB PO SCH (09:02)
[2024-10-17] MEDS: ISOSORBIDE MONONITRATE ER 30 MG TAB.ER.24H PO SCH (09:02)
[2024-10-17] MEDS: GABAPENTIN 300 MG CAP PO SCH (09:02)
[2024-10-17] MEDS: PANTOPRAZOLE 40 MG TABLET PO SCH (09:02)
[2024-10-17] MEDS: ASPIRIN 81 MG PO SCH (09:02)
[2024-10-17] MEDS: DAPAGLIFLOZIN PROPANEDIOL 5 MG TABLET PO SCH (09:02)
--- NOTE | 2024-10-17 11:29 | P.NPCON ---
History of Present Illness - Reason for Consult acute renal failure, chronic renal failure - History of Present Illness Reason for consultation: Acute kidney injury on chronic kidney disease History of present illness: Patient is 79-year-old male seen in renal consultation for acute kidney injury on chronic kidney disease. Patient has chronic kidney disease stage IIIb with baseline creatinine 1.6-1.8 secondary to nephrosclerosis. Creatinine this admission was 2.39. Patient came to the hospital due to abnormal labs. He was noted to have an elevated potassium level outpatient and was advised to go to the hospital. Potassium level on admission was 5.8 which was a hemolyzed sample. He was noted to be acidotic as well. Patient did receive sodium bicarb and Lokelma. Morning labs are pending. He is currently receiving normal saline at 75 cc an hour. He does have history of diabetes. Also has history of coronary disease status post stents and then subsequent CABG. Denies vomiting or diarrhea. Oral intake has been good. Denies gross hematuria or dysuria. Denies chest pain or shortness of breath. Vital signs are stable. General: No acute distress. HEENT: Head exam is unremarkable. LUNGS: No audible rhonchi or wheezes. HEART: Rate and Rhythm are regular. ABDOMEN: Nontender. EXTREMITITES: No edema. Past Medical History Past Medical History: Cancer, Diabetes Mellitus, GERD/Reflux, Hyperlipidemia, Hypertension, Myocardial Infarction (PA), Osteoarthritis (OA), Renal Disease Additional Past Medical History / Comment(s): Skin cancer , hx ulcers, growth on one kidney, states "weak kidneys", neuropathy. Last Myocardial Infarction Date:: UNKNOWN History of Any Multi-Drug Resistant Organisms: None Reported Past Surgical History: Appendectomy, Bowel Resection, Coronary Bypass/CABG, Heart Catheterization With Stent, Orthopedic Surgery, Tonsillectomy Additional Past Surgical History / Comment(s): bowel resection after perforated bowel during a colonsocpy, total of five cardiac stents- (4 in January 2018). VIKA KNEE ARTHROSCOPY. SKIN CANCER REMOVED. vika cataracts, CABG (2018) Past Anesthesia/Blood Transfusion Reactions: No Reported Reaction Date of Last Stent Placement:: 01/2018 Past Psychological History: No Psychological Hx Reported Smoking Status: Former smoker Past Alcohol Use History: Rare Additional Past Alcohol Use History / Comment(s): SMOKED >30 YEARS, QUIT 1982, SMOKED 1 PPD Past Drug Use History: None Reported - Past Family History Father Additional Family Medical History / Comment(s): DAD IS TILL ALIVE AT AGE 98 HAS SOME MINOR HEART PROBLEMS Mother History Unknown: Yes Family Medical History: No Reported History Medications and Allergies Home Medications Medication Instructions Recorded Confirmed Type Gabapentin 600 mg PO DAILY 06/20/15 10/16/24 History Insulin Aspart [NovoLOG Flexpen] 5 units SQ TID-W/MEALS 11/02/18 10/16/24 History Gabapentin [Neurontin] 1,200 mg PO HS 11/24/18 10/16/24 History Aspirin 81 mg PO DAILY chew 12/05/18 10/16/24 Rx Metoprolol Tartrate 25 mg PO BID 07/10/21 10/16/24 History Omeprazole 20 mg PO DAILY 07/10/21 10/16/24 History Simvastatin [Zocor] 40 mg PO HS 07/10/21 10/16/24 History Cyanocobalamin (Vitamin B-12) 1,000 mcg PO DAILY 02/07/24 10/16/24 History [Vitamin B-12] Insulin Aspart [NovoLOG Flexpen] See Protocol SQ TID-W/MEALS 02/07/24 10/16/24 History Insulin Glargine,Hum.rec.anlog 40 units SQ HS 02/07/24 10/16/24 History [Lantus Solostar Pen] Nitroglycerin Sl Tabs [Nitrostat] 0.4 mg SUBLINGUAL Q5M PRN 02/07/24 10/16/24 History Tamsulosin [Flomax] 0.4 mg PO HS 02/07/24 10/16/24 History hydrALAZINE HCL [Apresoline] 100 mg PO BID 02/07/24 10/16/24 History Clopidogrel [Plavix] 75 mg PO HS 10/16/24 10/16/24 History Empagliflozin [Jardiance] 10 mg PO DAILY 10/16/24 10/16/24 History Furosemide [Lasix] 20 mg PO DAILY 10/16/24 10/16/24 History Isosorbide Mononitrate ER [Imdur] 30 mg PO DAILY 10/16/24 10/16/24 History Ranolazine [Ranexa] 500 mg PO BID 10/16/24 10/16/24 History Allergies Allergy/AdvReac Type Severity Reaction Status Date / Time No Known Allergies Allergy Verified 10/16/24 14:22 Physical Exam Vitals: Vital Signs Temp Pulse Pulse Resp BP BP Pulse Ox 10/17/24 07:00 97.5 F L 58 L 18 174/85 96 10/17/24 00:23 97.5 F L 63 18 180/74 96 10/16/24 21:21 97.4 F L 71 17 169/82 94 L 10/16/24 20:00 97.4 F L 65 12 137/74 95 10/16/24 18:00 76 20 126/73 96 10/16/24 17:00 61 20 96 10/16/24 14:59 64 20 129/73 95 10/16/24 13:36 97.7 F 72 18 119/58 97 Intake and Output 10/16/24 10/17/24 10/17/24 22:59 06:59 14:59 Intake Total 315 Balance 315 Intake: IV 75 Sodium Chloride 0.9% 1, 75 000 ml @ 75 mls/hr IV . [id number] [facility] Rx#:[id number] Oral 240 Other: Voiding Method Toilet # Voids 1 1 # Bowel Movements 1 1 Weight 107.501 kg Results - Lab Results Most recent lab results Calcium 9.2 mg/dL (8.4-10.2) 10/16/24 13:48 Phosphorus 4.0 mg/dL (2.4-5.1) 10/17/24 04:54 Magnesium 2.1 mg/dL (1.5-2.4) 10/17/24 04:54 10/17/24 04:54 10/16/24 13:48 Assessment and Plan Plan: Assessment: 1. Acute kidney injury secondary to ATN. Creatinine 2.39 yesterday. UA benign. 2. Chronic kidney disease stage IIIb with baseline creatinine 1.6-1.8 secondary to nephrosclerosis. 3. Metabolic acidosis secondary to acute kidney injury and SGLT2 inhibitor. 4. Diabetes mellitus. 5. Coronary disease status post CABG. 6. Hyperkalemia secondary to metabolic acidosis. Plan: Maintain IV fluids for now. Decrease rate to 50 cc an hour. Blood glucose control. Maintain SGLT2 inhibitor for now. Add oral bicarb. Renal diet. Morning labs pending. Check bladder scan to rule out urinary retention. Thank you for the consultation. I will continue to follow the patient with you during his hospital stay.
[2024-10-17 11:49] LABS: ALT 9 U/L (10-49); AST 14 U/L (14-35); Albumin 3.8 g/dL (3.8-4.9); Albumin/Globulin Ratio 1.19 Ratio (1.60-3.17); Alkaline Phosphatase 62 U/L (41-126); BUN/Creat Ratio 20.45 Ratio (12.00-20.00); Calcium 8.9 mg/dL (8.7-10.3); Chloride 106 mmol/L (96-109); Globulin 3.2 g/dL (1.6-3.3); Glucose 156 mg/dL (70-110); Potassium 4.8 mmol/L (3.5-5.5); Sodium 139 mmol/L (135-145); Total Bilirubin 0.3 mg/dL (0.3-1.2)
[2024-10-17] MEDS: SODIUM BICARBONATE TAB 650 MG TAB PO SCH (12:15)
[2024-10-17 12:37] LABS: ALT 11 U/L (4-49); AST 16 U/L (17-59); African American GFR (CKD) 32 (>60 ml/min/1.73 sqM); Albumin 3.7 g/dL (3.5-5.0); Albumin/Globulin Ratio 1.2; Alkaline Phosphatase 57 U/L (38-126); Anion Gap 10 mmol/L; Blood Urea Nitrogen 44 mg/dL (9-20); Carbon Dioxide 26 mmol/L (22-30); Chloride 101 mmol/L (98-107); Globulin 3.1 g/dL; Glucose 219 mg/dL (74-99); Non-African American GFR(CKD) 27 (>60 ml/min/1.73 sqM); Potassium 5.1 mmol/L (3.5-5.1); Sodium 137 mmol/L (137-145); Total Bilirubin 0.6 mg/dL (0.2-1.3); Total Protein 6.8 g/dL (6.3-8.2)
[2024-10-17 12:43] LABS: Glucose,Whole Blood 234 mg/dL (70-110)
--- NOTE | 2024-10-17 13:06 | US ---
EXAMINATION TYPE: US kidneys/renal and bladder DATE OF EXAM: 10/17/2024 COMPARISON: US(06/10/2018) CLINICAL INDICATION: Male, 79 years old with history of anaya; TECHNIQUE: Grayscale imaging of the bilateral kidneys and urinary bladder: FINDINGS: EXAM MEASUREMENTS: Right Kidney: 9.5x6.0x5.1 cm Left Kidney: 10.8x7.1x5.0 cm [employer] Coordinator notes: slightly limited exam due to overlying bowel & rib shadow Right Kidney: Multiple cortical cysts, largest: 1. 6.9x6.3x6.6cm 2. 2.7x3.0x3.3cm Left Kidney: Benign cortical cyst measuring 2.3x2.1x2.4cm Bladder: wnl Bilateral Jets seen: Left only IMPRESSION: Bilateral renal cortical cysts measuring up to 6.9 cm on the right and 2.4 cm on the left. No hydrone phrosis. [facility], Workstation: [email or web address], 10/17/2024 1:04 PM
[2024-10-17] MEDS: amLODIPine 10 MG TAB PO SCH (15:01)
[2024-10-17 17:05] LABS: Glucose,Whole Blood 173 mg/dL (70-110)
[2024-10-17 20:17] VITALS: RESP 16
[2024-10-17 20:31] LABS: Glucose,Whole Blood 238 mg/dL (70-110)
--- NOTE | 2024-10-17 22:57 | PN ---
PROGRESS NOTE DATE OF SERVICE: 10/17/2024 SUBJECTIVE: This is an 79-year-old gentleman, who was admitted with acute on chronic renal failure, hyperkalemia, is being closely monitored. No chest pain. No palpitations. No fever. Abdominal bladder ultrasound was reported showing multiple cortical cysts. OBJECTIVE: VITAL SIGNS: Pulse is 58, blood pressure 175/84, respirations 18. CHEST: Clear to auscultation. CARDIOVASCULAR: S1, S2. ABDOMEN: Soft. NERVOUS SYSTEM: Nonfocal. LABORATORY DATA: Creatinine is 2.19. ASSESSMENT: 1. Acute on chronic renal failure with dehydration, hyperkalemia. 2. Hypertension. 3. Diabetes mellitus, type 2. 4. Gastroesophageal reflux disease. 5. Hyperlipidemia. 6. Multiple complex medical issues. RECOMMENDATIONS: Recommend to continue current management and continue symptomatic treatment. Otherwise, avoid nephrotoxic medications and add Norvasc to the current regimen. Further recommendations to follow. MMODL / IJN: [id number] /
[2024-10-18 06:10] LABS: Glucose,Whole Blood 167 mg/dL (70-110)
[2024-10-18 08:37] LABS: Basophils # (A) 0.08 X 10*3/uL (0.00-0.10); Basophils % (A) 1.2 %; Eosinophils % (A) 2.9 %; HCT 34.5 % (39.6-50.0); HGB 10.9 g/dL (13.0-17.0); Lymphocytes # (A) 1.57 X 10*3/uL (0.90-5.00); MCHC 31.6 g/dL (32.0-37.0); MCV 88.7 FL (80.0-97.0); Mean Platelet Volume 9.7 FL (9.5-12.2); Monocytes # (A) 0.63 X 10*3/uL (0.20-1.00); Monocytes % (A) 9.2 %; NRBC Per 100 WBC 0 X 10*3/uL (0.00-0.01); Neutrophils # (A) 4.34 X 10*3/uL (1.80-7.70); Neutrophils % (A) 63.4 %; Platelet Count 189 X 10*3/uL (140-440); RBC 3.89 X 10*6/uL (4.40-5.60); RDW 15.4 % (11.5-14.5); WBC 6.84 X 10*3/uL (4.50-10.00)
[2024-10-18 08:52] LABS: BUN/Creat Ratio 17.57 Ratio (12.00-20.00); Blood Urea Nitrogen 36.9 mg/dL (9.0-27.0); Calcium 9.1 mg/dL (8.7-10.3); Carbon Dioxide 21.6 mmol/L (21.6-31.8); Chloride 105 mmol/L (96-109); Glucose 152 mg/dL (70-110); Magnesium 1.9 mg/dL (1.5-2.4); Potassium 4.9 mmol/L (3.5-5.5); Sodium 137 mmol/L (135-145)
--- NOTE | 2024-10-18 09:31 | P.PN ---
Subjective Patient is seen in follow-up for acute kidney injury on chronic kidney disease. Renal function stable. Potassium level normal. Has been voiding. No active complaints. Vital signs stable. No JVD. Regular rate and rhythm. No audible rhonchi or wheezes. Abdomen nontender. Obese. No edema. Objective - Vital Signs Vital signs: Vital Signs Temp 97.6 F 10/18/24 07:00 Pulse 65 10/18/24 07:00 Resp 16 10/18/24 07:00 BP 122/70 10/18/24 07:00 Pulse Ox 96 10/18/24 07:00 FiO2 Intake & Output 10/17/24 10/18/24 10/18/24 18:59 06:59 18:59 Intake Total 221 118 Balance 221 118 Intake: Oral 221 118 Other: Voiding Method Toilet # Voids 3 2 - Labs CBC & Chem 7: 10/18/24 04:48 10/18/24 04:48 Labs: Abnormal Lab Results - Last 24 Hours (Table) 10/17/24 10/17/24 10/17/24 Range/Units 04:54 11:54 12:41 RBC (4.40-5.60) X 10*6/uL Hgb (13.0-17.0) g/dL Hct (39.6-50.0) % MCHC (32.0-37.0) g/dL RDW (11.5-14.5) % BUN 45.0 H 44 H (9.0-27.0) mg/dL Creatinine 2.2 H 2.19 H (0.6-1.5) mg/dL Est GFR (CKD-EPI) 29 L (>=60) BUN/Creatinine Ratio 20.45 H (12.00-20.00) Ratio Glucose 156 H 219 H (70-110) mg/dL POC Glucose (mg/dL) 234 H (70-110) mg/dL AST 16 L (17-59) U/L ALT 9 L (10-49) U/L Albumin/Globulin Ratio 1.19 L (1.60-3.17) Ratio 10/17/24 10/17/24 10/18/24 Range/Units 17:03 20:30 04:48 RBC (4.40-5.60) X 10*6/uL Hgb (13.0-17.0) g/dL Hct (39.6-50.0) % MCHC (32.0-37.0) g/dL RDW (11.5-14.5) % BUN 36.9 H (9.0-27.0) mg/dL Creatinine 2.1 H (0.6-1.5) mg/dL Est GFR (CKD-EPI) 31 L (>=60) BUN/Creatinine Ratio (12.00-20.00) Ratio Glucose 152 H (70-110) mg/dL POC Glucose (mg/dL) 173 H 238 H (70-110) mg/dL AST (17-59) U/L ALT (10-49) U/L Albumin/Globulin Ratio (1.60-3.17) Ratio 10/18/24 10/18/24 Range/Units 04:48 06:09 RBC 3.89 L (4.40-5.60) X 10*6/uL Hgb 10.9 L (13.0-17.0) g/dL Hct 34.5 L (39.6-50.0) % MCHC 31.6 L (32.0-37.0) g/dL RDW 15.4 H (11.5-14.5) % BUN (9.0-27.0) mg/dL Creatinine (0.6-1.5) mg/dL Est GFR (CKD-EPI) (>=60) BUN/Creatinine Ratio (12.00-20.00) Ratio Glucose (70-110) mg/dL POC Glucose (mg/dL) 167 H (70-110) mg/dL AST (17-59) U/L ALT (10-49) U/L Albumin/Globulin Ratio (1.60-3.17) Ratio Assessment and Plan Plan: Assessment: 1. Acute kidney injury secondary to ATN. Creatinine 2.39 on admission and is 2.1 today. UA benign. No hydronephrosis noted on kidney ultrasound. 2. Chronic kidney disease stage IIIb with baseline creatinine 1.6-1.8 secondary to nephrosclerosis. 3. Metabolic acidosis secondary to acute kidney injury and SGLT2 inhibitor. On oral bicarb. 4. Diabetes mellitus. 5. Coronary disease status post CABG. 6. Hyperkalemia secondary to metabolic acidosis. Potassium level now normal. Plan: Hep-Lock IV fluids. Blood glucose control. Maintain SGLT2 inhibitor. Renal diet. Repeat BMP and magnesium level 2 to 3 days postdischarge. Follow-up outpatient in 1 week.
[2024-10-18 11:54] LABS: Glucose,Whole Blood 210 mg/dL (70-110)
[2024-10-18 14:00] VITALS: BP 112/57; PULSE 57; TEMP 97.8
== END 2024-10-18 15:01 | disposition home or self-care (01) | DRG 683 ==
LOC: EC 13:17 → 6NMEDSUR 16:02 → OBSVTOIN 10-17 13:50
PROVIDERS: ADMIT Hospitalist; ATTEND Hospitalist
DX: N17.0 Acute kidney failure with tubular necrosis (principal); E87.20 Acidosis, unspecified; I12.9 Hypertensive chronic kidney disease with stage 1 through stage 4 chronic kidney disease, or unspecified chronic kidney disease; N18.32 Chronic kidney disease, stage 3b; E11.22 Type 2 diabetes mellitus with diabetic chronic kidney disease; E11.40 Type 2 diabetes mellitus with diabetic neuropathy, unspecified; Z79.4 Long term (current) use of insulin; E86.0 Dehydration; E87.5 Hyperkalemia; I25.10 Atherosclerotic heart disease of native coronary artery without angina pectoris; E78.5 Hyperlipidemia, unspecified; K21.9 Gastro-esophageal reflux disease without esophagitis; I25.2 Old myocardial infarction; Z79.82 Long term (current) use of aspirin; Z79.84 Long term (current) use of oral hypoglycemic drugs; Z79.02 Long term (current) use of antithrombotics/antiplatelets; Z79.899 Other long term (current) drug therapy; Z95.1 Presence of aortocoronary bypass graft; Z95.5 Presence of coronary angioplasty implant and graft; Z87.891 Personal history of nicotine dependence; Z85.828 Personal history of other malignant neoplasm of skin
CPT/HCPCS: 36415; 71046; 76770; 80048; 80053; 81003; 82009; 83036; 83735; 84100; 85025; 93005; 96361; 96374; 99285

== ENCOUNTER → 2024-10-16 | Outpatient (CLI) | payer MEDICARE ==
[2024-10-16 08:11] LABS: ALT 13 U/L (4-49); AST 20 U/L (17-59); African American GFR (CKD) 30 (>60 ml/min/1.73 sqM); Albumin 4.7 g/dL (3.5-5.0); Albumin/Globulin Ratio 1.3; Alkaline Phosphatase 67 U/L (38-126); Anion Gap 13 mmol/L; Blood Urea Nitrogen 47 mg/dL (9-20); Calcium 9.8 mg/dL (8.4-10.2); Carbon Dioxide 24 mmol/L (22-30); Chloride 99 mmol/L (98-107); Globulin 3.6 g/dL; Glucose 214 mg/dL (74-99); Non-African American GFR(CKD) 26 (>60 ml/min/1.73 sqM); Sodium 136 mmol/L (137-145); Total Bilirubin 0.8 mg/dL (0.2-1.3); Total Protein 8.3 g/dL (6.3-8.2)
[2024-10-16 09:28] LABS: Potassium 6.1 mmol/L (3.5-5.1)
== END | disposition home or self-care (01) ==
LOC: LABWHC1 06:58
PROVIDERS: ATTEND Internal Medicine
DX: N18.9 Chronic kidney disease, unspecified (principal)
CPT/HCPCS: 36415; 80053

== ENCOUNTER → 2024-10-23 | Outpatient (CLI) | payer MEDICARE ==
[2024-10-23 10:47] LABS: BUN/Creat Ratio 14.57 Ratio (12.00-20.00); Blood Urea Nitrogen 30.6 mg/dL (9.0-27.0); Calcium 9.1 mg/dL (8.7-10.3); Carbon Dioxide 23.7 mmol/L (21.6-31.8); Chloride 104 mmol/L (96-109); Glucose 177 mg/dL (70-110); Sodium 140 mmol/L (135-145)
== END | disposition home or self-care (01) ==
LOC: LABWHC1 06:48
PROVIDERS: ATTEND Internal Medicine
DX: N17.9 Acute kidney failure, unspecified (principal)
CPT/HCPCS: 36415; 80048

== ENCOUNTER → 2024-12-22 | Outpatient (CLI) | payer MEDICARE ==
[2024-12-22 11:02] LABS: ALT 9 U/L (10-49); AST 16 U/L (14-35); Albumin 4.1 g/dL (3.8-4.9); Albumin/Globulin Ratio 1.24 Ratio (1.60-3.17); Alkaline Phosphatase 76 U/L (41-126); BUN/Creat Ratio 15.48 Ratio (12.00-20.00); Blood Urea Nitrogen 35.6 mg/dL (9.0-27.0); Calcium 9.5 mg/dL (8.7-10.3); Carbon Dioxide 25.1 mmol/L (21.6-31.8); Chloride 102 mmol/L (96-109); Chol/HDL Ratio 2.92 Ratio; Globulin 3.3 g/dL (1.6-3.3); Glucose 113 mg/dL (70-110); LDL Cholesterol,Calculated 46.5 mg/dL (0.0-131.0); Sodium 137 mmol/L (135-145); Total Bilirubin 0.4 mg/dL (0.3-1.2); Total Protein 7.4 g/dL (6.2-8.2)
== END | disposition home or self-care (01) ==
LOC: LABWHC1 07:12
PROVIDERS: ATTEND Nurse Practitioner Gerontology
DX: E11.9 Type 2 diabetes mellitus without complications (principal); Z79.4 Long term (current) use of insulin
CPT/HCPCS: 36415; 80053; 80061; 82043; 82570; 83036

== ENCOUNTER 2025-03-07 10:19 | Inpatient (IN) | payer MEDICARE ==
[2025-03-07 10:56] LABS: Basophils # (A) 0.07 10*3/uL (0.00-0.10); Basophils % (A) 0.7 %; Eosinophils # (A) 0.32 10*3/uL (0.04-0.35); Eosinophils % (A) 3.3 %; HCT 33.8 % (39.6-50.0); HGB 10.9 g/dL (13.0-17.0); Lymphocytes # (A) 1.87 10*3/uL (0.90-5.00); Lymphocytes % (A) 19.4 %; MCH 27.3 pg (27.0-32.0); MCHC 32.2 g/dL (32.0-37.0); MCV 84.7 fL (80.0-97.0); Mean Platelet Volume 9.1 fL (9.5-12.2); Monocytes # (A) 0.81 10*3/uL (0.20-1.00); Monocytes % (A) 8.4 %; Neutrophils # (A) 6.53 10*3/uL (1.80-7.70); Neutrophils % (A) 67.9 %; Platelet Count 234 10*3/uL (140-440); RBC 3.99 10*6/uL (4.40-5.60); RDW 16.6 % (11.5-14.5); WBC 9.63 10*3/uL (4.50-10.00)
[2025-03-07 11:03] LABS: INR 1.1 (<1.2); Partial Thromboplastin Time 26.3 sec (22.0-30.0); Prothrombin Time 11.6 sec (10.0-12.5)
[2025-03-07 11:06] LABS: ALT 11 U/L (4-49); AST 18 U/L (17-59); African American GFR (CKD) 26 (>60 ml/min/1.73 sqM); Albumin 4.3 g/dL (3.5-5.0); Alkaline Phosphatase 74 U/L (38-126); Anion Gap 13 mmol/L; Blood Urea Nitrogen 49 mg/dL (9-20); Calcium 9.7 mg/dL (8.4-10.2); Carbon Dioxide 22 mmol/L (22-30); Chloride 105 mmol/L (98-107); Glucose 159 mg/dL (74-99); Magnesium 2.1 mg/dL (1.6-2.3); Non-African American GFR(CKD) 22 (>60 ml/min/1.73 sqM); Potassium 5.8 mmol/L (3.5-5.1); Sodium 140 mmol/L (137-145); Total Bilirubin 0.9 mg/dL (0.2-1.3); Total Protein 7.7 g/dL (6.3-8.2)
[2025-03-07] MEDS: ASPIRIN 81 MG PO STA (11:12)
--- NOTE | 2025-03-07 11:18 | ED ---
Chest Pain HPI - General Source: patient, RN notes reviewed Mode of arrival: wheelchair Limitations: no limitations <Nasima Somers - Last Filed: 03/07/25 14:35> <Jennifer Perez - Last Filed: 03/08/25 07:31> - General Chief Complaint: Chest Pain Stated Complaint: Chest Pain Time Seen by Provider: 03/07/25 10:42 - History of Present Illness Initial Comments: 79-year-old male with history of CAD, DM, HLD, CABG w/ stent placement and on plavix and eliquis, presenting to the emergency department for complaints of intermittent substernal chest pain described as a pressure over the past week and a half. He states that he will experience upwards of 10 times per day pressure that is nonradiating and is worse at night when he is laying down. He states that when he sits forward this will mildly help his symptoms. He denies peripheral edema, heart palpitations, difficulty breathing, fevers, chills, nausea, vomiting. (Nasima Somers) - Related Data Home Medications Medication Instructions Recorded Confirmed Gabapentin 600 mg PO DAILY 06/20/15 03/07/25 Insulin Aspart [NovoLOG Flexpen] 16 units SQ TID-W/MEALS 11/02/18 03/07/25 Gabapentin [Neurontin] 1,200 mg PO HS 11/24/18 03/07/25 Metoprolol Tartrate 25 mg PO BID 07/10/21 03/07/25 Omeprazole 20 mg PO DAILY 07/10/21 03/07/25 Simvastatin [Zocor] 40 mg PO HS 07/10/21 03/07/25 Cyanocobalamin (Vitamin B-12) 1,000 mcg PO DAILY 02/07/24 03/07/25 [Vitamin B-12] Insulin Aspart [NovoLOG Flexpen] See Protocol SQ TID-W/MEALS 02/07/24 03/07/25 Insulin Glargine,Hum.rec.anlog 40 units SQ HS 02/07/24 03/07/25 [Lantus Solostar Pen] Nitroglycerin Sl Tabs [Nitrostat] 0.4 mg SUBLINGUAL Q5M PRN 02/07/24 03/07/25 Tamsulosin [Flomax] 0.4 mg PO HS 02/07/24 03/07/25 Clopidogrel [Plavix] 75 mg PO HS 10/16/24 03/07/25 Empagliflozin [Jardiance] 10 mg PO DAILY 10/16/24 03/07/25 Isosorbide Mononitrate ER [Imdur] 30 mg PO DAILY 10/16/24 03/07/25 Ranolazine [Ranexa] 500 mg PO DAILY 10/16/24 03/07/25 Aspirin EC [Ecotrin Low Dose] 81 mg PO DAILY 03/07/25 03/07/25 Ferrous Sulfate [Feosol] 325 mg PO DAILY 03/07/25 03/07/25 hydrALAZINE HCL [Apresoline] 50 mg PO BID 03/07/25 03/07/25 Previous Rx's Medication Instructions Recorded Sodium Bicarbonate Tab 650 mg PO BID #60 tab 10/18/24 amLODIPine [Norvasc] 10 mg PO DAILY #30 tab 10/18/24 Allergies Allergy/AdvReac Type Severity Reaction Status Date / Time No Known Allergies Allergy Verified 03/07/25 12:07 Review of Systems ROS Other: All systems not noted in ROS Statement are negative. <Nasima Somers - Last Filed: 03/07/25 14:35> ROS Other: All systems not noted in ROS Statement are negative. <Jennifer Perez - Last Filed: 03/08/25 07:31> ROS Statement: Those systems with pertinent positive or pertinent negative responses have been documented in the HPI. Past Medical History Past Medical History: Cancer, Diabetes Mellitus, GERD/Reflux, Hyperlipidemia, Hypertension, Myocardial Infarction (NE), Osteoarthritis (OA), Renal Disease Additional Past Medical History / Comment(s): Skin cancer , hx ulcers, growth on one kidney, states "weak kidneys", neuropathy. Last Myocardial Infarction Date:: UNKNOWN History of Any Multi-Drug Resistant Organisms: None Reported Past Surgical History: Appendectomy, Bowel Resection, Coronary Bypass/CABG, Heart Catheterization With Stent, Orthopedic Surgery, Tonsillectomy Additional Past Surgical History / Comment(s): bowel resection after perforated bowel during a colonsocpy, total of five cardiac stents- (4 in January 2018). VIKA KNEE ARTHROSCOPY. SKIN CANCER REMOVED. vika cataracts, CABG (2018) Past Anesthesia/Blood Transfusion Reactions: No Reported Reaction Date of Last Stent Placement:: 01/2018 Past Psychological History: No Psychological Hx Reported Smoking Status: Former smoker Past Alcohol Use History: Rare Past Drug Use History: None Reported - Past Family History Father Additional Family Medical History / Comment(s): DAD IS TILL ALIVE AT AGE 98 HAS SOME MINOR HEART PROBLEMS Mother History Unknown: Yes Family Medical History: No Reported History <Nasima Somers - Last Filed: 03/07/25 14:35> General Exam Limitations: no limitations <Nasima Somers - Last Filed: 03/07/25 14:35> Course Vital Signs 03/07/25 03/07/25 03/07/25 10:21 10:24 11:24 Temperature 97.9 F Pulse Rate 71 65 67 Respiratory 17 16 16 Rate Blood Pressure 149/70 139/65 127/66 O2 Sat by Pulse 93 L 98 96 Oximetry 03/07/25 03/07/25 03/07/25 11:58 18:22 20:35 Temperature 98.4 F 98.2 F Pulse Rate 72 67 Respiratory 20 18 18 Rate Blood Pressure 124/66 127/74 O2 Sat by Pulse 94 L 94 L Oximetry Chest Pain MDM <Nasima Somers - Last Filed: 03/07/25 14:35> - MDM Was pt. sent in by a medical professional or institution (, PA, TECHNOLOGY COORDINATOR, urgent care, hospital, or assisted...) When possible be specific @ -No Did you speak to anyone other than the patient for history (EMS, parent, family, police, friend...)? What history was obtained from this source @ -No Did you review nursing and triage notes (agree or disagree)? Why? @ -I reviewed and agree with nursing and triage notes Were old charts reviewed (outside hosp., previous admission, EMS record, old EKG, old radiological studies, urgent care reports/EKG's, assisted records)? Report findings @ -No old charts were reviewed Differential Diagnosis (chest pain, altered mental status, abdominal pain women, abdominal pain men, vaginal bleeding, weakness, fever, dyspnea, syncope, headache, dizziness, GI bleed, back pain, seizure, CVA, palpatations, mental health, musculoskeletal)? @ -Differential Chest Pain: Stable Angina, Unstable Angina, STEMI, NSTEMI Aortic Dissection, Pneumothorax, Musculoskeletal, Esophageal Spasm GERD, Cholecystitis, Pancreatitis, Zoster, this is not meant to be an all-inclusive list. EKG interpreted by me (3pts min.). @ -Completed at 1055 sinus rhythm with a first-degree AV block with ST segment depression in leads V2, V3, V5 and ST segment elevation in leads III. X-rays interpreted by me (1pt min.). @ -Chest x-ray no acute process-multifocal airspace opacities similar as compared to previous x-rays. CT interpreted by me (1pt min.). @ -None done U/S interpreted by me (1pt. min.). @ -None done What testing was considered but not performed or refused? (CT, X-rays, U/S, labs)? Why? @ -None What meds were considered but not given or refused? Why? @ -None Did you discuss the management of the patient with other professionals (professionals i.e. , PA, TECHNOLOGY COORDINATOR, lab, RT, psych nurse, social media project manager, director process, teacher, patrol officer, medical case worker)? Give summary @ I spoke with Dr. Lakhani, who has agreed to admit the patient. Was smoking cessation discussed for >3mins.? @ -No Was critical care preformed (if so, how long)? @ -Yes, for greater than 35 minutes this patient was started on a heparin drip. Were there social determinants of health that impacted care today? How? (Homelessness, low income, unemployed, alcoholism, drug addiction, transportation, low edu. Level, literacy, decrease access to med. care, [facility], rehab)? @ -No Was there de-escalation of care discussed even if they declined (Discuss DNR or withdrawal of care, Hospice)? DNR status @ -No What co-morbidities impacted this encounter? (DM, HTN, Smoking, COPD, CAD, Cancer, CVA, ARF, Chemo, Hep., AIDS, mental health diagnosis, sleep apnea, morbid obesity)? @ -None Was patient admitted / discharged? Hospital course, mention meds given and route, prescriptions, significant lab abnormalities, going to OR and other pertinent info. @ -Admitted. 79-year-old male presenting to the emergency department with c omplaints of chest pain. Patient is noted to have EKG changes as compared to previous in leads V2, V3, V5, lead I. My attending, Dr. Perez, spoke with the senior asic design engineer, Dr. Bolton, was recommended the patient be placed on a heparin drip and will schedule for cardiac catheterization tomorrow. Patient is provided with dose of aspirin as well. Heparin bolus is not initiated as patient is currently on Eliquis. Labs are remarkable for chronic kidney disease with a creatinine of 2.59, BUN of 49, potassium of 5.8. Patient's troponin is elevated at 0.466 concerning for a NSTEMI. Patient is admitted to internal medicine with cardiology consult orders placed. Undiagnosed new problem with uncertain prognosis? @ -No Drug Therapy requiring intensive monitoring for toxicity (Heparin, Nitro, Insulin, Cardizem)? @ -No Were any procedures done? @ -No Diagnosis/symptom? @ -NSTEMI, ACS Acute, or Chronic, or Acute on Chronic? @ -Acute Uncomplicated (without systemic symptoms) or Complicated (systemic symptoms)? @ -complicated Side effects of treatment? @ -No Exacerbation, Progression, or Severe Exacerbation? @ -No Poses a threat to life or bodily function? How? (Chest pain, [place], NE, pneumonia, PE, COPD, DKA, ARF, appy, cholecystitis, CVA, Diverticulitis, Homicidal, Suicidal, threat to staff... and all critical care pts) @ -Yes, ACS can lead to multiorgan system dysfunction and potential (Nasima Somers) Disposition Decision to Admit Reason: Admit from EC Decision Date: 03/07/25 Decision Time: 12:00 <Nasima Somers - Last Filed: 03/07/25 14:35> <Jennifer Perez - Last Filed: 03/08/25 07:31> Clinical Impression: NSTEMI (non-ST elevated myocardial infarction), ACS (acute coronary syndrome) Disposition: ADMITTED IP TO THIS [facility] Condition: Serious
[2025-03-07] MEDS: HEPARIN SOD,PORK IN 0.45% NACL 25,000 UNIT in 0.45% NACL 1 250ML.BAG IV SCH (11:25)
[2025-03-07] MEDS: NITROGLYCERIN OINT 1 INCH/GM PACKET TOPICAL SCH (11:25)
--- NOTE | 2025-03-07 11:50 | XR ---
EXAMINATION TYPE: XR chest 1V DATE OF EXAM: 03/07/2025 11:36 AM COMPARISON: Chest radiographs from 10/16/2024. CLINICAL INDICATION: Male, 79 years old with history of Chest Pain; [facility] TECHNIQUE: XR chest 1V Frontal view of the chest. FINDINGS: Lungs/Pleura: Multifocal airspace opacities. No evidence of pneumothorax or pleural effusion. Pulmonary vascularity: Unremarkable. Heart/mediastinum: Cardiomediastinal silhouette is unremarkable. Musculoskeletal: No acute osseous pathology. Midline sternotomy wires are noted. IMPRESSION: Similar multifocal airspace opacities. [facility], , 03/07/2025 11:48 AM
[2025-03-07] MEDS ORDERED: ACETAMINOPHEN TAB 325 MG TAB PO PRN (11:58)
[2025-03-07] MEDS ORDERED: ONDANSETRON 4 MG/2 ML VIAL IVP PRN (11:58)
[2025-03-07] MEDS ORDERED: NALOXONE 0.4 MG/ML 1 ML VIAL IV PRN (11:58)
[2025-03-07] MEDS ORDERED: NITROGLYCERIN SL TABS 0.4 MG TAB SUBLINGUAL PRN (12:48)
[2025-03-07] MEDS ORDERED: DEXTROSE 50% SYRINGE 50 ML IVP PRN ×2 (12:53)
[2025-03-07 13:13] LABS: Glucose,Whole Blood 157 mg/dL (70-110)
--- NOTE | 2025-03-07 13:47 | P.HPIM ---
History of Present Illness H&P Date: 03/07/25 H&P A 79 yo male with PMH of CAD with previous stents and status post CABG x 4, hypertension, hyperlipidemia, GERD, insulin-dependent diabetes mellitus, and stage IIIb chronic kidney disease who presents to the ER for evaluation of chest pain that started around 1 week ago. Patient does not remember any precipitating events. he states that pain comes and goes, it wakes him up from sleep, denies associated shortness of breath, nausea, vomiting, dizziness, fever, chills, abdominal pain, changes in bowel habits, lower extremity sensation changes or swelling. Pain improves when he sits up and rests, he notices that he develops chest pain with exertion, not sure how much exertion he can tolerate. On arrival afebrile, HR in 70s, BP 149/70, satting well on RA. Lab work revealed normalWBC, hb 10.9, at baseline, potassium 5.8, normal Na Cr 2.59, baseline around 2.3. Troponin 0.466. EKG showed sinus rythm ST depression in V2, V5,, T inversion, Xray showed multifocal airspace opacities. Patient has these changes on the prior Xray, Patient was started on heparin drip, cardiology contacted by ER provider, plan for TTE, heart cath, admitted as inpatient for further evaluation. Discussed with ER provider, excepted admission. Review of systems: Pertinent positives and negatives as discussed in HPI, a complete review of systems was performed and all other systems are negative. Physical exam: Vital signs reviewed and stable. General: Nontoxic, no distress and appears stated age. Derm: Skin warm and dry, normal coloration for ethnicity. Head: Atraumatic, normocephalic and symmetric. Eyes: EOMs intact, no lid lag, and anicteric sclera Mouth: no lip lesions, mucus membranes moist Cardiovascular: regular rate and rhythm with normal S1S2, systolic murmur, positive posterior tibial pulses bilaterally, and cap refill < 2 seconds. Lungs: Respirations even, regular, and unlabored on room air. Lungs CTA bilaterally, no rhonchi, no rales, no wheezing, and no accessory muscle usage. Abdominal: soft, nontender to palpation, no guarding, no appreciable organomegaly Ext: ROM intact. No gross muscle atrophy, no edema, no contractures Neuro: Speech clear, face symmetrical and CN II-XII grossly intact with no noted focal neuro deficits Psych: Alert and oriented to person, place, time, and situation. Appropriate and pleasant affect. Assessment and Plan of Care: Chest pain/tightness accompanied ACS History of CAD status post CABG x 4 Hypertension, hypertensive urgency upon arrival Hyperlipidemia -Cardiology consulted, appreciate recommendations -continue heparin drip -Telemetry monitoring -Trend troponins -Cardiac diet, NPO at midnight -Continue cardiac medication regimen with aspirin 81 mg daily, atorvastatin 20 mg nightly,, metoprolol 25 mg twice daily, and hydralazine 50 mg twice daily, Imdur 30 daily, start atorvastatin 80 daily instread of simvastatin -nitro sublingual PRN -had A1c checked in december 26., lipid profile with LDL 46 -Echocardiogram Hyperkalemia -Will recheck BMP, monitor BMP daily Insulin-dependent diabetes mellitus with hyperglycemia -Continue Lantus [address] patient on glycemic protocol with NovoLog sliding scale. -Follow-up on hemoglobin A1c. Chronic anemia -Hb at baseline, monitor CBC daily, continue daily Iron 325 Stage IIIb chronic kidney disease -Stable and at baseline with BMP revealing renal function consistent with stage IIIb CKD -monitor BMP GERD Continue GI prophylaxis with omeprazole 20 mg daily. The patient is admitted with an anticipated more than 2 midnight stay for evaluation of chest pain, PCI CODE STATUS: Full code DVT prophylaxis: Heparin Anticipated discharge date: tbd Anticipated discharge place: Home This document was prepared using Synchro dictation software. Please allow for errors in aircraft instrument mechanic, while rare they do occur. Past Medical History Past Medical History: Cancer, Diabetes Mellitus, GERD/Reflux, Hyperlipidemia, Hypertension, Myocardial Infarction (VT), Osteoarthritis (OA), Renal Disease Additional Past Medical History / Comment(s): Skin cancer , hx ulcers, growth on one kidney, states "weak kidneys", neuropathy. Last Myocardial Infarction Date:: UNKNOWN History of Any Multi-Drug Resistant Organisms: None Reported Past Surgical History: Appendectomy, Bowel Resection, Coronary Bypass/CABG, Hea rt Catheterization With Stent, Orthopedic Surgery, Tonsillectomy Additional Past Surgical History / Comment(s): bowel resection after perforated bowel during a colonsocpy, total of five cardiac stents- (4 in January 2018). VIKA KNEE ARTHROSCOPY. SKIN CANCER REMOVED. vika cataracts, CABG (2018) Past Anesthesia/Blood Transfusion Reactions: No Reported Reaction Date of Last Stent Placement:: 01/2018 Past Psychological History: No Psychological Hx Reported Smoking Status: Former smoker Past Alcohol Use History: Rare Past Drug Use History: None Reported - Past Family History Father Additional Family Medical History / Comment(s): DAD IS TILL ALIVE AT AGE 98 HAS SOME MINOR HEART PROBLEMS Mother History Unknown: Yes Family Medical History: No Reported History Medications and Allergies Home Medications Medication Instructions Recorded Confirmed Type Gabapentin 600 mg PO DAILY 06/20/15 03/07/25 History Insulin Aspart [NovoLOG Flexpen] 16 units SQ TID-W/MEALS 11/02/18 03/07/25 History Gabapentin [Neurontin] 1,200 mg PO HS 11/24/18 03/07/25 History Metoprolol Tartrate 25 mg PO BID 07/10/21 03/07/25 History Omeprazole 20 mg PO DAILY 07/10/21 03/07/25 History Simvastatin [Zocor] 40 mg PO HS 07/10/21 03/07/25 History Cyanocobalamin (Vitamin B-12) 1,000 mcg PO DAILY 02/07/24 03/07/25 History [Vitamin B-12] Insulin Aspart [NovoLOG Flexpen] See Protocol SQ TID-W/MEALS 02/07/24 03/07/25 History Insulin Glargine,Hum.rec.anlog 40 units SQ HS 02/07/24 03/07/25 History [Lantus Solostar Pen] Nitroglycerin Sl Tabs [Nitrostat] 0.4 mg SUBLINGUAL Q5M PRN 02/07/24 03/07/25 History Tamsulosin [Flomax] 0.4 mg PO HS 02/07/24 03/07/25 History Clopidogrel [Plavix] 75 mg PO HS 10/16/24 03/07/25 History Empagliflozin [Jardiance] 10 mg PO DAILY 10/16/24 03/07/25 History Isosorbide Mononitrate ER [Imdur] 30 mg PO DAILY 10/16/24 03/07/25 History Ranolazine [Ranexa] 500 mg PO DAILY 10/16/24 03/07/25 History Sodium Bicarbonate Tab 650 mg PO BID #60 tab 10/18/24 03/07/25 Rx amLODIPine [Norvasc] 10 mg PO DAILY #30 tab 10/18/24 03/07/25 Rx Aspirin EC [Ecotrin Low Dose] 81 mg PO DAILY 03/07/25 03/07/25 History Ferrous Sulfate [Feosol] 325 mg PO DAILY 03/07/25 03/07/25 History hydrALAZINE HCL [Apresoline] 50 mg PO BID 03/07/25 03/07/25 History Allergies Allergy/AdvReac Type Severity Reaction Status Date / Time No Known Allergies Allergy Verified 03/07/25 12:07 Physical Exam Vitals: Vital Signs Temp Pulse Resp BP Pulse Ox 03/07/25 11:58 20 03/07/25 11:24 67 16 127/66 96 03/07/25 10:24 65 16 139/65 98 03/07/25 10:21 97.9 F 71 17 149/70 93 L Intake and Output 03/06/25 03/07/25 03/07/25 22:59 06:59 14:59 Other: Weight 110.223 kg Results CBC & Chem 7: 03/07/25 10:42 03/07/25 10:42 Labs: Abnormal Lab Results - Last 24 Hours (Table) 03/07/25 03/07/25 03/07/25 Range/Units 10:42 10:42 10:42 RBC 3.99 L (4.40-5.60) 10*6/uL Hgb 10.9 L (13.0-17.0) g/dL Hct 33.8 L (39.6-50.0) % MPV 9.1 L (9.5-12.2) fL Potassium 5.8 H (3.5-5.1) mmol/L BUN 49 H (9-20) mg/dL Creatinine 2.59 H (0.66-1.25) mg/dL Glucose 159 H (74-99) mg/dL Troponin I 0.466 H* (0.000-0.034) ng/mL
--- NOTE | 2025-03-07 14:56 | P.CRDCN ---
History of Present Illness Consult date: 03/07/25 Reason for Consult (text): NSTEMI History of present illness: This is an 79-year-old male patient of Dr. Zhao with past medical history of coronary artery disease status post CABG and previous to that stents, carotid stenosis bilaterally, hypertension, hyperlipidemia, diabetes mellitus type 2, chronic kidney disease, home O2. We have been asked to evaluate the patient for NSTEMI. Patient states he has had chest pain on and off for the past week. The pain also involves his bilateral arms. It gradually worsened over time and he decided to come in to the hospital for further evaluation. Blood pressure 139/65, heart rate 65, pulse ox 98% on room air. Patient has been started on heparin drip. Patient is seen today in the emergency center waiting for a bed on the cardiac stepdown unit. Dr. Luke discussed with the patient plan for treatment. Patient has opted for conservative management at this time. He is chest pain-free at the time of this exam. We will plan to make the patient n.p.o. and further evaluate in the morning. -EKG: Sinus rhythm with anterior and lateral ST changes that are new. -Chest x-ray: Similar multifocal airspace opacities. -Laboratory studies: WBC 9.6, hemoglobin 10.9. Sodium 140, potassium 5.8, BUN 49 creatinine 2.59. Troponin 0.466. -Home cardiac medications: Amlodipine 10 mg daily, aspirin 81 mg daily, Plavix 75 mg daily, Jardiance 10 mg daily, hydralazine 50 mg twice daily, Imdur 30 mg daily, metoprolol tartrate 25 mg twice daily, Nitrostat as needed, Ranexa 500 mg daily, simvastatin 40 mg at bedtime. -Echocardiogram performed at [facility] on 02/07/2024 revealed EF of 50 to 55%, moderate increased left ventricular wall thickness. Mildly dilated left atrium. No pericardial effusion. -Cardiovascular surgery: Four-vessel CABG HERNANDEZ to LAD, VG to R1, VG to PDA, VG to circumflex on 11/29/2018 -Lexiscan Cardiolite stress test performed 03/13/2024 revealed EF of 49%, lateral fixed and inferior apical defect. Review Of Systems: At the time of my exam: CONSTITUTIONAL: Denies fever or chills. HEENT: Denies blurred vision, vision changes, or eye pain. Denies hemoptysis CARDIOVASCULAR: Denies chest pain. Denies orthopnea. Denies PND. Denies palpitations RESPIRATORY: Denies shortness of breath. GASTROINTESTINAL: Denies abdominal pain. Denies nausea or vomiting. HEMATOLOGIC: Denies bleeding disorders. GENITOURINARY: Denies any blood in urine. SKIN: Denies puritis. Denies rash. Physical examination: Gen: This is 79-year-old male in no acute distress VS: reviewed HEENT: Head is atraumatic, normocephalic. Pupils equal, round. Sclerae is anicteric. NECK: Supple. No JVD. LUNGS: Clear to auscultation. No wheezes or rhonchi. No intercostal retractions. HEART: Regular rate and rhythm. No murmur. ABDOMEN: Soft No tenderness. EXTREMITIES: No pedal edema. No calf tenderness. NEUROLOGICAL: Patient is awake, alert and oriented x3. Assessment: NSTEMI History of coronary artery disease with previous CABG and previous to that stents Carotid stenosis DM HTN HLD Chronic kidney disease Plan: Resume patient's home cardiac medications with the following changes Start heparin gtt tonight, no bolus Obtain 2-D echocardiogram and Doppler study to assess cardiac structure and function Plan is for conservative medical management NPO after midnight Further recommendations to follow based upon clinical course Thank you kindly for this consultation. Nurse practitioner note has been reviewed, I agree with documented findings and plan of care. Patient was seen and examined. Past Medical History Past Medical History: Cancer, Diabetes Mellitus, GERD/Reflux, Hyperlipidemia, Hypertension, Myocardial Infarction ([place]), Osteoarthritis (OA), Renal Disease Additional Past Medical History / Comment(s): Skin cancer , hx ulcers, growth on one kidney, states "weak kidneys", neuropathy. Last Myocardial Infarction Date:: UNKNOWN History of Any Multi-Drug Resistant Organisms: None Reported Past Surgical History: Appendectomy, Bowel Resection, Coronary Bypass/CABG, Heart Catheterization With Stent, Orthopedic Surgery, Tonsillectomy Additional Past Surgical History / Comment(s): bowel resection after perforated bowel during a colonsocpy, total of five cardiac stents- (4 in January 2018). VIKA KNEE ARTHROSCOPY. SKIN CANCER REMOVED. vika cataracts, CABG (2018) Past Anesthesia/Blood Transfusion Reactions: No Reported Reaction Date of Last Stent Placement:: 01/2018 Past Psychological History: No Psychological Hx Reported Smoking Status: Former smoker Past Alcohol Use History: Rare Past Drug Use History: None Reported - Past Family History Father Additional Family Medical History / Comment(s): DAD IS TILL ALIVE AT AGE 98 HAS SOME MINOR HEART PROBLEMS Mother History Unknown: Yes Family Medical History: No Reported History Medications and Allergies Home Medications Medication Instructions Recorded Confirmed Type Gabapentin 600 mg PO DAILY 06/20/15 03/07/25 History Insulin Aspart [NovoLOG Flexpen] 16 units SQ TID-W/MEALS 11/02/18 03/07/25 History Gabapentin [Neurontin] 1,200 mg PO HS 11/24/18 03/07/25 History Metoprolol Tartrate 25 mg PO BID 07/10/21 03/07/25 History Omeprazole 20 mg PO DAILY 07/10/21 03/07/25 History Simvastatin [Zocor] 40 mg PO HS 07/10/21 03/07/25 History Cyanocobalamin (Vitamin B-12) 1,000 mcg PO DAILY 02/07/24 03/07/25 History [Vitamin B-12] Insulin Aspart [NovoLOG Flexpen] See Protocol SQ TID-W/MEALS 02/07/24 03/07/25 History Insulin Glargine,Hum.rec.anlog 40 units SQ HS 02/07/24 03/07/25 History [Lantus Solostar Pen] Nitroglycerin Sl Tabs [Nitrostat] 0.4 mg SUBLINGUAL Q5M PRN 02/07/24 03/07/25 History Tamsulosin [Flomax] 0.4 mg PO HS 02/07/24 03/07/25 History Clopidogrel [Plavix] 75 mg PO HS 10/16/24 03/07/25 History Empagliflozin [Jardiance] 10 mg PO DAILY 10/16/24 03/07/25 History Isosorbide Mononitrate ER [Imdur] 30 mg PO DAILY 10/16/24 03/07/25 History Ranolazine [Ranexa] 500 mg PO DAILY 10/16/24 03/07/25 History Sodium Bicarbonate Tab 650 mg PO BID #60 tab 10/18/24 03/07/25 Rx amLODIPine [Norvasc] 10 mg PO DAILY #30 tab 10/18/24 03/07/25 Rx Aspirin EC [Ecotrin Low Dose] 81 mg PO DAILY 03/07/25 03/07/25 History Ferrous Sulfate [Feosol] 325 mg PO DAILY 03/07/25 03/07/25 History hydrALAZINE HCL [Apresoline] 50 mg PO BID 03/07/25 03/07/25 History Allergies Allergy/AdvReac Type Severity Reaction Status Date / Time No Known Allergies Allergy Verified 03/07/25 12:07 Physical Exam Vitals: Vital Signs Temp Pulse Resp BP Pulse Ox 03/07/25 11:24 67 16 127/66 96 03/07/25 10:24 65 16 139/65 98 03/07/25 10:21 97.9 F 71 17 149/70 93 L Intake and Output 03/06/25 03/07/25 03/07/25 22:59 06:59 14:59 Other: Weight 110.223 kg Results 03/07/25 10:42 03/07/25 10:42 Cardiac Enzymes 03/07/25 03/07/25 Range/Units 10:42 10:42 AST 18 (17-59) U/L Troponin I 0.466 H* (0.000-0.034) ng/mL Coagulation 03/07/25 Range/Units 10:42 PT 11.6 (10.0-12.5) sec APTT 26.3 (22.0-30.0) sec CBC 03/07/25 Range/Units 10:42 WBC 9.63 (4.50-10.00) 10*3/uL RBC 3.99 L (4.40-5.60) 10*6/uL Hgb 10.9 L (13.0-17.0) g/dL Hct 33.8 L (39.6-50.0) % Plt Count 234 (140-440) 10*3/uL Comprehensive Metabolic Panel 03/07/25 Range/Units 10:42 Sodium 140 (137-145) mmol/L Potassium 5.8 H (3.5-5.1) mmol/L Chloride 105 (98-107) mmol/L Carbon Dioxide 22 (22-30) mmol/L BUN 49 H (9-20) mg/dL Creatinine 2.59 H (0.66-1.25) mg/dL Glucose 159 H (74-99) mg/dL Calcium 9.7 (8.4-10.2) mg/dL AST 18 (17-59) U/L ALT 11 (4-49) U/L Alkaline Phosphatase 74 (38-126) U/L Total Protein 7.7 (6.3-8.2) g/dL Albumin 4.3 (3.5-5.0) g/dL Current Medications Generic Name Dose Route Start Last Admin Trade Name Freq PRN Reason Stop Dose Admin Acetaminophen 650 mg 03/07/25 11:58 Acetaminophen Tab 325 Mg Tab PO Q6HR PRN Mild Pain or Fever > 100.5 Heparin Sodium (Porcine) 0 unit 03/07/25 11:15 Heparin Sodium 1,000 Un/Ml (10ml Vl) IV PER PROTOCOL PRN Low PTT Protocol Heparin Sodium/Sodium Chloride 250 mls @ 9.997 mls/hr 03/07/25 11:15 03/07/25 11:25 25,000 unit/ Sodium Chloride IV 9.07 units/kg/hr .Q24H DOLORES 9.997 mls/hr Administration Protocol 9.07 UNITS/KG/HR Naloxone HCl 0.2 mg 03/07/25 11:58 Naloxone 0.4 Mg/Ml 1 Ml Vial IV Q2M PRN Opioid Reversal Nitroglycerin 1 inch 03/07/25 11:15 03/07/25 11:25 Nitroglycerin Oint 1 Inch/Gm Packet TOPICAL 1 inch TID DOLORES Administration Ondansetron HCl 4 mg 03/07/25 11:58 Ondansetron 4 Mg/2 Ml Vial IVP Q8HR PRN Nausea And Vomiting Intake and Output 03/06/25 03/07/25 03/07/25 22:59 06:59 14:59 Other: Weight 110.223 kg Patient Weight 03/08/25 06:59 Weight 110.223 kg 03/07/25 10:42 03/07/25 10:42
--- NOTE | 2025-03-07 16:03 | P.CNPUL ---
History of Present Illness Consult date: 03/07/25 Requesting physician: Jarred Scott Reason for consult: dyspnea, chest pain Chief complaint: Chest pain, shortness of breath. History of present illness: Pulmonary consult dated March 07, 2025. 79-year-old male with history of CAD, with previous stents, previous CABG x 4 vessel, hypertension, hyperlipidemia, GERD, diabetes, and stage III chronic kidney disease. The patient states that for the last week or so, he has been having chest pain. It got very bad, over the last day or so, and he was convinced to come to the hospital, by his daughter, who works as a medical biller. The patient's chest pain as mentioned, has been sharp and dull. In addition he admits to shortness of breath. Sometime this morning at about 10 or 1030, the chest pain seemed to dissipate, when he was here in the emergency department. He was seen by cardiology, who thought the patient may have an non- ST segment elevation myocardial infarction. He is currently on room air. Saturations are 96%. He is getting IV heparin. White count is 9.6, hemoglobin 10.9, hematocrit 33.8, platelet count was normal. Coagulation studies are normal. Sodium 140, potassium 5.8, repeat 5.1, lords 105, CO2 22, BUN 49, cr eatinine 2.59. Glucose was 157. Troponins were 0.466, and 0.469. EKG was evaluated. Review of Systems REVIEW OF SYSTEMS: CONSTITUTIONAL: [Negative.] NEUROLOGIC: [ Negative.] HEENT: [ Negative.] CARDIAC: Chest pain. PULMONARY: Shortness of breath. GI: [Negative.] : [Negative.] RHEUMATOLOGIC: [ Negative.] IMMUNOLOGIC: [ Negative.] ENDOCRINE: [Negative. ] DERMATOLOGIC: [Negative.] Past Medical History Past Medical History: Cancer, Diabetes Mellitus, GERD/Reflux, Hyperlipidemia, Hypertension, Myocardial Infarction ([place]), Osteoarthritis (OA), Renal Disease Additional Past Medical History / Comment(s): Skin cancer , hx ulcers, growth on one kidney, states "weak kidneys", neuropathy. Last Myocardial Infarction Date:: UNKNOWN History of Any Multi-Drug Resistant Organisms: None Reported Past Surgical History: Appendectomy, Bowel Resection, Coronary Bypass/CABG, Heart Catheterization With Stent, Orthopedic Surgery, Tonsillectomy Additional Past Surgical History / Comment(s): bowel resection after perforated bowel during a colonsocpy, total of five cardiac stents- (4 in January 2018). VIKA KNEE ARTHROSCOPY. SKIN CANCER REMOVED. vika cataracts, CABG (2018) Past Anesthesia/Blood Transfusion Reactions: No Reported Reaction Date of Last Stent Placement:: 01/2018 Past Psychological History: No Psychological Hx Reported Smoking Status: Former smoker Past Alcohol Use History: Rare Past Drug Use History: None Reported - Past Family History Father Additional Family Medical History / Comment(s): DAD IS TILL ALIVE AT AGE 98 HAS SOME MINOR HEART PROBLEMS Mother History Unknown: Yes Family Medical History: No Reported History Medications and Allergies Home Medications Medication Instructions Recorded Confirmed Type Gabapentin 600 mg PO DAILY 06/20/15 03/07/25 History Insulin Aspart [NovoLOG Flexpen] 16 units SQ TID-W/MEALS 11/02/18 03/07/25 History Gabapentin [Neurontin] 1,200 mg PO HS 11/24/18 03/07/25 History Metoprolol Tartrate 25 mg PO BID 07/10/21 03/07/25 History Omeprazole 20 mg PO DAILY 07/10/21 03/07/25 History Simvastatin [Zocor] 40 mg PO HS 07/10/21 03/07/25 History Cyanocobalamin (Vitamin B-12) 1,000 mcg PO DAILY 02/07/24 03/07/25 History [Vitamin B-12] Insulin Aspart [NovoLOG Flexpen] See Protocol SQ TID-W/MEALS 02/07/24 03/07/25 History Insulin Glargine,Hum.rec.anlog 40 units SQ HS 02/07/24 03/07/25 History [Lantus Solostar Pen] Nitroglycerin Sl Tabs [Nitrostat] 0.4 mg SUBLINGUAL Q5M PRN 02/07/24 03/07/25 History Tamsulosin [Flomax] 0.4 mg PO HS 02/07/24 03/07/25 History Clopidogrel [Plavix] 75 mg PO HS 10/16/24 03/07/25 History Empagliflozin [Jardiance] 10 mg PO DAILY 10/16/24 03/07/25 History Isosorbide Mononitrate ER [Imdur] 30 mg PO DAILY 10/16/24 03/07/25 History Ranolazine [Ranexa] 500 mg PO DAILY 10/16/24 03/07/25 History Sodium Bicarbonate Tab 650 mg PO BID #60 tab 10/18/24 03/07/25 Rx amLODIPine [Norvasc] 10 mg PO DAILY #30 tab 10/18/24 03/07/25 Rx Aspirin EC [Ecotrin Low Dose] 81 mg PO DAILY 03/07/25 03/07/25 History Ferrous Sulfate [Feosol] 325 mg PO DAILY 03/07/25 03/07/25 History hydrALAZINE HCL [Apresoline] 50 mg PO BID 03/07/25 03/07/25 History Allergies Allergy/AdvReac Type Severity Reaction Status Date / Time No Known Allergies Allergy Verified 03/07/25 12:07 Physical Exam Osteopathic Statement: *. No significant issues noted on an osteopathic structural exam other than those noted in the History and Physical/Consult. Vitals: Vital Signs Temp Pulse Resp BP Pulse Ox 03/07/25 11:58 20 03/07/25 11:24 67 16 127/66 96 03/07/25 10:24 65 16 139/65 98 03/07/25 10:21 97.9 F 71 17 149/70 93 L Intake and Output 03/07/25 03/07/25 03/07/25 06:59 14:59 22:59 Other: Weight 110.223 kg No acute distress, oriented 3. Currently on room air. No respiratory distress. HEENT examination is grossly unremarkable. Mucous membranes are moist. No oral lesions. Neck supple. Full range of motion. No adenopathy thyromegaly or neck vein distention. Cardiovascular examination reveals regular rhythm rate. S1-S2 normal. No S3 or S4. No discernible murmur noted. Lungs reveal clear breath sounds. Breath sounds are equal bilaterally. No adventitious lung sounds including wheezes rhonchi or crackles. Abdomen soft bowel sounds are heard. No masses or tenderness. Extremities are intact. No cyanosis clubbing or edema. Skin is without rash or lesion. Neurologic examination is brief but nonfocal. Results - Laboratory Findings CBC and BMP: 03/07/25 10:42 03/07/25 14:08 PT/INR, D-dimer PT 11.6 sec (10.0-12.5) 03/07/25 10:42 INR 1.1 (<1.2) 03/07/25 10:42 Abnormal lab findings: Abnormal Labs 03/07/25 03/07/25 03/07/25 10:42 10:42 10:42 RBC 3.99 L Hgb 10.9 L Hct 33.8 L MPV 9.1 L Potassium 5.8 H BUN 49 H Creatinine 2.59 H Glucose 159 H POC Glucose (mg/dL) Troponin I 0.466 H* 03/07/25 03/07/25 13:12 14:08 RBC Hgb Hct MPV Potassium BUN Creatinine Glucose POC Glucose (mg/dL) 157 H Troponin I 0.469 H* - Diagnostic Findings Chest x-ray: image reviewed Assessment and Plan Assessment: Chest pain, with associated shortness of breath, rule out non-ST segment elevation myocardial infarction. History of CAD, with previous stents. Previous history of CABG, x 4 vessel. History of hypertension. Hyperlipidemia. Diabetes mellitus. Stage III chronic kidney disease. History of gastroesophageal reflux disease. Plan: Plan dated March 07, 2025. The patient was seen by cardiology. According to their plan, there going to do a 2D echocardiogram and Doppler study, and they recommended more conservative medical management. The patient is apparently n.p.o. after midnight. The patient himself mention something about a cardiac catheterization, although it was not mentioned in the cardiac consultation. We will continue to follow make recommendations along the way. His respiratory status is stable. He is on room air. Saturations are excellent. He is really not having much in the way of complaints at the current time, and even his chest pain, seems to have subsided, since about 10:00 or 1030 this morning. Dictation was produced using [employer] software. Please excuse any grammatical, word or spelling errors. Time with Patient: Greater than 30
[2025-03-07 17:59] LABS: Glucose,Whole Blood 217 mg/dL (70-110)
[2025-03-07] MEDS: HEPARIN SODIUM 1,000 UN/ML (10ML VL) IV PRN (18:19)
[2025-03-07] MEDS: INSULIN LISPRO (HumaLOG) 100 UNIT/ML 10 mL VL SQ SCH ×2 (18:20)
[2025-03-07] MEDS: HEPARIN SODIUM,PORCINE 5,000 UNIT/ML 1 ML VIAL IV STA (18:24)
[2025-03-07 21:28] LABS: Glucose,Whole Blood 176 mg/dL (70-110)
[2025-03-07] MEDS: GABAPENTIN 400 MG CAP PO SCH (21:35)
[2025-03-07] MEDS: SODIUM BICARBONATE TAB 650 MG TAB PO SCH (21:35)
[2025-03-07] MEDS: ATORVASTATIN 80 MG TAB PO SCH (21:35)
[2025-03-07] MEDS: METOPROLOL TARTRATE 25 MG TAB PO SCH (21:35)
[2025-03-07] MEDS: TAMSULOSIN 0.4 MG CAP.ER.24H PO SCH (21:35)
[2025-03-07] MEDS: hydrALAZINE HCL 50 MG TAB PO SCH (21:35)
[2025-03-07] MEDS: INSULIN GLARGINE (LANTUS) 100 UNIT/ML SYR SQ SCH (22:21)
[2025-03-08 05:57] LABS: Glucose,Whole Blood 191 mg/dL (70-110)
[2025-03-08] MEDS: PANTOPRAZOLE 40 MG TABLET PO SCH (06:00)
[2025-03-08 07:05] LABS: Basophils # (A) 0.06 10*3/uL (0.00-0.10); Basophils % (A) 0.6 %; Eosinophils # (A) 0.29 10*3/uL (0.04-0.35); Eosinophils % (A) 3.1 %; HCT 33.1 % (39.6-50.0); HGB 10.5 g/dL (13.0-17.0); Lymphocytes # (A) 1.39 10*3/uL (0.90-5.00); Lymphocytes % (A) 14.7 %; MCH 26.8 pg (27.0-32.0); MCHC 31.7 g/dL (32.0-37.0); MCV 84.4 fL (80.0-97.0); Mean Platelet Volume 9.1 fL (9.5-12.2); Monocytes % (A) 7.4 %; Neutrophils % (A) 73.8 %; Platelet Count 219 10*3/uL (140-440); RBC 3.92 10*6/uL (4.40-5.60); RDW 16.3 % (11.5-14.5); WBC 9.48 10*3/uL (4.50-10.00)
[2025-03-08] MEDS: ISOSORBIDE MONONITRATE ER 30 MG TAB.ER.24H PO SCH (08:08)
[2025-03-08] MEDS: amLODIPine 10 MG TAB PO SCH (08:09)
[2025-03-08] MEDS: GABAPENTIN 300 MG CAP PO SCH (08:09)
[2025-03-08] MEDS: ASPIRIN 81 MG PO SCH (08:10)
[2025-03-08 08:35] LABS: Partial Thromboplastin Time 36.9 sec (22.0-30.0); Prothrombin Time 11.1 sec (10.0-12.5)
[2025-03-08 09:25] LABS: African American GFR (CKD) 25 (>60 ml/min/1.73 sqM); Anion Gap 18 mmol/L; Blood Urea Nitrogen 49 mg/dL (9-20); Calcium 9.3 mg/dL (8.4-10.2); Carbon Dioxide 13 mmol/L (22-30); Chloride 104 mmol/L (98-107); Glucose 183 mg/dL (74-99); Non-African American GFR(CKD) 21 (>60 ml/min/1.73 sqM); Potassium 5.1 mmol/L (3.5-5.1); Sodium 135 mmol/L (137-145)
[2025-03-08 09:39] LABS: Glucose,Whole Blood 206 mg/dL (70-110)
[2025-03-08] MEDS: ISOSORBIDE MONONITRATE ER 30 MG TAB.ER.24H PO STA (09:48)
[2025-03-08] MEDS: RANOLAZINE 500 MG TAB.ER.12H PO SCH (09:48)
[2025-03-08 11:48] LABS: Glucose,Whole Blood 218 mg/dL (70-110)
--- NOTE | 2025-03-08 13:37 | P.PN ---
Subjective Progress Note Date: 03/08/25 Reason for Consult (text): NSTEMI History of present illness: This is an 79-year-old male patient of Dr. Zhao with past medical history of coronary artery disease status post CABG and previous to that stents, carotid stenosis bilaterally, hypertension, hyperlipidemia, diabetes mellitus type 2, chronic kidney disease, home O2. We have been asked to evaluate the patient for NSTEMI. Patient states he has had chest pain on and off for the past week. The pain also involves his bilateral arms. It gradually worsened over time and he decided to come in to the hospital for further evaluation. Blood pressure 139/65, heart rate 65, pulse ox 98% on room air. Patient has been started on heparin drip. Patient is seen today in the emergency center waiting for a bed on the cardiac stepdown unit. Dr. Luke discussed with the patient plan for treatment. Patient has opted for conservative management at this time. He is chest pain-free at the time of this exam. We will plan to make the patient n.p.o. and further evaluate in the morning. -EKG: Sinus rhythm with anterior and lateral ST changes that are new. -Chest x-ray: Similar multifocal airspace opacities. -Laboratory studies: WBC 9.6, hemoglobin 10.9. Sodium 140, potassium 5.8, BUN 49 creatinine 2.59. Troponin 0.466. -Home cardiac medications: Amlodipine 10 mg daily, aspirin 81 mg daily, Plavix 75 mg daily, Jardiance 10 mg daily, hydralazine 50 mg twice daily, Imdur 30 mg daily, metoprolol tartrate 25 mg twice daily, Nitrostat as needed, Ranexa 500 mg daily, simvastatin 40 mg at bedtime. -Echocardiogram performed at [facility] on 02/07/2024 revealed EF of 50 to 55%, moderate increased left ventricular wall thickness. Mildly dilated left atrium. No pericardial effusion. -Cardiovascular surgery: Four-vessel CABG HERNANDEZ to LAD, VG to R1, VG to PDA, VG to circumflex on 11/29/2018 -Lexiscan Cardiolite stress test performed 03/13/2024 revealed EF of 49%, lateral fixed and inferior apical defect. 03/08/2025 Patient seen today on the cardiac stepdown unit. He denies chest pain at this time. Blood pressure 127/82, heart rate in the 60s and 70s, pulse ox 93% on room air. Repeat blood work reveals hemoglobin 10.5, BUN 49 creatinine 2.67. Echocardiogram is pending. Dr. Luke also discussed again today what patient's wishes are regarding next steps in the form of cardiac catheterization and patient would like to continue conservative management. Physical examination: Gen: This is 79-year-old male in no acute distress VS: reviewed HEENT: Head is atraumatic, normocephalic. Pupils equal, round. Sclerae is anicteric. NECK: Supple. No JVD. LUNGS: Clear to auscultation. No wheezes or rhonchi. No intercostal retractions. HEART: Regular rate and rhythm. No murmur. ABDOMEN: Soft No tenderness. EXTREMITIES: No pedal edema. No calf tenderness. NEUROLOGICAL: Patient is awake, alert and oriented x3. Assessment: NSTEMI History of coronary artery disease with previous CABG and previous to that stents Carotid stenosis DM HTN HLD Chronic kidney disease Plan: Continue patient's home cardiac medications with the following changes Continue heparin gtt tonight Obtain 2-D echocardiogram and Doppler study to assess cardiac structure and function Plan is for conservative medical management Further recommendations to follow based upon clinical course Nurse practitioner note has been reviewed, I agree with documented findings and plan of care. Patient was seen and examined. Objective - Vital Signs Vital signs: Vital Signs Temp 97.5 F L 03/08/25 11:11 Pulse 67 03/08/25 12:44 Resp 18 03/08/25 12:44 BP 127/82 03/08/25 11:11 Pulse Ox 93 L 03/08/25 11:11 FiO2 Intake & Output 03/07/25 03/08/25 03/08/25 18:59 06:59 18:59 Intake Total 68.146 702.464 Balance 68.146 702.464 Weight 110.223 kg 103.6 kg Intake: IV 20 Invasive Line 1 20 Intake, IV Titration 68.146 182.464 Amount Heparin Sod,Pork in 0.45% 68.146 182.464 NaCl 25,000 unit In 0.45 % NaCl 1 250ml.bag @ 9.07 UNITS/KG/HR 9.997 mls/hr IV .Q24H DOLORES Rx#: [id number] Oral 500 Other: Voiding Method Toilet Toilet # Voids 1 - Labs CBC & Chem 7: 03/08/25 06:48 03/08/25 06:48 Labs: Abnormal Lab Results - Last 24 Hours (Table) 03/07/25 03/07/25 03/07/25 Range/Units 14:08 16:57 16:57 RBC (4.40-5.60) 10*6/uL Hgb (13.0-17.0) g/dL Hct (39.6-50.0) % MCH (27.0-32.0) pg MCHC (32.0-37.0) g/dL MPV (9.5-12.2) fL APTT 34.7 H (22.0-30.0) sec Sodium (137-145) mmol/L Carbon Dioxide (22-30) mmol/L BUN (9-20) mg/dL Creatinine (0.66-1.25) mg/dL Glucose (74-99) mg/dL POC Glucose (mg/dL) (70-110) mg/dL Troponin I 0.469 H* 0.431 H* (0.000-0.034) ng/mL 03/07/25 03/07/25 03/07/25 Range/Units 17:55 21:27 22:59 RBC (4.40-5.60) 10*6/uL Hgb (13.0-17.0) g/dL Hct (39.6-50.0) % MCH (27.0-32.0) pg MCHC (32.0-37.0) g/dL MPV (9.5-12.2) fL APTT 41.7 H (22.0-30.0) sec Sodium (137-145) mmol/L Carbon Dioxide (22-30) mmol/L BUN (9-20) mg/dL Creatinine (0.66-1.25) mg/dL Glucose (74-99) mg/dL POC Glucose (mg/dL) 217 H 176 H (70-110) mg/dL Troponin I (0.000-0.034) ng/mL 03/08/25 03/08/25 03/08/25 Range/Units 05:56 06:48 06:48 RBC 3.92 L (4.40-5.60) 10*6/uL Hgb 10.5 L (13.0-17.0) g/dL Hct 33.1 L (39.6-50.0) % MCH 26.8 L (27.0-32.0) pg MCHC 31.7 L (32.0-37.0) g/dL MPV 9.1 L (9.5-12.2) fL APTT 36.9 H (22.0-30.0) sec Sodium (137-145) mmol/L Carbon Dioxide (22-30) mmol/L BUN (9-20) mg/dL Creatinine (0.66-1.25) mg/dL Glucose (74-99) mg/dL POC Glucose (mg/dL) 191 H (70-110) mg/dL Troponin I (0.000-0.034) ng/mL 03/08/25 03/08/25 03/08/25 Range/Units 06:48 09:37 11:46 RBC (4.40-5.60) 10*6/uL Hgb (13.0-17.0) g/dL Hct (39.6-50.0) % MCH (27.0-32.0) pg MCHC (32.0-37.0) g/dL MPV (9.5-12.2) fL APTT (22.0-30.0) sec Sodium 135 L (137-145) mmol/L Carbon Dioxide 13 L (22-30) mmol/L BUN 49 H (9-20) mg/dL Creatinine 2.67 H (0.66-1.25) mg/dL Glucose 183 H (74-99) mg/dL POC Glucose (mg/dL) 206 H 218 H (70-110) mg/dL Troponin I (0.000-0.034) ng/mL
--- NOTE | 2025-03-08 14:08 | P.PN ---
Subjective Progress Note Date: 03/08/25 Principal diagnosis: Chest pain. Pulmonary consult dated March 07, 2025. 79-year-old male with history of CAD, with previous stents, previous CABG x 4 vessel, hypertension, hyperlipidemia, GERD, diabetes, and stage III chronic kidney disease. The patient states that for the last week or so, he has been having chest pain. It got very bad, over the last day or so, and he was c onvinced to come to the hospital, by his daughter, who works as a director of medical staff services. The patient's chest pain as mentioned, has been sharp and dull. In addition he admits to shortness of breath. Sometime this morning at about 10 or 1030, the chest pain seemed to dissipate, when he was here in the emergency department. He was seen by cardiology, who thought the patient may have an non- ST segment elevation myocardial infarction. He is currently on room air. Saturations are 96%. He is getting IV heparin. White count is 9.6, hemoglobin 10.9, hematocrit 33.8, platelet count was normal. Coagulation studies are normal. Sodium 140, potassium 5.8, repeat 5.1, lords 105, CO2 22, BUN 49, crea tinine 2.59. Glucose was 157. Troponins were 0.466, and 0.469. EKG was evaluated. Progress note dated 11/08/2024. 79-year-old male with a well-established history of CAD. The patient was seen in the emergency department yesterday with chest pain. Cardiology saw the patient and is opting for more conservative management. Initially the patient states that he was going to have a cardiac catheterization. He has a history of CAD with previous stents, four-vessel bypass grafting, hypertension, hyperlipidemia, among other things. He is resting comfortably in bed. He is on room air. He continues on IV heparin. He did have chest pain last night, at 11 PM. Does not have any chest pain today. Current labs include a white count of 9.5, hemoglobin 10.5, hematocrit 33.1, and platelet count 219,000. PTT is 37. Sodium 135, potassium 5.1, chlorides 104, CO2 13, anion gap 18, BUN 49, creat inine 2.67. Glucose is 218. Calcium is 9.3. Objective - Vital Signs Vital signs: Vital Signs Temp 97.5 F L 03/08/25 11:11 Pulse 67 03/08/25 12:44 Resp 18 03/08/25 12:44 BP 127/82 03/08/25 11:11 Pulse Ox 93 L 03/08/25 11:11 FiO2 Intake & Output 03/07/25 03/08/25 03/08/25 18:59 06:59 18:59 Intake Total 68.146 702.464 Balance 68.146 702.464 Weight 110.223 kg 103.6 kg Intake: IV 20 Invasive Line 1 20 Intake, IV Titration 68.146 182.464 Amount Heparin Sod,Pork in 0.45% 68.146 182.464 NaCl 25,000 unit In 0.45 % NaCl 1 250ml.bag @ 9.07 UNITS/KG/HR 9.997 mls/hr IV .Q24H [facility] Rx#: [id number] Oral 500 Other: Voiding Method Toilet Toilet # Voids 1 - Exam No acute distress, oriented 3. Currently on room air. HEENT examination is grossly unremarkable. Mucous membranes are moist. No oral lesions. Neck supple. Full range of motion. No adenopathy thyromegaly or neck vein distention. Cardiovascular examination reveals regular rhythm rate. S1-S2 normal. No S3 or S4. No discernible murmur noted. Lungs reveal clear breath sounds. Breath sounds are equal bilaterally. No adventitious lung sounds including wheezes rhonchi or crackles. Abdomen soft bowel sounds are heard. No masses or tenderness. Extremities are intact. No cyanosis clubbing or edema. Skin is without rash or lesion. Neurologic examination is brief but nonfocal. - Labs CBC & Chem 7: 03/08/25 06:48 03/08/25 06:48 Labs: Abnormal Lab Results - Last 24 Hours (Table) 03/07/25 03/07/25 03/07/25 Range/Units 14:08 16:57 16:57 RBC (4.40-5.60) 10*6/uL Hgb (13.0-17.0) g/dL Hct (39.6-50.0) % MCH (27.0-32.0) pg MCHC (32.0-37.0) g/dL MPV (9.5-12.2) fL APTT 34.7 H (22.0-30.0) sec Sodium (137-145) mmol/L Carbon Dioxide (22-30) mmol/L BUN (9-20) mg/dL Creatinine (0.66-1.25) mg/dL Glucose (74-99) mg/dL POC Glucose (mg/dL) (70-110) mg/dL Troponin I 0.469 H* 0.431 H* (0.000-0.034) ng/mL 03/07/25 03/07/25 03/07/25 Range/Units 17:55 21:27 22:59 RBC (4.40-5.60) 10*6/uL Hgb (13.0-17.0) g/dL Hct (39.6-50.0) % MCH (27.0-32.0) pg MCHC (32.0-37.0) g/dL MPV (9.5-12.2) fL APTT 41.7 H (22.0-30.0) sec Sodium (137-145) mmol/L Carbon Dioxide (22-30) mmol/L BUN (9-20) mg/dL Creatinine (0.66-1.25) mg/dL Glucose (74-99) mg/dL POC Glucose (mg/dL) 217 H 176 H (70-110) mg/dL Troponin I (0.000-0.034) ng/mL 03/08/25 03/08/25 03/08/25 Range/Units 05:56 06:48 06:48 RBC 3.92 L (4.40-5.60) 10*6/uL Hgb 10.5 L (13.0-17.0) g/dL Hct 33.1 L (39.6-50.0) % MCH 26.8 L (27.0-32.0) pg MCHC 31.7 L (32.0-37.0) g/dL MPV 9.1 L (9.5-12.2) fL APTT 36.9 H (22.0-30.0) sec Sodium (137-145) mmol/L Carbon Dioxide (22-30) mmol/L BUN (9-20) mg/dL Creatinine (0.66-1.25) mg/dL Glucose (74-99) mg/dL POC Glucose (mg/dL) 191 H (70-110) mg/dL Troponin I (0.000-0.034) ng/mL 03/08/25 03/08/25 03/08/25 Range/Units 06:48 09:37 11:46 RBC (4.40-5.60) 10*6/uL Hgb (13.0-17.0) g/dL Hct (39.6-50.0) % MCH (27.0-32.0) pg MCHC (32.0-37.0) g/dL MPV (9.5-12.2) fL APTT (22.0-30.0) sec Sodium 135 L (137-145) mmol/L Carbon Dioxide 13 L (22-30) mmol/L BUN 49 H (9-20) mg/dL Creatinine 2.67 H (0.66-1.25) mg/dL Glucose 183 H (74-99) mg/dL POC Glucose (mg/dL) 206 H 218 H (70-110) mg/dL Troponin I (0.000-0.034) ng/mL Assessment and Plan Assessment: Chest pain, with associated shortness of breath, rule out non-ST segment elevation myocardial infarction. History of CAD, with previous stents. Previous history of CABG, x 4 vessel. History of hypertension. Hyperlipidemia. Diabetes mellitus. Stage III chronic kidney disease. History of gastroesophageal reflux disease. Plan: Plan dated March 07, 2025. The patient was seen by cardiology. According to their plan, there going to do a 2D echocardiogram and Doppler study, and they recommended more conservative medical management. The patient is apparently n.p.o. after midnight. The patient himself mention something about a cardiac catheterization, although it was not mentioned in the cardiac consultation. We will continue to follow make recommendations along the way. His respiratory status is stable. He is on room air. Saturations are excellent. He is really not having much in the way of complaints at the current time, and even his chest pain, seems to have subsided, since about 10:00 or 1030 this morning. Dictation was produced using [employer] software. Please excuse any grammatical, word or spelling errors. Plan dated March 08, 2025. The patient was seen by cardiology. They are planning more conservative management on this patient. Currently he is on IV heparin. We will continue to follow. Labs are reviewed. X-rays, and medications are reviewed. The patient is currently not having any chest discomfort. He did have some chest pain last night at 11 PM. We will continue to follow make recommendations along the way. Prognosis is guarded. Dictation was produced using [employer] software. Please excuse any grammatical, word or spelling errors. Time with Patient: Less than 30
--- NOTE | 2025-03-08 14:28 | P.PN ---
Subjective Progress Note Date: 03/08/25 Hospital Course: A 79 yo male with PMH of CAD with previous stents and status post CABG x 4, hy pertension, hyperlipidemia, GERD, insulin-dependent diabetes mellitus, and stage IIIb chronic kidney disease who presents to the ER for evaluation of chest pain that started around 1 week ago. Patient does not remember any precipitating events. he states that pain comes and goes, it wakes him up from sleep, denies associated shortness of breath, nausea, vomiting, dizziness, fever, chills, abdominal pain, changes in bowel habits, lower extremity sensation changes or swelling. Pain improves when he sits up and rests, he notices that he develops chest pain with exertion, not sure how much exertion he can tolerate. On arrival afebrile, HR in 70s, BP 149/70, satting well on RA. Lab work revealed normalWBC, hb 10.9, at baseline, potassium 5.8, normal Na Cr 2.59, baseline around 2.3. Troponin 0.466. EKG showed sinus rythm ST depression in V2, V5,, T inversion, Xray showed multifocal airspace opacities. Patient has these changes on the prior Xray, Patient was started on heparin drip, cardiology contacted by ER provider, plan for TTE, admitted as inpatient for further evaluation. 03/08: Patient was seen and examined at bedside, overnight he had a fall without loss of consciousness or head trauma, he slipped over in the bathroom. Denies chest pain, shortness of breath. His vitals are stable, satting well on room air. His CBC is stable, creatinine went up to 2.67, started on gentle IV hydration, blood glucose is not optimally controlled, will adjust basal bolus regimen. Cardiology added ranolazine 500 twice daily. TTE pending Pertinent positives and negatives as discussed above, a complete review of systems was performed and all other systems are negative. Vital signs reviewed and stable. General: Nontoxic, no distress and appears stated age. Derm: Skin warm and dry, normal coloration for ethnicity. Head: Atraumatic, normocephalic and symmetric. Eyes: EOMs intact, no lid lag, and anicteric sclera Mouth: no lip lesions, mucus membranes moist Cardiovascular: regular rate and rhythm with normal S1S2, systolic murmur, positive posterior tibial pulses bilaterally, and cap refill < 2 seconds. Lungs: Respirations even, regular, and unlabored on room air. Lungs CTA bilaterally, no rhonchi, no rales, no wheezing, and no accessory muscle usage. Abdominal: soft, nontender to palpation, no guarding, no appreciable organomegaly Ext: ROM intact. No gross muscle atrophy, no edema, no contractures Neuro: Speech clear, face symmetrical and CN II-XII grossly intact with no noted focal neuro deficits Psych: Alert and oriented to person, place, time, and situation. Appropriate and pleasant affect. Assessment and Plan: Chest pain/tightness NSTEMI History of CAD status post CABG x 4 Hypertension, hypertensive urgency upon arrival Hyperlipidemia -Cardiology consulted, appreciate recommendations -continue heparin drip -Telemetry monitoring -Trend troponins -Cardiac diet -Continue cardiac medication regimen with aspirin 81 mg daily, atorvastatin 20 mg nightly,, metoprolol 25 mg twice daily, and hydralazine 50 mg twice daily, Imdur 30 daily, start atorvastatin 80 daily instread of simvastatin -Cardiology added ranolazine 500 mg twice daily -Discussed with cardiology, RN -nitro sublingual PRN -had A1c checked in 04.23, lipid profile with LDL 46 -Echocardiogram Hyperkalemia, resolved -monitor BMP daily Insulin-dependent diabetes mellitus with hyperglycemia - Increase Lantus to 40 units nightly nightly, continue mealtime 10 units, increased sliding scale insulin to moderate -Follow-up on hemoglobin A1c. Chronic anemia -Hb at baseline, monitor CBC daily, continue daily Iron 325 COOKIE on Stage IIIb chronic kidney disease - Creatinine up to 2.67, will start gentle IV hydration with LR at 75 cc/h -monitor BMP GERD Continue GI prophylaxis with omeprazole 20 mg daily. The patient is admitted with an anticipated more than 2 midnight stay for e valuation of chest pain, NSTEMI CODE STATUS: Full code DVT prophylaxis: Heparin Anticipated discharge date: tbd Anticipate TTE ordered and pendingce: Home Objective - Vital Signs Vital signs: Vital Signs Temp 97.5 F L 03/08/25 11:11 Pulse 67 03/08/25 12:44 Resp 18 03/08/25 12:44 BP 127/82 03/08/25 11:11 Pulse Ox 93 L 03/08/25 11:11 FiO2 Intake & Output 03/07/25 03/08/25 03/08/25 18:59 06:59 18:59 Intake Total 68.146 702.464 Balance 68.146 702.464 Weight 110.223 kg 103.6 kg Intake: IV 20 Invasive Line 1 20 Intake, IV Titration 68.146 182.464 Amount Heparin Sod,Pork in 0.45% 68.146 182.464 NaCl 25,000 unit In 0.45 % NaCl 1 250ml.bag @ 9.07 UNITS/KG/HR 9.997 mls/hr IV .Q24H [facility] Rx#: [id number] Oral 500 Other: Voiding Method Toilet Toilet # Voids 1 - Labs CBC & Chem 7: 03/08/25 06:48 03/08/25 06:48 Labs: Abnormal Lab Results - Last 24 Hours (Table) 03/07/25 03/07/25 03/07/25 Range/Units 14:08 16:57 16:57 RBC (4.40-5.60) 10*6/uL Hgb (13.0-17.0) g/dL Hct (39.6-50.0) % MCH (27.0-32.0) pg MCHC (32.0-37.0) g/dL MPV (9.5-12.2) fL APTT 34.7 H (22.0-30.0) sec Sodium (137-145) mmol/L Carbon Dioxide (22-30) mmol/L BUN (9-20) mg/dL Creatinine (0.66-1.25) mg/dL Glucose (74-99) mg/dL POC Glucose (mg/dL) (70-110) mg/dL Troponin I 0.469 H* 0.431 H* (0.000-0.034) ng/mL 03/07/25 03/07/25 03/07/25 Range/Units 17:55 21:27 22:59 RBC (4.40-5.60) 10*6/uL Hgb (13.0-17.0) g/dL Hct (39.6-50.0) % MCH (27.0-32.0) pg MCHC (32.0-37.0) g/dL MPV (9.5-12.2) fL APTT 41.7 H (22.0-30.0) sec Sodium (137-145) mmol/L Carbon Dioxide (22-30) mmol/L BUN (9-20) mg/dL Creatinine (0.66-1.25) mg/dL Glucose (74-99) mg/dL POC Glucose (mg/dL) 217 H 176 H (70-110) mg/dL Troponin I (0.000-0.034) ng/mL 03/08/25 03/08/25 03/08/25 Range/Units 05:56 06:48 06:48 RBC 3.92 L (4.40-5.60) 10*6/uL Hgb 10.5 L (13.0-17.0) g/dL Hct 33.1 L (39.6-50.0) % MCH 26.8 L (27.0-32.0) pg MCHC 31.7 L (32.0-37.0) g/dL MPV 9.1 L (9.5-12.2) fL APTT 36.9 H (22.0-30.0) sec Sodium (137-145) mmol/L Carbon Dioxide (22-30) mmol/L BUN (9-20) mg/dL Creatinine (0.66-1.25) mg/dL Glucose (74-99) mg/dL POC Glucose (mg/dL) 191 H (70-110) mg/dL Troponin I (0.000-0.034) ng/mL 03/08/25 03/08/25 03/08/25 Range/Units 06:48 09:37 11:46 RBC (4.40-5.60) 10*6/uL Hgb (13.0-17.0) g/dL Hct (39.6-50.0) % MCH (27.0-32.0) pg MCHC (32.0-37.0) g/dL MPV (9.5-12.2) fL APTT (22.0-30.0) sec Sodium 135 L (137-145) mmol/L Carbon Dioxide 13 L (22-30) mmol/L BUN 49 H (9-20) mg/dL Creatinine 2.67 H (0.66-1.25) mg/dL Glucose 183 H (74-99) mg/dL POC Glucose (mg/dL) 206 H 218 H (70-110) mg/dL Troponin I (0.000-0.034) ng/mL
[2025-03-08] MEDS: LACTATED RINGERS 1,000 ML IV SCH (15:11)
[2025-03-08 16:53] LABS: Glucose,Whole Blood 99 mg/dL (70-110)
--- NOTE | 2025-03-08 19:05 | CA ---
Transthoracic Echo Report Name: Jam Varner Age: 79 Gender: M : 1945 Exam Date: 03/08/2025 10:19 Exam Location: [facility] Ht (in): 73 Wt (lb): 243 Ordering Physician: Jennifer Perez DO Attending/Referring Phys: [id number], Ana Postal Delivery Officer Félix Marie, DENISE Procedure CPT: Indications: Chest Pain Cardiac Hx: Technical Quality: Technically difficult study Contrast 1: Definity Total Dose (mL): 2 Contrast 2: Total Dose (mL): MEASUREMENTS (Male / Female) Normal Values 2D ECHO LV Diastolic Diameter PLAX 5.5 cm 4.2 - 5.9 / 3.9 - 5.3 cm LV Systolic Diameter PLAX 3.9 cm IVS Diastolic Thickness 1.2 cm 0.6 - 1.0 / 0.6 - 0.9 cm LVPW Diastolic Thickness 1.2 cm 0.6 - 1.0 / 0.6 - 0.9 cm LV Relative Wall Thickness 0.4 RV Internal Dim ED PLAX 3.8 cm LVOT Diameter 1.7 cm LA Systolic Diameter LX 5.9 cm 3.0 - 4.0 / 2.7 - 3.8 cm LV Diastolic Volume MOD BP 184.7 cm??? 67 - 155 / 56 - 104 cm??? LV Systolic Volume MOD BP 85.8 cm??? 22 - 58 / 19 - 49 cm??? LV Ejection Fraction MOD BP 53.5 % >= 55 % LV Cardiac Index MOD BP 2788.1 cm???/min???m??? LV Diastolic Volume MOD 4C 207.8 cm??? LV Systolic Volume MOD 4C 86.0 cm??? LV Ejection Fraction MOD 4C 58.6 % LV Cardiac Index MOD 4C 3435.2 cm???/min???m??? LV Diastolic Length 4C 10.3 cm LV Systolic Length 4C 8.7 cm LV Diastolic Volume MOD 2C 156.9 cm??? LV Systolic Volume MOD 2C 85.1 cm??? LV Ejection Fraction MOD 2C 45.7 % LV Cardiac Index MOD 2C 2022.7 cm???/min???m??? LV Diastolic Length 2C 9.9 cm LV Systolic Length 2C 8.8 cm LA Volume 75.0 cm??? 18 - 58 / 22 - 52 cm??? LA Volume Index 31.1 cm???/m??? 16 - 28 cm???/m??? DOPPLER MV Area PHT 3.1 cm??? Mitral E Point Velocity 63.5 cm/s Mitral A Point Velocity 98.3 cm/s Mitral E to A Ratio 0.6 MV Deceleration Time 246.3 ms TR Peak Gradient 65.5 mmHg FINDINGS Left Ventricle Left ventricular ejection fraction is estimated at 45-50%. Mildly decreased left ventricular ejection fraction. Mild concentric left ventricular hypertrophy. No obvious regional wall motion abnormalities. Right Ventricle Right ventricular dilatation. Unable to estimate the right ventricular systolic pressure. Right Atrium Normal right atrial size. Left Atrium Severely increased left atrial diameter. Mildly increased left atrial volume. Mildly increased left atrial area. Mitral Valve Mitral annular calcification. No mitral stenosis. Mild mitral regurgitation. Aortic Valve Trileaflet aortic valve. Thickened aortic valve without stenosis. No aortic regurgitation. Tricuspid Valve Structurally normal tricuspid valve. No tricuspid stenosis.mild tricuspid regurgitation. Pulmonic Valve Structurally normal pulmonic valve. No pulmonic stenosis. No pulmonic regurgitation. Pericardium No pericardial effusion. Aorta Aortic annulus normal. CONCLUSIONS Left ventricular systolic function mildly impaired with global hypokinesis Mild mitral and tricuspid regurgitation Previewed by: Dr. Kacie Zhao MD (Electronically Signed) Final Date: 08 March 2025 19:04
[2025-03-08 19:57] LABS: Glucose,Whole Blood 145 mg/dL (70-110)
[2025-03-08] MEDS: INSULIN GLARGINE (LANTUS) 100 UNIT/ML SYR SQ SCH (20:52)
[2025-03-09 06:02] LABS: Glucose,Whole Blood 127 mg/dL (70-110)
[2025-03-09 07:45] LABS: Basophils # (A) 0.06 10*3/uL (0.00-0.10); Basophils % (A) 0.7 %; Eosinophils % (A) 3.5 %; HCT 32.6 % (39.6-50.0); HGB 10.5 g/dL (13.0-17.0); Lymphocytes # (A) 1.86 10*3/uL (0.90-5.00); MCH 26.9 pg (27.0-32.0); MCHC 32.2 g/dL (32.0-37.0); MCV 83.6 fL (80.0-97.0); Monocytes # (A) 0.74 10*3/uL (0.20-1.00); Monocytes % (A) 8.7 %; Neutrophils # (A) 5.46 10*3/uL (1.80-7.70); Neutrophils % (A) 64.6 %; Platelet Count 211 10*3/uL (140-440); RDW 16.3 % (11.5-14.5); WBC 8.46 10*3/uL (4.50-10.00)
[2025-03-09 08:55] LABS: African American GFR (CKD) 28 (>60 ml/min/1.73 sqM); Anion Gap 12 mmol/L; Blood Urea Nitrogen 47 mg/dL (9-20); Calcium 9.5 mg/dL (8.4-10.2); Carbon Dioxide 19 mmol/L (22-30); Chloride 105 mmol/L (98-107); Glucose 134 mg/dL (74-99); Non-African American GFR(CKD) 25 (>60 ml/min/1.73 sqM); Potassium 4.7 mmol/L (3.5-5.1); Sodium 136 mmol/L (137-145)
[2025-03-09] MEDS: FERROUS SULFATE 325 MG TAB PO SCH (08:59)
[2025-03-09] MEDS: ISOSORBIDE MONONITRATE ER 60 MG TAB.ER.24H PO SCH (08:59)
[2025-03-09] MEDS: DAPAGLIFLOZIN PROPANEDIOL 5 MG TABLET PO SCH (09:00)
[2025-03-09 11:48] LABS: Glucose,Whole Blood 189 mg/dL (70-110)
--- NOTE | 2025-03-09 12:45 | P.PN ---
Subjective Progress Note Date: 03/09/25 Hospital Course: A 79 yo male with PMH of CAD with previous stents and status post CABG x 4, hy pertension, hyperlipidemia, GERD, insulin-dependent diabetes mellitus, and stage IIIb chronic kidney disease who presents to the ER for evaluation of chest pain that started around 1 week ago. Patient does not remember any precipitating events. he states that pain comes and goes, it wakes him up from sleep, denies associated shortness of breath, nausea, vomiting, dizziness, fever, chills, abdominal pain, changes in bowel habits, lower extremity sensation changes or swelling. Pain improves when he sits up and rests, he notices that he develops chest pain with exertion, not sure how much exertion he can tolerate. On arrival afebrile, HR in 70s, BP 149/70, satting well on RA. Lab work revealed normalWBC, hb 10.9, at baseline, potassium 5.8, normal Na Cr 2.59, baseline around 2.3. Troponin 0.466. EKG showed sinus rythm ST depression in V2, V5,, T inversion, Xray showed multifocal airspace opacities. Patient has these changes on the prior Xray, Patient was started on heparin drip, cardiology contacted by ER provider, plan for TTE, admitted as inpatient for further evaluation. 03/08: Patient was seen and examined at bedside, overnight he had a fall without loss of consciousness or head trauma, he slipped over in the bathroom. Denies chest pain, shortness of breath. His vitals are stable, satting well on room air. His CBC is stable, creatinine went up to 2.67, started on gentle IV hydration, blood glucose is not optimally controlled, will adjust basal bolus regimen. Cardiology added ranolazine 500 twice daily. TTE EF 45 to 50%, no obvious regional wall motion abnormalities. 03/09: Patient seen and examined at bedside, had an episode of chest pain overnight, he then developed chest pressure on ambulation. No SOB. He is afebrile with stable vitals.. No leukocytosis, creatinine improved to 2.39, glucose controlled, sodium 136, normal potassium. Discussed with cardiology, RN, patient will stay overnight, monitor exertional chest pain. His Imdur was increased to 60 daily Pertinent positives and negatives as discussed above, a complete review of systems was performed and all other systems are negative. Vital signs reviewed and stable. General: Nontoxic, no distress and appears stated age. Derm: Skin warm and dry, normal coloration for ethnicity. Head: Atraumatic, normocephalic and symmetric. Eyes: EOMs intact, no lid lag, and anicteric sclera Mouth: no lip lesions, mucus membranes moist Cardiovascular: regular rate and rhythm with normal S1S2, systolic murmur, positive posterior tibial pulses bilaterally, and cap refill < 2 seconds. Lungs: Respirations even, regular, and unlabored on room air. Lungs CTA bilaterally, no rhonchi, no rales, no wheezing, and no accessory muscle usage. Abdominal: soft, nontender to palpation, no guarding, no appreciable organomegaly Ext: ROM intact. No gross muscle atrophy, no edema, no contractures Neuro: Speech clear, face symmetrical and CN II-XII grossly intact with no noted focal neuro deficits Psych: Alert and oriented to person, place, time, and situation. Appropriate and pleasant affect. Assessment and Plan: Chest pain/tightness NSTEMI History of CAD status post CABG x 4 Hypertension, hypertensive urgency upon arrival Hyperlipidemia -Cardiology consulted, appreciate recommendations -Drip stopped -Telemetry monitoring -Cardiac diet -Continue cardiac medication regimen with aspirin 81 mg daily, atorvastatin 20 mg nightly,, metoprolol 25 mg twice daily, and hydralazine 50 mg twice daily, I mdur increased to 60 daily, start atorvastatin 80 daily instread of simvastatin -Cardiology added ranolazine 500 mg twice daily -Discussed with cardiology, RN -nitro sublingual PRN -had A1c checked in 04.23, lipid profile with LDL 46 -Echocardiogram as above Hyperkalemia, resolved -monitor BMP daily Insulin-dependent diabetes mellitus with hyperglycemia - Increase Lantus to 40 units nightly nightly, continue mealtime 10 units, increased sliding scale insulin to moderate -Follow-up on hemoglobin A1c. Chronic anemia -Hb at baseline, monitor CBC daily, continue daily Iron 325 COOKIE on Stage IIIb chronic kidney disease, improved - Creatinine up to 2.67->2.39, continue gentle IV hydration with LR at 75 cc/h -monitor BMP GERD Continue GI prophylaxis with omeprazole 20 mg daily. CODE STATUS: Full code DVT prophylaxis: Heparin Anticipated discharge date: 03/10, home Objective - Vital Signs Vital signs: Vital Signs Temp 97.4 F L 03/09/25 11:55 Pulse 62 03/09/25 11:55 Resp 16 03/09/25 11:55 BP 115/54 03/09/25 11:55 Pulse Ox 95 03/09/25 11:55 FiO2 Intake & Output 03/08/25 03/09/25 03/09/25 18:59 06:59 18:59 Intake Total 702.464 20 225 Balance 702.464 20 225 Weight 104.9 kg Intake: IV 20 20 Invasive Line 1 20 20 Intake, IV Titration 182.464 225 Amount Heparin Sod,Pork in 0.45% 182.464 NaCl 25,000 unit In 0.45 % NaCl 1 250ml.bag @ 9.07 UNITS/KG/HR 9.997 mls/hr IV .Q24H [facility] Rx#: [id number] Lactated Ringers 1,000 ml 225 @ 75 mls/hr IV .[id number] [facility] Rx#:[id number] Oral 500 Other: Voiding Method Toilet Toilet # Voids 1 1 - Labs CBC & Chem 7: 03/09/25 07:30 03/09/25 07:30 Labs: Abnormal Lab Results - Last 24 Hours (Table) 03/08/25 03/08/25 03/09/25 Range/Units 15:49 19:55 06:00 RBC (4.40-5.60) 10*6/uL Hgb (13.0-17.0) g/dL Hct (39.6-50.0) % MCH (27.0-32.0) pg MPV (9.5-12.2) fL APTT 42.7 H (22.0-30.0) sec Sodium (137-145) mmol/L Carbon Dioxide (22-30) mmol/L BUN (9-20) mg/dL Creatinine (0.66-1.25) mg/dL Glucose (74-99) mg/dL POC Glucose (mg/dL) 145 H 127 H (70-110) mg/dL 03/09/25 03/09/25 03/09/25 Range/Units 07:30 07:30 07:30 RBC 3.90 L (4.40-5.60) 10*6/uL Hgb 10.5 L (13.0-17.0) g/dL Hct 32.6 L (39.6-50.0) % MCH 26.9 L (27.0-32.0) pg MPV 9.0 L (9.5-12.2) fL APTT 46.9 H (22.0-30.0) sec Sodium 136 L (137-145) mmol/L Carbon Dioxide 19 L (22-30) mmol/L BUN 47 H (9-20) mg/dL Creatinine 2.39 H (0.66-1.25) mg/dL Glucose 134 H (74-99) mg/dL POC Glucose (mg/dL) (70-110) mg/dL 03/09/25 Range/Units 11:47 RBC (4.40-5.60) 10*6/uL Hgb (13.0-17.0) g/dL Hct (39.6-50.0) % MCH (27.0-32.0) pg MPV (9.5-12.2) fL APTT (22.0-30.0) sec Sodium (137-145) mmol/L Carbon Dioxide (22-30) mmol/L BUN (9-20) mg/dL Creatinine (0.66-1.25) mg/dL Glucose (74-99) mg/dL POC Glucose (mg/dL) 189 H (70-110) mg/dL
--- NOTE | 2025-03-09 13:37 | P.PN ---
Subjective Progress Note Date: 03/09/25 Principal diagnosis: Chest pain. Pulmonary consult dated March 07, 2025. 79-year-old male with history of CAD, with previous stents, previous CABG x 4 vessel, hypertension, hyperlipidemia, GERD, diabetes, and stage III chronic kidney disease. The patient states that for the last week or so, he has been having chest pain. It got very bad, over the last day or so, and he was c onvinced to come to the hospital, by his daughter, who works as a director medical. The patient's chest pain as mentioned, has been sharp and dull. In addition he admits to shortness of breath. Sometime this morning at about 10 or 1030, the chest pain seemed to dissipate, when he was here in the emergency department. He was seen by cardiology, who thought the patient may have an non- ST segment elevation myocardial infarction. He is currently on room air. Saturations are 96%. He is getting IV heparin. White count is 9.6, hemoglobin 10.9, hematocrit 33.8, platelet count was normal. Coagulation studies are normal. Sodium 140, potassium 5.8, repeat 5.1, lords 105, CO2 22, BUN 49, crea tinine 2.59. Glucose was 157. Troponins were 0.466, and 0.469. EKG was evaluated. Progress note dated 03/08/2025. 79-year-old male with a well-established history of CAD. The patient was seen in the emergency department yesterday with chest pain. Cardiology saw the patient and is opting for more conservative management. Initially the patient states that he was going to have a cardiac catheterization. He has a history of CAD with previous stents, four-vessel bypass grafting, hypertension, hyperlipidemia, among other things. He is resting comfortably in bed. He is on room air. He continues on IV heparin. He did have chest pain last night, at 11 PM. Does not have any chest pain today. Current labs include a white count of 9.5, hemoglobin 10.5, hematocrit 33.1, and platelet count 219,000. PTT is 37. Sodium 135, potassium 5.1, chlorides 104, CO2 13, anion gap 18, BUN 49, crea tinine 2.67. Glucose is 218. Calcium is 9.3. Progress note dated March 09, 2025. 79-year-old male with a history of well-established CAD. The patient was seen in the emergency department, 2 days ago. He came in with chest pain. Cardiology decided to manage him conservatively. Initially he thought he might have a repeat cardiac catheterization. Yesterday he was on IV heparin. Today he is on room air. No fluids. He has no pain or difficulty in his breathing. Current labs showed a white count 8.5, hemoglobin 10.5, hematocrit 32.6, and a platelet count that is 211,000. PTT is 46.9, but that was when he was receiving heparin. The heparin has been turned off. Sodium 136, potassium 4.7, chlorides 105, CO2 19, anion gap 12, BUN 47, creatinine 2.39. Glucose 189. Calcium 9.5. Objective - Vital Signs Vital signs: Vital Signs Temp 97.4 F L 03/09/25 11:55 Pulse 62 03/09/25 11:55 Resp 16 03/09/25 11:55 BP 115/54 03/09/25 11:55 Pulse Ox 95 03/09/25 11:55 FiO2 Intake & Output 03/08/25 03/09/25 03/09/25 18:59 06:59 18:59 Intake Total 702.464 20 225 Balance 702.464 20 225 Weight 104.9 kg Intake: IV 20 20 Invasive Line 1 20 20 Intake, IV Titration 182.464 225 Amount Heparin Sod,Pork in 0.45% 182.464 NaCl 25,000 unit In 0.45 % NaCl 1 250ml.bag @ 9.07 UNITS/KG/HR 9.997 mls/hr IV .Q24H [facility] Rx#: [id number] Lactated Ringers 1,000 ml 225 @ 75 mls/hr IV .[id number] [facility] Rx#:[id number] Oral 500 Other: Voiding Method Toilet Toilet # Voids 1 1 - Exam No acute distress, oriented 3. Currently on room air. HEENT examination is grossly unremarkable. Mucous membranes are moist. No oral lesions. Neck supple. Full range of motion. No adenopathy thyromegaly or neck vein distention. Cardiovascular examination reveals regular rhythm rate. S1-S2 normal. No S3 or S4. No discernible murmur noted. Lungs reveal clear breath sounds. Breath sounds are equal bilaterally. No adventitious lung sounds including wheezes rhonchi or crackles. Abdomen soft bowel sounds are heard. No masses or tenderness. Extremities are intact. No cyanosis clubbing or edema. Skin is without rash or lesion. Neurologic examination is brief but nonfocal. - Labs CBC & Chem 7: 03/09/25 07:30 03/09/25 07:30 Labs: Abnormal Lab Results - Last 24 Hours (Table) 03/08/25 03/08/25 03/09/25 Range/Units 15:49 19:55 06:00 RBC (4.40-5.60) 10*6/uL Hgb (13.0-17.0) g/dL Hct (39.6-50.0) % MCH (27.0-32.0) pg MPV (9.5-12.2) fL APTT 42.7 H (22.0-30.0) sec Sodium (137-145) mmol/L Carbon Dioxide (22-30) mmol/L BUN (9-20) mg/dL Creatinine (0.66-1.25) mg/dL Glucose (74-99) mg/dL POC Glucose (mg/dL) 145 H 127 H (70-110) mg/dL 03/09/25 03/09/25 03/09/25 Range/Units 07:30 07:30 07:30 RBC 3.90 L (4.40-5.60) 10*6/uL Hgb 10.5 L (13.0-17.0) g/dL Hct 32.6 L (39.6-50.0) % MCH 26.9 L (27.0-32.0) pg MPV 9.0 L (9.5-12.2) fL APTT 46.9 H (22.0-30.0) sec Sodium 136 L (137-145) mmol/L Carbon Dioxide 19 L (22-30) mmol/L BUN 47 H (9-20) mg/dL Creatinine 2.39 H (0.66-1.25) mg/dL Glucose 134 H (74-99) mg/dL POC Glucose (mg/dL) (70-110) mg/dL 03/09/25 Range/Units 11:47 RBC (4.40-5.60) 10*6/uL Hgb (13.0-17.0) g/dL Hct (39.6-50.0) % MCH (27.0-32.0) pg MPV (9.5-12.2) fL APTT (22.0-30.0) sec Sodium (137-145) mmol/L Carbon Dioxide (22-30) mmol/L BUN (9-20) mg/dL Creatinine (0.66-1.25) mg/dL Glucose (74-99) mg/dL POC Glucose (mg/dL) 189 H (70-110) mg/dL Assessment and Plan Assessment: Chest pain, with associated shortness of breath, rule out non-ST segment elevation myocardial infarction. History of CAD, with previous stents. Previous history of CABG, x 4 vessel. History of hypertension. Hyperlipidemia. Diabetes mellitus. Stage III chronic kidney disease. History of gastroesophageal reflux disease. Plan: Plan dated March 07, 2025. The patient was seen by cardiology. According to their plan, there going to do a 2D echocardiogram and Doppler study, and they recommended more conservative medical management. The patient is apparently n.p.o. after midnight. The patient himself mention something about a cardiac catheterization, although it was not mentioned in the cardiac consultation. We will continue to follow make recommendations along the way. His respiratory status is stable. He is on room air. Saturations are excellent. He is really not having much in the way of complaints at the current time, and even his chest pain, seems to have subsided, since about 10:00 or 1030 this morning. Dictation was produced using [employer] software. Please excuse any grammatical, word or spelling errors. Plan dated March 08, 2025. The patient was seen by cardiology. They are planning more conservative manage ment on this patient. Currently he is on IV heparin. We will continue to follow. Labs are reviewed. X-rays, and medications are reviewed. The patient is currently not having any chest discomfort. He did have some chest pain last night at 11 PM. We will continue to follow make recommendations along the way. Prognosis is guarded. Dictation was produced using [employer] software. Please excuse any grammatical, word or spelling errors. Plan dated March 09, 2025. The patient is seen in room 367. He is resting comfortably, in the chair next to the hospital bed. He is not on any IV fluids. Heparin has been discontinued. He is on room air. Labs, x-rays, and medications are reviewed. The plan by cardiology, was conservative management. Clinically, the patient is doing well. No additional chest pain. She will see the patient moving forward. Prognosis is guarded. Dictation was produced using [employer] dictation software. Please excuse any grammatical, word or spelling errors. Time with Patient: Less than 30
--- NOTE | 2025-03-09 13:46 | P.PN ---
Subjective Progress Note Date: 03/09/25 Reason for Consult (text): NSTEMI History of present illness: This is an 79-year-old male patient of Dr. Zhao with past medical history of coronary artery disease status post CABG and previous to that stents, carotid stenosis bilaterally, hypertension, hyperlipidemia, diabetes mellitus type 2, chronic kidney disease, home O2. We have been asked to evaluate the patient for NSTEMI. Patient states he has had chest pain on and off for the past week. The pain also involves his bilateral arms. It gradually worsened over time and he decided to come in to the hospital for further evaluation. Blood pressure 139/65, heart rate 65, pulse ox 98% on room air. Patient has been started on heparin drip. Patient is seen today in the emergency center waiting for a bed on the cardiac stepdown unit. Dr. Luke discussed with the patient plan for treatment. Patient has opted for conservative management at this time. He is chest pain-free at the time of this exam. We will plan to make the patient n.p.o. and further evaluate in the morning. -EKG: Sinus rhythm with anterior and lateral ST changes that are new. -Chest x-ray: Similar multifocal airspace opacities. -Laboratory studies: WBC 9.6, hemoglobin 10.9. Sodium 140, potassium 5.8, BUN 49 creatinine 2.59. Troponin 0.466. -Home cardiac medications: Amlodipine 10 mg daily, aspirin 81 mg daily, Plavix 75 mg daily, Jardiance 10 mg daily, hydralazine 50 mg twice daily, Imdur 30 mg daily, metoprolol tartrate 25 mg twice daily, Nitrostat as needed, Ranexa 500 mg daily, simvastatin 40 mg at bedtime. -Echocardiogram performed at [facility] on 02/07/2024 revealed EF of 50 to 55%, moderate increased left ventricular wall thickness. Mildly dilated left atrium. No pericardial effusion. -Cardiovascular surgery: Four-vessel CABG HERNANDEZ to LAD, VG to R1, VG to PDA, VG to circumflex on 11/29/2018 -Lexiscan Cardiolite stress test performed 03/13/2024 revealed EF of 49%, lateral fixed and inferior apical defect. 03/08/2025 Patient seen today on the cardiac stepdown unit. He denies chest pain at this time. Blood pressure 127/82, heart rate in the 60s and 70s, pulse ox 93% on room air. Repeat blood work reveals hemoglobin 10.5, BUN 49 creatinine 2.67. Echocardiogram is pending. Dr. Luke also discussed again today what patient's wishes are regarding next steps in the form of cardiac catheterization and patient would like to continue conservative management. 03/09/2025 Patient states that he had a small amount of pain last evening in the chest. He denied any at the time of evaluation. We are planning to allow the patient to go home after he ambulated in the hallway. However, patient walked the length of the hallway and back and he did develop a little tightness in his chest. Blood pressure 115/54, heart rate 62, pulse ox 95% on room air. Repeat blood work reveals hemoglobin 10.5, BUN 47 and creatinine 2.39. Potassium 4.7. Echocardiogram reveals EF 45 to 50%, mild mitral and tricuspid regurgitation. Results of the echocardiogram reviewed with the patient. Physical examination: Gen: This is 79-year-old male in no acute distress VS: reviewed HEENT: Head is atraumatic, normocephalic. Pupils equal, round. Sclerae is anicteric. NECK: Supple. No JVD. LUNGS: Clear to auscultation. No wheezes or rhonchi. No intercostal retractions. HEART: Regular rate and rhythm. No murmur. ABDOMEN: Soft No tenderness. EXTREMITIES: No pedal edema. No calf tenderness. NEUROLOGICAL: Patient is awake, alert and oriented x3. Assessment: NSTEMI History of coronary artery disease with previous CABG and previous to that stents Carotid stenosis DM HTN HLD Chronic kidney disease Plan: Continue current cardiac medications: Aspirin 81 mg daily, amlodipine 10 mg daily, atorvastatin, Farxiga, hydralazine 50 mg twice daily, Lopressor 25 mg twice daily On this hospitalization, Imdur was increased to 60 mg daily and Ranexa 500 mg twice daily added Discontinue Nitropaste Discontinue heparin drip Plan is for conservative medical management Monitor overnight and most likely discharge home tomorrow Further recommendations to follow based upon clinical course Nurse practitioner note has been reviewed, I agree with documented findings and plan of care. Patient was seen and examined. Objective - Vital Signs Vital signs: Vital Signs Temp 97.4 F L 03/09/25 05:30 Pulse 82 03/09/25 05:30 Resp 18 03/09/25 05:30 BP 117/68 03/09/25 05:30 Pulse Ox 95 03/09/25 05:30 FiO2 Intake & Output 03/08/25 03/09/25 03/09/25 18:59 06:59 18:59 Intake Total 702.464 20 Balance 702.464 20 Weight 104.9 kg Intake: IV 20 20 Invasive Line 1 20 20 Intake, IV Titration 182.464 Amount Heparin Sod,Pork in 0.45% 182.464 NaCl 25,000 unit In 0.45 % NaCl 1 250ml.bag @ 9.07 UNITS/KG/HR 9.997 mls/hr IV .Q24H [facility] Rx#: [id number] Oral 500 Other: Voiding Method Toilet Toilet # Voids 1 1 - Labs CBC & Chem 7: 03/09/25 07:30 03/09/25 07:30 Labs: Abnormal Lab Results - Last 24 Hours (Table) 03/08/25 03/08/25 03/08/25 Range/Units 06:48 09:37 11:46 RBC (4.40-5.60) 10*6/uL Hgb (13.0-17.0) g/dL Hct (39.6-50.0) % MCH (27.0-32.0) pg MPV (9.5-12.2) fL APTT (22.0-30.0) sec Sodium 135 L (137-145) mmol/L Carbon Dioxide 13 L (22-30) mmol/L BUN 49 H (9-20) mg/dL Creatinine 2.67 H (0.66-1.25) mg/dL Glucose 183 H (74-99) mg/dL POC Glucose (mg/dL) 206 H 218 H (70-110) mg/dL 03/08/25 03/08/25 03/09/25 Range/Units 15:49 19:55 06:00 RBC (4.40-5.60) 10*6/uL Hgb (13.0-17.0) g/dL Hct (39.6-50.0) % MCH (27.0-32.0) pg MPV (9.5-12.2) fL APTT 42.7 H (22.0-30.0) sec Sodium (137-145) mmol/L Carbon Dioxide (22-30) mmol/L BUN (9-20) mg/dL Creatinine (0.66-1.25) mg/dL Glucose (74-99) mg/dL POC Glucose (mg/dL) 145 H 127 H (70-110) mg/dL 03/09/25 03/09/25 Range/Units 07:30 07:30 RBC 3.90 L (4.40-5.60) 10*6/uL Hgb 10.5 L (13.0-17.0) g/dL Hct 32.6 L (39.6-50.0) % MCH 26.9 L (27.0-32.0) pg MPV 9.0 L (9.5-12.2) fL APTT 46.9 H (22.0-30.0) sec Sodium (137-145) mmol/L Carbon Dioxide (22-30) mmol/L BUN (9-20) mg/dL Creatinine (0.66-1.25) mg/dL Glucose (74-99) mg/dL POC Glucose (mg/dL) (70-110) mg/dL
[2025-03-09 16:34] LABS: Glucose,Whole Blood 202 mg/dL (70-110)
[2025-03-09 20:34] LABS: Glucose,Whole Blood 142 mg/dL (70-110)
[2025-03-10 06:16] LABS: Glucose,Whole Blood 84 mg/dL (70-110)
[2025-03-10 11:19] LABS: Glucose,Whole Blood 189 mg/dL (70-110)
--- NOTE | 2025-03-10 11:31 | P.PN ---
Subjective Progress Note Date: 03/10/25 Principal diagnosis: Chest pain. Pulmonary consult dated March 07, 2025. 79-year-old male with history of CAD, with previous stents, previous CABG x 4 vessel, hypertension, hyperlipidemia, GERD, diabetes, and stage III chronic kidney disease. The patient states that for the last week or so, he has been having chest pain. It got very bad, over the last day or so, and he was c onvinced to come to the hospital, by his daughter, who works as a medical education coordinator. The patient's chest pain as mentioned, has been sharp and dull. In addition he admits to shortness of breath. Sometime this morning at about 10 or 1030, the chest pain seemed to dissipate, when he was here in the emergency department. He was seen by cardiology, who thought the patient may have an non- ST segment elevation myocardial infarction. He is currently on room air. Saturations are 96%. He is getting IV heparin. White count is 9.6, hemoglobin 10.9, hematocrit 33.8, platelet count was normal. Coagulation studies are normal. Sodium 140, potassium 5.8, repeat 5.1, lords 105, CO2 22, BUN 49, crea tinine 2.59. Glucose was 157. Troponins were 0.466, and 0.469. EKG was evaluated. Progress note dated 03/08/2025. 79-year-old male with a well-established history of CAD. The patient was seen in the emergency department yesterday with chest pain. Cardiology saw the patient and is opting for more conservative management. Initially the patient states that he was going to have a cardiac catheterization. He has a history of CAD with previous stents, four-vessel bypass grafting, hypertension, hyperlipidemia, among other things. He is resting comfortably in bed. He is on room air. He continues on IV heparin. He did have chest pain last night, at 11 PM. Does not have any chest pain today. Current labs include a white count of 9.5, hemoglobin 10.5, hematocrit 33.1, and platelet count 219,000. PTT is 37. Sodium 135, potassium 5.1, chlorides 104, CO2 13, anion gap 18, BUN 49, crea tinine 2.67. Glucose is 218. Calcium is 9.3. Progress note dated March 09, 2025. 79-year-old male with a history of well-established CAD. The patient was seen in the emergency department, 2 days ago. He came in with chest pain. Cardiology decided to manage him conservatively. Initially he thought he might have a repeat cardiac catheterization. Yesterday he was on IV heparin. Today he is on room air. No fluids. He has no pain or difficulty in his breathing. Current labs showed a white count 8.5, hemoglobin 10.5, hematocrit 32.6, and a platelet count that is 211,000. PTT is 46.9, but that was when he was receiving heparin. The heparin has been turned off. Sodium 136, potassium 4.7, chlorides 105, CO2 19, anion gap 12, BUN 47, creatinine 2.39. Glucose 189. Calcium 9.5. Progress note dated March 10, 2025. 79-year-old male with a history of CAD. The patient came into the emergency department, with chest pain. Currently, he is on room air, no fluids. The patient is hoping to be discharged today. He had been on heparin, but that has been discontinued. No new labs today other than a glucose of 189. Objective - Vital Signs Vital signs: Vital Signs Temp 97.6 F 03/10/25 09:00 Pulse 73 03/10/25 09:00 Resp 14 03/10/25 09:00 BP 118/64 03/10/25 09:00 Pulse Ox 95 03/10/25 09:00 FiO2 Intake & Output 03/09/25 03/10/25 03/10/25 18:59 06:59 18:59 Intake Total 225 480 370 Balance 225 480 370 Weight 104.6 kg Intake: IV 10 Invasive Line 1 10 Intake, IV Titration 225 Amount Lactated Ringers 1,000 ml 225 @ 75 mls/hr IV .[id number] [facility] Rx#:[id number] Oral 480 360 Other: Voiding Method Toilet Toilet # Voids 1 2 - Exam No acute distress, oriented 3. Currently on room air. HEENT examination is grossly unremarkable. Mucous membranes are moist. No oral lesions. Neck supple. Full range of motion. No adenopathy thyromegaly or neck vein d istention. Cardiovascular examination reveals regular rhythm rate. S1-S2 normal. No S3 or S4. No discernible murmur noted. Lungs reveal clear breath sounds. Breath sounds are equal bilaterally. No adventitious lung sounds including wheezes rhonchi or crackles. Abdomen soft bowel sounds are heard. No masses or tenderness. Extremities are intact. No cyanosis clubbing or edema. Skin is without rash or lesion. Neurologic examination is brief but nonfocal. - Labs CBC & Chem 7: 03/09/25 07:30 03/09/25 07:30 Labs: Abnormal Lab Results - Last 24 Hours (Table) 03/09/25 03/09/25 03/09/25 Range/Units 11:47 16:33 20:32 POC Glucose (mg/dL) 189 H 202 H 142 H (70-110) mg/dL 03/10/25 Range/Units 11:17 POC Glucose (mg/dL) 189 H (70-110) mg/dL Assessment and Plan Assessment: Chest pain, with associated shortness of breath, rule out non-ST segment elevation myocardial infarction. History of CAD, with previous stents. Previous history of CABG, x 4 vessel. History of hypertension. Hyperlipidemia. Diabetes mellitus. Stage III chronic kidney disease. History of gastroesophageal reflux disease. Plan: Plan dated March 07, 2025. The patient was seen by cardiology. According to their plan, there going to do a 2D echocardiogram and Doppler study, and they recommended more conservative medical management. The patient is apparently n.p.o. after midnight. The patient himself mention something about a cardiac catheterization, although it was not mentioned in the cardiac consultation. We will continue to follow make recommendations along the way. His respiratory status is stable. He is on room air. Saturations are excellent. He is really not having much in the way of complaints at the current time, and even his chest pain, seems to have subsided, since about 10:00 or 1030 this morning. Dictation was produced using [employer] software. Please excuse any grammatical, word or spelling errors. Plan dated March 08, 2025. The patient was seen by cardiology. They are planning more conservative management on this patient. Currently he is on IV heparin. We will continue to follow. Labs are reviewed. X-rays, and medications are reviewed. The patient is currently not having any chest discomfort. He did have some chest pain last night at 11 PM. We will continue to follow make recommendations along the way. Prognosis is guarded. Dictation was produced using [employer] software. Please excuse any grammatical, word or spelling errors. Plan dated March 09, 2025. The patient is seen in room 367. He is resting comfortably, in the chair next to the hospital bed. He is not on any IV fluids. Heparin has been discontinued. He is on room air. Labs, x-rays, and medications are reviewed. The plan by cardiology, was conservative management. Clinically, the patient is doing well. No additional chest pain. She will see the patient moving forward. Prognosis is guarded. Dictation was produced using [employer] software. Please excuse any grammatical, word or spelling errors. Plan dated March 10, 2025. The patient is seen today in room 367. The patient is doing well. No chest pain. He is on room air. No IV fluids. No new labs today. Cardiology decided on conservative medical management. The patient is hoping to be discharged. Will follow-up in the office with my partner. Dictation was produced using [employer] software. Please excuse any grammatical, word or spelling errors. Time with Patient: Less than 30
[2025-03-10 12:29] VITALS: RESP 16
--- NOTE | 2025-03-10 14:14 | P.DS ---
Providers Date of admission: 03/07/25 11:51 Attending physician: Teresa Lakhani MD Consults: 03/07/25 11:58 Consult Physician Routine Consulting Provider: [facility] Consult Reason/Comments: NSTEMI Do you want consulting provider notified?: Already Contacted Primary care physician: Jarred Scott Hospital Course: Discharge Diagnosis: NSTEMI History of CAD s/p CABG x 4 Hypertension, hypertensive urgency upon arrival Hyperlipidemia Hypokalemia, resolved Type II DM on insulin Chronic anemia COOKIE on CKD stage IIIb, resolved Hospital Course: A 79 yo male with PMH of CAD with previous stents and status post CABG x 4, hypertension, hyperlipidemia, GERD, insulin-dependent diabetes mellitus, and stage IIIb chronic kidney disease who presents to the ER for evaluation of chest pain that started around 1 week ago. Patient does not remember any precipitating events. he states that pain comes and goes, it wakes him up from sleep, denies associated shortness of breath, nausea, vomiting, dizziness, fever, chills, abdominal pain, changes in bowel habits, lower extremity sensation changes or swelling. Pain improves when he sits up and rests, he notices that he develops chest pain with exertion, not sure how much exertion he can tolerate. On arrival afebrile, HR in 70s, BP 149/70, satting well on RA. Lab work revealed normalWBC, hb 10.9, at baseline, potassium 5.8, normal Na Cr 2.59, baseline around 2.3. Troponin 0.466. EKG showed sinus rythm ST depression in V2, V5,, T inversion, Xray showed multifocal airspace opacities. Patient has these changes on the prior Xray, Patient was started on heparin drip, cardiology contacted by ER provider, plan for TTE, admitted as inpatient for further evaluation. 03/08: Patient was seen and examined at bedside, overnight he had a fall without loss of consciousness or head trauma, he slipped over in the bathroom. Denies chest pain, shortness of breath. His vitals are stable, satting well on room air. His CBC is stable, creatinine went up to 2.67, started on gentle IV hydration, blood glucose is not optimally controlled, will adjust basal bolus regimen. Cardiology added ranolazine 500 twice daily. TTE EF 45 to 50%, no obvious regional wall motion abnormalities. 03/09: Patient seen and examined at bedside, had an episode of chest pain overnight, he then developed chest pressure on ambulation. No SOB. He is afebrile with stable vitals.. No leukocytosis, creatinine improved to 2.39, glucose controlled, sodium 136, normal potassium. Discussed with cardiology, RN, patient will stay overnight, monitor exertional chest pain. His Imdur was increased to 60 daily 03/10: Seen and examined at bedside, no acute events overnight, no chest pain since yesterday, patient feels well, no active complaints, patient is stabilized for discharge,, discussed with cardiology, Dr Cespedes, follow-up with PCP, nephrology and cardiology Patient seen and examined at bedside. Vital signs reviewed and stable. General: Nontoxic, no distress and appears stated age. Derm: Skin warm and dry, normal coloration for ethnicity. Head: Atraumatic, normocephalic and symmetric. Eyes: EOMs intact, no lid lag, and anicteric sclera Mouth: no lip lesions, mucus membranes moist Cardiovascular: regular rate and rhythm with normal S1S2, systolic murmur, positive posterior tibial pulses bilaterally, and cap refill < 2 seconds. Lungs: Respirations even, regular, and unlabored on room air. Lungs CTA bilaterally, no rhonchi, no rales, no wheezing, and no accessory muscle usage. Abdominal: soft, nontender to palpation, no guarding, no appreciable organomegaly Ext: ROM intact. No gross muscle atrophy, no edema, no contractures Neuro: Speech clear, face symmetrical and CN II-XII grossly intact with no noted focal neuro deficits Psych: Alert and oriented to person, place, time, and situation. Appropriate and pleasant affect. A total of 40 minutes of time were spent preparing this complex discharge summary. Patient was discharged on 03/10/2025. Patient Condition at Discharge: Serious Plan - Discharge Summary Discharge Rx Participant: Yes New Discharge Prescriptions: New Isosorbide Mononitrate ER [Imdur] 60 mg PO DAILY #30 tab Atorvastatin [Lipitor] 80 mg PO HS #30 tab Ranolazine [Ranexa] 500 mg PO Q12HR #30 tab Continue Gabapentin 600 mg PO DAILY Insulin Aspart [NovoLOG Flexpen] 16 units SQ TID-W/MEALS Gabapentin [Neurontin] 1,200 mg PO HS Omeprazole 20 mg PO DAILY Cyanocobalamin (Vitamin B-12) [Vitamin B-12] 1,000 mcg PO DAILY Tamsulosin [Flomax] 0.4 mg PO HS Empagliflozin [Jardiance] 10 mg PO DAILY Aspirin EC [Ecotrin Low Dose] 81 mg PO DAILY hydrALAZINE HCL [Apresoline] 50 mg PO BID Metoprolol Tartrate 25 mg PO BID Nitroglycerin Sl Tabs [Nitrostat] 0.4 mg SUBLINGUAL Q5M PRN PRN Reason: Chest Pain Insulin Glargine,Hum.rec.anlog [Lantus Solostar Pen] 40 units SQ HS Insulin Aspart [NovoLOG Flexpen] See Protocol SQ TID-W/MEALS Clopidogrel [Plavix] 75 mg PO HS amLODIPine [Norvasc] 10 mg PO DAILY #30 tab Sodium Bicarbonate Tab 650 mg PO BID #60 tab Ferrous Sulfate [Iron (65 MG Elemental)] 325 mg PO DAILY Discontinued Simvastatin [Zocor] 40 mg PO HS Ranolazine [Ranexa] 500 mg PO DAILY Isosorbide Mononitrate ER [Imdur] 30 mg PO DAILY Discharge Medication List Gabapentin 600 mg PO DAILY 06/20/15 [History] Insulin Aspart [NovoLOG Flexpen] 16 units SQ TID-W/MEALS 11/02/18 [History] Gabapentin [Neurontin] 1,200 mg PO HS 11/24/18 [History] Metoprolol Tartrate 25 mg PO BID 07/10/21 [History] Omeprazole 20 mg PO DAILY 07/10/21 [History] Cyanocobalamin (Vitamin B-12) [Vitamin B-12] 1,000 mcg PO DAILY 02/07/24 [History] Insulin Aspart [NovoLOG Flexpen] See Protocol SQ TID-W/MEALS 02/07/24 [History] Insulin Glargine,Hum.rec.anlog [Lantus Solostar Pen] 40 units SQ HS 02/07/24 [History] Nitroglycerin Sl Tabs [Nitrostat] 0.4 mg SUBLINGUAL Q5M PRN 02/07/24 [History] Tamsulosin [Flomax] 0.4 mg PO HS 02/07/24 [History] Clopidogrel [Plavix] 75 mg PO HS 10/16/24 [History] Empagliflozin [Jardiance] 10 mg PO DAILY 10/16/24 [History] Sodium Bicarbonate Tab 650 mg PO BID #60 tab 10/18/24 [Rx] amLODIPine [Norvasc] 10 mg PO DAILY #30 tab 10/18/24 [Rx] Aspirin EC [Ecotrin Low Dose] 81 mg PO DAILY 03/07/25 [History] Ferrous Sulfate [Iron (65 MG Elemental)] 325 mg PO DAILY 03/07/25 [History] hydrALAZINE HCL [Apresoline] 50 mg PO BID 03/07/25 [History] Atorvastatin [Lipitor] 80 mg PO HS #30 tab 03/09/25 [Rx] Isosorbide Mononitrate ER [Imdur] 60 mg PO DAILY #30 tab 03/09/25 [Rx] Ranolazine [Ranexa] 500 mg PO Q12HR #30 tab 03/09/25 [Rx] Follow up Appointment(s)/Referral(s): Jarred Scott MD [Primary Care Provider] - 1-2 days Kacie Zhao MD [STAFF PHYSICIAN] - 1 Week Harry Khan DO [STAFF PHYSICIAN] - 1 Week Patient Instructions/Handouts: Chest Wall Pain (GEN) Activity/Diet/Wound Care/Special Instructions: Please, follow-up with your primary care physician, 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
[2025-03-10 15:58] VITALS: BP 132/72; PULSE 70; TEMP 97.4
== END 2025-03-10 16:13 | disposition home or self-care (01) | DRG 281 ==
LOC: EC 10:19 → 3SCARD 11:51
PROVIDERS: ADMIT Student in an Organized Health Care Education/Training Program; ATTEND Student in an Organized Health Care Education/Training Program
DX: I21.4 Non-ST elevation (NSTEMI) myocardial infarction (principal); N17.9 Acute kidney failure, unspecified; Z66 Do not resuscitate; D63.1 Anemia in chronic kidney disease; E11.65 Type 2 diabetes mellitus with hyperglycemia; Z95.1 Presence of aortocoronary bypass graft; N18.32 Chronic kidney disease, stage 3b; I12.9 Hypertensive chronic kidney disease with stage 1 through stage 4 chronic kidney disease, or unspecified chronic kidney disease; I65.29 Occlusion and stenosis of unspecified carotid artery; E11.22 Type 2 diabetes mellitus with diabetic chronic kidney disease; Z79.4 Long term (current) use of insulin; E11.42 Type 2 diabetes mellitus with diabetic polyneuropathy; I16.0 Hypertensive urgency; E87.5 Hyperkalemia; I25.10 Atherosclerotic heart disease of native coronary artery without angina pectoris; E78.5 Hyperlipidemia, unspecified; K21.9 Gastro-esophageal reflux disease without esophagitis; Z79.82 Long term (current) use of aspirin; Z79.899 Other long term (current) drug therapy; E87.6 Hypokalemia; I25.2 Old myocardial infarction; M19.90 Unspecified osteoarthritis, unspecified site; I44.0 Atrioventricular block, first degree; Z79.84 Long term (current) use of oral hypoglycemic drugs; Z59.6 Low income; Z71.6 Tobacco abuse counseling; Z85.828 Personal history of other malignant neoplasm of skin; Z95.5 Presence of coronary angioplasty implant and graft; W19.XXXA Unspecified fall, initial encounter; Y92.230 Patient room in hospital as the place of occurrence of the external cause; Z87.19 Personal history of other diseases of the digestive system; Z98.42 Cataract extraction status, left eye; Z98.41 Cataract extraction status, right eye
CPT/HCPCS: 36415; 71045; 80048; 80053; 83735; 84132; 84484; 85025; 85610; 85730; 93005; 93306; 96365; 96366; 99291